=== PATIENT | female | born 1960 | race Caucasian/White ===

== ENCOUNTER 2019-05-11 06:02 | Outpatient (RCR) | payer MEDICAID, SELFPAY | END 2019-05-26 00:01 | LOC: ONCMED 06:02 | PROVIDERS: Family Provider Family Medicine; Visit Provider Internal Medicine Hematology & Oncology | DX: Z51.12 Encounter for antineoplastic immunotherapy (principal); C34.11 Malignant neoplasm of upper lobe, right bronchus or lung; C79.31 Secondary malignant neoplasm of brain; C77.1 Secondary and unspecified malignant neoplasm of intrathoracic lymph nodes; R55 Syncope and collapse; R44.3 Hallucinations, unspecified; J44.9 Chronic obstructive pulmonary disease, unspecified; F17.200 Nicotine dependence, unspecified, uncomplicated; Z79.899 Other long term (current) drug therapy; Z95.828 Presence of other vascular implants and grafts ==

== ENCOUNTER 2019-06-24 05:44 | Outpatient (RCR) | payer MEDICAID, SELFPAY ==
[2019-06-03 08:25] LABS: Basophils % 0.2 %; Hematocrit 33.1 % (37.0-47.0); Hemoglobin 10.7 g/dL (11.5-15.3); Lymphocytes # 1.3 10^3/uL (0.8-4.8); Lymphocytes % 24.8 %; Mean Corpuscular HGB Conc 32.3 g/dL (30.0-36.0); Mean Corpuscular Hemoglobin 28.6 pg (28.0-34.0); Mean Corpuscular Volume 88.5 fL (81-99); Mean Platelet Volume 8.5 fL (7.4-10.4); Monocytes # 0.8 10^3/uL (0.2-0.9); Monocytes % 14.8 %; Neutrophils # 3.1 10^3/uL (1.8-7.7); Neutrophils % 59.4 %; Nucleated Red Blood Cells % 0 %; Platelet Count 254 10^3/cmm (130-400); Red Blood Count 3.74 10^6/uL (4.1-5.3); Red Cell Distribution Width 21.2 % (12.1-15.1); White Blood Count 5.2 10^3/uL (4.0-10.0)
[2019-06-03 08:46] LABS: Alanine Aminotransferase 46 U/L (0-33); Albumin Level 4.2 g/dL (3.5-5.2); Alkaline Phosphatase 106 IU/L (35-105); Aspartate Amino Transferase 35 U/L (0-32); Blood Urea Nitrogen 3 mg/dL (6-20); Calcium 10.1 mg/Dl (8.6-10.0); Carbon Dioxide 23 mmol/L (22-29); Chloride 103 mmol/L (98-107); Globulin 2.6 g/dL (1.3-4.6); Glomerular Filtration Rate 102.7 mL/min (90-130); Glucose 137 mg/dL (74-109); Sodium 139 mmol/L (136-145); Total Bilirubin 0.3 mg/dL (0.15-1.2); Total Protein 6.8 g/dL (6.6-8.7)
--- NOTE | 2019-06-08 10:49 | ONC FU_ITS ---
[facility] Patient Note Patient: Alma Deleon Unit #: [id number]: [id number] Dictated By: Elly HarrisDate of Visit: Jun 03, 2019 Onc MED Follow-Up/Prog Note Chief Complaint: Metastatic adenocarcinoma of the lung History of Present Illness: Mrs. Deleon is a 58-year-old female with history of progressive cough. She underwent evaluation on July 07, [address] scan of chest. It reported bilateral upper lobe masses: the mass on right side was 5.9 x 4.1 x 4.9 cm and on the left side was 4.6 x 2.8 x 2.8 cm. On 11/14/2018 patient underwent EBUS , which showed there was 90% narrowing of right upper lobe bronchus due to extensive compression, and right-sided mediastinal and hilar lymph node were enlarged and endobronchial right upper lobe and lymph node biopsies were obtained final pathology report came back poorly differentiated adenocarcinoma consistent with lung primary from right upper lobe endobronchial biopsy. And both lymph node biopsies were negative. Molecular profiling which include EGFR, ALK, ROS 1, PDL 1 and BRAF were done and it showed PDL 1 was 95% tumor cells are positive membranous positivity and rest of molecular profiling was unremarkable. Staging workup including CT PET scan and MRI brain was obtained. The CT PET scan on 12/04/2018 showed hypermetabolic centrally necrotic mass within the right upper lobe abutting adjacent pleura, major fissure, and mediastinum with tumor extension into the right superior hilum, with SUV of 13. Additional centrally necrotic hypermetabolic mass in the left upper lobe with a SUV of 20.9, abutting the adjacent pleura and left major fissure and AP window lymph nodes consistent with elfego metastatic disease. No hypermetabolic metastasis in neck abdomen or pelvis. MRI brain showed 5 mm lesions in the left temporal lobe, and left parietal lobe with mild adjacent edema. Mrs Deleon underwent CyberKnife on 01/02/2019. She was offered palliative chemotherapy plus immunotherapy. She declined and she was also referred to radiation oncology for her right-sided chest pain radiating to her neck and patient declined. With tumor being PDL 1 positive, role of immunotherapy with Keytruda was discussed and patient was willing to consider but then decided to come to [facility] for further management. Ms Deleon still smokes about pack a day and has history of smoking for 30-40 years, denies alcohol use. She is still smoking about pack a day AGAINST MEDICAL ADVICE. Ms Deleon started her first cycle of chemotherapy with carboplatin/Alimta/Keytruda on March 09, 2019. She is tolerated it well. Her second cycle was given on March 30, 2019. She states since then she is feeling so much better her breathing is so much better. She states it is amazing how much better she is breathing and how much better she feels overall. Ms. Deleon is here today for follow-up. She was scheduled to see Dr. Soares but unfortunately he was out sick today. Therefore, I spoke with her regarding her PET CT from 05/16/2019. Per the report from 05/16/2019 there was no comparison image available for comparison. We will call [facility] radiology and request over read as she did have a PET CT in November 2018. This PET CT was NOT performed at [facility]. We will obtain the disc and have it sent to them for an over read for comparison. However in the interim just comparison of report indicates that the right upper lobe mass now measuring 5.8 x 3.3 cm with a peripheral uptake of SUV 4.6 was reported as 5.4 x 7.5 x 7 cm with an SUV of 30.6 on the November 2018 study. A left upper lobe mass measuring 5.2 x 6.4 cm on the current study with an SUV of 7.6 was compared to the November study at which time it measured 5.9 x 6.6 x 5 point centimeters with an SUV of 20.9. There is a solid right middle lobe nodule measuring 1.8 x 2.5 cm with SUV of 5.4 and small scattered mediastinal nodes demonstrating minimal FDG uptake although this may be reactive, although micrometastatic disease cannot be excluded. I discussed these findings with Mrs. Deleon and informed her that these are just report comparisons. We will request [facility] to re-read her 05/16/2019 study for comparison with the PET/CT from November 2018. However in the interim the SUV activity has greatly improved and there has been reported decrease in size of the tumors. She has completed 4 cycles of carboplatin Alimta and Keytruda. She states she is in the understanding that she would only complete 4 cycles of the actual chemotherapy and transition to just the immunotherapy. We discussed that I felt there has been improvement in the activity reported on the PET CT from April 2019. We will have Dr. Soares review her report and hopefully by then the comparison will be available. She is aware that he may elect to resume her actual chemotherapy along with the Keytruda but for today we will treat her only with the Keytruda. She states she continues to do well. Her breathing is doing great . She has no new concerns. Mrs. Deleon reports that she continues to have persistent hoarseness. She states her throat really does not hurt but her voice comes and goes. She states most the time it is very limited. She denies any pain per se with the hoarseness. She states it is just aggravating. She reports that the hoarseness has been there since before her initial chemotherapy but has not gotten any better. There are no abnormal findings in the throat/neck area on her recent PET CT from 05/16/2019. She states she would like to know why she is having hoarseness that this is a side effect of the chemotherapy if there is some other issue. She is agreeable to seeing Dr. Gamez in ENT. She states she is eating good. Energy is good. She denies any diarrhea or constipation. She has had no signs of any pneumonitis or colonitis. She denies any nausea or vomiting. She has had no further episodes of the near syncope/hallucinations reported at last visit. Her ECOG is 0. Past Medical History: Ms. Deleon's medical history is unremarkable. Past Surgical History: Ms. Deleon's surgical history is unremarkable. Allergies: Penicillin Medications: Albuterol Sulfate HFA Aerosol, solution Inhalation PRN Dexamethasone (4 mg) Tablet Oral b.i.d. diphenhydrAMINE HCl 1 - 2 Capsule (of 25 mg) Oral daily Folic Acid 1 (1 mg) Tablet Oral daily HYDROcodone-Acetaminophen 1 Tablet (of 5-325 mg) Oral four times a day Spiriva HandiHaler 1 (18 mcg) Capsule Inhalation daily Family History: pt was raised in the foster care. Social History: Ms. Deleon is and she is a disabled. She is a daily smoker who has smoked 0.5 packs/day for 40 years. She has no history of drinking. Review Of Symptoms: Constitutional Denies fevers, chills, night sweats, excessive fatigue or weight loss. Allergic/Immunologic No reactions. Eyes Denies significant visual changes. No diplopia. No amaurosis. ENMT Denies changes in hearing, mouth sores, difficulty or changes in swallowing ability. She is still having hoarseness-see above. Hematologic/Lymphatic Denies easy bruising or bleeding. The patient denies any tender or palpable lymph nodes. Respiratory Dramatically improved dyspnea on exertion. Denies chest pain, cough or hemoptysis. Denies orthopnea. Cardiovascular Denies anginal chest pain, palpitations or orthopnea. Gastrointestinal Denies nausea, vomiting, diarrhea, GI bleeding, or constipation. Denies change in bowel habits and/or stool color, no heartburn or early satiety. Genitourinary (F) No hematuria, hesitancy, incontinence, vaginal bleeding, discharge or other problems with urination. Musculoskeletal Denies joint pain, swelling or redness. No decreased range of motion. Integumentary Denies chronic rashes, inflammation, ulcerations or skin changes. Neurologic Denies blurred vision, and no areas of focal weakness or numbness. Normal gait. No sensory problems. Psychiatric Denies insomnia, depression, fran or mood swings. Vital Signs: Performed on Jun 03, 2019 09:30 Height - 63.00 in Temperature - 98.7 F Pulse - 78 /min Respiration - 18 /min BP - 127/87 mm(hg) O2 Sat - 99 % Pain - 0 Fatigue - 0,0 - Fully active, able to carry on all predisease activities without restrictions. (ECOG) Physical Examination: Constitutional Alert, oriented, no acute distress. Skin pink, warm and dry. Head Normocephalic; atraumatic. Eyes Conjunctivae and sclerae are clear and without icterus. Pupils are reactive and equal. Neck Supple without masses or thyromegaly. No jugular venous distension. Hematologic/Lymphatic No petechiae or purpura. No tender or palpable lymph nodes in the cervical or supraclavicular areas. Slight bilateral mandibular area adenopathy. Respiratory Lungs are clear to auscultation. Cardiovascular Regular rate and rhythm of heart without murmurs,clicks, gallops or rubs. Back/Spine Non-tender to palpation. Extremities No visible deformities, no cyanosis, clubbing or edema. Musculoskeletal No tenderness or swelling, normal range of motion without obvious weakness. Integumentary No rashes or lesions. Neurologic No sensory or motor deficits, normal cerebellar function, normal gait. Psychiatric Alert and oriented times three. Coherent speech. Verbalizes understanding of our discussions today. Laboratory:Test performed on Jun 03, 2019 08:52 Glucose 137 mg/dL BUN 3 mg/dL Creatinine 0.6 mg/dL Cr Clearance (Est) 90.31 mL/min Sodium 139 mmol/L Potassium 4 mmol/L Chloride 103 mmol/L CO2 103 mmol/L Calcium 10.1 mg/dL Protein, Total 5.8 g/dL Albumin 4.2 g/dL Globulin 2.6 g/dL Bilirubin, Total 0.3 mg/dL Alkaline Phosphatase 106 IU/L AST (SGOT) 35 IU/L ALT (SGPT) 46 IU/L Test performed on Jun 03, 2019 08:38 WBC 5.2 10^9/L RBC 3.74 10^12/L HGB 10.7 g/dL HCT 33.1 % MCV 88.5 fl MCH 26.6 pg MCHC 32.2 g/dL RDW 21.2 % Platelet Count 254 10^9/L MPV 8.5 fL Neutrophils (Gran) 3.1 10^9/L Lymphocytes 1.3 10^9/L Monocytes 0.8 10^9/L Eosinophils 0 10^9/L Basophils 0 10^9/L Manual Lymphocytes 24.8 % Manual Monocytes 14.8 % Manual Eosinophils 0 % Manual Basophils 0.2 % Atypical Lymphs 1.3 % Test performed on Apr 20, 2019 09:35 TSH 0.50 uIU/mL Impression: Stage IV, 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 Next Stage IV, M1 a due to separate tumor nodule in the contralateral lobe and brain metastases 5 mm ???[address] PET scan done on 12/04/2018 showed hypermetabolic centrally necrotic mass within the right upper lobe abutting adjacent pleura, major fissure and mediastinum with tumor extension into right superior hilum. Additional centrally necrotic hypermetabolic mass within left upper lobe abutting the adjacent pleura and left major fissure with tumor extension to the left superior hilum. Hypermetabolic right hilar, precarinal, and AP window lymph nodes consistent with a node metastases. No hypermetabolic metastasis within the neck, abdomen or pelvis. MRI scan of the head showed 5 mm ???2 lesion status post CyberKnife on 01/02/2019. Active smoker AGAINST MEDICAL ADVICE; COPD Ms. Deleon began her first cycle of carbo Alimta Keytruda on March 09, 2019. She is tolerated it well thus far. She states that after the second cycle of chemotherapy her breathing is so much better that is amazing . She states that she is now breathing through her nose when she is sleeping and that is something she has not done in years. She states overall she is feeling so much better. I spoke with her regarding her PET CT from 05/16/2019. Per the report from 05/16/2019 there was no comparison image available for comparison. We will call [facility] radiology and request over read as she did have a PET CT in November 2018. This PET CT was NOT performed at [facility]. We will obtain the disc and have it sent to them for an over read for comparison. However in the interim just comparison of report indicates that the right upper lobe mass now measuring 5.8 x 3.3 cm with a peripheral uptake of SUV 4.6 was reported as 5.4 x 7.5 x 7 cm with an SUV of 30.6 on the November 2018 study. A left upper lobe mass measuring 5.2 x 6.4 cm on the current study with an SUV of 7.6 was compared to the November study at which time it measured 5.9 x 6.6 x 5 point centimeters with an SUV of 20.9. There is a solid right middle lobe nodule measuring 1.8 x 2.5 cm with SUV of 5.4 and small scattered mediastinal nodes demonstrating minimal FDG uptake although this may be reactive, although micrometastatic disease cannot be excluded. I discussed these findings with Mrs. Deleon and informed her that these are just report comparisons. We will request [facility] to re-read her 05/16/2019 study for comparison with the PET/CT from November 2018. However in the interim the SUV activity has greatly improved and there has been reported decrease in size of the tumors. She has completed 4 cycles of carboplatin Alimta and Keytruda. She states she is in the understanding that she would only complete 4 cycles of the actual chemotherapy and transition to just the immunotherapy. We discussed that I felt there has been improvement in the activity reported on the PET CT from April 2019. Plan: 1. Proceed with single agent pallitative treatment with pembrolizumab today. 2. Labs from today were reviewed in detail and discussed with Ms. Payne and a copy was given to her. WBC 5.2, hemoglobin 10.7, platelets 254,000 ANC is 3100 random glucose 137 creatinine 0.6 LFTs are normal alk phos is 106. 3. We will plan referral to Dr. Gamez in ENT for evaluation of persistent hoarseness. She reports she has had hoarseness all through treatment and is not getting any better. She states that time she has no voice at all. She states some days are better than others but in general it is not gotten any better and may be somewhat worse. She denies any trouble swallowing. She denies any throat pain per se. She has had no abnormal findings on limited oral exam. She has not had any formal scoping that I am aware of. 4. We will plan to see her back in 3 weeks with CBC, CMP and TSH for immunotherapy monitoring. 5. Ms. Deleon has been instructed to contact us in the interim should questions or problems arise. Signed By: Elly Harris-ROXIE, AOGAVINP Rukhsana Soares MD <<Signature on File>>
[2019-06-24 11:28] LABS: Basophils % 0.1 %; Eosinophils % 0.1 %; Hematocrit 39.8 % (37.0-47.0); Hemoglobin 13.5 g/dL (11.5-15.3); Lymphocytes # 1.2 10^3/uL (0.8-4.8); Lymphocytes % 8.9 %; Mean Corpuscular HGB Conc 33.9 g/dL (30.0-36.0); Mean Corpuscular Hemoglobin 30.3 pg (28.0-34.0); Mean Corpuscular Volume 89.2 fL (81-99); Monocytes # 0.4 10^3/uL (0.2-0.9); Monocytes % 2.9 %; Neutrophils # 12.1 10^3/uL (1.8-7.7); Neutrophils % 87.6 %; Nucleated Red Blood Cells % 0 %; Platelet Count 284 10^3/cmm (130-400); Red Blood Count 4.46 10^6/uL (4.1-5.3); Red Cell Distribution Width 15.5 % (12.1-15.1); White Blood Count 13.8 10^3/uL (4.0-10.0)
[2019-06-24 11:54] LABS: Alanine Aminotransferase 65 U/L (0-33); Alkaline Phosphatase 112 IU/L (35-105); Anion Gap 18.9 (5-19); Aspartate Amino Transferase 37 U/L (0-32); Blood Urea Nitrogen 6 mg/dL (6-20); Calcium 10.3 mg/dL (8.5-10.5); Carbon Dioxide 24 mmol/L (22-29); Chloride 100 mmol/L (98-107); Globulin 3.8 g/dL (1.3-4.6); Glomerular Filtration Rate 85.9 mL/min (90-130); Glucose 160 mg/dL (74-109); Potassium 3.9 mmol/L (3.5-5.1); Sodium 139 mmol/L (136-145); Thyroid Stimulating Hormone 0.18 uIU/mL (0.27-4.20); Total Bilirubin 0.4 mg/dL (0.15-1.2); Total Protein 7.8 g/dL (6.6-8.7)
--- NOTE | 2019-06-24 14:36 | ONC FU_ITS ---
Dr. Soares follow up note Patient: Alma Deleon Unit #: [id number]: 1960 Dicatated By: Rukhsana Soares M.D.Date of Visit:Jun 24, 2019 Onc Med Follow-up/Prog Note History of Present Illness: Mrs. Deleon is a 58-year-old female with history of progressive cough. She underwent evaluation on July 07, [address] scan of chest. It reported bilateral upper lobe masses: the mass on right side was 5.9 x 4.1 x 4.9 cm and on the left side was 4.6 x 2.8 x 2.8 cm. On 11/14/2018 patient underwent EBUS , which showed there was 90% narrowing of right upper lobe bronchus due to extensive compression, and right-sided mediastinal and hilar lymph node were enlarged and endobronchial right upper lobe and lymph node biopsies were obtained final pathology report came back poorly differentiated adenocarcinoma consistent with lung primary from right upper lobe endobronchial biopsy. And both lymph node biopsies were negative. Molecular profiling which include EGFR, ALK, ROS 1, PDL 1 and BRAF were done and it showed PDL 1 was 95% tumor cells are positive membranous positivity and rest of molecular profiling was unremarkable. Staging workup including CT PET scan and MRI brain was obtained. The CT PET scan on 12/04/2018 showed hypermetabolic centrally necrotic mass within the right upper lobe abutting adjacent pleura, major fissure, and mediastinum with tumor extension into the right superior hilum, with SUV of 13. Additional centrally necrotic hypermetabolic mass in the left upper lobe with a SUV of 20.9, abutting the adjacent pleura and left major fissure and AP window lymph nodes consistent with elfego metastatic disease. No hypermetabolic metastasis in neck abdomen or pelvis. MRI brain showed 5 mm lesions in the left temporal lobe, and left parietal lobe with mild adjacent edema. Mrs Deleon underwent CyberKnife on 01/02/2019. She was offered palliative chemotherapy plus immunotherapy. She declined and she was also referred to radiation oncology for her right-sided chest pain radiating to her neck and patient declined. With tumor being PDL 1 positive, role of immunotherapy with Keytruda was discussed and patient was willing to consider but then decided to come to [place] for further management. Ms Deleon still smokes about pack a day and has history of smoking for 30-40 years, denies alcohol use. She is still smoking about pack a day AGAINST MEDICAL ADVICE. Ms Deleon started her first cycle of chemotherapy with carboplatin/Alimta/Keytruda on March 09, 2019. She is tolerated it well. Her second cycle was given on March 30, 2019. She states since then she is feeling so much better her breathing is so much better. She states it is amazing how much better she is breathing and how much better she feels overall. Per the report from 05/16/2019 there was no comparison image available for comparison. We will call [facility] radiology and request over read as she did have a PET CT in November 2018. comparison of report indicates that the right upper lobe mass now measuring 5.8 x 3.3 cm with a peripheral uptake of SUV 4.6 was reported as 5.4 x 7.5 x 7 cm with an SUV of 13 on the November 2018 study. A left upper lobe mass measuring 5.2 x 6.4 cm on the current study with an SUV of 7.6 was compared to the November study at which time it measured 5.9 x 6.6 x 5 point centimeters with an SUV of 20.9. There is a solid right middle lobe nodule measuring 1.8 x 2.5 cm with SUV of 5.4 and small scattered mediastinal nodes demonstrating minimal FDG uptake although this may be reactive, although micrometastatic disease cannot be excluded. her 05/16/2019 study for comparison with the PET/CT from November 2018. However in the interim the SUV activity has greatly improved and there has been reported decrease in size of the tumors. She has completed 4 cycles of carboplatin Alimta and Keytruda. Came for follow-up, denies any specific complaint except off and on hoarseness of voice for which she is supposed to see Dr. Gamez ENT, today at 3:30 PM other than that no fever or chills no nausea or vomiting no hemoptysis hematemesis, no shortness of breath no chest pain, no new bony pains, no headaches blurred vision double vision, no hallucinations. Patient so smoke about pack a day. Tolerating palliative therapy with carboplatin/Alimta/Keytruda well but with expected side effects. Medications: Albuterol Sulfate HFA Aerosol, solution Inhalation PRN, Benzonatate 1 Capsule (of 200 mg) Oral 6x/d, Dexamethasone (4 mg) Tablet Oral b.i.d., Folic Acid 1 (1 mg) Tablet Oral daily, HYDROcodone-Acetaminophen 1 Tablet (of 5-325 mg) Oral four times a day, Spiriva HandiHaler 1 (18 mcg) Capsule Inhalation daily Allergies: Penicillin Review of Systems: Constitutional - Appetite is fair and weight is stable. No fever, chills, hot flashes, or night sweats. Energy level is fair, ENMT - Positive for sinus congestion/drainage. No mouth sores. Positive for sore throat, no difficulty swallowing, Hematologic/Lymphatic - No abnormal bruising or bleeding, Respiratory - Positive for shortness of breath. No cough. No pleuritic pain or hemoptysis, Cardiovascular - No angina pain. No palpitations, Gastrointestinal - No nausea or vomiting. No heartburn or acid reflux. No diarrhea or constipation. No blood in the stool or black stools, Genitourinary (F) - No dysuria or hematuria. No urinary frequency. Positive for urgency, no incontinence, Musculoskeletal - Positive for back pain, Neurologic - No headache or dizziness. Pt reports a recent blackout/memory loss incident. She is unable to recall several hours worth of events, Psychiatric - Positive for depression, anxiety and insomnia. Vital Signs: Performed on Jun 24, 2019 13:02 Height - 63.00 in Weight - 136.0 lbs (HIGH) BSA - 1.64 sq.m BMI - 24.09 Temperature - 97.9 F (LOW) Pulse - 92 /min Respiration - 20 /min BP - 143/78 mm(hg) (HIGH) O2 Sat - 99 % Pain - 0 Performance Status: 1 - No physically strenuous activity, but ambulatory and able to carry out light or sedentary work (e.g. office work, light house work). (ECOG) Physical Examination: ENMT - No oral exudates, ulcers, masses, thrush or mucositis. Oropharynx clear. Tongue normal, Respiratory - Lungs are clear to auscultation without rhonchi or wheezing, Cardiovascular - Regular rate and rhythm of heart, Abdomen - Non-tender, non-distended, Good bowel sounds. No guarding or rebound tenderness. No pulsatile masses, Extremities - no edema. Lab/Imaging: Test performed on Jun 03, 2019 08:52 Glucose 137 mg/dL BUN 3 mg/dL Creatinine 0.6 mg/dL Cr Clearance (Est) 90.31 mL/min Sodium 139 mmol/L Potassium 4 mmol/L Chloride 103 mmol/L CO2 103 mmol/L Calcium 10.1 mg/dL Protein, Total 5.8 g/dL Albumin 4.2 g/dL Globulin 2.6 g/dL Bilirubin, Total 0.3 mg/dL Alkaline Phosphatase 106 IU/L AST (SGOT) 35 IU/L ALT (SGPT) 46 IU/L Test performed on Jun 03, 2019 08:38 WBC 5.2 10^9/L RBC 3.74 10^12/L HGB 10.7 g/dL HCT 33.1 % MCV 88.5 fl MCH 26.6 pg MCHC 32.2 g/dL RDW 21.2 % Platelet Count 254 10^9/L MPV 8.5 fL Neutrophils (Gran) 3.1 10^9/L Lymphocytes 1.3 10^9/L Monocytes 0.8 10^9/L Eosinophils 0 10^9/L Basophils 0 10^9/L Manual Lymphocytes 24.8 % Manual Monocytes 14.8 % Manual Eosinophils 0 % Manual Basophils 0.2 % Atypical Lymphs 1.3 % Test performed on Jun 03, 2019 08:15 Neutrophil % 0.0 % Test performed on May 11, 2019 10:38 Anion Gap 17.0 eGFR 126.7 mL/min Lymphocyte % 16.5 % Monocyte % 8.5 % Eosinophil % 0.1 % Basophils % 0.3 % Test performed on Apr 20, 2019 09:35 TSH 0.50 uIU/mL Impression: Stage IV, 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 Next Stage IV, M1 a due to separate tumor nodule in the contralateral lobe and brain metastases 5 mm ???[address] PET scan done on 12/04/2018 showed hypermetabolic centrally necrotic mass within the right upper lobe abutting adjacent pleura, major fissure and mediastinum with tumor extension into right superior hilum. Additional centrally necrotic hypermetabolic mass within left upper lobe abutting the adjacent pleura and left major fissure with tumor extension to the left superior hilum. Hypermetabolic right hilar, precarinal, and AP window lymph nodes consistent with a node metastases. No hypermetabolic metastasis within the neck, abdomen or pelvis. MRI scan of the head showed 5 mm ???2 lesion status post CyberKnife on 01/02/2019. Active smoker AGAINST MEDICAL ADVICE; COPD Ms. Deleon began her first cycle of carbo Alimta Keytruda on March 09, 2019. She is tolerated it well thus far. She states that after the second cycle of chemotherapy her breathing is so much better that is amazing . She states that she is now breathing through her nose when she is sleeping and that is something she has not done in years. She states overall she is feeling so much better. regarding her PET CT from 05/16/2019. she did have a PET CT in November 2018. This PET CT was NOT performed at [facility] in the interim just comparison of report indicates that the right upper lobe mass now measuring 5.8 x 3.3 cm with a peripheral uptake of SUV 4.6 was reported as 5.4 x 7.5 x 7 cm with an SUV of 13 on the November 2018 study. A left upper lobe mass measuring 5.2 x 6.4 cm on the current study with an SUV of 7.6 was compared to the November study at which time it measured 5.9 x 6.6 x 5 point centimeters with an SUV of 20.9. There is a solid right middle lobe nodule measuring 1.8 x 2.5 cm with SUV of 5.4 and small scattered mediastinal nodes demonstrating minimal FDG uptake although this may be reactive, although micrometastatic disease cannot be excluded. Plan: Discussed with patient regarding her labs white blood count 13.8 hemoglobin 13.6 hematocrit 39.8 platelets 264,000 CMP within normal limit except ALT 66 AST 37 and TSH 0.18 Clinically, patient is doing well, tolerating palliative therapy with carboplatin/Alimta/Keytruda well and her follow-up CT PET scan showed good response to the treatment and discussed with patient regarding further treatment plans earlier plan was to give him 4 cycles of chemotherapy along with immunotherapy but her follow-up PET scan shows good response no evidence of distance metastases in that case we will consider continue with same regimen e.g. carboplatin/Alimta/Keytruda for 3 more cycles and followed by CT PET scan and if it shows further improvement and then plan accordingly on the other hand if it shows persistent disease or stable disease then will consider switching her to maintenance therapy with Keytruda alone. Patient expressed full understanding and she will return to clinic in 1 week to proceed with next cycle of chemotherapy e.g. carboplatin/Alimta/Keytruda. Patient will see Dr. Gamez, ENT today for evaluation for off and on hoarseness of voice. We will also consider refer her to pulmonology for evaluation. Patient was advised to quit smoking and was offered any assistance she may need. Signed By: Rukhsana Soares M.D. <<Signature on File>>
== END 2019-06-26 23:59 | disposition home or self-care (01) ==
LOC: ONCMED 05:44
PROVIDERS: Family Provider Family Medicine; PCP Family Medicine; Visit Provider Internal Medicine Hematology & Oncology
DX: Z51.12 Encounter for antineoplastic immunotherapy (principal); C34.11 Malignant neoplasm of upper lobe, right bronchus or lung; C77.1 Secondary and unspecified malignant neoplasm of intrathoracic lymph nodes; C79.31 Secondary malignant neoplasm of brain; F17.210 Nicotine dependence, cigarettes, uncomplicated; J44.9 Chronic obstructive pulmonary disease, unspecified; R49.0 Dysphonia; Z79.891 Long term (current) use of opiate analgesic; Z79.52 Long term (current) use of systemic steroids; Z79.51 Long term (current) use of inhaled steroids; Z92.3 Personal history of irradiation; J38.3 Other diseases of vocal cords; J34.2 Deviated nasal septum
CPT/HCPCS: 31575; 36591; 80053; 84443; 85025; 90471; 90686; 96413; 99214; A4222; J7050; J9045; J9271

== ENCOUNTER 2019-07-22 05:39 | Outpatient (RCR) | payer MEDICAID, SELFPAY ==
[2019-07-01 08:43] LABS: Basophils % 0.1 %; Eosinophils % 0.1 %; Hematocrit 40.6 % (37.0-47.0); Hemoglobin 13.6 g/dL (11.5-15.3); Lymphocytes # 1.6 10^3/uL (0.8-4.8); Lymphocytes % 11.5 %; Mean Corpuscular HGB Conc 33.5 g/dL (30.0-36.0); Mean Corpuscular Hemoglobin 30.1 pg (28.0-34.0); Mean Corpuscular Volume 89.8 fL (81-99); Monocytes # 0.8 10^3/uL (0.2-0.9); Monocytes % 5.5 %; Neutrophils # 11.6 10^3/uL (1.8-7.7); Neutrophils % 82.1 %; Nucleated Red Blood Cells % 0 %; Platelet Count 260 10^3/cmm (130-400); Red Blood Count 4.52 10^6/uL (4.1-5.3); White Blood Count 14.1 10^3/uL (4.0-10.0)
[2019-07-01 09:01] LABS: Alanine Aminotransferase 39 U/L (0-33); Albumin Level 4.4 g/dL (3.5-5.2); Alkaline Phosphatase 110 IU/L (35-105); Anion Gap 15.3 (5-19); Aspartate Amino Transferase 28 U/L (0-32); Blood Urea Nitrogen 12 mg/dL (6-20); Carbon Dioxide 23 mmol/L (22-29); Chloride 103 mmol/L (98-107); Glomerular Filtration Rate 85.9 mL/min (90-130); Glucose 123 mg/dL (65-115); Potassium 4.3 mmol/L (3.5-5.1); Sodium 137 mmol/L (136-145); Total Bilirubin 0.4 mg/dL (0.15-1.2); Total Protein 7.4 g/dL (6.6-8.7)
[2019-07-01] MEDS: sodium chloride 0.9% 250 ML 999 ML IV (11:05)
[2019-07-01] MEDS: LORazepam 2 mg/mL INJ 1 mL 0.5 MG IV (11:06)
[2019-07-01] MEDS: cyanocobalamin 1,000 mcg/mL SDV 1000 MCG SUBCUT (14:30)
[2019-07-22 09:42] LABS: Basophils % 0.2 %; Eosinophils % 0.2 %; Hematocrit 39.2 % (37.0-47.0); Hemoglobin 13.5 g/dL (11.5-15.3); Lymphocytes # 1.1 10^3/uL (0.8-4.8); Mean Corpuscular HGB Conc 34.4 g/dL (30.0-36.0); Mean Corpuscular Hemoglobin 30.6 pg (28.0-34.0); Mean Corpuscular Volume 88.9 fL (81-99); Mean Platelet Volume 9.2 fL (7.4-10.4); Monocytes # 0.4 10^3/uL (0.2-0.9); Monocytes % 6.3 %; Neutrophils % 76.7 %; Nucleated Red Blood Cells % 0 %; Platelet Count 216 10^3/cmm (130-400); Red Blood Count 4.41 10^6/uL (4.1-5.3); Red Cell Distribution Width 13.2 % (12.1-15.1); White Blood Count 6.6 10^3/uL (4.0-10.0)
[2019-07-22 10:08] LABS: Alanine Aminotransferase 32 U/L (0-33); Albumin Level 4.2 g/dL (3.5-5.2); Alkaline Phosphatase 111 IU/L (35-105); Aspartate Amino Transferase 24 U/L (0-32); Blood Urea Nitrogen 5 mg/dL (6-20); Calcium 10.2 mg/dL (8.5-10.5); Carbon Dioxide 24 mmol/L (22-29); Chloride 102 mmol/L (98-107); Globulin 3.4 g/dL (1.3-4.6); Glomerular Filtration Rate 102.7 mL/min (90-130); Glucose 124 mg/dL (65-115); Sodium 139 mmol/L (136-145); Total Bilirubin 0.4 mg/dL (0.15-1.2); Total Protein 7.6 g/dL (6.6-8.7)
--- NOTE | 2019-07-22 13:19 | ONC FU_ITS ---
Dr. Soares follow up note Patient: Alma Deleon Unit #: [id number]: 1960 Dicatated By: Rukhsana Soares M.D.Date of Visit:Jul 22, 2019 Onc Med Follow-up/Prog Note History of Present Illness: Mrs. Deleon is a 58-year-old female with history of progressive cough. She underwent evaluation on July 07, [address] scan of chest. It reported bilateral upper lobe masses: the mass on right side was 5.9 x 4.1 x 4.9 cm and on the left side was 4.6 x 2.8 x 2.8 cm. On 11/14/2018 patient underwent EBUS , which showed there was 90% narrowing of right upper lobe bronchus due to extensive compression, and right-sided mediastinal and hilar lymph node were enlarged and endobronchial right upper lobe and lymph node biopsies were obtained final pathology report came back poorly differentiated adenocarcinoma consistent with lung primary from right upper lobe endobronchial biopsy. And both lymph node biopsies were negative. Molecular profiling which include EGFR, ALK, ROS 1, PDL 1 and BRAF were done and it showed PDL 1 was 95% tumor cells are positive membranous positivity and rest of molecular profiling was unremarkable. Staging workup including CT PET scan and MRI brain was obtained. The CT PET scan on 12/04/2018 showed hypermetabolic centrally necrotic mass within the right upper lobe abutting adjacent pleura, major fissure, and mediastinum with tumor extension into the right superior hilum, with SUV of 13. Additional centrally necrotic hypermetabolic mass in the left upper lobe with a SUV of 20.9, abutting the adjacent pleura and left major fissure and AP window lymph nodes consistent with elfego metastatic disease. No hypermetabolic metastasis in neck abdomen or pelvis. MRI brain showed 5 mm lesions in the left temporal lobe, and left parietal lobe with mild adjacent edema. Mrs Deleon underwent CyberKnife on 01/02/2019. She was offered palliative chemotherapy plus immunotherapy. She declined and she was also referred to radiation oncology for her right-sided chest pain radiating to her neck and patient declined. With tumor being PDL 1 positive, role of immunotherapy with Keytruda was discussed and patient was willing to consider but then decided to come to [place] for further management. Ms Deleon still smokes about pack a day and has history of smoking for 30-40 years, denies alcohol use. She is still smoking about pack a day AGAINST MEDICAL ADVICE. Ms Deleon started her first cycle of chemotherapy with carboplatin/Alimta/Keytruda on March 09, 2019. She is tolerated it well. Her second cycle was given on March 30, 2019. She states since then she is feeling so much better her breathing is so much better. She states it is amazing how much better she is breathing and how much better she feels overall. Per the report from 05/16/2019 there was no comparison image available for comparison. We will call [facility] radiology and request over read as she did have a PET CT in November 2018. comparison of report indicates that the right upper lobe mass now measuring 5.8 x 3.3 cm with a peripheral uptake of SUV 4.6 was reported as 5.4 x 7.5 x 7 cm with an SUV of 13 on the November 2018 study. A left upper lobe mass measuring 5.2 x 6.4 cm on the current study with an SUV of 7.6 was compared to the November study at which time it measured 5.9 x 6.6 x 5 point centimeters with an SUV of 20.9. There is a solid right middle lobe nodule measuring 1.8 x 2.5 cm with SUV of 5.4 and small scattered mediastinal nodes demonstrating minimal FDG uptake although this may be reactive, although micrometastatic disease cannot be excluded. Dr Soares recently reviewed her 05/16/2019 PET/CT study for comparison with the PET/CT from November 2018. In the interim between studies, the SUV activity has greatly improved and there has been reported decrease in size of the tumors. She had completed 4 cycles of carboplatin Alimta and Keytruda. She received Keytruda only on 06/03/2019 as she stated she was only supposed to have four cycles of chemotherapy and then pursue maintenance with immunotherapy. Dr Soares was out of the office, so we elected just to do single agent Keytruda that day. had discussed continuing chemotherapy for 3 more cycles then repeat imaging. She has reluctantly agreed to try chemotherapy again. She states she understands why she needs it but is not looking forward to feeling washed out again. She has had consultation with Dr Gamez in ENT. She states he told her she has some scaring/calcifications/nodules on her voicebox. She states he has informed her that he can nip them right out of there . She states that he told her this is a simple procedure but the recovery she will have to be very adamant on following strict instructions. She states she feels that she can do this in put up with what ever she needs to get rid of the hoarseness so she quit sounding like a man . Came for follow-up, denies any specific complaints except persistent hoarseness of voice and went to see Dr. Gamez for follow-up and now surgical intervention is under consideration and patient is waiting for the schedule. Other than that no fever or chills no nausea or vomiting but generalized weakness and fatigue. Patient said last time she got dose of Ativan as premedication, it did relax her but she continued to feel drowsy for couple of days after the treatment. And now doesn't want take Ativan as premedication during chemotherapy. And also requesting to postpone chemotherapy for 1 week as she thinks she may have mild flu . Medications: Benzonatate 1 Capsule (of 200 mg) Oral 6x/d, Dexamethasone (4 mg) Tablet Oral b.i.d., Dexamethasone (4 mg) Tablet Oral Take as Directed, Folic Acid 1 (1 mg) Tablet Oral daily, HYDROcodone-Acetaminophen 1 Tablet (of 5-325 mg) Oral four times a day, Spiriva HandiHaler 1 (18 mcg) Capsule Inhalation daily, Tiotropium [place] Monohydrate 1 Puff(s) (of 2.5 mcg/act) Aerosol, solution Inhalation q 24 hours Allergies: Penicillin Review of Systems: Constitutional - Appetite is fair and weight is stable. No fever, chills, hot flashes, or night sweats. Energy level is fair, ENMT - Positive for sinus congestion/drainage. No mouth sores. Positive for sore throat, no difficulty swallowing, Hematologic/Lymphatic - No abnormal bruising or bleeding, Respiratory - Positive for shortness of breath. Positive for cough. No pleuritic pain or hemoptysis, Cardiovascular - No angina pain. No palpitations, Gastrointestinal - No nausea or vomiting. No heartburn or acid reflux. No diarrhea or constipation. No blood in the stool or black stools, Genitourinary (F) - No dysuria or hematuria. No urinary frequency. Positive for urgency, no incontinence, Musculoskeletal - Positive for back pain, Neurologic - No headache or dizziness, Psychiatric - Positive for depression, anxiety and insomnia. Vital Signs: Performed on Jul 22, 2019 10:29 Height - 63.00 in Weight - 138.0 lbs (LOW) BSA - 1.65 sq.m BMI - 24.45 Temperature - 98.4 F Pulse - 92 /min Respiration - 18 /min BP - 137/88 mm(hg) O2 Sat - 99 % Pain - 0 Performance Status: 0 - Fully active, able to carry on all predisease activities without restrictions. (ECOG) Physical Examination: ENMT - No oral exudates, ulcers, masses, thrush or mucositis. Oropharynx clear. Tongue normal, Respiratory - Lungs are clear to auscultation without rhonchi or wheezing, Cardiovascular - Regular rate and rhythm of heart, Abdomen - Non-tender, non-distended, Good bowel sounds. No guarding or rebound tenderness. No pulsatile masses, Extremities - no edema. Lab/Imaging: Test performed on Jul 22, 2019 10:13 Creatinine 0.6 mg/dL Cr Clearance (Est) 102.17 mL/min Test performed on Jul 01, 2019 08:30 Sodium 137 mmol/L Potassium 4.3 mmol/L Chloride 103 mmol/L CO2 23 mmol/L Anion Gap 15.3 BUN 12 mg/dL eGFR 85.9 mL/min Glucose 123 mg/dL Calcium 10.0 mg/dL Protein, Total 7.4 g/dL Albumin 4.4 g/dL Globulin 3.0 g/dL Bilirubin, Total 0.4 mg/dL ALT (SGPT) 39 U/L AST (SGOT) 28 U/L Alkaline Phosphatase 110 IU/L WBC 14.1 10 3/uL RBC 4.52 10 6/uL HGB 13.6 g/dL HCT 40.6 % MCV 89.8 fL MCH 30.1 pg MCHC 33.5 g/dL RDW 14.0 % Platelet Count 260 10 3/cmm MPV 9.0 fL Neutrophils 11.6 10 3/uL Lymphocytes 1.6 10 3/uL Monocytes 0.8 10 3/uL Eosinophils 0.0 10 3/uL Basophils 0.0 10 3/uL Neutrophil % 82.1 % Lymphocyte % 11.5 % Monocyte % 5.5 % Eosinophil % 0.1 % Basophils % 0.1 % Test performed on Jun 24, 2019 11:15 TSH 0.18 uIU/mL Test performed on Jun 03, 2019 08:38 Manual Lymphocytes 24.8 % Manual Monocytes 14.8 % Manual Eosinophils 0 % Manual Basophils 0.2 % Atypical Lymphs 1.3 % Impression: Stage IV, 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 Next Stage IV, M1 a due to separate tumor nodule in the contralateral lobe and brain metastases 5 mm ???[address] PET scan done on 12/04/2018 showed hypermetabolic centrally necrotic mass within the right upper lobe abutting adjacent pleura, major fissure and mediastinum with tumor extension into right superior hilum. Additional centrally necrotic hypermetabolic mass within left upper lobe abutting the adjacent pleura and left major fissure with tumor extension to the left superior hilum. Hypermetabolic right hilar, precarinal, and AP window lymph nodes consistent with a node metastases. No hypermetabolic metastasis within the neck, abdomen or pelvis. MRI scan of the head showed 5 mm ???2 lesion status post CyberKnife on 01/02/2019. Active smoker AGAINST MEDICAL ADVICE; COPD Ms. Deleon began her first cycle of carbo Alimta Keytruda on March 09, 2019. She is tolerated it well thus far. She states that after the second cycle of chemotherapy her breathing is so much better that is amazing . She states that she is now breathing through her nose when she is sleeping and that is something she has not done in years. She states overall she is feeling so much better. regarding her PET CT from 05/16/2019. she did have a PET CT in November 2018. This PET CT was NOT performed at [facility] in the interim just comparison of report indicates that the right upper lobe mass now measuring 5.8 x 3.3 cm with a peripheral uptake of SUV 4.6 was reported as 5.4 x 7.5 x 7 cm with an SUV of 13 on the November 2018 study. A left upper lobe mass measuring 5.2 x 6.4 cm on the current study with an SUV of 7.6 was compared to the November study at which time it measured 5.9 x 6.6 x 5 point centimeters with an SUV of 20.9. There is a solid right middle lobe nodule measuring 1.8 x 2.5 cm with SUV of 5.4 and small scattered mediastinal nodes demonstrating minimal FDG uptake although this may be reactive, although micrometastatic disease cannot be excluded. She has tolerated palliative therapy with carboplatin/Alimta/Keytruda well. Her follow-up CT PET scan from 04/2019 showed good response to the treatment. discussed with Ms Deleon further treatment plans. The plan earlier plan was to give her 4 cycles of chemotherapy along with immunotherapy and restage her. Her follow-up PET scan in April 2019 shows good response- no evidence of distance metastases, but not resolution of disease. In that case, She was encouraged to continue with same regimen e.g. carboplatin/Alimta/Keytruda for 3 more cycles and restage with CT PET scan. If it shows further improvement and her performance status is till good, she may need to continue full treatment; if on the other hand it shows stable disease then will consider switching her to maintenance therapy with Keytruda alone. Ms Deleon resumes Carboplatin/Alimta/Keytruda today. Plan: . Discussed with patient regarding her labs white blood count 6.6 and globin 13.5 crit 39.2 platelets 216,000 CMP within normal limits, TSH 0.2 compared to 0.18 on 06/24/2019. Clinically, patient is doing well, tolerating systemic chemotherapy with carboplatin/Alimta/Keytruda well but with expected side effects. Patient was due for treatment today but because of feeling weak and tired and thinks she mayhave mild flu,so wants to postpone chemotherapy for 1 week next Patient return to clinic in 1 week and if she is feeling better we'll consider next cycle of chemotherapy and will check her thyroid function test to rule out hyperthyroidism Signed By: Rukhsana Soares M.D. <<Signature on File>>
== END 2019-07-25 23:59 | disposition home or self-care (01) ==
LOC: ONCMED 05:39
PROVIDERS: Nurse Practitioner; Absent Provider Internal Medicine Hematology & Oncology; Family Provider Family Medicine; PCP Family Medicine; Visit Provider Internal Medicine Hematology & Oncology
DX: Z51.12 Encounter for antineoplastic immunotherapy (principal); Z51.11 Encounter for antineoplastic chemotherapy; C34.11 Malignant neoplasm of upper lobe, right bronchus or lung; C79.31 Secondary malignant neoplasm of brain; C77.1 Secondary and unspecified malignant neoplasm of intrathoracic lymph nodes; C78.02 Secondary malignant neoplasm of left lung; F17.210 Nicotine dependence, cigarettes, uncomplicated; J44.9 Chronic obstructive pulmonary disease, unspecified; Z79.51 Long term (current) use of inhaled steroids; Z79.899 Other long term (current) drug therapy; Z79.891 Long term (current) use of opiate analgesic; Z98.890 Other specified postprocedural states
CPT/HCPCS: 36591; 80053; 84443; 85025; 96367; 96372; 96375; 96413; 96417; 99214; J1100; J1200; J1453; J2060; J2405; J3420; J3490; J7050; J9045; J9271; J9305

== ENCOUNTER → 2019-08-04 13:57 | Outpatient (BNVA) | payer MEDICAID, SELFPAY | PROVIDERS: Family Provider Family Medicine; PCP Family Medicine; Visit Provider Otolaryngology | DX: R49.0 Dysphonia (principal); J38.3 Other diseases of vocal cords; J34.2 Deviated nasal septum; F17.210 Nicotine dependence, cigarettes, uncomplicated | CPT/HCPCS: 31575; 99214 ==

== ENCOUNTER 2019-08-12 14:00 | Outpatient (RCR) | payer MEDICAID, SELFPAY ==
[2019-07-29 08:50] LABS: Basophils % 0.2 %; Eosinophils % 0.2 %; Hematocrit 40.3 % (37.0-47.0); Hemoglobin 13.6 g/dL (11.5-15.3); Lymphocytes # 1.9 10^3/uL (0.8-4.8); Lymphocytes % 13.7 %; Mean Corpuscular HGB Conc 33.7 g/dL (30.0-36.0); Mean Corpuscular Hemoglobin 30.6 pg (28.0-34.0); Mean Corpuscular Volume 90.6 fL (81-99); Mean Platelet Volume 8.7 fL (7.4-10.4); Monocytes # 0.6 10^3/uL (0.2-0.9); Monocytes % 4.3 %; Neutrophils % 80.6 %; Nucleated Red Blood Cells % 0 %; Platelet Count 176 10^3/cmm (130-400); Red Blood Count 4.45 10^6/uL (4.1-5.3); Red Cell Distribution Width 12.9 % (12.1-15.1); White Blood Count 13.7 10^3/uL (4.0-10.0)
[2019-07-29 09:20] LABS: Alanine Aminotransferase 25 U/L (0-33); Albumin Level 4.1 g/dL (3.5-5.2); Alkaline Phosphatase 114 IU/L (35-105); Anion Gap 15.3 (5-19); Aspartate Amino Transferase 23 U/L (0-32); Blood Urea Nitrogen 7 mg/dL (6-20); Carbon Dioxide 25 mmol/L (22-29); Chloride 100 mmol/L (98-107); Free T4 Free Thyroxine 1.41 ng/dL (0.82-1.77); Globulin 2.8 g/dL (1.3-4.6); Glomerular Filtration Rate 85.9 mL/min (90-130); Glucose 158 mg/dL (65-115); Potassium 4.3 mmol/L (3.5-5.1); Sodium 136 mmol/L (136-145); Thyroid Stimulating Hormone 0.23 uIU/mL (0.27-4.20); Total Bilirubin 0.2 mg/dL (0.15-1.2); Total Protein 6.9 g/dL (6.6-8.7)
[2019-07-29 18:11] LABS: Free T4 Free Thyroxine 1.44 ng/dL (0.82-1.77); T3 Free 2.9 PG/ML (2.0-4.4)
--- NOTE | 2019-08-02 21:46 | ONC FU_ITS ---
[facility] Patient Note Patient: Alma Deleon Unit #: [id number]: 1960 Dictated By: Elly HarrisDate of Visit: Jul 29, 2019 Onc MED Follow-Up/Prog Note Chief Complaint: Metastatic adenocarcinoma of the lung History of Present Illness: Mrs. Deleon is a 58-year-old female with history of progressive cough. She underwent evaluation on July 07, [address] scan of chest. It reported bilateral upper lobe masses: the mass on right side was 5.9 x 4.1 x 4.9 cm and on the left side was 4.6 x 2.8 x 2.8 cm. On 11/14/2018 patient underwent EBUS , which showed there was 90% narrowing of right upper lobe bronchus due to extensive compression, and right-sided mediastinal and hilar lymph node were enlarged and endobronchial right upper lobe and lymph node biopsies were obtained final pathology report came back poorly differentiated adenocarcinoma consistent with lung primary from right upper lobe endobronchial biopsy. And both lymph node biopsies were negative. Molecular profiling which include EGFR, ALK, ROS 1, PDL 1 and BRAF were done and it showed PDL 1 was 95% tumor cells are positive membranous positivity and rest of molecular profiling was unremarkable. Staging workup including CT PET scan and MRI brain was obtained. The CT PET scan on 12/04/2018 showed hypermetabolic centrally necrotic mass within the right upper lobe abutting adjacent pleura, major fissure, and mediastinum with tumor extension into the right superior hilum, with SUV of 13. Additional centrally necrotic hypermetabolic mass in the left upper lobe with a SUV of 20.9, abutting the adjacent pleura and left major fissure and AP window lymph nodes consistent with elfego metastatic disease. No hypermetabolic metastasis in neck abdomen or pelvis. MRI brain showed 5 mm lesions in the left temporal lobe, and left parietal lobe with mild adjacent edema. Mrs Deleon underwent CyberKnife on 01/02/2019. She was offered palliative chemotherapy plus immunotherapy. She declined and she was also referred to radiation oncology for her right-sided chest pain radiating to her neck and patient declined. With tumor being PDL 1 positive, role of immunotherapy with Keytruda was discussed and patient was willing to consider but then decided to come to [place] for further management. Ms Deleon still smokes about pack a day and has history of smoking for 30-40 years, denies alcohol use. She is still smoking about pack a day AGAINST MEDICAL ADVICE. Ms Deleon started her first cycle of chemotherapy with carboplatin/Alimta/Keytruda on March 09, 2019. She is tolerated it well. Her second cycle was given on March 30, 2019. She states since then she is feeling so much better her breathing is so much better. She states it is amazing how much better she is breathing and how much better she feels overall. Per the report from 05/16/2019 there was no comparison image available for comparison. We will call [facility] radiology and request over read as she did have a PET CT in November 2018. comparison of report indicates that the right upper lobe mass now measuring 5.8 x 3.3 cm with a peripheral uptake of SUV 4.6 was reported as 5.4 x 7.5 x 7 cm with an SUV of 13 on the November 2018 study. A left upper lobe mass measuring 5.2 x 6.4 cm on the current study with an SUV of 7.6 was compared to the November study at which time it measured 5.9 x 6.6 x 5 point centimeters with an SUV of 20.9. There is a solid right middle lobe nodule measuring 1.8 x 2.5 cm with SUV of 5.4 and small scattered mediastinal nodes demonstrating minimal FDG uptake although this may be reactive, although micrometastatic disease cannot be excluded. Dr Soares recently reviewed her 05/16/2019 PET/CT study for comparison with the PET/CT from November 2018. In the interim between studies, the SUV activity has greatly improved and there has been reported decrease in size of the tumors. She had completed 4 cycles of carboplatin Alimta and Keytruda. She received Keytruda only on 06/03/2019 as she stated she was only supposed to have four cycles of chemotherapy and then pursue maintenance with immunotherapy. Dr Soares was out of the office, so we elected just to do single agent Keytruda that day. had discussed continuing chemotherapy for 3 more cycles then repeat imaging. She has reluctantly agreed to try chemotherapy again. She states she understands why she needs it but is not looking forward to feeling washed out again. She has had consultation with Dr Gamez in ENT. She states he told her she has some scaring/calcifications/nodules on her voicebox. She states he has informed her that he can nip them right out of there . She states that he told her this is a simple procedure but the recovery she will have to be very adamant on following strict instructions. She states she feels that she can do this in put up with what ever she needs to get rid of the hoarseness so she quit sounding like a man . Ms. Deleon is here today for follow-up. Her treatment was held the week of July 22, 2019 as she thought she might have mild flu symptoms . Dr. Soares wanted her to take a week off to allow for recovery. She is here today for reevaluation. She states her fever has subsided but she is still feeling really draggy. She states that she just cannot get up and go like she normally does. She states she is eating some better. She has no new pain but is having muscle spasms in her neck. She states she has tried Flexeril in the past and that is worked well for her. She is waiting to hear from Dr. Gamez's office in regards to her surgery that he is planning on performing. She states that should be within the next 2 weeks. She denies any new concerns other than she does not feeling like she has gained any strength at this time. She had no diarrhea or vomiting. She states her appetite is good. She is concerned that she is gaining weight. She states her normal weight is between 98 and 105 pounds. She is very concerned today as her weight is documented at 140. She does have a thyroid panel which is pending at the time of visit. She denies any neuropathy. Her ECOG is 2 today. Past Medical History: Ms. Deleon's medical history is unremarkable. Past Surgical History: Ms. Deleon's surgical history is unremarkable. Allergies: Penicillin Medications: Benzonatate 1 Capsule (of 200 mg) Oral 6x/d PRN Centrum Silver Adult 50+ 1 Tablet Oral daily Dexamethasone (4 mg) Tablet Oral Take as Directed diphenhydrAMINE HCl 1 - 2 Capsule (of 25 mg) Oral b.i.d. Folic Acid 1 (1 mg) Tablet Oral daily HYDROcodone-Acetaminophen 1 Tablet (of 5-325 mg) Oral four times a day Tiotropium [place] Monohydrate 1 Puff(s) (of 2.5 mcg/act) Aerosol, solution Inhalation q 24 hours Family History: pt was raised in the foster care. Social History: Ms. Deleon is and she is a disabled. She is a daily smoker who has smoked 0.5 packs/day for 40 years. She has no history of drinking. Review Of Symptoms: Constitutional Denies fevers, chills, night sweats, excessive fatigue or weight loss. Allergic/Immunologic No reactions. Eyes Denies significant visual changes. No diplopia. No amaurosis. ENMT Denies changes in hearing, mouth sores, difficulty or changes in swallowing ability. She is still having hoarseness-see above. Hematologic/Lymphatic Denies easy bruising or bleeding. The patient denies any tender or palpable lymph nodes. Respiratory Dramatically improved dyspnea on exertion. Denies chest pain, cough or hemoptysis. Denies orthopnea. Cardiovascular Denies anginal chest pain, palpitations or orthopnea. Gastrointestinal Denies nausea, vomiting, diarrhea, GI bleeding, or constipation. Denies change in bowel habits and/or stool color, no heartburn or early satiety. Genitourinary (F) No hematuria, hesitancy, incontinence, vaginal bleeding, discharge or other problems with urination. Musculoskeletal Denies joint pain, swelling or redness. No decreased range of motion. Integumentary Denies chronic rashes, inflammation, ulcerations or skin changes. Neurologic Denies blurred vision, and no areas of focal weakness or numbness. Normal gait. No sensory problems. Psychiatric Denies insomnia, depression, fran or mood swings. Vital Signs: Performed on Jul 29, 2019 10:06 Height - 63.00 in Weight - 140.6 lbs (HIGH) BSA - 1.66 sq.m BMI - 24.91 Temperature - 98.4 F Pulse - 95 /min Respiration - 22 /min BP - 145/81 mm(hg) (HIGH) O2 Sat - 99 % Pain - 2,1 - No physically strenuous activity, but ambulatory and able to carry out light or sedentary work (e.g. office work, light house work). (ECOG) Physical Examination: Constitutional Alert, oriented, no acute distress. Skin pink, warm and dry. Head Normocephalic; atraumatic. Eyes Conjunctivae and sclerae are clear and without icterus. Pupils are reactive and equal. Neck Supple without masses or thyromegaly. No jugular venous distension. Hematologic/Lymphatic No petechiae or purpura. No tender or palpable lymph nodes in the cervical or supraclavicular areas. Slight bilateral mandibular area adenopathy. Respiratory Lungs are clear to auscultation. Cardiovascular Regular rate and rhythm of heart without murmurs,clicks, gallops or rubs. Abdomen Non-tender, non-distended, no masses, ascites. Good bowel sounds noted in all quads. No guarding or rebound tenderness. No pulsatile masses. Back/Spine Non-tender to palpation. Extremities No visible deformities, no cyanosis, clubbing or edema. Musculoskeletal No tenderness or swelling, normal range of motion without obvious weakness. Integumentary No rashes or lesions. Neurologic No sensory or motor deficits, normal cerebellar function, normal gait. Psychiatric Alert and oriented times three. Coherent speech. Verbalizes understanding of our discussions today. Laboratory:Test performed on Jul 29, 2019 08:35 Sodium 136 mmol/L T3, Free 2.9 PG/ML T4, Free 1.44 ng/dL TSH 0.23 uIU/mL Potassium 4.3 mmol/L Chloride 100 mmol/L CO2 25 mmol/L Anion Gap 15.3 BUN 7 mg/dL Creatinine 0.7 mg/dL Cr Clearance (Est) 87.5700 mL/min eGFR 85.9 mL/min Glucose 158 mg/dL Calcium 10.0 mg/dL Protein, Total 6.9 g/dL Albumin 4.1 g/dL Globulin 2.8 g/dL Bilirubin, Total 0.2 mg/dL ALT (SGPT) 25 U/L AST (SGOT) 23 U/L Alkaline Phosphatase 114 IU/L WBC 13.7 10 3/uL RBC 4.45 10 6/uL HGB 13.6 g/dL HCT 40.3 % MCV 90.6 fL MCH 30.6 pg MCHC 33.7 g/dL RDW 12.9 % Platelet Count 176 10 3/cmm MPV 8.7 fL Neutrophils 11.0 10 3/uL Lymphocytes 1.9 10 3/uL Monocytes 0.6 10 3/uL Eosinophils 0.0 10 3/uL Basophils 0.0 10 3/uL Neutrophil % 80.6 % Lymphocyte % 13.7 % Monocyte % 4.3 % Eosinophil % 0.2 % Basophils % 0.2 % Impression: Stage IV, 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 Next Stage IV, M1 a due to separate tumor nodule in the contralateral lobe and brain metastases 5 mm ???[address] PET scan done on 12/04/2018 showed hypermetabolic centrally necrotic mass within the right upper lobe abutting adjacent pleura, major fissure and mediastinum with tumor extension into right superior hilum. Additional centrally necrotic hypermetabolic mass within left upper lobe abutting the adjacent pleura and left major fissure with tumor extension to the left superior hilum. Hypermetabolic right hilar, precarinal, and AP window lymph nodes consistent with a node metastases. No hypermetabolic metastasis within the neck, abdomen or pelvis. MRI scan of the head showed 5 mm ???2 lesion status post CyberKnife on 01/02/2019. Active smoker AGAINST MEDICAL ADVICE; COPD Ms. Deleon began her first cycle of carbo Alimta Keytruda on March 09, 2019. She is tolerated it well thus far. She states that after the second cycle of chemotherapy her breathing is so much better that is amazing . She states that she is now breathing through her nose when she is sleeping and that is something she has not done in years. She states overall she is feeling so much better. regarding her PET CT from 05/16/2019. she did have a PET CT in November 2018. This PET CT was NOT performed at [facility] in the interim just comparison of report indicates that the right upper lobe mass now measuring 5.8 x 3.3 cm with a peripheral uptake of SUV 4.6 was reported as 5.4 x 7.5 x 7 cm with an SUV of 13 on the November 2018 study. A left upper lobe mass measuring 5.2 x 6.4 cm on the current study with an SUV of 7.6 was compared to the November study at which time it measured 5.9 x 6.6 x 5 point centimeters with an SUV of 20.9. There is a solid right middle lobe nodule measuring 1.8 x 2.5 cm with SUV of 5.4 and small scattered mediastinal nodes demonstrating minimal FDG uptake although this may be reactive, although micrometastatic disease cannot be excluded. Per Dr Soares's notes, Ms Deleon is doing well. She has tolerated palliative therapy with carboplatin/Alimta/Keytruda well. Her follow-up CT PET scan from 04/2019 showed good response to the treatment. Dr Soares discussed with Ms Deleon further treatment plans. The plan earlier plan was to give her 4 cycles of chemotherapy along with immunotherapy and restage her. Her follow-up PET scan in April 2019 shows good response- no evidence of distance metastases, but not resolution of disease. In that case, She was encouraged to continue with same regimen e.g. carboplatin/Alimta/Keytruda for 3 more cycles and restage with CT PET scan. If it shows further improvement and her performance status is till good, she may need to continue full treatment; if on the other hand it shows stable disease then will consider switching her to maintenance therapy with Keytruda alone. Ms Deleon is due to resume Carboplatin/Alimta/Keytruda today. She was held last week due to performance status decline. Plan: 1. Hold planned treatment this week-until she can have surgical procedure with Dr Gamez. She has declined performance status and her cough is better than last week but her fatigue/performance status is still marginal. 2. She is having muscle spasms in her neck. will try Flexeril 5-10 mg TID prn. 3. Thyroid panel pending @ time of visit. She is concerned as she is gaining weight. She states her normal weight is 98-105 pounds. 4. We will plan for followup after her procedure with Dr Gamez-should be within the next 2 weeks per Ms Deleon. 5. Ms Deleon was instructed to call us in the interim if questions or problems arise. Signed By: Elly Harris-ROXIE, AOCNP Rukhsana Soares MD <<Signature on File>>
--- NOTE | 2019-08-12 14:18 | PFTS_ITS ---
Date of Study:08/12/2019 Date of Dictation: MECHANICS: Forced vital capacity (FVC) is normal. Forced expiratory volume in one second (FEV1) is reduced. FEV1/FVC is reduced. FLOW VOLUME LOOP: Reduced flow at all lung volumes with significant scooping. LUNG VOLUMES: Total lung capacity (TLC) is increased. Residual volume (RV) is increased. DIFFUSING CAPACITY FOR CARBON MONOXIDE: Moderately reduced. INTERPRETATION: The pulmonary function tests are consistent with moderate obstructive ventilatory limitation. There is no significant postbronchodilator response. Lung volumes are consistent with hyperinflation and air trapping. Gas transfer is moderately decreased. MTDD
== END 2019-08-25 23:59 | disposition home or self-care (01) ==
LOC: RT 14:00
PROVIDERS: Absent Provider Internal Medicine Hematology & Oncology; Family Provider Family Medicine; PCP Family Medicine; Visit Provider Nurse Practitioner
DX: J44.9 Chronic obstructive pulmonary disease, unspecified (principal); F17.210 Nicotine dependence, cigarettes, uncomplicated
CPT/HCPCS: 36415; 36591; 80053; 84439; 84443; 84481; 85025; 94060; 94726; 94729; 99214; J7611

== ENCOUNTER 2019-09-10 08:48 | Outpatient (CLI) | payer MEDICAID, SELFPAY ==
[2019-09-10 09:13] LABS: Basophils # 0.1 10^3/uL (0.0-0.1); Basophils % 0.8 %; Eosinophils # 0.4 10^3/uL (0.0-0.8); Lymphocytes # 2.5 10^3/uL (0.8-4.8); Lymphocytes % 28.1 %; Mean Corpuscular HGB Conc 34.1 g/dL (30.0-36.0); Mean Corpuscular Hemoglobin 31.3 pg (28.0-34.0); Mean Corpuscular Volume 91.7 fL (81-99); Mean Platelet Volume 8.8 fL (7.4-10.4); Monocytes # 0.9 10^3/uL (0.2-0.9); Monocytes % 9.7 %; Neutrophils # 5.1 10^3/uL (1.8-7.7); Neutrophils % 57.2 %; Nucleated Red Blood Cells % 0 %; Platelet Count 193 10^3/cmm (130-400); Red Blood Count 4.47 10^6/uL (4.1-5.3); Red Cell Distribution Width 12.8 % (12.1-15.1); White Blood Count 8.9 10^3/uL (4.0-10.0)
[2019-09-10 09:29] LABS: Alanine Aminotransferase 76 U/L (0-33); Albumin Level 4.2 g/dL (3.5-5.2); Alkaline Phosphatase 110 IU/L (35-105); Aspartate Amino Transferase 59 U/L (0-32); Blood Urea Nitrogen 8 mg/dL (6-20); Calcium 9.9 mg/dL (8.5-10.5); Carbon Dioxide 26 mmol/L (22-29); Chloride 103 mmol/L (98-107); Globulin 2.8 g/dL (1.3-4.6); Glomerular Filtration Rate 85.9 mL/min (90-130); Glucose 141 mg/dL (65-115); Osmolality Calculated 290 mOsm/kg (285-295); Sodium 141 mmol/L (136-145); Total Bilirubin 0.4 mg/dL (0.15-1.2)
[2019-09-10] MEDS: sodium chloride 0.9% 100 ML 75 ML (11:25)
--- NOTE | 2019-09-10 12:27 | ONC FU_ITS ---
Dr. Soares follow up note Patient: Alma Deleon Unit #: [id number]: [id number] Dicatated By: Rukhsana Soares M.D.Date of Visit:Sep 10, 2019 Onc Med Follow-up/Prog Note History of Present Illness: Mrs. Deleon is a 58-year-old female with history of progressive cough. She underwent evaluation on July 07, [address] scan of chest. It reported bilateral upper lobe masses: the mass on right side was 5.9 x 4.1 x 4.9 cm and on the left side was 4.6 x 2.8 x 2.8 cm. On 11/14/2018 patient underwent EBUS , which showed there was 90% narrowing of right upper lobe bronchus due to extensive compression, and right-sided mediastinal and hilar lymph node were enlarged and endobronchial right upper lobe and lymph node biopsies were obtained final pathology report came back poorly differentiated adenocarcinoma consistent with lung primary from right upper lobe endobronchial biopsy. And both lymph node biopsies were negative. Molecular profiling which include EGFR, ALK, ROS 1, PDL 1 and BRAF were done and it showed PDL 1 was 95% tumor cells are positive membranous positivity and rest of molecular profiling was unremarkable. Staging workup including CT PET scan and MRI brain was obtained. The CT PET scan on 12/04/2018 showed hypermetabolic centrally necrotic mass within the right upper lobe abutting adjacent pleura, major fissure, and mediastinum with tumor extension into the right superior hilum, with SUV of 13. Additional centrally necrotic hypermetabolic mass in the left upper lobe with a SUV of 20.9, abutting the adjacent pleura and left major fissure and AP window lymph nodes consistent with elfego metastatic disease. No hypermetabolic metastasis in neck abdomen or pelvis. MRI brain showed 5 mm lesions in the left temporal lobe, and left parietal lobe with mild adjacent edema. Mrs Deleon underwent CyberKnife on 01/02/2019. She was offered palliative chemotherapy plus immunotherapy. She declined and she was also referred to radiation oncology for her right-sided chest pain radiating to her neck and patient declined. With tumor being PDL 1 positive, role of immunotherapy with Keytruda was discussed and patient was willing to consider but then decided to come to [place] for further management. Ms Deleon still smokes about pack a day and has history of smoking for 30-40 years, denies alcohol use. She is still smoking about pack a day AGAINST MEDICAL ADVICE. Ms Deleon started her first cycle of chemotherapy with carboplatin/Alimta/Keytruda on March 09, 2019. She is tolerated it well. Her second cycle was given on March 30, 2019. She states since then she is feeling so much better her breathing is so much better. She states it is amazing how much better she is breathing and how much better she feels overall. Per the report from 05/16/2019 there was no comparison image available for comparison. We will call [facility] radiology and request over read as she did have a PET CT in November 2018. comparison of report indicates that the right upper lobe mass now measuring 5.8 x 3.3 cm with a peripheral uptake of SUV 4.6 was reported as 5.4 x 7.5 x 7 cm with an SUV of 13 on the November 2018 study. A left upper lobe mass measuring 5.2 x 6.4 cm on the current study with an SUV of 7.6 was compared to the November study at which time it measured 5.9 x 6.6 x 5 point centimeters with an SUV of 20.9. There is a solid right middle lobe nodule measuring 1.8 x 2.5 cm with SUV of 5.4 and small scattered mediastinal nodes demonstrating minimal FDG uptake although this may be reactive, although micrometastatic disease cannot be excluded. reviewed her 05/16/2019 PET/CT study for comparison with the PET/CT from November 2018. In the interim between studies, the SUV activity has greatly improved and there has been reported decrease in size of the tumors. She had completed 4 cycles of carboplatin Alimta and Keytruda. She received Keytruda only on 06/03/2019 as she stated she was only supposed to have four cycles of chemotherapy and then pursue maintenance with immunotherapy. based on good response seen on f/u PET scan it was suggested to continue chemotherapy for 3 more cycles then repeat imaging. She has reluctantly agreed to try chemotherapy again. She states she understands why she needs it but is not looking forward to feeling washed out again. She has had consultation with Dr Gamez in ENT. She states he told her she has some scaring/calcifications/nodules on her voicebox. She states he has informed her that he can nip them right out of there . She states that he told her this is a simple procedure but the recovery she will have to be very adamant on following strict instructions. She states she feels that she can do this in put up with what ever she needs to get rid of the hoarseness so she quit sounding like a man . Her treatment was held the week of July 22, 2019 as she thought she might have mild flu symptoms . was given week off to allow for recovery. She is waiting to hear from Dr. Gamez's office in regards to her surgery that he is planning on performing. but Dr. Gamez quit his practice in [place] She is concerned that she is gaining weight. . She does have a thyroid panel done on 07/29/2019 showed T3 free was 2.9, normal being 2-4.4, T4 free 1.44 normal being 0.82 to 1.77. And TSH 0.23 Came for follow-up, denies any specific complaints except persistent hoarseness of voice, she was waiting for Dr. Gamez's call for the surgery but she heard, that Dr. Gamez has left [place]. Now requesting referred to Dr. Thacker , ENT for evaluation for hoarseness. The last time she received chemotherapy was on 07/01/2019, patient has been postponing her treatment due to hoarseness and its management. Denies any fever chills denies any nausea vomiting diarrhea diarrhea constipation denies any hemoptysis or hematemesis denies any dysphagia. Medications: Benzonatate 1 Capsule (of 200 mg) Oral 6x/d PRN, Centrum Silver Adult 50+ 1 Tablet Oral daily, Combivent Respimat Aerosol, solution Inhalation, Folic Acid 1 (1 mg) Tablet Oral daily, HYDROcodone-Acetaminophen 1 Tablet (of 5-325 mg) Oral four times a day, Tiotropium [place] Monohydrate 1 Puff(s) (of 2.5 mcg/act) Aerosol, solution Inhalation q 24 hours Allergies: Penicillin Review of Systems: Constitutional - Appetite is fair and weight is stable. No fever, chills, hot flashes, or night sweats. Energy level is fair, ENMT - Positive for sinus congestion/drainage. No mouth sores. Positive for sore throat, no difficulty swallowing, Hematologic/Lymphatic - No abnormal bruising or bleeding, Respiratory - Positive for shortness of breath. Positive for cough. No pleuritic pain or hemoptysis, Cardiovascular - No angina pain. No palpitations, Gastrointestinal - No nausea or vomiting. No heartburn or acid reflux. No diarrhea or constipation. No blood in the stool or black stools, Genitourinary (F) - No dysuria or hematuria. No urinary frequency. Positive for urgency, no incontinence, Musculoskeletal - Positive for back pain, Neurologic - No headache or dizziness, Psychiatric - Positive for depression, anxiety and insomnia. Vital Signs: Performed on Sep 10, 2019 10:01 Height - 63.00 in Weight - 146.8 lbs (HIGH) BSA - 1.70 sq.m BMI - 26.00 Temperature - 97.1 F (LOW) Pulse - 94 /min Respiration - 18 /min BP - 123/81 mm(hg) O2 Sat - 97 % Pain - 0 Performance Status: 1 - No physically strenuous activity, but ambulatory and able to carry out light or sedentary work (e.g. office work, light house work). (ECOG) Physical Examination: ENMT - no mouth sores, Respiratory - Lungs are clear, Cardiovascular - Regular rate and rhythm, Abdomen - nontender,, Extremities - no edema. Lab/Imaging: Test performed on Sep 10, 2019 10:42 Creatinine 0.9 mg/dL Cr Clearance (Est) 68.11 mL/min Test performed on Jul 29, 2019 08:35 Sodium 136 mmol/L T3, Free 2.9 PG/ML T4, Free 1.44 ng/dL TSH 0.23 uIU/mL Potassium 4.3 mmol/L Chloride 100 mmol/L CO2 25 mmol/L Anion Gap 15.3 BUN 7 mg/dL eGFR 85.9 mL/min Glucose 158 mg/dL Calcium 10.0 mg/dL Protein, Total 6.9 g/dL Albumin 4.1 g/dL Globulin 2.8 g/dL Bilirubin, Total 0.2 mg/dL ALT (SGPT) 25 U/L AST (SGOT) 23 U/L Alkaline Phosphatase 114 IU/L WBC 13.7 10 3/uL RBC 4.45 10 6/uL HGB 13.6 g/dL HCT 40.3 % MCV 90.6 fL MCH 30.6 pg MCHC 33.7 g/dL RDW 12.9 % Platelet Count 176 10 3/cmm MPV 8.7 fL Neutrophils 11.0 10 3/uL Lymphocytes 1.9 10 3/uL Monocytes 0.6 10 3/uL Eosinophils 0.0 10 3/uL Basophils 0.0 10 3/uL Neutrophil % 80.6 % Lymphocyte % 13.7 % Monocyte % 4.3 % Eosinophil % 0.2 % Basophils % 0.2 % Test performed on Jun 03, 2019 08:38 Manual Lymphocytes 24.8 % Manual Monocytes 14.8 % Manual Eosinophils 0 % Manual Basophils 0.2 % Atypical Lymphs 1.3 % Impression: Stage IV, 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 Next Stage IV, M1 a due to separate tumor nodule in the contralateral lobe and brain metastases 5 mm ???[address] PET scan done on 12/04/2018 showed hypermetabolic centrally necrotic mass within the right upper lobe abutting adjacent pleura, major fissure and mediastinum with tumor extension into right superior hilum. Additional centrally necrotic hypermetabolic mass within left upper lobe abutting the adjacent pleura and left major fissure with tumor extension to the left superior hilum. Hypermetabolic right hilar, precarinal, and AP window lymph nodes consistent with a node metastases. No hypermetabolic metastasis within the neck, abdomen or pelvis. MRI scan of the head showed 5 mm ???2 lesion status post CyberKnife on 01/02/2019. Active smoker AGAINST MEDICAL ADVICE; COPD Ms. Deleon began her first cycle of carbo Alimta Keytruda on March 09, 2019. She is tolerated it well thus far. She states that after the second cycle of chemotherapy her breathing is so much better that is amazing . She states that she is now breathing through her nose when she is sleeping and that is something she has not done in years. She states overall she is feeling so much better. regarding her PET CT from 05/16/2019. she did have a PET CT in November 2018. This PET CT was NOT performed at [facility] in the interim just comparison of report indicates that the right upper lobe mass now measuring 5.8 x 3.3 cm with a peripheral uptake of SUV 4.6 was reported as 5.4 x 7.5 x 7 cm with an SUV of 13 on the November 2018 study. A left upper lobe mass measuring 5.2 x 6.4 cm on the current study with an SUV of 7.6 was compared to the November study at which time it measured 5.9 x 6.6 x 5 point centimeters with an SUV of 20.9. There is a solid right middle lobe nodule measuring 1.8 x 2.5 cm with SUV of 5.4 and small scattered mediastinal nodes demonstrating minimal FDG uptake although this may be reactive, although micrometastatic disease cannot be excluded. tolerated palliative therapy with carboplatin/Alimta/Keytruda well. Her follow-up CT PET scan from 04/2019 showed good response to the treatment. discussed with Ms Deleon further treatment plans. The plan earlier plan was to give her 4 cycles of chemotherapy along with immunotherapy and restage her. Her follow-up PET scan in April 2019 shows good response- no evidence of distance metastases, but not resolution of disease. In that case, She was encouraged to continue with same regimen e.g. carboplatin/Alimta/Keytruda for 3 more cycles and restage with CT PET scan. If it shows further improvement and her performance status is till good, she may need to continue full treatment; if on the other hand it shows stable disease then will consider switching her to maintenance therapy with Keytruda alone. Ms Deleon is due to resume Carboplatin/Alimta/Keytruda on 07/01/2019 and after that she has been postponing her chemotherapy as she was undergoing evaluation for hoarseness of voice. , as per ENT it was due to some nodules/calcifications of vocal cord. Plan: Discussed with patient regarding her labs white blood count 8.9 hemoglobin 14 crit 41 platelets 193,000 CMP within normal limit except ALT 76 AST 59 compared to 25/ on 07/29/2019 Clinically, patient is doing well with no signs symptom suggestive of disease progression but her last chemotherapy was done on 07/01/2019 and since then treatment is on hold as patient was undergoing evaluation for hoarseness of voice and Dr. Gamez, ENT physician was supposed to perform some procedure on her vocal cords for calcification/nodules but somehow, as per patient Dr. Gamez has quit his practice and left. Discussed with patient and at this point we'll consider repeating CT PET scan and compare with previous one if there is a no disease progression or further improvement then will continue with maintenance immunotherapy with Keytruda alone on the other hand if PET scan shows disease progression then will consider restarting her on carboplatin/Alimta/Keytruda. In the meantime we will proceed with Keytruda alone today and then she will return to clinic in 3 weeks with CBC CMP and CT PET scan. In the meantime we will refer her to Dr. Thacker , ENT physician for evaluation of hoarseness of voice. patient still smoking, she was advised to quit smoking and was also offered any assistance she may need Signed By: Rukhsana Soares M.D. <<Signature on File>>
== END 2019-09-10 08:49 | disposition home or self-care (01) ==
LOC: ONCMED 08:48
PROVIDERS: Family Provider Family Medicine; PCP Family Medicine; Visit Provider Internal Medicine Hematology & Oncology
DX: C34.11 Malignant neoplasm of upper lobe, right bronchus or lung (principal); C79.31 Secondary malignant neoplasm of brain; C78.02 Secondary malignant neoplasm of left lung; F17.210 Nicotine dependence, cigarettes, uncomplicated; Z92.21 Personal history of antineoplastic chemotherapy
CPT/HCPCS: 80053; 85025; 96413; 99214; J7050; J9271

== ENCOUNTER 2019-09-29 08:00 | Outpatient (CLI) | payer MEDICAID, SELFPAY ==
[2019-09-29 08:25] LABS: Basophils # 0.1 10^3/uL (0.0-0.1); Basophils % 0.8 %; Eosinophils # 0.3 10^3/uL (0.0-0.8); Hematocrit 43.1 % (37.0-47.0); Hemoglobin 14.4 g/dL (11.5-15.3); Lymphocytes % 20.4 %; Mean Corpuscular HGB Conc 33.4 g/dL (30.0-36.0); Mean Corpuscular Hemoglobin 29.9 pg (28.0-34.0); Mean Corpuscular Volume 89.4 fL (81-99); Mean Platelet Volume 8.9 fL (7.4-10.4); Monocytes # 0.5 10^3/uL (0.2-0.9); Monocytes % 4.6 %; Neutrophils # 6.9 10^3/uL (1.8-7.7); Neutrophils % 70.8 %; Nucleated Red Blood Cells % 0 %; Platelet Count 209 10^3/cmm (130-400); Red Blood Count 4.82 10^6/uL (4.1-5.3); Red Cell Distribution Width 12.2 % (12.1-15.1); White Blood Count 9.8 10^3/uL (4.0-10.0)
[2019-09-29 08:54] LABS: Alanine Aminotransferase 62 U/L (0-33); Albumin Level 4.1 g/dL (3.5-5.2); Alkaline Phosphatase 106 IU/L (35-105); Anion Gap 14.9 (5-19); Aspartate Amino Transferase 49 U/L (0-32); Blood Urea Nitrogen 6 mg/dL (6-20); Calcium 9.1 mg/dL (8.5-10.5); Carbon Dioxide 28 mmol/L (22-29); Chloride 103 mmol/L (98-107); Glomerular Filtration Rate 73.7 mL/min (90-130); Glucose 132 mg/dL (65-115); Osmolality Calculated 292 mOsm/kg (285-295); Potassium 3.9 mmol/L (3.5-5.1); Sodium 142 mmol/L (136-145); Thyroid Stimulating Hormone 1.03 uIU/mL (0.27-4.20); Total Bilirubin 0.3 mg/dL (0.15-1.2); Total Protein 7.1 g/dL (6.6-8.7)
--- NOTE | 2019-09-29 10:48 | ONC FU_ITS ---
Dr. Soares follow up note Patient: Alma Deleon Unit #: [id number]: 1960 Dicatated By: Rukhsana Soares M.D.Date of Visit:September 29, 2019 Onc Med Follow-up/Prog Note History of Present Illness: Mrs. Deleon is a 58-year-old female with history of progressive cough. She underwent evaluation on July 07, [address] scan of chest. It reported bilateral upper lobe masses: the mass on right side was 5.9 x 4.1 x 4.9 cm and on the left side was 4.6 x 2.8 x 2.8 cm. On 11/14/2018 patient underwent EBUS , which showed there was 90% narrowing of right upper lobe bronchus due to extensive compression, and right-sided mediastinal and hilar lymph node were enlarged and endobronchial right upper lobe and lymph node biopsies were obtained final pathology report came back poorly differentiated adenocarcinoma consistent with lung primary from right upper lobe endobronchial biopsy. And both lymph node biopsies were negative. Molecular profiling which include EGFR, ALK, ROS 1, PDL 1 and BRAF were done and it showed PDL 1 was 95% tumor cells are positive membranous positivity and rest of molecular profiling was unremarkable. Staging workup including CT PET scan and MRI brain was obtained. The CT PET scan on 12/04/2018 showed hypermetabolic centrally necrotic mass within the right upper lobe abutting adjacent pleura, major fissure, and mediastinum with tumor extension into the right superior hilum, with SUV of 13. Additional centrally necrotic hypermetabolic mass in the left upper lobe with a SUV of 20.9, abutting the adjacent pleura and left major fissure and AP window lymph nodes consistent with elfego metastatic disease. No hypermetabolic metastasis in neck abdomen or pelvis. MRI brain showed 5 mm lesions in the left temporal lobe, and left parietal lobe with mild adjacent edema. Mrs Deleon underwent CyberKnife on 01/02/2019. She was offered palliative chemotherapy plus immunotherapy. She declined and she was also referred to radiation oncology for her right-sided chest pain radiating to her neck and patient declined. With tumor being PDL 1 positive, role of immunotherapy with Keytruda was discussed and patient was willing to consider but then decided to come to [place] for further management. Ms Deleon still smokes about pack a day and has history of smoking for 30-40 years, denies alcohol use. She is still smoking about pack a day AGAINST MEDICAL ADVICE. Ms Deleon started her first cycle of chemotherapy with carboplatin/Alimta/Keytruda on March 09, 2019. She is tolerated it well. Her second cycle was given on March 30, 2019. She states since then she is feeling so much better her breathing is so much better. She states it is amazing how much better she is breathing and how much better she feels overall. Per the report from 05/16/2019 there was no comparison image available for comparison. We will call [facility] radiology and request over read as she did have a PET CT in November 2018. comparison of report indicates that the right upper lobe mass now measuring 5.8 x 3.3 cm with a peripheral uptake of SUV 4.6 was reported as 5.4 x 7.5 x 7 cm with an SUV of 13 on the November 2018 study. A left upper lobe mass measuring 5.2 x 6.4 cm on the current study with an SUV of 7.6 was compared to the November study at which time it measured 5.9 x 6.6 x 5 point centimeters with an SUV of 20.9. There is a solid right middle lobe nodule measuring 1.8 x 2.5 cm with SUV of 5.4 and small scattered mediastinal nodes demonstrating minimal FDG uptake although this may be reactive, although micrometastatic disease cannot be excluded. reviewed her 05/16/2019 PET/CT study for comparison with the PET/CT from November 2018. In the interim between studies, the SUV activity has greatly improved and there has been reported decrease in size of the tumors. She had completed 4 cycles of carboplatin Alimta and Keytruda. She received Keytruda only on 06/03/2019 as she stated she was only supposed to have four cycles of chemotherapy and then pursue maintenance with immunotherapy. based on good response seen on f/u PET scan it was suggested to continue chemotherapy for 3 more cycles then repeat imaging. She has reluctantly agreed to try chemotherapy again. She states she understands why she needs it but is not looking forward to feeling washed out again. She has had consultation with Dr Gamez in ENT. She states he told her she has some scaring/calcifications/nodules on her voicebox. She states he has informed her that he can nip them right out of there . She states that he told her this is a simple procedure but the recovery she will have to be very adamant on following strict instructions. She states she feels that she can do this in put up with what ever she needs to get rid of the hoarseness so she quit sounding like a man . Her treatment was held the week of July 22, 2019 as she thought she might have mild flu symptoms . was given week off to allow for recovery. She is waiting to hear from Dr. Gamez's office in regards to her surgery that he is planning on performing. but Dr. Gamez quit his practice in [place] She is concerned that she is gaining weight. . She does have a thyroid panel done on 07/29/2019 showed T3 free was 2.9, normal being 2-4.4, T4 free 1.44 normal being 0.82 to 1.77. And TSH 0.23 Came for follow-up, denies any specific complaints except persistent hoarseness of voice, she was waiting for Dr. Gamez's call for the surgery but she heard, that Dr. Gamez has left [place]. Now requesting referrel to Dr. Thacker , ENT for evaluation for hoarseness. The last time she received chemotherapy was on 07/01/2019, patient has been postponing her treatment due to hoarseness and its management.finally she was seen by Dr. Thacker on 09/22/2019 and he recommended direct/micro-direct that endoscopy with biopsy under anesthesia. Patient was scheduled for the procedure but she canceled it as she was not feeling well and now waiting for reschedule appointment. And she is scheduled for follow-up CT PET scan on coming Saturday Came for follow-up, denies any specific complaints, no fever or chills, no nausea or vomiting, no diarrhea constipation but still has persistent hoarseness of voice, ENT workup is in progress. She is tolerating maintenance therapy with Keytruda well otherwise Medications: Benzonatate 1 Capsule (of 200 mg) Oral 6x/d PRN, Centrum Silver Adult 50+ 1 Tablet Oral daily, Combivent Respimat Aerosol, solution Inhalation, Folic Acid 1 (1 mg) Tablet Oral daily, HYDROcodone-Acetaminophen 1 Tablet (of 5-325 mg) Oral four times a day, Tiotropium [place] Monohydrate 1 Puff(s) (of 2.5 mcg/act) Aerosol, solution Inhalation q 24 hours Allergies: Penicillin Review of Systems: Review of Systems is not available for this patient. Vital Signs: Vitals are not available for this patient. Performance Status: 0 - Fully active, able to carry on all predisease activities without restrictions. (ECOG) Physical Examination: ENMT - no mouth sores, or thrush, Respiratory - Lungs are clear, Cardiovascular - Regular rate and rhythm of heart, Abdomen - soft, bowel sounds present, Extremities - no visible edema. Lab/Imaging: Test performed on Sep 10, 2019 10:42 Creatinine 0.9 mg/dL Cr Clearance (Est) 68.11 mL/min Test performed on Sep 10, 2019 09:00 Sodium 141 mmol/L Potassium 4.0 mmol/L Chloride 103 mmol/L CO2 26 mmol/L Anion Gap 16.0 BUN 8 mg/dL eGFR 85.9 mL/min Glucose 141 mg/dL Calcium 9.9 mg/dL Protein, Total 7.0 g/dL Albumin 4.2 g/dL Globulin 2.8 g/dL Bilirubin, Total 0.4 mg/dL ALT (SGPT) 76 U/L AST (SGOT) 59 U/L Alkaline Phosphatase 110 IU/L WBC 8.9 10 3/uL RBC 4.47 10 6/uL HGB 14.0 g/dL HCT 41.0 % MCV 91.7 fL MCH 31.3 pg MCHC 34.1 g/dL RDW 12.8 % Platelet Count 193 10 3/cmm MPV 8.8 fL Neutrophils 5.1 10 3/uL Lymphocytes 2.5 10 3/uL Monocytes 0.9 10 3/uL Eosinophils 0.4 10 3/uL Basophils 0.1 10 3/uL Neutrophil % 57.2 % Lymphocyte % 28.1 % Monocyte % 9.7 % Eosinophil % 4.0 % Basophils % 0.8 % Test performed on Jul 29, 2019 08:35 T3, Free 2.9 PG/ML T4, Free 1.44 ng/dL TSH 0.23 uIU/mL Test performed on Jun 03, 2019 08:38 Manual Lymphocytes 24.8 % Manual Monocytes 14.8 % Manual Eosinophils 0 % Manual Basophils 0.2 % Atypical Lymphs 1.3 % Impression: Stage IV, 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 Next Stage IV, M1 a due to separate tumor nodule in the contralateral lobe and brain metastases 5 mm ???[address] PET scan done on 12/04/2018 showed hypermetabolic centrally necrotic mass within the right upper lobe abutting adjacent pleura, major fissure and mediastinum with tumor extension into right superior hilum. Additional centrally necrotic hypermetabolic mass within left upper lobe abutting the adjacent pleura and left major fissure with tumor extension to the left superior hilum. Hypermetabolic right hilar, precarinal, and AP window lymph nodes consistent with a node metastases. No hypermetabolic metastasis within the neck, abdomen or pelvis. MRI scan of the head showed 5 mm ???2 lesion status post CyberKnife on 01/02/2019. Active smoker AGAINST MEDICAL ADVICE; COPD Ms. Deleon began her first cycle of carbo Alimta Keytruda on March 09, 2019. She is tolerated it well thus far. She states that after the second cycle of chemotherapy her breathing is so much better that is amazing . She states that she is now breathing through her nose when she is sleeping and that is something she has not done in years. She states overall she is feeling so much better. regarding her PET CT from 05/16/2019. she did have a PET CT in November 2018. This PET CT was NOT performed at [facility] in the interim just comparison of report indicates that the right upper lobe mass now measuring 5.8 x 3.3 cm with a peripheral uptake of SUV 4.6 was reported as 5.4 x 7.5 x 7 cm with an SUV of 13 on the November 2018 study. A left upper lobe mass measuring 5.2 x 6.4 cm on the current study with an SUV of 7.6 was compared to the November study at which time it measured 5.9 x 6.6 x 5 point centimeters with an SUV of 20.9. There is a solid right middle lobe nodule measuring 1.8 x 2.5 cm with SUV of 5.4 and small scattered mediastinal nodes demonstrating minimal FDG uptake although this may be reactive, although micrometastatic disease cannot be excluded. tolerated palliative therapy with carboplatin/Alimta/Keytruda well. Her follow-up CT PET scan from 04/2019 showed good response to the treatment. discussed with Ms Deleon further treatment plans. The plan earlier plan was to give her 4 cycles of chemotherapy along with immunotherapy and restage her. Her follow-up PET scan in April 2019 shows good response- no evidence of distance metastases, but not resolution of disease. In that case, She was encouraged to continue with same regimen e.g. carboplatin/Alimta/Keytruda for 3 more cycles and restage with CT PET scan. If it shows further improvement and her performance status is till good, she may need to continue full treatment; if on the other hand it shows stable disease then will consider switching her to maintenance therapy with Keytruda alone. Ms Deleon is due to resume Carboplatin/Alimta/Keytruda on 07/01/2019 and after that she has been postponing her chemotherapy as she was undergoing evaluation for hoarseness of voice. , as per ENT it was due to some nodules/calcifications of vocal cord. Plan: Discussed with patient regarding her labs white blood count 9.8 hemoglobin 14.4 crit 43.1 platelets 209,000 Clinically, patient is doing well, tolerating maintenance therapy with Keytruda alone well. We'll proceed with next dose today and patient is scheduled for follow-up CT PET scan on coming Saturday, we will review and if it shows no sign of disease or stable disease, then will continue with maintenance therapy with Keytruda. On the other hand if it shows disease progression then will discuss about treatment options. Patient was advised to follow with ENT regarding management of hoarseness. Return to clinic in 3 weeks with CBC CMP, and we may discuss her CT PET scan finding on telemedicine once reports available for review. Signed By: Barjinder Soares, M.D. <<Signature on File>>
== END 2019-09-29 08:01 | disposition home or self-care (01) ==
LOC: ONCMED 08:00
PROVIDERS: Family Provider Family Medicine; PCP Family Medicine; Visit Provider Internal Medicine Hematology & Oncology
DX: Z51.12 Encounter for antineoplastic immunotherapy (principal); C34.11 Malignant neoplasm of upper lobe, right bronchus or lung; C79.31 Secondary malignant neoplasm of brain; C77.8 Secondary and unspecified malignant neoplasm of lymph nodes of multiple regions; C78.02 Secondary malignant neoplasm of left lung; F17.200 Nicotine dependence, unspecified, uncomplicated; J44.9 Chronic obstructive pulmonary disease, unspecified; Z92.21 Personal history of antineoplastic chemotherapy; Z79.899 Other long term (current) drug therapy
CPT/HCPCS: 80053; 84443; 85025; 96413; 99214; J7050; J9271

== ENCOUNTER 2019-10-06 10:02 | Day surgery (SDC) | payer MEDICAID, SELFPAY ==
[2019-10-06] VITALS (7 sets, daily range): BP systolic 110–153; BP diastolic 78–98; PULSE 82–99; RESP 16–24; TEMP 36.6–36.8; O2SAT 95–98
[2019-10-06] MEDS: sodium chloride 0.9% 1,000 ML 30 ML IV (11:04)
--- NOTE | 2019-10-06 11:11 | ANES.PREANE2 ---
Pre-Anesthetic Assessment Pre-Anesthetic Assessment: Height/Weight: Height 1.6 m Weight 66.224 kg Temp Pulse Resp BP Pulse Ox 98.3 F 82 18 133/87 96 10/06/19 10:47 10/06/19 10:47 10/06/19 10:47 10/06/19 10:47 10/06/19 10:47 Proposed Procedure: Operation Date: 10/06/19 11:30 Proposed Procedures p Direct Laryngoscopy with biopsy(Not Applicable) - Rony Thakcer MD Last intake: Intake Last Liquid Date 10/05/19 Last Solid Date 10/05/19 Social: Social History: Tobacco and No alcohol Exam: Pre-Anes Outpt Exam: alert, oriented x 3, clear to auscultation bilaterally and regular rate & rhythm Airway: Submandibular: WNL Cervical ROM: WNL MP: 2 Dentition: False (upper and lower) History/ROS: No significant history except as noted Pulmonary: Pulmonary: COPD, BLOUNT and SOB CV/HEM: CV/HEM: None reported : : None reported Hepatic: Hepatic: None reported GI: GI: GERD (occ) Metabolic: Metabolic: None reported Musc/skel: Musc/skel: OA/DJD Neuropsych: Neuropsych: None reported Anesthetic Plan: ASA status: 3 Anesthesia: Anesthesia Evaluation and General Risk of > 500 ml blood loss (7ml/kg in children): No Meds/Allergies Current Medications: Current Medications Generic Name Dose Route Start Last Admin Trade Name Freq PRN Reason Stop Dose Admin Sodium Chloride 1,000 mls @ 30 ml s/hr 10/06/19 08:45 10/06/19 11:04 Sodium Chloride 0.9% IV 10/07/19 08:44 30 mls/hr .Q24H ASTER Administration PFSH Anesthesia PFSH: Medical History Bilateral lung cancer Chronic bronchitis with COPD (chronic obstructive pulmonary disease) Deviated septum Lesion of vocal fold Port-A-Cath in place Surgical History History of bronchoscopy Family History Other Cancer Social History Smoking and tobacco status: current every day smoker cigarettes Packs smoked per day: 0.5 Years cigarettes smoked: 40 Alcohol intake: never Lives independently: Yes Household members: friend(s) Housing: House Current occupational status: disabled History of recent travel: No Current gender identity: Female Data Anesthesia Cardiac Studies: No Data to Display
--- NOTE | 2019-10-06 11:48 | W.PM.OPSUD ---
Surgery/Procedure H&P Update DATE OF PROCEDURE: October 06, 2019 DATE H&P PERFORMED: 09/14/19 H&P UPDATE INFORMATION: I have reviewed H&P completed within last 30 days, I have examined patient prior to procedure, No changes to prior documentation and H&P to be scanned into chart PREOP DIAGNOSIS: Hoarseness, Bilateral true vocal cord Leukoplakia PLANNED PROCEDURE: Operation Date: 10/06/19 11:30 Proposed Procedures p Direct Laryngoscopy with biopsy(Not Applicable) - oRny Thacker MD
[2019-10-06] MEDS: EPINEPHrine 1 mg/mL INJ 3 MG XX (12:34)
[2019-10-06] MEDS: fluorescein 1 mg Strip XX (12:35)
--- NOTE | 2019-10-06 12:51 | P.OP_ITS ---
Operative Report Date of procedure: October 06, 2019 Pre-op Diagnosis: Hoarseness, Bilateral true vocal cord Leukoplakia Post-op diagnosis: same Post-op Findings: Right true vocal cord leukoplic lesion Left anterior false vocal cord lesion Procedure Done: Microdirect laryngoscopy with biopsy of right true vocal and left false vocal cord lesions Implants: None Pathology: Right true vocal cord lesion Left anterior true vocal cord lesion Surgeon: Rony Thacker Nuclear Auxiliary Operator: Freya Bajwa Anesthesia: General Estimated blood loss (mL): 2 IV fluids (mL): 300 Complications: None Findings: Right true vocal cord leukoplakic lesion Left anterior false vocal cord lesion Condition: stable Disposition: PACU Brief History: 58 yo wf with a h/o new onset hoarseness with true vocal cord lesions noted no flexible endoscopic exam. The patient desires surgical therapy. Procedure: The patient was identified in the preoperative holding area and was t aken to the operating room where she was placed on the operating table in the supine position. Anesthesia was obtained with general endotracheal anesthesia. The table was then turned 90 degrees to the patient's left and she was prepped and draped in usual sterile fashion. A moist 4 x 8 was placed in the patient's maxillary gingiva and the surgical laryngoscope was advanced on the right oral cavity gutter under direct vision until the larynx came into view. A systematic inspection was carried out of the patient's larynx with the findings noted above. The patient was placed on suspension and the 0 degree Goodwin yair surgical telescope with the attached video camera system was used to inspect the larynx and we video documented the lesions noted above. Biopsies were taken of the right true vocal cord and left false vocal cord lesions. Hemostasis was achieved with direct application of 05/999 epinephrine on neuro pledgets. Once hemostasis had been achieved, the patient was taken off suspension and the surgical laryngoscope was removed. A bimanual exam was performed which was normal. The procedure was then terminated and control of the patient was returned to anesthesia where she underwent an uneventful reversal of anesthesia and extubation and was taken to the recovery room in stable condition. There were no operative or anesthetic complications
== END 2019-10-06 14:15 | disposition home or self-care (01) ==
PROVIDERS: PCP Family Medicine; Visit Provider Specialist
PROC: 0CJS8ZZ Inspection of Larynx, Via Natural or Artificial Opening Endoscopic (ICD-10-PCS; CPT 31535; principal; 2019-10-06 11:30)
DX: R49.0 Dysphonia (principal); J38.3 Other diseases of vocal cords; J44.9 Chronic obstructive pulmonary disease, unspecified; K21.9 Gastro-esophageal reflux disease without esophagitis; M19.90 Unspecified osteoarthritis, unspecified site
CPT/HCPCS: 31535; 12345; 88305; J0171; J0330; J1100; J1642; J2405; J2704; J3490; J7030

== ENCOUNTER 2019-10-13 08:28 | Outpatient (CLI) | payer MEDICAID, SELFPAY ==
--- NOTE | 2019-10-13 17:48 | ONC FU_ITS ---
Dr. Soares follow up note Patient: Alma Deleon Unit #: [id number]: 1960 Dicatated By: Rukhsana Soares M.D.Date of Visit:October 13, 2019 Onc Med Follow-up/Prog Note History of Present Illness: Mrs. Deleon is a 58-year-old female with history of progressive cough. She underwent evaluation on July 07, [address] scan of chest. It reported bilateral upper lobe masses: the mass on right side was 5.9 x 4.1 x 4.9 cm and on the left side was 4.6 x 2.8 x 2.8 cm. On 11/14/2018 patient underwent EBUS , which showed there was 90% narrowing of right upper lobe bronchus due to extensive compression, and right-sided mediastinal and hilar lymph node were enlarged and endobronchial right upper lobe and lymph node biopsies were obtained final pathology report came back poorly differentiated adenocarcinoma consistent with lung primary from right upper lobe endobronchial biopsy. And both lymph node biopsies were negative. Molecular profiling which include EGFR, ALK, ROS 1, PDL 1 and BRAF were done and it showed PDL 1 was 95% tumor cells are positive membranous positivity and rest of molecular profiling was unremarkable. Staging workup including CT PET scan and MRI brain was obtained. The CT PET scan on 12/04/2018 showed hypermetabolic centrally necrotic mass within the right upper lobe abutting adjacent pleura, major fissure, and mediastinum with tumor extension into the right superior hilum, with SUV of 13. Additional centrally necrotic hypermetabolic mass in the left upper lobe with a SUV of 20.9, abutting the adjacent pleura and left major fissure and AP window lymph nodes consistent with elfego metastatic disease. No hypermetabolic metastasis in neck abdomen or pelvis. MRI brain showed 5 mm lesions in the left temporal lobe, and left parietal lobe with mild adjacent edema. Mrs Deleon underwent CyberKnife on 01/02/2019. She was offered palliative chemotherapy plus immunotherapy. She declined and she was also referred to radiation oncology for her right-sided chest pain radiating to her neck and patient declined. With tumor being PDL 1 positive, role of immunotherapy with Keytruda was discussed and patient was willing to consider but then decided to come to [place] for further management. Ms Deleon still smokes about pack a day and has history of smoking for 30-40 years, denies alcohol use. She is still smoking about pack a day AGAINST MEDICAL ADVICE. Ms Deleon started her first cycle of chemotherapy with carboplatin/Alimta/Keytruda on March 09, 2019. She is tolerated it well. Her second cycle was given on March 30, 2019. She states since then she is feeling so much better her breathing is so much better. She states it is amazing how much better she is breathing and how much better she feels overall. Per the report from 05/16/2019 there was no comparison image available for comparison. We will call [facility] radiology and request over read as she did have a PET CT in November 2018. comparison of report indicates that the right upper lobe mass now measuring 5.8 x 3.3 cm with a peripheral uptake of SUV 4.6 was reported as 5.4 x 7.5 x 7 cm with an SUV of 13 on the November 2018 study. A left upper lobe mass measuring 5.2 x 6.4 cm on the current study with an SUV of 7.6 was compared to the November study at which time it measured 5.9 x 6.6 x 5 point centimeters with an SUV of 20.9. There is a solid right middle lobe nodule measuring 1.8 x 2.5 cm with SUV of 5.4 and small scattered mediastinal nodes demonstrating minimal FDG uptake although this may be reactive, although micrometastatic disease cannot be excluded. reviewed her 05/16/2019 PET/CT study for comparison with the PET/CT from November 2018. In the interim between studies, the SUV activity has greatly improved and there has been reported decrease in size of the tumors. She had completed 4 cycles of carboplatin Alimta and Keytruda. She received Keytruda only on 06/03/2019 as she stated she was only supposed to have four cycles of chemotherapy and then pursue maintenance with immunotherapy. based on good response seen on f/u PET scan it was suggested to continue chemotherapy for 3 more cycles then repeat imaging. She has reluctantly agreed to try chemotherapy again. She states she understands why she needs it but is not looking forward to feeling washed out again. She has had consultation with Dr Gamez in ENT. She states he told her she has some scaring/calcifications/nodules on her voicebox. She states he has informed her that he can nip them right out of there . She states that he told her this is a simple procedure but the recovery she will have to be very adamant on following strict instructions. She states she feels that she can do this in put up with what ever she needs to get rid of the hoarseness so she quit sounding like a man . Her treatment was held the week of July 22, 2019 as she thought she might have mild flu symptoms . was given week off to allow for recovery. She is waiting to hear from Dr. Gamez's office in regards to her surgery that he is planning on performing. but Dr. Gamez quit his practice in [place] She is concerned that she is gaining weight. . She does have a thyroid panel done on 07/29/2019 showed T3 free was 2.9, normal being 2-4.4, T4 free 1.44 normal being 0.82 to 1.77. And TSH 0.23 persistent hoarseness of voice, she was waiting for Dr. Gamez's call for the surgery but she heard, that Dr. Gamez has left [place]. Now requesting referrel to Dr. Thacker , ENT for evaluation for hoarseness. The last time she received chemotherapy was on 07/01/2019, patient has been postponing her treatment due to hoarseness and its management.finally she was seen by Dr. Thacker on 09/22/2019 and On 10/06/2019 she underwent vocal cord biopsy, results are pending Follow-up CT PET scan done on 10/03/2019 showed malignant lung masses are now more consolidated in size on the current study, but maintain active FDG uptake, when compared with one done on 05/16/2019. The right upper lobe mass cavitation is essentially resolved, but maintain extensive central necrosis. Now measures 4.8 x 2.8 cm with SUV of 5.0 not a significant increase. The left upper lobe lesion measured 3 x 4.3 cm down from 5.2 x 6.4 cm previously but now demonstrates SUV of 14.2, up from 7.6 previously. A new solid lesion has developed in the right upper lobe, measuring 2.4 x 1.7 cm with SUV of 20.7. The right middle lobe nodule is progressed, now measuring 2.2 x 2.6 cm with SUV of 7.3 up from 1.8 x 2.5 cm with SUV of 5.4 previously. Scattered mediastinal lymph nodes are unchanged from prior study. Came for follow-up, denies any specific complaints, no fever or chills, no nausea or vomiting, no diarrhea constipation, hoarseness of voice has improved since she had vocal cord biopsy done on 10/06/2019. She has follow-up appointment with Dr. Thacker on 10/16/2019. Medications: Benzonatate 1 Capsule (of 200 mg) Oral 6x/d PRN, Centrum Silver Adult 50+ 1 Tablet Oral daily, Combivent Respimat Aerosol, solution Inhalation, Folic Acid 1 (1 mg) Tablet Oral daily, HYDROcodone-Acetaminophen 1 Tablet (of 5-325 mg) Oral four times a day, Tiotropium [place] Monohydrate 1 Puff(s) (of 2.5 mcg/act) Aerosol, solution Inhalation q 24 hours Allergies: Penicillin Review of Systems: Constitutional - Appetite is fair and weight is stable. No fever, chills, hot flashes, or night sweats. Energy level is fair, ENMT - Positive for sinus congestion/drainage. No mouth sores. Positive for sore throat, no difficulty swallowing, Hematologic/Lymphatic - No abnormal bruising or bleeding, Respiratory - Positive for shortness of breath. Positive for cough. No pleuritic pain or hemoptysis, Cardiovascular - No angina pain. No palpitations, Gastrointestinal - No nausea or vomiting. No heartburn or acid reflux. No diarrhea or constipation. No blood in the stool or black stools, Genitourinary (F) - No dysuria or hematuria. No urinary frequency. Positive for urgency, no incontinence, Musculoskeletal - Positive for back pain, Neurologic - No headache or dizziness, Psychiatric - Positive for depression, anxiety and insomnia. Vital Signs: Performed on October 13, 2019 08:44 Height - 63.00 in Weight - 147.8 lbs (HIGH) BSA - 1.70 sq.m BMI - 26.18 Temperature - 97.0 F (LOW) Pulse - 78 /min Respiration - 19 /min BP - 132/75 mm(hg) O2 Sat - 96 % Pain - 0 Performance Status: 0 - Fully active, able to carry on all predisease activities without restrictions. (ECOG) Physical Examination: ENMT - no mouth sores, or thrush, or jaundice, Respiratory - Lungs are clear, Cardiovascular - Regular rate and rhythm of heart, Abdomen - soft, bowel sounds present, Extremities - , no edema or rash. Lab/Imaging: Test performed on September 29, 2019 08:10 Sodium 142 mmol/L TSH 1.03 uIU/mL Potassium 3.9 mmol/L Chloride 103 mmol/L CO2 28 mmol/L Anion Gap 14.9 BUN 6 mg/dL Creatinine 0.8 mg/dL Cr Clearance (Est) 80.5800 mL/min eGFR 73.7 mL/min Glucose 132 mg/dL Calcium 9.1 mg/dL Protein, Total 7.1 g/dL Albumin 4.1 g/dL Globulin 3.0 g/dL Bilirubin, Total 0.3 mg/dL ALT (SGPT) 62 U/L AST (SGOT) 49 U/L Alkaline Phosphatase 106 IU/L WBC 9.8 10 3/uL RBC 4.82 10 6/uL HGB 14.4 g/dL HCT 43.1 % MCV 89.4 fL MCH 29.9 pg MCHC 33.4 g/dL RDW 12.2 % Platelet Count 209 10 3/cmm MPV 8.9 fL Neutrophils 6.9 10 3/uL Lymphocytes 2.0 10 3/uL Monocytes 0.5 10 3/uL Eosinophils 0.3 10 3/uL Basophils 0.1 10 3/uL Neutrophil % 70.8 % Lymphocyte % 20.4 % Monocyte % 4.6 % Eosinophil % 3.0 % Basophils % 0.8 % Test performed on Jul 29, 2019 08:35 T3, Free 2.9 PG/ML T4, Free 1.44 ng/dL Test performed on Jun 03, 2019 08:38 Manual Lymphocytes 24.8 % Manual Monocytes 14.8 % Manual Eosinophils 0 % Manual Basophils 0.2 % Atypical Lymphs 1.3 % Impression: Stage IV, 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 Next Stage IV, M1 a due to separate tumor nodule in the contralateral lobe and brain metastases 5 mm ???[address] PET scan done on 12/04/2018 showed hypermetabolic centrally necrotic mass within the right upper lobe abutting adjacent pleura, major fissure and mediastinum with tumor extension into right superior hilum. Additional centrally necrotic hypermetabolic mass within left upper lobe abutting the adjacent pleura and left major fissure with tumor extension to the left superior hilum. Hypermetabolic right hilar, precarinal, and AP window lymph nodes consistent with a node metastases. No hypermetabolic metastasis within the neck, abdomen or pelvis. MRI scan of the head showed 5 mm ???2 lesion status post CyberKnife on 01/02/2019. Active smoker AGAINST MEDICAL ADVICE; COPD Ms. Deleon began her first cycle of carbo Alimta Keytruda on March 09, 2019. She is tolerated it well thus far. She states that after the second cycle of chemotherapy her breathing is so much better that is amazing . She states that she is now breathing through her nose when she is sleeping and that is something she has not done in years. She states overall she is feeling so much better. regarding her PET CT from 05/16/2019. she did have a PET CT in November 2018. This PET CT was NOT performed at [facility] in the interim just comparison of report indicates that the right upper lobe mass now measuring 5.8 x 3.3 cm with a peripheral uptake of SUV 4.6 was reported as 5.4 x 7.5 x 7 cm with an SUV of 13 on the November 2018 study. A left upper lobe mass measuring 5.2 x 6.4 cm on the current study with an SUV of 7.6 was compared to the November study at which time it measured 5.9 x 6.6 x 5 point centimeters with an SUV of 20.9. There is a solid right middle lobe nodule measuring 1.8 x 2.5 cm with SUV of 5.4 and small scattered mediastinal nodes demonstrating minimal FDG uptake although this may be reactive, although micrometastatic disease cannot be excluded. tolerated palliative therapy with carboplatin/Alimta/Keytruda well. Her follow-up CT PET scan from 04/2019 showed good response to the treatment. discussed with Ms Deleon further treatment plans. The plan earlier plan was to give her 4 cycles of chemotherapy along with immunotherapy and restage her. Her follow-up PET scan in April 2019 shows good response- no evidence of distance metastases, but not resolution of disease. In that case, She was encouraged to continue with same regimen e.g. carboplatin/Alimta/Keytruda for 3 more cycles and restage with CT PET scan. If it shows further improvement and her performance status is till good, she may need to continue full treatment; if on the other hand it shows stable disease then will consider switching her to maintenance therapy with Keytruda alone. Ms Deleon is due to resume Carboplatin/Alimta/Keytruda on 07/01/2019 and after that she has been postponing her chemotherapy as she was undergoing evaluation for hoarseness of voice. , as per ENT it was due to some nodules/calcifications of vocal cord. Plan: Discussed with patient regarding her CT PET scan which was done on 10/03/2019 which showed mixed response e.g. her left upper lobe lesion by 3.0 x 4.3 cm down from 5.2 x 6.4 cm previously but SUV has increased to 14.2 from 7.6 previously. And there is a new solid lesion has developed in the right upper lobe measuring 2.4 x 1.7 cm with SUV of 20.7, right upper lobe mass cavitation is essentially resolved, but maintain extensive central necrosis now 4.8 x 2.8 cm with SUV of 5. And right middle lobe nodule is progressed, now measuring 2.2 x 2.6 cm with SUV of 7.3, up from 1.8 x 2.5 cm with SUV of 5.4 previously. And scattered mediastinal lymph nodes are unchanged from prior study. Clinically, patient is doing well, tolerating maintenance therapy with Keytruda well but with expected side effects. Her follow-up CT PET scan shows disease still localized in the thorax, no distant metastases was seen. Her case was discussed with radiation oncology Dr. Lawson, who will see her and discuss about role of SB RT. Patient is a candidate for SB RT then we will hold her immunotherapy otherwise we'll consider adding chemotherapy to the immunotherapy as her follow-up CT PET scan shows mixed response but still disease contained in the chest. And other option will be continue with maintenance therapy with Keytruda and repeat scan in 3-4 months and if there is a further disease progression then consider chemotherapy.Patient return to clinic as scheduled on 10/20/2019 Signed By: Rukhsana Soares M.D. <<Signature on File>>
== END 2019-10-13 08:29 | disposition home or self-care (01) ==
LOC: ONCMED 08:29
PROVIDERS: PCP Family Medicine; Visit Provider Internal Medicine Hematology & Oncology
DX: C34.11 Malignant neoplasm of upper lobe, right bronchus or lung (principal); C77.1 Secondary and unspecified malignant neoplasm of intrathoracic lymph nodes; C79.31 Secondary malignant neoplasm of brain; C78.02 Secondary malignant neoplasm of left lung; J38.2 Nodules of vocal cords; F17.210 Nicotine dependence, cigarettes, uncomplicated; Z92.21 Personal history of antineoplastic chemotherapy; Z79.899 Other long term (current) drug therapy
CPT/HCPCS: 99214

== ENCOUNTER 2019-10-20 06:45 | Outpatient (RCR) | payer MEDICAID, SELFPAY ==
--- NOTE | 2019-10-15 11:32 | N.ONRAD NP_ITS ---
Radiation Oncology New Patient Visit Patient: Alma Deleon MR#: [id number] : 1960> Age: 58> Sex: Female> Dictated by: Dr. 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 Stage IV (T2-T3 N2M1) adenocarcinoma involving both lungs with hilar and mediastinal adenopathy at diagnosis and asymptomatic brain metastases. Diagnosis was made in October 2018 at bronchoscopy. Radiotherapy to date: Summary CyberKnife radiosurgery to left temporal lobe and left parietal lobe brain metastases performed in [facility] January 02, 2019 Chief Complaint / History of Present Illness: Ms. Deleon is a 58-year-old woman who had recurrent pneumonia in June 2018. CT scan of the chest revealed bilateral lung masses. She was told she had lung cancer and had a limited time to live and ultimately chose no further evaluation or treatment. In October 2018 she underwent E bus which revealed narrowing of the right upper lobe bronchus due to extensive compression with right-sided mediastinal and hilar lymph node enlargement endobronchial right upper lobe and lymph node biopsies were obtained and revealed adenocarcinoma consistent with lung primary lymph node biopsies were negative. Molecular profiling was positive only for PD-L1 which was 95% positive. PET CT scan in November 2018 confirmed hypermetabolic masses within the right upper lobe right hilar and mediastinal lymph node involvement large centrally necrotic hypermetabolic left upper lobe mass MRI revealed 5 mm lesions in the left temporal and right parietal lobes she underwent CyberKnife for these in December 2018 in [facility]. She declined treatment when seen in [place] beyond CyberKnife for her brain metastases. She then was seen here by Dr. Soares. He treated her with carboplatinum Alimta and Keytruda for 4 cycles. During this time she felt better with improved breathing and no recurrent pneumonia following 4 cycles of chemo therapy immunotherapy she then has been on Keytruda only beginning in May 2019. Recently she was seen by Dr. Rony Brady for follow-up of hoarseness previously evaluated here. On October 06, 2019 performed Micro Direct laryngoscopy and biopsy of right true vocal cord and left false cord lesions pathology thus far has revealed ulceration and acute and chronic inflammation with no malignancy or dysplasia identified. Currently she is stable overall with improved breathing. She does have significant cough and shortness of breath in the morning which clears over 1 to 1-1/2-hour... Her breathing during the day is stable her appetite is good and she is gained weight since beginning chemotherapy. She has a low stable energy level and is fatigued after activity despite this she is active in managing her activities of daily living. She is smoked from age 11 to age 58 up to a pack a day and now smokes less than 1/2 pack/day. She denies alcohol intake She has no pain anywhere and has no headache nausea or vomiting. PET CT scan from April 2019 to October 03, 2019 revealed reduction in size in the lung masses cavitation in the right upper lobe has resolved. left upper lobe lesion had decreased in size from 5.2 x 6.4 to 3.0 x 4.3 cm, a new solid lesion develop in the right upper lobe inferiorly measuring 2.4 x 1.7 cm, In the right middle lobe a nodule had progressed now measuring 2.3 x 2.6 cm from 1.8 x 2.5 cm. There was mediastinal adenopathy noted unchanged no evidence for distant metastatic disease. Current Medications: Amoxicillin-Pot Clavulanate, aprepitant, benzonatate, benzonatate, centrum Silver Adult 50+, combivent Respimat, cyclobenzaprine HCl, dexamethasone, folic Acid, folic Acid, hYDROcodone-Acetaminophen, hYDROcodone-Acetaminophen, keytruda, lidocaine HCl, nystatin, ondansetron HCl, proAir HFA, prochlorperazine Maleate, tiotropium [place] Monohydrate. Allergies: Penicillin. Medical History: No history of collagen vascular disease. Surgical History: No significant surgeries. Family History: Pt was raised in the foster care. Family history unknown. Social History: Last screened on 10/13/2019 - Current every day smoker 0.5 packs/day for 40 years Previously smoked up to a pack a day. Last screened on 10/13/2019 - Never drank. Social history for 23 years has 4 children living in 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 Continues to smoke as noted above. Enjoys taking walks and crocheting. Lives with a roommate Juli Herring. Current Complaints / Review of Systems: Constitutional - Complains of mild fatigue. Complains of change in weight in which her weight is up about 16 lbs. since 04/2019. Denies lack of appetite, fever and night sweats. Eyes - Complains of blurred vision occasionally. Denies double vision. ENMT - Complains of dysphagia which is related to recent biopsy, mouth dryness and tinnitus which she had some last night for the 1st time and none since then. Denies ear pain, stomatitis and altered taste. Neck - Complains of neck pain occasionally. Integumentary - Denies rash. Breasts - Denies pain. Cardiovascular - Denies arrhythmias and chest pain. Respiratory - Complains of cough and is worse in the morning, dyspnea which happens in the mornings with coughing and wheezing. Denies hemoptysis. Gastrointestinal - Complains of intermittent diarrhea. Complains of heartburn / dyspepsia. Denies abdominal pain, constipation, melena / GI bleeding, nausea and vomiting. Genitourinary (F) - Complains of nocturia gets up about 1 to 2 times per night. Denies dysuria, frequency, urgency, vaginal discharge / bleeding and vaginal spotting. Musculoskeletal - Denies bone pain and joint pain. Neurologic - Complains of headaches in which she stated it's related to sinus. Denies dizziness and abnormal gait. Endocrine - Denies diabetes and thyroid disease. Hematologic/Lymphatic - Denies tender or enlarged lymph nodes.. Vital Signs: Performed on 10/14/2019 2:30 PM BMI - 26.146 kg/m2 (high), Height - 63.00 in, Weight - 147.6 lbs, Temperature - 99.1 f, Pulse - 76, Respiration - 20, O2 Sat - 97 %, Pain - 4 and BP - 111/ 78 mm(hg). Physical Exam: Physical examination revealed a pleasant articulate woman in no acute distress. HEENT she had dentures in. She had no scleral icterus. Lymph nodes she had no palpable cervical or supraclavicular adenopathy. Lungs decreased breath sounds no wheezes or rhonchi. Heart regular without murmur gallop. Abdominal examination revealed no hepatomegaly masses or tenderness. Extremities did reveal clubbing of fingers with no edema. 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 Lab: Test performed on 06/03/2019 8:38 AM Manual Monocytes - 14.8 % (high), Test performed on 09/29/2019 8:10 AM eGFR - 73.7 ml/min (low), Glucose - 132 mg/dl (high), ALT (SGPT) - 62 u/l (high), AST (SGOT) - 49 u/l (high) and Alkaline Phosphatase - 106 iu/l (high). Imaging: See HPI Impression: In summary my impression is bilateral stage IV (T2-T3 N2M1) adenocarcinoma both lungs. She has had a pleasing symptomatic improvement with chemotherapy and immunotherapy. Objectively she has had a mixed response to treatment with evidence of both response and progression on her last PET/CT imaging. She is essentially asymptomatic of her persistent disease at this time. She is not interested in pursuing any treatment which would compromise her quality of life. At this time in light of her absence of symptoms I did not recommend pursuing consolidative radiation to both lung mass regions and her mediastinum. I feel the volume of lung within the treatment peraza will be excessive and potentially diminish her functional status. In the event she has disease progression causing symptoms such as airway compromise, shortness of breath, hemoptysis or chest pain I would readdress palliative radiation therapy at that time. At this time I recommend that she return to Dr. Soares for ongoing observation versus ongoing maintenance immunotherapy. I also discussed general palliative care themes with her. I recommend that she have a DNR status which she is in agreement with. I recommend that her children or roommate take on the responsibility of being a DPOA. I discussed my recommendations with Dr. Soares as well. Plan: Signed by: 10/15/2019 11:30:38 AM <<Signature on File>> Time spent with patient: CPT Code: CPT Code:
[2019-10-20 12:38] LABS: Basophils # 0.1 10^3/uL (0.0-0.1); Basophils % 0.8 %; Eosinophils # 0.5 10^3/uL (0.0-0.8); Eosinophils % 4.8 %; Hematocrit 41.6 % (37.0-47.0); Hemoglobin 14.2 g/dL (11.5-15.3); Lymphocytes # 2.7 10^3/uL (0.8-4.8); Mean Corpuscular HGB Conc 34.1 g/dL (30.0-36.0); Mean Corpuscular Hemoglobin 30.4 pg (28.0-34.0); Mean Corpuscular Volume 89.1 fL (81-99); Mean Platelet Volume 9.5 fL (7.4-10.4); Monocytes # 0.8 10^3/uL (0.2-0.9); Monocytes % 8.1 %; Neutrophils # 5.4 10^3/uL (1.8-7.7); Neutrophils % 57.1 %; Nucleated Red Blood Cells % 0 %; Platelet Count 202 10^3/cmm (130-400); Red Blood Count 4.67 10^6/uL (4.1-5.3); White Blood Count 9.4 10^3/uL (4.0-10.0)
[2019-10-20 13:00] LABS: Alanine Aminotransferase 40 U/L (0-33); Albumin Level 4.1 g/dL (3.5-5.2); Alkaline Phosphatase 109 IU/L (35-105); Anion Gap 15.1 (5-19); Blood Urea Nitrogen 6 mg/dL (6-20); Calcium 9.9 mg/dL (8.5-10.5); Carbon Dioxide 26 mmol/L (22-29); Chloride 103 mmol/L (98-107); Globulin 2.7 g/dL (1.3-4.6); Glomerular Filtration Rate 85.9 mL/min (90-130); Glucose 94 mg/dL (65-115); Osmolality Calculated 286 mOsm/kg (285-295); Potassium 4.1 mmol/L (3.5-5.1); Sodium 140 mmol/L (136-145); Thyroid Stimulating Hormone 0.89 uIU/mL (0.27-4.20); Total Bilirubin 0.5 mg/dL (0.15-1.2); Total Protein 6.8 g/dL (6.6-8.7)
[2019-10-20 13:31] LABS: Aspartate Amino Transferase 38 U/L (0-32)
--- NOTE | 2019-10-25 23:35 | ONC FU_ITS ---
[facility] Patient Note Patient: Alma Deleon Unit #: [id number]: 1960 Dictated By: Elly HarrisDate of Visit: October 20, 2019 Onc MED Follow-Up/Prog Note Chief Complaint: Metastatic adenocarcinoma of the lung History of Present Illness: Mrs. Deleon is a 58-year-old female with history of progressive cough. She underwent evaluation on July 07, [address] scan of chest. It reported bilateral upper lobe masses: the mass on right side was 5.9 x 4.1 x 4.9 cm and on the left side was 4.6 x 2.8 x 2.8 cm. On 11/14/2018 patient underwent EBUS , which showed there was 90% narrowing of right upper lobe bronchus due to extensive compression, and right-sided mediastinal and hilar lymph node were enlarged and endobronchial right upper lobe and lymph node biopsies were obtained final pathology report came back poorly differentiated adenocarcinoma consistent with lung primary from right upper lobe endobronchial biopsy. And both lymph node biopsies were negative. Molecular profiling which include EGFR, ALK, ROS 1, PDL 1 and BRAF were done and it showed PDL 1 was 95% tumor cells are positive membranous positivity and rest of molecular profiling was unremarkable. Staging workup including CT PET scan and MRI brain was obtained. The CT PET scan on 12/04/2018 showed hypermetabolic centrally necrotic mass within the right upper lobe abutting adjacent pleura, major fissure, and mediastinum with tumor extension into the right superior hilum, with SUV of 13. Additional centrally necrotic hypermetabolic mass in the left upper lobe with a SUV of 20.9, abutting the adjacent pleura and left major fissure and AP window lymph nodes consistent with elfego metastatic disease. No hypermetabolic metastasis in neck abdomen or pelvis. MRI brain showed 5 mm lesions in the left temporal lobe, and left parietal lobe with mild adjacent edema. Mrs Deleon underwent CyberKnife on 01/02/2019. She was offered palliative chemotherapy plus immunotherapy. She declined and she was also referred to radiation oncology for her right-sided chest pain radiating to her neck and patient declined. With tumor being PDL 1 positive, role of immunotherapy with Keytruda was discussed and patient was willing to consider but then decided to come to [place] for further management. Ms Deleon still smokes about pack a day and has history of smoking for 30-40 years, denies alcohol use. She is still smoking about pack a day AGAINST MEDICAL ADVICE. Ms Deleon started her first cycle of chemotherapy with carboplatin/Alimta/Keytruda on March 09, 2019. She is tolerated it well. Her second cycle was given on March 30, 2019. She states since then she is feeling so much better her breathing is so much better. She states it is amazing how much better she is breathing and how much better she feels overall. Per the report from 05/16/2019 there was no comparison image available for comparison. We will call [facility] radiology and request over read as she did have a PET CT in November 2018. comparison of report indicates that the right upper lobe mass now measuring 5.8 x 3.3 cm with a peripheral uptake of SUV 4.6 was reported as 5.4 x 7.5 x 7 cm with an SUV of 13 on the November 2018 study. A left upper lobe mass measuring 5.2 x 6.4 cm on the current study with an SUV of 7.6 was compared to the November study at which time it measured 5.9 x 6.6 x 5 point centimeters with an SUV of 20.9. There is a solid right middle lobe nodule measuring 1.8 x 2.5 cm with SUV of 5.4 and small scattered mediastinal nodes demonstrating minimal FDG uptake although this may be reactive, although micrometastatic disease cannot be excluded. On review of her 05/16/2019 PET/CT study for comparison with the PET/CT from November 2018. In the interim between studies, the SUV activity has greatly improved and there has been reported decrease in size of the tumors. She had completed 4 cycles of carboplatin Alimta and Keytruda. She received Keytruda only on 06/03/2019 as she stated she was only supposed to have four cycles of chemotherapy and then pursue maintenance with immunotherapy. based on good response seen on f/u PET scan it was suggested to continue chemotherapy for 3 more cycles then repeat imaging. She has reluctantly agreed to try chemotherapy again. She states she understands why she needs it but is not looking forward to feeling washed out again. She has had consultation with Dr Gamez in ENT. She states he told her she has some scaring/calcifications/nodules on her voicebox. She states he has informed her that he can nip them right out of there . She states that he told her this is a simple procedure but the recovery she will have to be very adamant on following strict instructions. She states she feels that she can do this in put up with what ever she needs to get rid of the hoarseness so she quit sounding like a man . Her treatment was held the week of July 22, 2019 as she thought she might have mild flu symptoms . She was given a week off to allow for recovery. She was waiting to hear from Dr. Gamez's office in regards to her surgery that he was planning but apparently Dr. Gamez quit his practice in [place]. She was concerned that she was gaining weight. . She did have a thyroid panel done on 07/29/2019 showed T3 free was 2.9, normal being 2-4.4, T4 free 1.44 normal being 0.82 to 1.77. And TSH 0.23 She has persistent hoarseness of voice, she was waiting for Dr. Gamez's call for the surgery but she heard that Dr. aGmez has left [place]. She then requested a referrel to Dr. Thacker , ENT for evaluation for hoarseness. The last time she received chemotherapy was on 07/01/2019, patient has been postponing her treatment due to hoarseness and its management.finally she was seen by Dr. Thacker on 09/22/2019 and On 10/06/2019 she underwent vocal cord biopsy, results are pending. Follow-up CT PET scan done on 10/03/2019 showed malignant lung masses are now more consolidated in size on the current study, but maintain active FDG uptake, when compared with one done on 05/16/2019. The right upper lobe mass cavitation is essentially resolved, but maintain extensive central necrosis. Now measures 4.8 x 2.8 cm with SUV of 5.0 not a significant increase. The left upper lobe lesion measured 3 x 4.3 cm down from 5.2 x 6.4 cm previously but now demonstrates SUV of 14.2, up from 7.6 previouslyA new solid lesion has developed in the right upper lobe, measuring 2.4 x 1.7 cm with SUV of 20.7. The right middle lobe nodule is progressed, now measuring 2.2 x 2.6 cm with SUV of 7.3 up from 1.8 x 2.5 cm with SUV of 5.4 previously. Scattered mediastinal lymph nodes are unchanged from prior study. Ms Deleon is here today for follow-up. She denies any specific complaints. She has had no fever or chills, no nausea or vomiting, no diarrhea constipation. She states the hoarseness of voice has improved since she had vocal cord biopsy done on 10/06/2019. She had follow-up appointment with Dr. Thacker on 10/16/2019. She still does not have pathology report as it is stil pending. Her last dose of carbo Alimta was on July 01, 2019. She is continued with single agent Keytruda starting on September 09. She is due for next cycle today. This will be her ninth cycle of Keytruda. She states overall she is doing well. She is wanting to review the PET CT which was reviewed previous with Dr. Soares as it was obtained on 10/03/2019. Again we discussed that showed mixed response but the left upper lobe lesion by 3.0 x 4.3 cm down from 5.2 x 6.1 cm. The SUV had been 7.6 previously and was 14.2 on the September scan. There was also a new solid lesion developed in the right upper lobe measuring 2.4 x 1.7 cm with an SUV of 20.7, right upper lobe mass cavitation is essentially resolved but maintain access tensive central necrosis now 4.8 x 2 point centimeters with an SUV of 5. The right middle lobe is progressed measuring 2.2 x 2.6 with an SUV of 7.3 which is up slightly from 1.8 x 2.5 with SUV of 5.4. There are scattered mediastinal lymph nodes which are unchanged in the prior study. Ms. Deleon was referred to radiation oncology for second opinion she did see Dr. Lawson in radiation oncology on 10/14/2019. She has had a mixed response to treatment with evidence of both response and progression on the last PET/CT. She is essentially asymptomatic of her persistent disease and is not interested in pursuing any treatment which would compromise her quality of life at this time. Therefore she is elected not to pursue any radiation therapy currently. Dr. Lawson did state that he would not recommend pursuing consolidative and light of her absence of he states he felt the volume of the line within the treatment field to be excessive in terms of diminished her functional status if she has disease progression, symptoms such as airway compromise, shortness of breath or chest pain one could readdress palliative radiation at that time. She continues with immunotherapy. Past Medical History: Ms. Deleon's medical history is unremarkable. Past Surgical History: Ms. Deleon's surgical history is unremarkable. Allergies: Penicillin Medications: Benzonatate 1 Capsule (of 200 mg) Oral 6x/d PRN Centrum Silver Adult 50+ 1 Tablet Oral daily Combivent Respimat Aerosol, solution Inhalation Folic Acid 1 (1 mg) Tablet Oral daily HYDROcodone-Acetaminophen 1 Tablet (of 5-325 mg) Oral four times a day Tiotropium Ripton Monohydrate 1 Puff(s) (of 2.5 mcg/act) Aerosol, solution Inhalation q 24 hours Family History: pt was raised in the foster care. Social History: Ms. Deleon is and she is a disabled. She is a daily smoker who has smoked 0.5 packs/day for 40 years. She has no history of drinking. Review Of Symptoms: Constitutional Denies fevers, chills, night sweats, excessive fatigue or weight loss. Allergic/Immunologic No reactions. Eyes Denies significant visual changes. No diplopia. No amaurosis. ENMT Denies changes in hearing, mouth sores, difficulty or changes in swallowing ability. She is still having hoarseness. above. Hematologic/Lymphatic Denies easy bruising or bleeding. The patient denies any tender or palpable lymph nodes. Respiratory Dramatically improved dyspnea on exertion. Denies chest pain, cough or hemoptysis. Denies orthopnea. Cardiovascular Denies anginal chest pain, palpitations or orthopnea. Gastrointestinal Denies nausea, vomiting, diarrhea, GI bleeding, or constipation. Denies change in bowel habits and/or stool color, no heartburn or early satiety. Genitourinary (F) No hematuria, hesitancy, incontinence, vaginal bleeding, discharge or other problems with urination. Musculoskeletal Denies joint pain, swelling or redness. No decreased range of motion. Integumentary Denies chronic rashes, inflammation, ulcerations or skin changes. Neurologic Denies blurred vision, and no areas of focal weakness or numbness. Normal gait. No sensory problems. Psychiatric Denies insomnia, depression, fran or mood swings. Vital Signs: ,1 - No physically strenuous activity, but ambulatory and able to carry out light or sedentary work (e.g. office work, light house work). (ECOG) Physical Examination: Constitutional Alert, oriented, no acute distress. Skin pink, warm and dry. Head Normocephalic; atraumatic. Eyes Conjunctivae and sclerae are clear and without icterus. Pupils are reactive and equal. Neck Supple without masses or thyromegaly. No jugular venous distension. Respiratory Lungs are clear to auscultation. Cardiovascular Regular rate and rhythm of heart without murmurs,clicks, gallops or rubs. Abdomen Non-tender, non-distended, no masses, ascites. No guarding or rebound tenderness. No pulsatile masses. Back/Spine Non-tender to palpation. Extremities No visible deformities, no cyanosis, clubbing or edema. Musculoskeletal No tenderness or swelling, normal range of motion without obvious weakness. Integumentary No rashes or lesions. Neurologic No sensory or motor deficits, normal cerebellar function, normal gait. Psychiatric Alert and oriented times three. Coherent speech. Verbalizes understanding of our discussions today. Laboratory:Test performed on October 20, 2019 13:54 Sodium 140 mmol/L TSH 0.89 uIU/mL Potassium 4.1 mmol/L Chloride 103 mmol/L CO2 26 mmol/L Anion Gap 15.1 BUN 6 mg/dL Creatinine 0.7 mg/dL Cr Clearance (Est) 92.59 mL/min eGFR 85.9 mL/min Glucose 94 mg/dL Calcium 9.9 mg/dL Protein, Total 6.8 g/dL Albumin 4.1 g/dL Globulin 2.7 g/dL Bilirubin, Total 0.5 mg/dL ALT (SGPT) 40 Units/L AST (SGOT) 38 Units/L Alkaline Phosphatase 109 IU/L WBC 9.4 10^3/uL RBC 4.67 10^6/uL HGB 14.2 g/dL HCT 41.6 % MCV 89.1 fl MCH 30.4 pg MCHC 34.1 g/dL RDW 12.0 % Platelet Count 202 10^3/uL MPV 9.5 fl Neutrophils 5.4 10^3/uL Lymphocytes 2.7 10^3/uL Monocytes 0.8 10^3/uL Eosinophils 0.5 10^3/uL Basophils 0.1 10^3/uL Neutrophil % 57.1 % Lymphocyte % 29.0 % Monocyte % 8.1 % Eosinophil % 4.8 % Basophils % 0.8 % Impression: Stage IV, 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 Next Stage IV, M1 a due to separate tumor nodule in the contralateral lobe and brain metastases 5 mm ???[address] PET scan done on 12/04/2018 showed hypermetabolic centrally necrotic mass within the right upper lobe abutting adjacent pleura, major fissure and mediastinum with tumor extension into right superior hilum. Additional centrally necrotic hypermetabolic mass within left upper lobe abutting the adjacent pleura and left major fissure with tumor extension to the left superior hilum. Hypermetabolic right hilar, precarinal, and AP window lymph nodes consistent with a node metastases. No hypermetabolic metastasis within the neck, abdomen or pelvis. MRI scan of the head showed 5 mm ???2 lesion status post CyberKnife on 01/02/2019. Active smoker AGAINST MEDICAL ADVICE; COPD Ms. Deleon began her first cycle of carbo Alimta Keytruda on March 09, 2019. She is tolerated it well thus far. She states that after the second cycle of chemotherapy her breathing is so much better that is amazing . She states that she is now breathing through her nose when she is sleeping and that is something she has not done in years. She states overall she is feeling so much better. regarding her PET CT from 05/16/2019. she did have a PET CT in November 2018. This PET CT was NOT performed at [facility] in the interim just comparison of report indicates that the right upper lobe mass now measuring 5.8 x 3.3 cm with a peripheral uptake of SUV 4.6 was reported as 5.4 x 7.5 x 7 cm with an SUV of 13 on the November 2018 study. A left upper lobe mass measuring 5.2 x 6.4 cm on the current study with an SUV of 7.6 was compared to the November study at which time it measured 5.9 x 6.6 x 5 point centimeters with an SUV of 20.9. There is a solid right middle lobe nodule measuring 1.8 x 2.5 cm with SUV of 5.4 and small scattered mediastinal nodes demonstrating minimal FDG uptake although this may be reactive, although micrometastatic disease cannot be excluded. tolerated palliative therapy with carboplatin/Alimta/Keytruda well. Her follow-up CT PET scan from 04/2019 showed good response to the treatment. discussed with Ms Deleon further treatment plans. The plan earlier plan was to give her 4 cycles of chemotherapy along with immunotherapy and restage her. Her follow-up PET scan in April 2019 shows good response- no evidence of distance metastases, but not resolution of disease. In that case, She was encouraged to continue with same regimen e.g. carboplatin/Alimta/Keytruda for 3 more cycles and restage with CT PET scan. If it shows further improvement and her performance status is till good, she may need to continue full treatment; if on the other hand it shows stable disease then will consider switching her to maintenance therapy with Keytruda alone. Ms Deleon is due to resume Carboplatin/Alimta/Keytruda on 07/01/2019 and after that she has been postponing her chemotherapy as she was undergoing evaluation for hoarseness of voice. , as per ENT it was due to some nodules/calcifications of vocal cord. We once again reviewed the PET/CT imaging and discussed results. She recalls them accurately from talking to people about her thyroid guarding. She is taking care of it well. She states she is tired a lot but denies any bowel or bladder changes. She said no breast tenderness soreness or drainage. She states overall she feels good she just feels that she is working into 3 different directions at this time. I did discuss with Ms. Monster Soares and Dr. Hair's impression that she should continue immunotherapy until significant disease progression at which time we could consider chemotherapy. She states at this point she is really not sure she is ready for chemotherapy to make a decision to the Keytruda. Her ECOG is 1. Plan: 1. Pursue 3-week dose of pembrolizumab ( Keytruda maintenance therapy). 2. Continue current antiemetics. 3. Proceed with current plan of care 4. She was encougared to drink 60 to 70 ounces of water a day split up to the day. 5. Today's labs were reviewed in detail discussed with Mrs. Deleon and a copy was given to her. WBC 4.4, hemoglobin 14.2, platelets 416,000, ANC is 5400 CMP is all within normal limits. TSH is 0.89. She will continue her same medication for now. 6. We will plan to see her back in 3 weeks with CBC, CMP and TSH.. 7. Mrs. Deleon was instructed to contact us in interim should questions or problems arise. Signed By: Elly Harris-, AOCNP Rukhsana Soares MD <<Signature on File>>
== END 2019-10-25 23:59 | disposition home or self-care (01) ==
LOC: ONCMED 06:45
PROVIDERS: Internal Medicine Hematology & Oncology; PCP Family Medicine; Visit Provider Nurse Practitioner
DX: Z51.12 Encounter for antineoplastic immunotherapy (principal); C34.11 Malignant neoplasm of upper lobe, right bronchus or lung; C79.31 Secondary malignant neoplasm of brain; C78.02 Secondary malignant neoplasm of left lung; C77.8 Secondary and unspecified malignant neoplasm of lymph nodes of multiple regions; J38.2 Nodules of vocal cords; J44.9 Chronic obstructive pulmonary disease, unspecified; F17.210 Nicotine dependence, cigarettes, uncomplicated; Z92.21 Personal history of antineoplastic chemotherapy; Z79.899 Other long term (current) drug therapy
CPT/HCPCS: 36415; 80053; 84443; 85025; 96413; 99205; 99214; J7050; J9271

== ENCOUNTER 2019-11-11 07:17 | Outpatient (RCR) | payer MEDICAID, SELFPAY ==
[2019-11-11 08:50] LABS: Basophils # 0.1 10^3/uL (0.0-0.1); Basophils % 0.8 %; Eosinophils # 0.6 10^3/uL (0.0-0.8); Eosinophils % 6.5 %; Hematocrit 42.7 % (37.0-47.0); Hemoglobin 14.6 g/dL (11.5-15.3); Lymphocytes % 30.8 %; Mean Corpuscular HGB Conc 34.2 g/dL (30.0-36.0); Mean Corpuscular Hemoglobin 30.4 pg (28.0-34.0); Mean Corpuscular Volume 88.8 fL (81-99); Mean Platelet Volume 9.1 fL (7.4-10.4); Monocytes % 10.2 %; Neutrophils # 4.9 10^3/uL (1.8-7.7); Neutrophils % 51.4 %; Nucleated Red Blood Cells % 0 %; Platelet Count 200 10^3/cmm (130-400); Red Blood Count 4.81 10^6/uL (4.1-5.3); Red Cell Distribution Width 12.2 % (12.1-15.1); White Blood Count 9.6 10^3/uL (4.0-10.0)
[2019-11-11 09:11] LABS: Alanine Aminotransferase 32 U/L (0-33); Albumin Level 4.1 g/dL (3.5-5.2); Alkaline Phosphatase 105 IU/L (35-105); Anion Gap 14.9 (5-19); Aspartate Amino Transferase 39 U/L (0-32); Blood Urea Nitrogen 8 mg/dL (6-20); Carbon Dioxide 25 mmol/L (22-29); Chloride 103 mmol/L (98-107); Globulin 2.9 g/dL (1.3-4.6); Glomerular Filtration Rate 85.9 mL/min (90-130); Glucose 89 mg/dL (65-115); Osmolality Calculated 283 mOsm/kg (285-295); Potassium 3.9 mmol/L (3.5-5.1); Sodium 139 mmol/L (136-145); Thyroid Stimulating Hormone 0.96 uIU/mL (0.27-4.20); Total Bilirubin 0.4 mg/dL (0.15-1.2)
--- NOTE | 2019-11-11 14:38 | ONC FU_ITS ---
Dr. Soares follow up note Patient: Alma Deleon Unit #: [id number]: 1960 Dicatated By: Rukhsana Soares M.D.Date of Visit:Nov 11, 2019 Onc Med Follow-up/Prog Note History of Present Illness: Mrs. Deleon is a 58-year-old female with history of progressive cough. She underwent evaluation on July 07, [address] scan of chest. It reported bilateral upper lobe masses: the mass on right side was 5.9 x 4.1 x 4.9 cm and on the left side was 4.6 x 2.8 x 2.8 cm. On 11/14/2018 patient underwent EBUS , which showed there was 90% narrowing of right upper lobe bronchus due to extensive compression, and right-sided mediastinal and hilar lymph node were enlarged and endobronchial right upper lobe and lymph node biopsies were obtained final pathology report came back poorly differentiated adenocarcinoma consistent with lung primary from right upper lobe endobronchial biopsy. And both lymph node biopsies were negative. Molecular profiling which include EGFR, ALK, ROS 1, PDL 1 and BRAF were done and it showed PDL 1 was 95% tumor cells are positive membranous positivity and rest of molecular profiling was unremarkable. Staging workup including CT PET scan and MRI brain was obtained. The CT PET scan on 12/04/2018 showed hypermetabolic centrally necrotic mass within the right upper lobe abutting adjacent pleura, major fissure, and mediastinum with tumor extension into the right superior hilum, with SUV of 13. Additional centrally necrotic hypermetabolic mass in the left upper lobe with a SUV of 20.9, abutting the adjacent pleura and left major fissure and AP window lymph nodes consistent with elfego metastatic disease. No hypermetabolic metastasis in neck abdomen or pelvis. MRI brain showed 5 mm lesions in the left temporal lobe, and left parietal lobe with mild adjacent edema. Mrs Deleon underwent CyberKnife on 01/02/2019. She was offered palliative chemotherapy plus immunotherapy. She declined and she was also referred to radiation oncology for her right-sided chest pain radiating to her neck and patient declined. With tumor being PDL 1 positive, role of immunotherapy with Keytruda was discussed and patient was willing to consider but then decided to come to [place] for further management. Ms Deleon still smokes about pack a day and has history of smoking for 30-40 years, denies alcohol use. She is still smoking about pack a day AGAINST MEDICAL ADVICE. Ms Deleon started her first cycle of chemotherapy with carboplatin/Alimta/Keytruda on March 09, 2019. She is tolerated it well. Her second cycle was given on March 30, 2019. She states since then she is feeling so much better her breathing is so much better. She states it is amazing how much better she is breathing and how much better she feels overall. Per the report from 05/16/2019 there was no comparison image available for comparison. We will call [facility] radiology and request over read as she did have a PET CT in November 2018. comparison of report indicates that the right upper lobe mass now measuring 5.8 x 3.3 cm with a peripheral uptake of SUV 4.6 was reported as 5.4 x 7.5 x 7 cm with an SUV of 13 on the November 2018 study. A left upper lobe mass measuring 5.2 x 6.4 cm on the current study with an SUV of 7.6 was compared to the November study at which time it measured 5.9 x 6.6 x 5 point centimeters with an SUV of 20.9. There is a solid right middle lobe nodule measuring 1.8 x 2.5 cm with SUV of 5.4 and small scattered mediastinal nodes demonstrating minimal FDG uptake although this may be reactive, although micrometastatic disease cannot be excluded. On review of her 05/16/2019 PET/CT study for comparison with the PET/CT from November 2018. In the interim between studies, the SUV activity has greatly improved and there has been reported decrease in size of the tumors. She had completed 4 cycles of carboplatin Alimta and Keytruda. She received Keytruda only on 06/03/2019 as she stated she was only supposed to have four cycles of chemotherapy and then pursue maintenance with immunotherapy. based on good response seen on f/u PET scan it was suggested to continue chemotherapy for 3 more cycles then repeat imaging. She has reluctantly agreed to try chemotherapy again. She states she understands why she needs it but is not looking forward to feeling washed out again. She has had consultation with Dr Gamez in ENT. She states he told her she has some scaring/calcifications/nodules on her voicebox. She states he has informed her that he can nip them right out of there . She states that he told her this is a simple procedure but the recovery she will have to be very adamant on following strict instructions. She states she feels that she can do this in put up with what ever she needs to get rid of the hoarseness so she quit sounding like a man . Her treatment was held the week of July 22, 2019 as she thought she might have mild flu symptoms . She was given a week off to allow for recovery. She was waiting to hear from Dr. Gamez's office in regards to her surgery that he was planning but apparently Dr. Gamez quit his practice in [place]. She was concerned that she was gaining weight. . She did have a thyroid panel done on 07/29/2019 showed T3 free was 2.9, normal being 2-4.4, T4 free 1.44 normal being 0.82 to 1.77. And TSH 0.23 She has persistent hoarseness of voice, she was waiting for Dr. Gamez's call for the surgery but she heard that Dr. Gamez has left [place]. She then requested a referrel to Dr. Thacker , ENT for evaluation for hoarseness. The last time she received chemotherapy was on 07/01/2019, patient has been postponing her treatment due to hoarseness and its management.finally she was seen by Dr. Thacker on 09/22/2019 and On 10/06/2019 she underwent vocal cord biopsy, results are pending. Follow-up CT PET scan done on 10/03/2019 showed malignant lung masses are now more consolidated in size on the current study, but maintain active FDG uptake, when compared with one done on 05/16/2019. The right upper lobe mass cavitation is essentially resolved, but maintain extensive central necrosis. Now measures 4.8 x 2.8 cm with SUV of 5.0 not a significant increase. The left upper lobe lesion measured 3 x 4.3 cm down from 5.2 x 6.4 cm previously but now demonstrates SUV of 14.2, up from 7.6 previouslyA new solid lesion has developed in the right upper lobe, measuring 2.4 x 1.7 cm with SUV of 20.7. The right middle lobe nodule is progressed, now measuring 2.2 x 2.6 cm with SUV of 7.3 up from 1.8 x 2.5 cm with SUV of 5.4 previously. Scattered mediastinal lymph nodes are unchanged from prior study. Ms. Deleon was referred to radiation oncology for second opinion she did see Dr. Lawson in radiation oncology on 10/14/2019. She has had a mixed response to treatment with evidence of both response and progression on the last PET/CT. She is essentially asymptomatic of her persistent disease and is not interested in pursuing any treatment which would compromise her quality of life at this time. Therefore she is elected not to pursue any radiation therapy currently. Dr. Lawson did state that he would not recommend pursuing consolidative and light of her absence of he states he felt the volume of the line within the treatment field to be excessive in terms of diminished her functional status if she has disease progression, symptoms such as airway compromise, shortness of breath or chest pain one could readdress palliative radiation at that time. She continues with immunotherapy., As per patient Dr. Brady did vocal cord biopsy and came back with inflammatory changes no malignancy Came for follow-up, denies any specific complaints, no fever chills, no nausea or vomiting, no diarrhea or constipation, no hemoptysis or hematemesis, no blurred vision or double vision, no jaundice, no new bony pains. Hoarseness of voice is improving.She is here to discuss her treatment options Medications: Benzonatate 1 Capsule (of 200 mg) Oral 6x/d PRN, Centrum Silver Adult 50+ 1 Tablet Oral daily, Combivent Respimat Aerosol, solution Inhalation, Folic Acid 1 (1 mg) Tablet Oral daily, HYDROcodone-Acetaminophen 1 Tablet (of 5-325 mg) Oral four times a day, Tiotropium [place] Monohydrate 1 Puff(s) (of 2.5 mcg/act) Aerosol, solution Inhalation q 24 hours Allergies: Penicillin Review of Systems: Constitutional - Appetite is fair and weight is stable. No fever, chills, hot flashes, or night sweats. Energy level is fair, ENMT - Positive for sinus congestion/drainage. No mouth sores. Positive for sore throat, no difficulty swallowing, Hematologic/Lymphatic - No abnormal bruising or bleeding, Respiratory - Positive for shortness of breath. Positive for cough. No pleuritic pain or hemoptysis, Cardiovascular - No angina pain. No palpitations, Gastrointestinal - No nausea or vomiting. No heartburn or acid reflux. No diarrhea or constipation. No blood in the stool or black stools, Genitourinary (F) - No dysuria or hematuria. No urinary frequency. Positive for urgency, no incontinence, Musculoskeletal - Positive for back pain, Neurologic - No headache or dizziness, Psychiatric - Positive for depression, anxiety and insomnia. Vital Signs: Performed on Nov 11, 2019 09:29 Height - 63.00 in Weight - 145.6 lbs (LOW) BSA - 1.69 sq.m BMI - 25.79 Temperature - 98.5 F Pulse - 76 /min Respiration - 18 /min BP - 134/79 mm(hg) O2 Sat - 97 % Pain - 7 Performance Status: 0 - Fully active, able to carry on all predisease activities without restrictions. (ECOG) Physical Examination: ENMT - No mouth sores, no thrush, no jaundice, Respiratory - Lungs are clear, Cardiovascular - Regular rate and rhythm of heart, Abdomen - Soft, bowel sounds present, Extremities - No visible edema or rash. Lab/Imaging: Test performed on October 20, 2019 13:54 Sodium 140 mmol/L TSH 0.89 uIU/mL Potassium 4.1 mmol/L Chloride 103 mmol/L CO2 26 mmol/L Anion Gap 15.1 BUN 6 mg/dL Creatinine 0.7 mg/dL Cr Clearance (Est) 92.59 mL/min eGFR 85.9 mL/min Glucose 94 mg/dL Calcium 9.9 mg/dL Protein, Total 6.8 g/dL Albumin 4.1 g/dL Globulin 2.7 g/dL Bilirubin, Total 0.5 mg/dL ALT (SGPT) 40 Units/L AST (SGOT) 38 Units/L Alkaline Phosphatase 109 IU/L WBC 9.4 10^3/uL RBC 4.67 10^6/uL HGB 14.2 g/dL HCT 41.6 % MCV 89.1 fl MCH 30.4 pg MCHC 34.1 g/dL RDW 12.0 % Platelet Count 202 10^3/uL MPV 9.5 fl Neutrophils 5.4 10^3/uL Lymphocytes 2.7 10^3/uL Monocytes 0.8 10^3/uL Eosinophils 0.5 10^3/uL Basophils 0.1 10^3/uL Neutrophil % 57.1 % Lymphocyte % 29.0 % Monocyte % 8.1 % Eosinophil % 4.8 % Basophils % 0.8 % Test performed on Jul 29, 2019 08:35 T3, Free 2.9 PG/ML T4, Free 1.44 ng/dL Test performed on Jun 03, 2019 08:38 Manual Lymphocytes 24.8 % Manual Monocytes 14.8 % Manual Eosinophils 0 % Manual Basophils 0.2 % Atypical Lymphs 1.3 % Impression: Stage IV, 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 Next Stage IV, M1 a due to separate tumor nodule in the contralateral lobe and brain metastases 5 mm ???[address] PET scan done on 12/04/2018 showed hypermetabolic centrally necrotic mass within the right upper lobe abutting adjacent pleura, major fissure and mediastinum with tumor extension into right superior hilum. Additional centrally necrotic hypermetabolic mass within left upper lobe abutting the adjacent pleura and left major fissure with tumor extension to the left superior hilum. Hypermetabolic right hilar, precarinal, and AP window lymph nodes consistent with a node metastases. No hypermetabolic metastasis within the neck, abdomen or pelvis. MRI scan of the head showed 5 mm ???2 lesion status post CyberKnife on 01/02/2019. Active smoker AGAINST MEDICAL ADVICE; COPD Ms. Deleon began her first cycle of carbo Alimta Keytruda on March 09, 2019. She is tolerated it well thus far. She states that after the second cycle of chemotherapy her breathing is so much better that is amazing . She states that she is now breathing through her nose when she is sleeping and that is something she has not done in years. She states overall she is feeling so much better. regarding her PET CT from 05/16/2019. she did have a PET CT in November 2018. This PET CT was NOT performed at [facility] in the interim just comparison of report indicates that the right upper lobe mass now measuring 5.8 x 3.3 cm with a peripheral uptake of SUV 4.6 was reported as 5.4 x 7.5 x 7 cm with an SUV of 13 on the November 2018 study. A left upper lobe mass measuring 5.2 x 6.4 cm on the current study with an SUV of 7.6 was compared to the November study at which time it measured 5.9 x 6.6 x 5 point centimeters with an SUV of 20.9. There is a solid right middle lobe nodule measuring 1.8 x 2.5 cm with SUV of 5.4 and small scattered mediastinal nodes demonstrating minimal FDG uptake although this may be reactive, although micrometastatic disease cannot be excluded. tolerated palliative therapy with carboplatin/Alimta/Keytruda well. Her follow-up CT PET scan from 04/2019 showed good response to the treatment. discussed with Ms Deleon further treatment plans. The plan earlier plan was to give her 4 cycles of chemotherapy along with immunotherapy and restage her. Her follow-up PET scan in April 2019 shows good response- no evidence of distance metastases, but not resolution of disease. In that case, She was encouraged to continue with same regimen e.g. carboplatin/Alimta/Keytruda for 3 more cycles and restage with CT PET scan. If it shows further improvement and her performance status is till good, she may need to continue full treatment; if on the other hand it shows stable disease then will consider switching her to maintenance therapy with Keytruda alone. Ms Deleon is due to resume Carboplatin/Alimta/Keytruda on 07/01/2019 and after that she has been postponing her chemotherapy as she was undergoing evaluation for hoarseness of voice. , as per ENT it was due to some nodules/calcifications of vocal cord. We once again reviewed the PET/CT imaging and discussed results. She recalls them accurately from talking to people about her thyroid guarding. She is taking care of it well. She states she is tired a lot but denies any bowel or bladder changes. She said no breast tenderness soreness or drainage. She states overall she feels good she just feels that she is working into 3 different directions at this time. discussed with Ms. Hook , about Dr. Lawson's impression that she should continue immunotherapy until significant disease progression at which time we could consider chemotherapy. She states at this point she is really not sure she is ready for chemotherapy to make a decision to the Keytruda. Her ECOG is 1. Plan: Discussed with patient regarding her labs white blood count 9.6 hemoglobin 14.6 crit 42.7 platelets 200,000 CMP within normal limits TSH 0.96 Clinically, patient is doing well with no signs symptom suggestive of disease progression, patient was referred to radiation oncology for evaluation for mixed response seen on CT PET scan especially in the thorax. As per discussion with Dr. Lawson, considering patient's underlying pulmonary status, patient is not a candidate for radiation due to related side effects and toxicity and he would keep radiation in reserve, in case patient need palliative therapy. Other options including continue with immunotherapy with Keytruda as patient is tolerating well and maintaining good quality of life or adding chemotherapy or chemotherapy alone patient is reluctant to consider chemotherapy at this point rather prefer continue with immunotherapy and then repeat CT PET scan after 3 doses and if it shows disease progression then will discuss about palliative chemo therapy. In that case we will proceed with next dose of Keytruda today and then she will return to clinic in 1 month with CBC CMP and for immunotherapy, followed by follow-up CT PET scan to assess the response. Signed By: Rukhsana Soares M.D. <<Signature on File>>
== END 2019-11-24 23:59 | disposition home or self-care (01) ==
LOC: ONCMED 07:17
PROVIDERS: PCP Family Medicine; Visit Provider Internal Medicine Hematology & Oncology
DX: Z51.12 Encounter for antineoplastic immunotherapy (principal); C34.11 Malignant neoplasm of upper lobe, right bronchus or lung; C79.51 Secondary malignant neoplasm of bone; C77.8 Secondary and unspecified malignant neoplasm of lymph nodes of multiple regions; J44.9 Chronic obstructive pulmonary disease, unspecified; K21.9 Gastro-esophageal reflux disease without esophagitis; Z79.899 Other long term (current) drug therapy
CPT/HCPCS: 80053; 84443; 85025; 96413; 99214; J7050; J9271

== ENCOUNTER 2019-12-02 07:16 | Outpatient (RCR) | payer MEDICAID, SELFPAY ==
[2019-12-02 10:09] LABS: Basophils # 0.1 10^3/uL (0.0-0.1); Basophils % 0.8 %; Eosinophils # 0.6 10^3/uL (0.0-0.8); Eosinophils % 6.3 %; Hematocrit 42.6 % (37.0-47.0); Hemoglobin 14.3 g/dL (11.5-15.3); Lymphocytes % 22.8 %; Mean Corpuscular HGB Conc 33.6 g/dL (30.0-36.0); Mean Corpuscular Hemoglobin 29.7 pg (28.0-34.0); Mean Corpuscular Volume 88.4 fL (81-99); Mean Platelet Volume 9.4 fL (7.4-10.4); Monocytes # 0.7 10^3/uL (0.2-0.9); Monocytes % 7.6 %; Neutrophils # 5.5 10^3/uL (1.8-7.7); Nucleated Red Blood Cells % 0 %; Platelet Count 195 10^3/cmm (130-400); Red Blood Count 4.82 10^6/uL (4.1-5.3); Red Cell Distribution Width 12.4 % (12.1-15.1); White Blood Count 8.8 10^3/uL (4.0-10.0)
[2019-12-02 10:37] LABS: Alanine Aminotransferase 22 U/L (0-33); Albumin Level 4.1 g/dL (3.5-5.2); Alkaline Phosphatase 98 IU/L (35-105); Anion Gap 11.7 (5-19); Aspartate Amino Transferase 25 U/L (0-32); Blood Urea Nitrogen 5 mg/dL (6-20); Carbon Dioxide 24 mmol/L (22-29); Chloride 107 mmol/L (98-107); Globulin 2.3 g/dL (1.3-4.6); Glomerular Filtration Rate 102.7 mL/min (90-130); Glucose 135 mg/dL (65-115); Osmolality Calculated 286 mOsm/kg (285-295); Potassium 3.7 mmol/L (3.5-5.1); Sodium 139 mmol/L (136-145); Thyroid Stimulating Hormone 0.53 uIU/mL (0.27-4.20); Total Bilirubin 0.3 mg/dL (0.15-1.2); Total Protein 6.4 g/dL (6.6-8.7)
--- NOTE | 2019-12-08 22:19 | ONC FU_ITS ---
[facility] Patient Note Patient: Alma Deleon Unit #: [id number]: [id number] Dictated By: Elly HarrisDate of Visit: Dec 02, 2019 Onc MED Follow-Up/Prog Note Chief Complaint: Metastatic adenocarcinoma of the lung History of Present Illness: Mrs. Deleon is a 58-year-old female with history of progressive cough. She underwent evaluation on July 07, [address] scan of chest. It reported bilateral upper lobe masses: the mass on right side was 5.9 x 4.1 x 4.9 cm and on the left side was 4.6 x 2.8 x 2.8 cm. On 11/14/2018 patient underwent EBUS , which showed there was 90% narrowing of right upper lobe bronchus due to extensive compression, and right-sided mediastinal and hilar lymph node were enlarged and endobronchial right upper lobe and lymph node biopsies were obtained final pathology report came back poorly differentiated adenocarcinoma consistent with lung primary from right upper lobe endobronchial biopsy. And both lymph node biopsies were negative. Molecular profiling which include EGFR, ALK, ROS 1, PDL 1 and BRAF were done and it showed PDL 1 was 95% tumor cells are positive membranous positivity and rest of molecular profiling was unremarkable. Staging workup including CT PET scan and MRI brain was obtained. The CT PET scan on 12/04/2018 showed hypermetabolic centrally necrotic mass within the right upper lobe abutting adjacent pleura, major fissure, and mediastinum with tumor extension into the right superior hilum, with SUV of 13. Additional centrally necrotic hypermetabolic mass in the left upper lobe with a SUV of 20.9, abutting the adjacent pleura and left major fissure and AP window lymph nodes consistent with elfego metastatic disease. No hypermetabolic metastasis in neck abdomen or pelvis. MRI brain showed 5 mm lesions in the left temporal lobe, and left parietal lobe with mild adjacent edema. Mrs Deleon underwent CyberKnife on 01/02/2019. She was offered palliative chemotherapy plus immunotherapy. She declined and she was also referred to radiation oncology for her right-sided chest pain radiating to her neck and patient declined. With tumor being PDL 1 positive, role of immunotherapy with Keytruda was discussed and patient was willing to consider but then decided to come to [place] [address] for further management. Ms Deleon still smokes about pack a day and has history of smoking for 30-40 years, denies alcohol use. She is still smoking about pack a day AGAINST MEDICAL ADVICE. Ms Deleon started her first cycle of chemotherapy with carboplatin/Alimta/Keytruda on March 09, 2019. She is tolerated it well. Her second cycle was given on March 30, 2019. She states since then she is feeling so much better her breathing is so much better. She states it is amazing how much better she is breathing and how much better she feels overall. Per the report from 05/16/2019 there was no comparison image available for comparison. We will call [facility] radiology and request over read as she did have a PET CT in November 2018. comparison of report indicates that the right upper lobe mass now measuring 5.8 x 3.3 cm with a peripheral uptake of SUV 4.6 was reported as 5.4 x 7.5 x 7 cm with an SUV of 13 on the November 2018 study. A left upper lobe mass measuring 5.2 x 6.4 cm on the current study with an SUV of 7.6 was compared to the November study at which time it measured 5.9 x 6.6 x 5 point centimeters with an SUV of 20.9. There is a solid right middle lobe nodule measuring 1.8 x 2.5 cm with SUV of 5.4 and small scattered mediastinal nodes demonstrating minimal FDG uptake although this may be reactive, although micrometastatic disease cannot be excluded. On review of her 05/16/2019 PET/CT study for comparison with the PET/CT from November 2018. In the interim between studies, the SUV activity has greatly improved and there has been reported decrease in size of the tumors. She had completed 4 cycles of carboplatin Alimta and Keytruda. She received Keytruda only on 06/03/2019 as she stated she was only supposed to have four cycles of chemotherapy and then pursue maintenance with immunotherapy. based on good response seen on f/u PET scan it was suggested to continue chemotherapy for 3 more cycles then repeat imaging. She reluctantly agreed to try chemotherapy again. She stated she understands why she needs it but was not looking forward to feeling washed out again. She has had consultation with Dr Gamez in ENT. She states he told her she has some scaring/calcifications/nodules on her voicebox. She states he has informed her that he can nip them right out of there . She states that he told her this is a simple procedure but the recovery she will have to be very adamant on following strict instructions. She states she feels that she can do this in put up with what ever she needs to get rid of the hoarseness so she quit sounding like a man . Her treatment was held the week of July 22, 2019 as she thought she might have mild flu symptoms . She was given a week off to allow for recovery. She was waiting to hear from Dr. Gamez's office in regards to her surgery that he was planning but apparently Dr. Gamez quit his practice in [place] [address]. She was then referred to Dr Thacker. She was concerned that she was gaining weight. . She did have a thyroid panel done on 07/29/2019 showed T3 free was 2.9, normal being 2-4.4, T4 free 1.44 normal being 0.82 to 1.77. And TSH 0.23 She has persistent hoarseness of voice, she was waiting for Dr. Gamez's call for the surgery but she heard that Dr. Gamez has left [address]. She then requested a referrel to Dr. Thacker , ENT for evaluation for hoarseness. The last time she received chemotherapy was on 07/01/2019, patient has been postponing her treatment due to hoarseness and its management.finally she was seen by Dr. Thacker on 09/22/2019 and On 10/06/2019 she underwent vocal cord biopsy, results are pending. Follow-up CT PET scan done on 10/03/2019 showed malignant lung masses are now more consolidated in size on the current study, but maintain active FDG uptake, when compared with one done on 05/16/2019. The right upper lobe mass cavitation is essentially resolved, but maintain extensive central necrosis. Now measures 4.8 x 2.8 cm with SUV of 5.0 not a significant increase. The left upper lobe lesion measured 3 x 4.3 cm down from 5.2 x 6.4 cm previously but now demonstrates SUV of 14.2, up from 7.6 previouslyA new solid lesion has developed in the right upper lobe, measuring 2.4 x 1.7 cm with SUV of 20.7. The right middle lobe nodule is progressed, now measuring 2.2 x 2.6 cm with SUV of 7.3 up from 1.8 x 2.5 cm with SUV of 5.4 previously. Scattered mediastinal lymph nodes are unchanged from prior study. Ms. Deleon was referred to radiation oncology for second opinion she did see Dr. Lawson in radiation oncology on 10/14/2019. She has had a mixed response to treatment with evidence of both response and progression on the last PET/CT. She was essentially asymptomatic of her persistent disease and was not interested in pursuing any treatment which would compromise her quality of life at this time. Therefore she elected not to pursue any radiation therapy currently. Dr. Lawson did state that he would not recommend pursuing consolidative therapy in light of absence associated side effects. He states he felt the volume of the line within the treatment field to be excessive in terms of diminished functional status. Should she has disease progression, symptoms such as airway compromise, shortness of breath or chest pain, one could readdress palliative radiation at that time. She continues with immunotherapy., As per patient Dr. Thacker did vocal cord biopsy and came back with inflammatory changes no malignancy Ms. Deleon is here today for follow-up. She states overall she continues to do well. She has no new concerns. Her only question today is can she had cataract surgery and should she keep her appointment with Dr. Arango. She states she is not sure why she is here now. She forgot while referred her. I reminded her that we did refer her back in April 2019 for near syncopal episode. We will copy the MRI disc for her although it is available on [employer] She has no new concerns. She states her hoarseness seems to be getting better. Her breathing is about the same???it is currently noticed worse. She denies any fever or chills. She denies mouth sores, sore throat or difficulty swallowing. She is had no painful inspiration or trouble breathing. She denies cough. Her energy is good and her appetite is good. She denies any diarrhea or constipation. Her ECOG is 1. Past Medical History: Chronic obstructive pulmonary disease Gastroesophageal reflux Past Surgical History: Throat biopsy in 2019 Allergies: Penicillin Medications: Benzonatate 1 Capsule (of 200 mg) Oral 6x/d PRN Centrum Silver Adult 50+ 1 Tablet Oral daily Combivent Respimat Aerosol, solution Inhalation Flonase Suspension Nasal Folic Acid 1 (1 mg) Tablet Oral daily HYDROcodone-Acetaminophen 1 Tablet (of 5-325 mg) Oral four times a day Tiotropium [place] Monohydrate 1 Puff(s) (of 2.5 mcg/act) Aerosol, solution Inhalation q 24 hours Family History: pt was raised in the foster care. Social History: Ms. Deleon is and she is a disabled. She is a daily smoker who has smoked 0.5 packs/day for 40 years. She has no history of drinking. Review Of Symptoms: Constitutional Denies fevers, chills, night sweats, excessive fatigue or weight loss. Allergic/Immunologic No reactions. Eyes Denies significant visual changes. No diplopia. No amaurosis. ENMT Denies changes in hearing, mouth sores, difficulty or changes in swallowing ability. She is still having hoarseness, but slowly improving. Hematologic/Lymphatic Denies easy bruising or bleeding. The patient denies any tender or palpable lymph nodes. Respiratory Dramatically improved dyspnea on exertion. Denies chest pain, cough or hemoptysis. Denies orthopnea. Cardiovascular Denies anginal chest pain, palpitations or orthopnea. Gastrointestinal Denies nausea, vomiting, diarrhea, GI bleeding, or constipation. Denies change in bowel habits and/or stool color, no heartburn or early satiety. Genitourinary (F) No hematuria, hesitancy, incontinence, vaginal bleeding, discharge or other problems with urination. Musculoskeletal Denies joint pain, swelling or redness. No decreased range of motion. Integumentary Denies chronic rashes, inflammation, ulcerations or skin changes. Neurologic Denies blurred vision, and no areas of focal weakness or numbness. Normal gait. No sensory problems. Psychiatric Denies insomnia, depression, fran or mood swings. Vital Signs: Performed on Dec 02, 2019 10:51 Height - 63.00 in Weight - 141.6 lbs (LOW) BSA - 1.67 sq.m BMI - 25.08 Temperature - 98.0 F (LOW) Pulse - 81 /min Respiration - 16 /min BP - 142/80 mm(hg) (HIGH) O2 Sat - 99 % Pain - 0,0 - Fully active, able to carry on all predisease activities without restrictions. (ECOG) Physical Examination: Constitutional Alert, oriented, no acute distress. Skin pink, warm and dry. Head Normocephalic; atraumatic. Eyes Conjunctivae and sclerae are clear and without icterus. Pupils are reactive and equal. ENMT Sinuses are mildly tender. No oral exudates, ulcers, masses, thrush or mucositis. Neck Supple without masses or thyromegaly. No jugular venous distension. Hematologic/Lymphatic No petechiae or purpura. No tender or palpable lymph nodes in the cervical or supraclavicular Respiratory Lungs are clear to auscultation. Cardiovascular Regular rate and rhythm of heart without murmurs,clicks, gallops or rubs. Abdomen Non-tender, non-distended, no masses, ascites. No guarding or rebound tenderness. No pulsatile masses. Back/Spine Non-tender to palpation. Extremities No visible deformities, no cyanosis, clubbing or edema. Musculoskeletal No tenderness or swelling, normal range of motion without obvious weakness. Integumentary No rashes or lesions. Neurologic No sensory or motor deficits, normal cerebellar function, normal gait. Psychiatric Alert and oriented times three. Coherent speech. Verbalizes understanding of our discussions today. Laboratory:Test performed on Dec 02, 2019 09:45 Sodium 139 mmol/L TSH 0.53 uIU/mL Potassium 3.7 mmol/L Chloride 107 mmol/L CO2 24 mmol/L Anion Gap 11.7 BUN 5 mg/dL Creatinine 0.6 mg/dL Cr Clearance (Est) 103.63 mL/min eGFR 102.7 mL/min Glucose 135 mg/dL Calcium 9.0 mg/dL Protein, Total 6.4 g/dL Albumin 4.1 g/dL Globulin 2.3 g/dL Bilirubin, Total 0.3 mg/dL ALT (SGPT) 22 U/L AST (SGOT) 25 U/L Alkaline Phosphatase 98 IU/L WBC 8.8 10 3/uL RBC 4.82 10 6/uL HGB 14.3 g/dL HCT 42.6 % MCV 88.4 fL MCH 29.7 pg MCHC 33.6 g/dL RDW 12.4 % Platelet Count 195 10 3/cmm MPV 9.4 fL Neutrophils 5.5 10 3/uL Lymphocytes 2.0 10 3/uL Monocytes 0.7 10 3/uL Eosinophils 0.6 10 3/uL Basophils 0.1 10 3/uL Neutrophil % 62.0 % Lymphocyte % 22.8 % Monocyte % 7.6 % Eosinophil % 6.3 % Basophils % 0.8 % NRBC % 0 % Impression: Stage IV, 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 Stage IV, M1 a due to separate tumor nodule in the contralateral lobe and brain metastases 5 mm ???[address] PET scan done on 12/04/2018 showed hypermetabolic centrally necrotic mass within the right upper lobe abutting adjacent pleura, major fissure and mediastinum with tumor extension into right superior hilum. Additional centrally necrotic hypermetabolic mass within left upper lobe abutting the adjacent pleura and left major fissure with tumor extension to the left superior hilum. Hypermetabolic right hilar, precarinal, and AP window lymph nodes consistent with a node metastases. No hypermetabolic metastasis within the neck, abdomen or pelvis. MRI scan of the head showed 5 mm ???2 lesion status post CyberKnife on 01/02/2019. Active smoker AGAINST MEDICAL ADVICE; COPD Ms. Deleon began her first cycle of carbo Alimta Keytruda on March 09, 2019. She is tolerated it well thus far. She states that after the second cycle of chemotherapy her breathing is so much better that is amazing . She states that she is now breathing through her nose when she is sleeping and that is something she has not done in years. She states overall she is feeling so much better. regarding her PET CT from 05/16/2019. she did have a PET CT in November 2018. This PET CT was NOT performed at [facility] in the interim just comparison of report indicates that the right upper lobe mass now measuring 5.8 x 3.3 cm with a peripheral uptake of SUV 4.6 was reported as 5.4 x 7.5 x 7 cm with an SUV of 13 on the November 2018 study. A left upper lobe mass measuring 5.2 x 6.4 cm on the current study with an SUV of 7.6 was compared to the November study at which time it measured 5.9 x 6.6 x 5 point centimeters with an SUV of 20.9. There is a solid right middle lobe nodule measuring 1.8 x 2.5 cm with SUV of 5.4 and small scattered mediastinal nodes demonstrating minimal FDG uptake although this may be reactive, although micrometastatic disease cannot be excluded. Ms Deleon tolerated palliative therapy with carboplatin/Alimta/Keytruda well. Her follow-up CT PET scan from 04/2019 showed good response to the treatment. discussed with Ms Deleon further treatment plans. The plan earlier plan was to give her 4 cycles of chemotherapy along with immunotherapy and restage her. Her follow-up PET scan in April 2019 shows good response- no evidence of distance metastases, but not resolution of disease. In that case, She was encouraged to continue with same regimen e.g. carboplatin/Alimta/Keytruda for 3 more cycles and restage with CT PET scan. If it shows further improvement and her performance status is till good, she may need to continue full treatment; if on the other hand it shows stable disease then will consider switching her to maintenance therapy with Keytruda alone. Ms Deleon was due to resume Carboplatin/Alimta/Keytruda on 07/01/2019 and after that she has been postponing her chemotherapy as she was undergoing evaluation for hoarseness of voice. , as per ENT it was due to some nodules/calcifications of vocal cord. We once again reviewed the PET/CT imaging and discussed results. Dr Soares discussed with Ms. Deleon Dr. Lawson's (radiation oncology) impression that she should continue immunotherapy until significant disease progression at which time we could consider pallative radiation. PET CT scan from April 2019 to October 03, 2019 revealed reduction in size in the lung masses cavitation in the right upper lobe has resolved. left upper lobe lesion had decreased in size from 5.2 x 6.4 to 3.0 x 4.3 cm, a new solid lesion develop in the right upper lobe inferiorly measuring 2.4 x 1.7 cm, In the right middle lobe a nodule had progressed now measuring 2.3 x 2.6 cm from 1.8 x 2.5 cm. There was mediastinal adenopathy noted unchanged no evidence for distant metastatic disease. She started single agent Keytruda on 09/10/2019 and is currently on every 3 week treatment plan. She began Keytruda in combination with chemotherapy on 03/09/2019. Plan: 1. Proceed with Keytruda as scheduled-no dose changes needed. 2. Today's labs reviewed in detail discussed with Mrs. Deleon and a copy was given to her. WBC 8.8, hemoglobin 14.3 platelets 195,000 ANC is 5500 creatinine 0.6 LFTs are normal TSH is 0.53. Random glucose 135 nonfasting. 3. She inquired about needing to continue her follow-up appointment with Dr. Arango which is likely scheduled for December 20. She was apparently referred in April for a syncopal/near syncopal episode. She was symptomatic at the time of referral but has since then had no further problems. We have encouraged her to proceed had see Dr. Arango she does have a history of brain metastasis and would be good if I did establish care with Dr. Arango in the event that we need further assistance in the future. 4. I have asked for repeat staging PET/CT (compare to 10-03-2019 exam) just prior to her next exam in 3 weeks. If her disease continues to be stable or even improved we may consider switching her Keytruda to the every 6-week dosing. 5. We will plan to see her back in 3 weeks with CBC CMP and TSH. 6. Mrs. Deleon was instructed to contact us in the interim should questions or problems arise. Signed By: Elly Harris-, AOGAVINP Umer Marquez MD <<Signature on File>>
== END 2019-12-25 23:59 | disposition home or self-care (01) ==
LOC: ONCMED 07:16
PROVIDERS: PCP Family Medicine; Visit Provider Nurse Practitioner
DX: Z51.12 Encounter for antineoplastic immunotherapy (principal); C34.11 Malignant neoplasm of upper lobe, right bronchus or lung; C77.8 Secondary and unspecified malignant neoplasm of lymph nodes of multiple regions; C79.31 Secondary malignant neoplasm of brain; C78.02 Secondary malignant neoplasm of left lung; F17.210 Nicotine dependence, cigarettes, uncomplicated; R49.0 Dysphonia; J44.9 Chronic obstructive pulmonary disease, unspecified; K21.9 Gastro-esophageal reflux disease without esophagitis; Z79.891 Long term (current) use of opiate analgesic
CPT/HCPCS: 80053; 84443; 85025; 96413; 99214; J7050; J9271

== ENCOUNTER → 2019-12-16 08:22 | Outpatient (BNVA) | payer MEDICAID, SELFPAY | PROVIDERS: PCP Family Medicine; Referring Provider Internal Medicine Hematology & Oncology; Visit Provider Specialist | DX: R55 Syncope and collapse (principal); R56.9 Unspecified convulsions; C79.31 Secondary malignant neoplasm of brain; R51 Headache | CPT/HCPCS: 99204 ==

== ENCOUNTER 2019-12-28 11:04 | Outpatient (CLI) | payer MEDICAID, SELFPAY ==
--- NOTE | 2019-12-28 11:00 | MR_ITS ---
WS: [id number] MRI BRAIN WITHOUT CONTRAST HISTORY: R55 Syncope and collapse COMPARISON: 12/03/2018 TECHNIQUE: Diffusion imaging, multiplanar T1, T2 and FLAIR imaging obtained. No evidence for acute infarct or hemorrhage. Vogel-white matter differentiation is normal. Numerous T2 and FLAIR signal hyperintensities throughout the subcortical and periventricular white matter. No la rge territory infarct. No significant atrophy. No remote or acute infarcts are volume loss. Ventricles and extra-axial spaces are normal. No inferior displacement of cerebellar tonsils. The sella turcica and pituitary gland are unremarkabl e. Posterior fossa is also unremarkable. Dural venous sinuses and [place] demonstrate no abnormality on this unenhanced studies. Paranasal sinuses: Clear. Mastoid air cells: Normal. Calvarium and scalp: Intact. MR/MR head wo con* [id number] IMPRESSION: 1. No acute infarct or mass effect. Study performed without IV contrast. 2. Mild to moderate chronic microvascular ischemic changes. No large territory infarct.
== END 2019-12-28 11:05 | disposition home or self-care (01) ==
LOC: RADSHAW 11:06
PROVIDERS: PCP Family Medicine; Visit Provider Specialist
DX: R55 Syncope and collapse (principal); I67.82 Cerebral ischemia
CPT/HCPCS: 70551

== ENCOUNTER 2020-01-19 05:35 | Outpatient (RCR) | payer MEDICAID, SELFPAY ==
[2019-12-29 08:25] LABS: Basophils # 0.1 10^3/uL (0.0-0.1); Eosinophils # 0.7 10^3/uL (0.0-0.8); Eosinophils % 7.2 %; Hematocrit 43.9 % (37.0-47.0); Hemoglobin 15.1 g/dL (11.5-15.3); Lymphocytes # 2.9 10^3/uL (0.8-4.8); Mean Corpuscular HGB Conc 34.4 g/dL (30.0-36.0); Mean Corpuscular Hemoglobin 30.3 pg (28.0-34.0); Mean Platelet Volume 9.2 fL (7.4-10.4); Monocytes # 0.9 10^3/uL (0.2-0.9); Monocytes % 9.1 %; Neutrophils # 5.63 10^3/uL (1.8-7.7); Neutrophils % 54.4 %; Nucleated Red Blood Cells % 0 %; Platelet Count 190 10^3/cmm (130-400); Red Blood Count 4.99 10^6/uL (4.1-5.3); Red Cell Distribution Width 12.4 % (12.1-15.1); White Blood Count 10.3 10^3/uL (4.0-10.0)
[2019-12-29 08:52] LABS: Alanine Aminotransferase 24 U/L (0-33); Albumin Level 4.1 g/dL (3.5-5.2); Alkaline Phosphatase 119 IU/L (35-105); Anion Gap 11.9 (5-19); Aspartate Amino Transferase 29 U/L (0-32); Blood Urea Nitrogen 7 mg/dL (6-20); Calcium 8.9 mg/dL (8.5-10.5); Carbon Dioxide 27 mmol/L (22-29); Chloride 102 mmol/L (98-107); Globulin 3.1 g/dL (1.3-4.6); Glomerular Filtration Rate 102.3 mL/min (90-130); Glucose 100 mg/dL (65-115); Osmolality Calculated 280 mOsm/kg (285-295); Potassium 3.9 mmol/L (3.5-5.1); Sodium 137 mmol/L (136-145); Thyroid Stimulating Hormone 1.15 uIU/mL (0.27-4.20); Total Bilirubin 0.5 mg/dL (0.15-1.2); Total Protein 7.2 g/dL (6.6-8.7)
--- NOTE | 2019-12-29 16:52 | ONC FU_ITS ---
Dr. Soares follow up note Patient: Alma Deleon Unit #: [id number]: 1960 Dicatated By: Rukhsana Soares M.D.Date of Visit:Dec 29, 2019 Onc Med Follow-up/Prog Note History of Present Illness: Mrs. Deleon is a 59-year-old female with history of progressive cough. She underwent evaluation on July 07, [address] scan of chest. It reported bilateral upper lobe masses: the mass on right side was 5.9 x 4.1 x 4.9 cm and on the left side was 4.6 x 2.8 x 2.8 cm. On 11/14/2018 patient underwent EBUS , which showed there was 90% narrowing of right upper lobe bronchus due to extensive compression, and right-sided mediastinal and hilar lymph node were enlarged and endobronchial right upper lobe and lymph node biopsies were obtained final pathology report came back poorly differentiated adenocarcinoma consistent with lung primary from right upper lobe endobronchial biopsy. And both lymph node biopsies were negative. Molecular profiling which include EGFR, ALK, ROS 1, PDL 1 and BRAF were done and it showed PDL 1 was 95% tumor cells are positive membranous positivity and rest of molecular profiling was unremarkable. Staging workup including CT PET scan and MRI brain was obtained. The CT PET scan on 12/04/2018 showed hypermetabolic centrally necrotic mass within the right upper lobe abutting adjacent pleura, major fissure, and mediastinum with tumor extension into the right superior hilum, with SUV of 13. Additional centrally necrotic hypermetabolic mass in the left upper lobe with a SUV of 20.9, abutting the adjacent pleura and left major fissure and AP window lymph nodes consistent with elfego metastatic disease. No hypermetabolic metastasis in neck abdomen or pelvis. MRI brain showed 5 mm lesions in the left temporal lobe, and left parietal lobe with mild adjacent edema. Mrs Deleon underwent CyberKnife on 01/02/2019. She was offered palliative chemotherapy plus immunotherapy. She declined and she was also referred to radiation oncology for her right-sided chest pain radiating to her neck and patient declined. With tumor being PDL 1 positive, role of immunotherapy with Keytruda was discussed and patient was willing to consider but then decided to come to [place] for further management. Ms Deleon still smokes about pack a day and has history of smoking for 30-40 years, denies alcohol use. She is still smoking about pack a day AGAINST MEDICAL ADVICE. Ms Deleon started her first cycle of chemotherapy with carboplatin/Alimta/Keytruda on March 09, 2019. She is tolerated it well. Her second cycle was given on March 30, 2019. She states since then she is feeling so much better her breathing is so much better. She states it is amazing how much better she is breathing and how much better she feels overall. Per the report from 05/16/2019 there was no comparison image available for comparison. We will call [facility] radiology and request over read as she did have a PET CT in November 2018. comparison of report indicates that the right upper lobe mass now measuring 5.8 x 3.3 cm with a peripheral uptake of SUV 4.6 was reported as 5.4 x 7.5 x 7 cm with an SUV of 13 on the November 2018 study. A left upper lobe mass measuring 5.2 x 6.4 cm on the current study with an SUV of 7.6 was compared to the November study at which time it measured 5.9 x 6.6 x 5 point centimeters with an SUV of 20.9. There is a solid right middle lobe nodule measuring 1.8 x 2.5 cm with SUV of 5.4 and small scattered mediastinal nodes demonstrating minimal FDG uptake although this may be reactive, although micrometastatic disease cannot be excluded. On review of her 05/16/2019 PET/CT study for comparison with the PET/CT from November 2018. In the interim between studies, the SUV activity has greatly improved and there has been reported decrease in size of the tumors. She had completed 4 cycles of carboplatin Alimta and Keytruda. She received Keytruda only on 06/03/2019 as she stated she was only supposed to have four cycles of chemotherapy and then pursue maintenance with immunotherapy. based on good response seen on f/u PET scan it was suggested to continue chemotherapy for 3 more cycles then repeat imaging. She has reluctantly agreed to try chemotherapy again. She states she understands why she needs it but is not looking forward to feeling washed out again. She has had consultation with Dr Gamez in ENT. She states he told her she has some scaring/calcifications/nodules on her voicebox. She states he has informed her that he can nip them right out of there . She states that he told her this is a simple procedure but the recovery she will have to be very adamant on following strict instructions. She states she feels that she can do this in put up with what ever she needs to get rid of the hoarseness so she quit sounding like a man . Her treatment was held the week of July 22, 2019 as she thought she might have mild flu symptoms . She was given a week off to allow for recovery. She was waiting to hear from Dr. Gamez's office in regards to her surgery that he was planning but apparently Dr. Gamez quit his practice in [place]. She was concerned that she was gaining weight. . She did have a thyroid panel done on 07/29/2019 showed T3 free was 2.9, normal being 2-4.4, T4 free 1.44 normal being 0.82 to 1.77. And TSH 0.23 She has persistent hoarseness of voice, she was waiting for Dr. Gamez's call for the surgery but she heard that Dr. Gamez has left [place]. She then requested a referrel to Dr. Thacker , ENT for evaluation for hoarseness. The last time she received chemotherapy was on 07/01/2019, patient has been postponing her treatment due to hoarseness and its management.finally she was seen by Dr. Thacker on 09/22/2019 and On 10/06/2019 she underwent vocal cord biopsy, results are pending. Follow-up CT PET scan done on 10/03/2019 showed malignant lung masses are now more consolidated in size on the current study, but maintain active FDG uptake, when compared with one done on 05/16/2019. The right upper lobe mass cavitation is essentially resolved, but maintain extensive central necrosis. Now measures 4.8 x 2.8 cm with SUV of 5.0 not a significant increase. The left upper lobe lesion measured 3 x 4.3 cm down from 5.2 x 6.4 cm previously but now demonstrates SUV of 14.2, up from 7.6 previouslyA new solid lesion has developed in the right upper lobe, measuring 2.4 x 1.7 cm with SUV of 20.7. The right middle lobe nodule is progressed, now measuring 2.2 x 2.6 cm with SUV of 7.3 up from 1.8 x 2.5 cm with SUV of 5.4 previously. Scattered mediastinal lymph nodes are unchanged from prior study. Ms. Deleon was referred to radiation oncology for second opinion she did see Dr. Lawson in radiation oncology on 10/14/2019. She has had a mixed response to treatment with evidence of both response and progression on the last PET/CT. She was essentially asymptomatic of her persistent disease and was not interested in pursuing any treatment which would compromise her quality of life at this time. Therefore she elected not to pursue any radiation therapy currently. Dr. Lawson did state that he would not recommend pursuing consolidative therapy in light of her absence. He states he felt the volume of the line within the treatment field to be excessive in terms of diminished functional status. Should she has disease progression, symptoms such as airway compromise, shortness of breath or chest pain, one could readdress palliative radiation at that time. She continues with immunotherapy., As per patient Dr. Thacker did vocal cord biopsy and came back with inflammatory changes no malignancy Follow-up CT PET scan done on December 26, 2019 showed right upper lobe mass continues to demonstrate central necrosis and now measures 4 x 2.6 cm with an SUV of 3.8 indicating a positive response to therapy. The complex left upper lobe lesion has a slightly progressed SUV of 15.7 now measuring 2.6 cm. Overall positive response to therapy. The left upper lobe solid lesion that previously measured 2.4 x 1.7 cm with SUV of 20.7 is now 2 x 1.6 cm with SUV of 18.8, overall positive response. Right middle lobe nodule measured 2.9 x 2.4 cm with SUV of 6.9 is not a significant change from previous study. Multiple subcentimeter subpleural pulmonary nodules are too small to characterize. Came for follow-up, denies any specific complaints today, no fever chills, no nausea or vomiting, no diarrhea constipation, no hemoptysis hematemesis, no new signs symptoms, no headaches or blurred vision or double vision, no skin rash,, no abdominal pain. Tolerating immunotherapy well Medications: Benzonatate 1 Capsule (of 200 mg) Oral 6x/d PRN, Centrum Silver Adult 50+ 1 Tablet Oral daily, Combivent Respimat Aerosol, solution Inhalation, Flonase Suspension Nasal, Folic Acid 1 (1 mg) Tablet Oral daily, HYDROcodone-Acetaminophen 1 Tablet (of 5-325 mg) Oral four times a day, Tiotropium [place] Monohydrate 1 Puff(s) (of 2.5 mcg/act) Aerosol, solution Inhalation q 24 hours Allergies: Penicillin Review of Systems: Constitutional - Appetite is fair and weight is stable. No fever, chills, hot flashes, or night sweats. Energy level is fair, ENMT - Positive for sinus congestion/drainage. No mouth sores. Positive for sore throat, no difficulty swallowing, Hematologic/Lymphatic - No abnormal bruising or bleeding, Respiratory - Positive for shortness of breath. Positive for cough. No pleuritic pain or hemoptysis, Cardiovascular - No angina pain. No palpitations, Gastrointestinal - No nausea or vomiting. No heartburn or acid reflux. No diarrhea or constipation. No blood in the stool or black stools, Genitourinary (F) - No dysuria or hematuria. No urinary frequency. Positive for urgency, no incontinence, Musculoskeletal - Positive for back pain, Neurologic - No headache or dizziness, Psychiatric - Positive for depression, anxiety and insomnia. Vital Signs: Performed on Dec 29, 2019 10:31 Height - 63.00 in Weight - 141.6 lbs BSA - 1.67 sq.m BMI - 25.08 Temperature - 98.6 F Pulse - 76 /min Respiration - 20 /min BP - 125/73 mm(hg) O2 Sat - 98 % Pain - 0 Performance Status: 1 - No physically strenuous activity, but ambulatory and able to carry out light or sedentary work (e.g. office work, light house work). (ECOG) Physical Examination: ENMT - No mouth sores, no thrush, no jaundice, Respiratory - Poor air entry otherwise clear, Cardiovascular - Regular rate and rhythm of heart, Abdomen - Soft, bowel sounds, Extremities - No visible edema. Lab/Imaging: Test performed on Dec 29, 2019 08:10 Sodium 137 mmol/L TSH 1.15 uIU/mL Potassium 3.9 mmol/L Chloride 102 mmol/L CO2 27 mmol/L Anion Gap 11.9 BUN 7 mg/dL Creatinine 0.6 mg/dL Cr Clearance (Est) 102.3700 mL/min eGFR 102.3 mL/min Glucose 100 mg/dL Calcium 8.9 mg/dL Protein, Total 7.2 g/dL Albumin 4.1 g/dL Globulin 3.1 g/dL Bilirubin, Total 0.5 mg/dL ALT (SGPT) 24 U/L AST (SGOT) 29 U/L Alkaline Phosphatase 119 IU/L WBC 10.3 10 3/uL RBC 4.99 10 6/uL HGB 15.1 g/dL HCT 43.9 % MCV 88.0 fL MCH 30.3 pg MCHC 34.4 g/dL RDW 12.4 % Platelet Count 190 10 3/cmm MPV 9.2 fL Neutrophils 5.63 10 3/uL Lymphocytes 2.9 10 3/uL Monocytes 0.9 10 3/uL Eosinophils 0.7 10 3/uL Basophils 0.1 10 3/uL Neutrophil % 54.4 % Lymphocyte % 28.0 % Monocyte % 9.1 % Eosinophil % 7.2 % Basophils % 1.0 % NRBC % 0 % Test performed on Jul 29, 2019 08:35 T3, Free 2.9 PG/ML T4, Free 1.44 ng/dL Impression: Stage IV, 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 Next Stage IV, M1 a due to separate tumor nodule in the contralateral lobe and brain metastases 5 mm ???[address] PET scan done on 12/04/2018 showed hypermetabolic centrally necrotic mass within the right upper lobe abutting adjacent pleura, major fissure and mediastinum with tumor extension into right superior hilum. Additional centrally necrotic hypermetabolic mass within left upper lobe abutting the adjacent pleura and left major fissure with tumor extension to the left superior hilum. Hypermetabolic right hilar, precarinal, and AP window lymph nodes consistent with a node metastases. No hypermetabolic metastasis within the neck, abdomen or pelvis. MRI scan of the head showed 5 mm ???2 lesion status post CyberKnife on 01/02/2019. Active smoker AGAINST MEDICAL ADVICE; COPD Ms. Deleon began her first cycle of carbo Alimta Keytruda on March 09, 2019. She is tolerated it well thus far. She states that after the second cycle of chemotherapy her breathing is so much better that is amazing . She states that she is now breathing through her nose when she is sleeping and that is something she has not done in years. She states overall she is feeling so much better. regarding her PET CT from 05/16/2019. she did have a PET CT in November 2018. This PET CT was NOT performed at [facility] in the interim just comparison of report indicates that the right upper lobe mass now measuring 5.8 x 3.3 cm with a peripheral uptake of SUV 4.6 was reported as 5.4 x 7.5 x 7 cm with an SUV of 13 on the November 2018 study. A left upper lobe mass measuring 5.2 x 6.4 cm on the current study with an SUV of 7.6 was compared to the November study at which time it measured 5.9 x 6.6 x 5 point centimeters with an SUV of 20.9. There is a solid right middle lobe nodule measuring 1.8 x 2.5 cm with SUV of 5.4 and small scattered mediastinal nodes demonstrating minimal FDG uptake although this may be reactive, although micrometastatic disease cannot be excluded. tolerated palliative therapy with carboplatin/Alimta/Keytruda well. Her follow-up CT PET scan from 04/2019 showed good response to the treatment. discussed with Ms Deleon further treatment plans. The plan earlier plan was to give her 4 cycles of chemotherapy along with immunotherapy and restage her. Her follow-up PET scan in April 2019 shows good response- no evidence of distance metastases, but not resolution of disease. In that case, She was encouraged to continue with same regimen e.g. carboplatin/Alimta/Keytruda for 3 more cycles and restage with CT PET scan. If it shows further improvement and her performance status is till good, she may need to continue full treatment; if on the other hand it shows stable disease then will consider switching her to maintenance therapy with Keytruda alone. Ms Deleon was due to resume Carboplatin/Alimta/Keytruda on 07/01/2019 and after that she has been postponing her chemotherapy as she was undergoing evaluation for hoarseness of voice. , as per ENT it was due to some nodules/calcifications of vocal cord. We once again reviewed the PET/CT imaging and discussed results. Dr Soares discussed with Ms. Deleon Dr. Lawson's (radiation oncology) impression that she should continue immunotherapy until significant disease progression at which time we could consider pallative radiation. PET CT scan from April 2019 to October 03, 2019 revealed reduction in size in the lung masses cavitation in the right upper lobe has resolved. left upper lobe lesion had decreased in size from 5.2 x 6.4 to 3.0 x 4.3 cm, a new solid lesion develop in the right upper lobe inferiorly measuring 2.4 x 1.7 cm, In the right middle lobe a nodule had progressed now measuring 2.3 x 2.6 cm from 1.8 x 2.5 cm. There was mediastinal adenopathy noted unchanged no evidence for distant metastatic disease. She started single agent Keytruda on 09/10/2019 and is currently on every 3 week treatment plan. She began Keytruda in combination with chemotherapy on 03/09/2019. Plan: Discussed with patient regarding her labs white blood count 10.3 hemoglobin 15.1 hematocrit 43.9 platelets 190,000 CMP within normal limits TSH 1.15 and follow-up CT PET scan done on December 26, 2019 which shows overall positive response to therapy of bilateral lung lesions, hepatic dome hemangioma. Clinically, patient is doing well with no new signs symptoms suggestive of disease progression, recently done CT PET scan showed overall positive response to therapy., tolerating maintenance immunotherapy with Keytruda well but with expected side effects. We will proceed with the next 3 weekly dose today Return to clinic in 3 weeks with CBC CMP if reasonable, immunotherapy. Signed By: Rukhsana Soares M.D. <<Signature on File>>
[2020-01-19 12:02] LABS: Basophils # 0.1 10^3/uL (0.0-0.1); Basophils % 1.2 %; Eosinophils # 0.7 10^3/uL (0.0-0.8); Eosinophils % 7.3 %; Hematocrit 42.1 % (37.0-47.0); Hemoglobin 14.3 g/dL (11.5-15.3); Lymphocytes % 30.6 %; Mean Corpuscular Hemoglobin 29.6 pg (28.0-34.0); Mean Corpuscular Volume 87.2 fL (81-99); Mean Platelet Volume 9.3 fL (7.4-10.4); Monocytes # 0.8 10^3/uL (0.2-0.9); Monocytes % 8.1 %; Neutrophils # 4.99 10^3/uL (1.8-7.7); Neutrophils % 51.4 %; Nucleated Red Blood Cells % 0 %; Platelet Count 205 10^3/cmm (130-400); Red Blood Count 4.83 10^6/uL (4.1-5.3); Red Cell Distribution Width 12.4 % (12.1-15.1); White Blood Count 9.7 10^3/uL (4.0-10.0)
[2020-01-19 12:31] LABS: Alanine Aminotransferase 20 U/L (0-33); Alkaline Phosphatase 124 IU/L (35-105); Aspartate Amino Transferase 29 U/L (0-32); Blood Urea Nitrogen 5 mg/dL (6-20); Calcium 9.4 mg/dL (8.5-10.5); Carbon Dioxide 27 mmol/L (22-29); Chloride 103 mmol/L (98-107); Globulin 2.7 g/dL (1.3-4.6); Glomerular Filtration Rate 102.3 mL/min (90-130); Glucose 88 mg/dL (65-115); Osmolality Calculated 285 mOsm/kg (285-295); Sodium 140 mmol/L (136-145); Thyroid Stimulating Hormone 0.78 uIU/mL (0.27-4.20); Total Bilirubin 0.4 mg/dL (0.15-1.2); Total Protein 6.7 g/dL (6.6-8.7)
--- NOTE | 2020-01-19 13:37 | ONC FU_ITS ---
Dr. Soares follow up note Patient: Alma Deleon Unit #: [id number]: 1960 Dicatated By: Rukhsana Soares M.D.Date of Visit:Jan 19, 2020 Onc Med Follow-up/Prog Note History of Present Illness: Mrs. Deleon is a 59-year-old female with history of progressive cough. She underwent evaluation on July 07, [address] scan of chest. It reported bilateral upper lobe masses: the mass on right side was 5.9 x 4.1 x 4.9 cm and on the left side was 4.6 x 2.8 x 2.8 cm. On 11/14/2018 patient underwent EBUS , which showed there was 90% narrowing of right upper lobe bronchus due to extensive compression, and right-sided mediastinal and hilar lymph node were enlarged and endobronchial right upper lobe and lymph node biopsies were obtained final pathology report came back poorly differentiated adenocarcinoma consistent with lung primary from right upper lobe endobronchial biopsy. And both lymph node biopsies were negative. Molecular profiling which include EGFR, ALK, ROS 1, PDL 1 and BRAF were done and it showed PDL 1 was 95% tumor cells are positive membranous positivity and rest of molecular profiling was unremarkable. Staging workup including CT PET scan and MRI brain was obtained. The CT PET scan on 12/04/2018 showed hypermetabolic centrally necrotic mass within the right upper lobe abutting adjacent pleura, major fissure, and mediastinum with tumor extension into the right superior hilum, with SUV of 13. Additional centrally necrotic hypermetabolic mass in the left upper lobe with a SUV of 20.9, abutting the adjacent pleura and left major fissure and AP window lymph nodes consistent with elfego metastatic disease. No hypermetabolic metastasis in neck abdomen or pelvis. MRI brain showed 5 mm lesions in the left temporal lobe, and left parietal lobe with mild adjacent edema. Mrs Deleon underwent CyberKnife on 01/02/2019. She was offered palliative chemotherapy plus immunotherapy. She declined and she was also referred to radiation oncology for her right-sided chest pain radiating to her neck and patient declined. With tumor being PDL 1 positive, role of immunotherapy with Keytruda was discussed and patient was willing to consider but then decided to come to [place] for further management. Ms Deleon still smokes about pack a day and has history of smoking for 30-40 years, denies alcohol use. She is still smoking about pack a day AGAINST MEDICAL ADVICE. Ms Deleon started her first cycle of chemotherapy with carboplatin/Alimta/Keytruda on March 09, 2019. She is tolerated it well. Her second cycle was given on March 30, 2019. She states since then she is feeling so much better her breathing is so much better. She states it is amazing how much better she is breathing and how much better she feels overall. Per the report from 05/16/2019 there was no comparison image available for comparison. We will call [facility] radiology and request over read as she did have a PET CT in November 2018. comparison of report indicates that the right upper lobe mass now measuring 5.8 x 3.3 cm with a peripheral uptake of SUV 4.6 was reported as 5.4 x 7.5 x 7 cm with an SUV of 13 on the November 2018 study. A left upper lobe mass measuring 5.2 x 6.4 cm on the current study with an SUV of 7.6 was compared to the November study at which time it measured 5.9 x 6.6 x 5 point centimeters with an SUV of 20.9. There is a solid right middle lobe nodule measuring 1.8 x 2.5 cm with SUV of 5.4 and small scattered mediastinal nodes demonstrating minimal FDG uptake although this may be reactive, although micrometastatic disease cannot be excluded. On review of her 05/16/2019 PET/CT study for comparison with the PET/CT from November 2018. In the interim between studies, the SUV activity has greatly improved and there has been reported decrease in size of the tumors. She had completed 4 cycles of carboplatin Alimta and Keytruda. She received Keytruda only on 06/03/2019 as she stated she was only supposed to have four cycles of chemotherapy and then pursue maintenance with immunotherapy. based on good response seen on f/u PET scan it was suggested to continue chemotherapy for 3 more cycles then repeat imaging. She has reluctantly agreed to try chemotherapy again. She states she understands why she needs it but is not looking forward to feeling washed out again. She has had consultation with Dr Gamez in ENT. She states he told her she has some scaring/calcifications/nodules on her voicebox. She states he has informed her that he can nip them right out of there . She states that he told her this is a simple procedure but the recovery she will have to be very adamant on following strict instructions. She states she feels that she can do this in put up with what ever she needs to get rid of the hoarseness so she quit sounding like a man . Her treatment was held the week of July 22, 2019 as she thought she might have mild flu symptoms . She was given a week off to allow for recovery. She was waiting to hear from Dr. Gamez's office in regards to her surgery that he was planning but apparently Dr. Gamez quit his practice in [place]. She was concerned that she was gaining weight. . She did have a thyroid panel done on 07/29/2019 showed T3 free was 2.9, normal being 2-4.4, T4 free 1.44 normal being 0.82 to 1.77. And TSH 0.23 She has persistent hoarseness of voice, she was waiting for Dr. Gamez's call for the surgery but she heard that Dr. Gamez has left [place]. She then requested a referrel to Dr. Thacker , ENT for evaluation for hoarseness. The last time she received chemotherapy was on 07/01/2019, patient has been postponing her treatment due to hoarseness and its management.finally she was seen by Dr. Thacker on 09/22/2019 and On 10/06/2019 she underwent vocal cord biopsy, results are pending. Follow-up CT PET scan done on 10/03/2019 showed malignant lung masses are now more consolidated in size on the current study, but maintain active FDG uptake, when compared with one done on 05/16/2019. The right upper lobe mass cavitation is essentially resolved, but maintain extensive central necrosis. Now measures 4.8 x 2.8 cm with SUV of 5.0 not a significant increase. The left upper lobe lesion measured 3 x 4.3 cm down from 5.2 x 6.4 cm previously but now demonstrates SUV of 14.2, up from 7.6 previouslyA new solid lesion has developed in the right upper lobe, measuring 2.4 x 1.7 cm with SUV of 20.7. The right middle lobe nodule is progressed, now measuring 2.2 x 2.6 cm with SUV of 7.3 up from 1.8 x 2.5 cm with SUV of 5.4 previously. Scattered mediastinal lymph nodes are unchanged from prior study. Ms. Deleon was referred to radiation oncology for second opinion she did see Dr. Lawson in radiation oncology on 10/14/2019. She has had a mixed response to treatment with evidence of both response and progression on the last PET/CT. She was essentially asymptomatic of her persistent disease and was not interested in pursuing any treatment which would compromise her quality of life at this time. Therefore she elected not to pursue any radiation therapy currently. Dr. Lawson did state that he would not recommend pursuing consolidative therapy in light of her absence. He states he felt the volume of the line within the treatment field to be excessive in terms of diminished functional status. Should she has disease progression, symptoms such as airway compromise, shortness of breath or chest pain, one could readdress palliative radiation at that time. She continues with immunotherapy., As per patient Dr. Thacker did vocal cord biopsy and came back with inflammatory changes no malignancy Follow-up CT PET scan done on December 26, 2019 showed right upper lobe mass continues to demonstrate central necrosis and now measures 4 x 2.6 cm with an SUV of 3.8 indicating a positive response to therapy. The complex left upper lobe lesion has a slightly progressed SUV of 15.7 now measuring 2.6 cm. Overall positive response to therapy. The left upper lobe solid lesion that previously measured 2.4 x 1.7 cm with SUV of 20.7 is now 2 x 1.6 cm with SUV of 18.8, overall positive response. Right middle lobe nodule measured 2.9 x 2.4 cm with SUV of 6.9 is not a significant change from previous study. Multiple subcentimeter subpleural pulmonary nodules are too small to characterize. Came for follow-up, denies any specific complaints except chronic cough but under control, was supposed to see pulmonology today but patient rescheduled it, has seen ENT for chronic cough but evaluation was unremarkable. She was also given muscle relaxant for lower back pain, now feeling much better. No diarrhea or constipation no wheezing, no skin rash. No fever chills no nausea or vomiting or diarrhea or constipation. Tolerating maintenance therapy with Keytruda well Medications: Benzonatate 1 Capsule (of 200 mg) Oral 6x/d PRN, Centrum Silver Adult 50+ 1 Tablet Oral daily, Combivent Respimat Aerosol, solution Inhalation, Flonase Suspension Nasal, Folic Acid 1 (1 mg) Tablet Oral daily, HYDROcodone-Acetaminophen 1 Tablet (of 5-325 mg) Oral four times a day, Tiotropium [place] Monohydrate 1 Puff(s) (of 2.5 mcg/act) Aerosol, solution Inhalation q 24 hours Allergies: Penicillin Review of Systems: Constitutional - Appetite is fair and weight is stable. No fever, chills, hot flashes, or night sweats. Energy level is fair, ENMT - Positive for sinus congestion/drainage. No mouth sores. Positive for sore throat, no difficulty swallowing, Hematologic/Lymphatic - No abnormal bruising or bleeding, Respiratory - Positive for shortness of breath. Positive for cough. No pleuritic pain or hemoptysis, Cardiovascular - No angina pain. No palpitations, Gastrointestinal - No nausea or vomiting. No heartburn or acid reflux. No diarrhea or constipation. No blood in the stool or black stools, Genitourinary (F) - No dysuria or hematuria. No urinary frequency. Positive for urgency, no incontinence, Musculoskeletal - Positive for back pain, Neurologic - No headache or dizziness, Psychiatric - Positive for depression, anxiety and insomnia. Vital Signs: Performed on Jan 19, 2020 13:10 Height - 63.00 in Weight - 142.8 lbs (HIGH) BSA - 1.68 sq.m BMI - 25.30 Temperature - 98.2 F (LOW) Pulse - 76 /min Respiration - 18 /min BP - 131/72 mm(hg) O2 Sat - 99 % Pain - 0 Performance Status: 0 - Fully active, able to carry on all predisease activities without restrictions. (ECOG) Physical Examination: ENMT - No mouth sores, no thrush, no jaundice, Respiratory - Lungs are clear, Cardiovascular - Regular rate and rhythm of heart, Abdomen - Soft, bowel sounds present, Extremities - No visible edema or rash. Lab/Imaging: Test performed on Dec 29, 2019 08:10 Sodium 137 mmol/L TSH 1.15 uIU/mL Potassium 3.9 mmol/L Chloride 102 mmol/L CO2 27 mmol/L Anion Gap 11.9 BUN 7 mg/dL Creatinine 0.6 mg/dL Cr Clearance (Est) 102.3700 mL/min eGFR 102.3 mL/min Glucose 100 mg/dL Calcium 8.9 mg/dL Protein, Total 7.2 g/dL Albumin 4.1 g/dL Globulin 3.1 g/dL Bilirubin, Total 0.5 mg/dL ALT (SGPT) 24 U/L AST (SGOT) 29 U/L Alkaline Phosphatase 119 IU/L WBC 10.3 10 3/uL RBC 4.99 10 6/uL HGB 15.1 g/dL HCT 43.9 % MCV 88.0 fL MCH 30.3 pg MCHC 34.4 g/dL RDW 12.4 % Platelet Count 190 10 3/cmm MPV 9.2 fL Neutrophils 5.63 10 3/uL Lymphocytes 2.9 10 3/uL Monocytes 0.9 10 3/uL Eosinophils 0.7 10 3/uL Basophils 0.1 10 3/uL Neutrophil % 54.4 % Lymphocyte % 28.0 % Monocyte % 9.1 % Eosinophil % 7.2 % Basophils % 1.0 % NRBC % 0 % Test performed on Jul 29, 2019 08:35 T3, Free 2.9 PG/ML T4, Free 1.44 ng/dL Impression: Stage IV, 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 Next Stage IV, M1 a due to separate tumor nodule in the contralateral lobe and brain metastases 5 mm ???[address] PET scan done on 12/04/2018 showed hypermetabolic centrally necrotic mass within the right upper lobe abutting adjacent pleura, major fissure and mediastinum with tumor extension into right superior hilum. Additional centrally necrotic hypermetabolic mass within left upper lobe abutting the adjacent pleura and left major fissure with tumor extension to the left superior hilum. Hypermetabolic right hilar, precarinal, and AP window lymph nodes consistent with a node metastases. No hypermetabolic metastasis within the neck, abdomen or pelvis. MRI scan of the head showed 5 mm ???2 lesion status post CyberKnife on 01/02/2019. Active smoker AGAINST MEDICAL ADVICE; COPD Ms. Deleon began her first cycle of carbo Alimta Keytruda on March 09, 2019. She is tolerated it well thus far. She states that after the second cycle of chemotherapy her breathing is so much better that is amazing . She states that she is now breathing through her nose when she is sleeping and that is something she has not done in years. She states overall she is feeling so much better. regarding her PET CT from 05/16/2019. she did have a PET CT in November 2018. This PET CT was NOT performed at [facility] in the interim just comparison of report indicates that the right upper lobe mass now measuring 5.8 x 3.3 cm with a peripheral uptake of SUV 4.6 was reported as 5.4 x 7.5 x 7 cm with an SUV of 13 on the November 2018 study. A left upper lobe mass measuring 5.2 x 6.4 cm on the current study with an SUV of 7.6 was compared to the November study at which time it measured 5.9 x 6.6 x 5 point centimeters with an SUV of 20.9. There is a solid right middle lobe nodule measuring 1.8 x 2.5 cm with SUV of 5.4 and small scattered mediastinal nodes demonstrating minimal FDG uptake although this may be reactive, although micrometastatic disease cannot be excluded. tolerated palliative therapy with carboplatin/Alimta/Keytruda well. Her follow-up CT PET scan from 04/2019 showed good response to the treatment. discussed with Ms Deleon further treatment plans. The plan earlier plan was to give her 4 cycles of chemotherapy along with immunotherapy and restage her. Her follow-up PET scan in April 2019 shows good response- no evidence of distance metastases, but not resolution of disease. In that case, She was encouraged to continue with same regimen e.g. carboplatin/Alimta/Keytruda for 3 more cycles and restage with CT PET scan. If it shows further improvement and her performance status is till good, she may need to continue full treatment; if on the other hand it shows stable disease then will consider switching her to maintenance therapy with Keytruda alone. Ms Deleon was due to resume Carboplatin/Alimta/Keytruda on 07/01/2019 and after that she has been postponing her chemotherapy as she was undergoing evaluation for hoarseness of voice. , as per ENT it was due to some nodules/calcifications of vocal cord. We once again reviewed the PET/CT imaging and discussed results. Dr Soares discussed with Ms. Deleon Dr. Lawson's (radiation oncology) impression that she should continue immunotherapy until significant disease progression at which time we could consider pallative radiation. PET CT scan from April 2019 to October 03, 2019 revealed reduction in size in the lung masses cavitation in the right upper lobe has resolved. left upper lobe lesion had decreased in size from 5.2 x 6.4 to 3.0 x 4.3 cm, a new solid lesion develop in the right upper lobe inferiorly measuring 2.4 x 1.7 cm, In the right middle lobe a nodule had progressed now measuring 2.3 x 2.6 cm from 1.8 x 2.5 cm. There was mediastinal adenopathy noted unchanged no evidence for distant metastatic disease. She started single agent Keytruda on 09/10/2019 and is currently on every 3 week treatment plan. She began Keytruda in combination with chemotherapy on 03/09/2019. Plan: Discussed with patient regarding her labs white blood count is 9.7, hemoglobin 14.3 hematocrit 42.1 platelets 205,000 CMP within normal limits Clinically, patient is doing well with no signs symptom suggestive of disease progression, tolerating maintenance therapy with Keytruda well. We will proceed with the next 3 weekly dose today and she will return to clinic in 3 weeks with CBC CMP As for his chronic cough is concerned, etiology is unclear, patient has seen ENT recently, as per patient it was unremarkable and now awaiting pulmonology evaluation. Lower back pain, patient said she was hanging wallpaper when it happened, also very active in gardening, but her pain is under control no lower extremity numbness or weakness. Patient was advised, in case she has any worsening of pain or lower extremity numbness she need to call us or go to the emergency room otherwise avoid excessive exertion and continue supportive care. Signed By: Rukhsana Soares M.D. <<Signature on File>>
== END 2020-01-25 23:59 | disposition home or self-care (01) ==
LOC: ONCMED 05:35
PROVIDERS: PCP Family Medicine; Visit Provider Internal Medicine Hematology & Oncology
DX: Z51.12 Encounter for antineoplastic immunotherapy (principal); C34.11 Malignant neoplasm of upper lobe, right bronchus or lung; C79.31 Secondary malignant neoplasm of brain; C77.8 Secondary and unspecified malignant neoplasm of lymph nodes of multiple regions; J44.9 Chronic obstructive pulmonary disease, unspecified; F17.210 Nicotine dependence, cigarettes, uncomplicated; K21.9 Gastro-esophageal reflux disease without esophagitis
CPT/HCPCS: 80053; 84443; 85025; 96413; 99214; J7050; J9271

== ENCOUNTER 2020-02-16 05:32 | Outpatient (RCR) | payer MEDICAID, SELFPAY ==
[2020-02-09 12:31] LABS: Basophils # 0.1 10^3/uL (0.0-0.1); Basophils % 0.6 %; Eosinophils # 0.4 10^3/uL (0.0-0.8); Eosinophils % 2.9 %; Hematocrit 46.7 % (37.0-47.0); Hemoglobin 15.7 g/dL (11.5-15.3); Lymphocytes # 2.8 10^3/uL (0.8-4.8); Lymphocytes % 18.4 %; Mean Corpuscular HGB Conc 33.6 g/dL (30.0-36.0); Mean Corpuscular Hemoglobin 29.6 pg (28.0-34.0); Mean Corpuscular Volume 88.1 fL (81-99); Mean Platelet Volume 8.7 fL (7.4-10.4); Monocytes % 6.8 %; Neutrophils # 10.63 10^3/uL (1.8-7.7); Neutrophils % 70.6 %; Nucleated Red Blood Cells % 0 %; Platelet Count 232 10^3/cmm (130-400); Red Cell Distribution Width 12.7 % (12.1-15.1)
[2020-02-09 13:03] LABS: Alanine Aminotransferase 21 U/L (0-33); Albumin Level 4.2 g/dL (3.5-5.2); Alkaline Phosphatase 140 IU/L (35-105); Anion Gap 15.8 (5-19); Aspartate Amino Transferase 27 U/L (0-32); Blood Urea Nitrogen 8 mg/dL (6-20); Calcium 9.1 mg/dL (8.5-10.5); Carbon Dioxide 25 mmol/L (22-29); Chloride 104 mmol/L (98-107); Globulin 3.1 g/dL (1.3-4.6); Glomerular Filtration Rate 102.3 mL/min (90-130); Glucose 110 mg/dL (65-115); Osmolality Calculated 289 mOsm/kg (285-295); Potassium 3.8 mmol/L (3.5-5.1); Sodium 141 mmol/L (136-145); Total Bilirubin 0.3 mg/dL (0.15-1.2); Total Protein 7.3 g/dL (6.6-8.7)
--- NOTE | 2020-02-15 09:21 | ONC FU_ITS ---
[facility] Patient Note Patient: Alma Deleon Unit #: [id number]: 1960 Dictated By: Elly HarrisDate of Visit: Feb 09, 2020 Onc MED Follow-Up/Prog Note Chief Complaint: Metastatic adenocarcinoma of the lung History of Present Illness: Mrs. Deleon is a 59-year-old female with history of progressive cough. She underwent evaluation on July 07, [address] scan of chest. It reported bilateral upper lobe masses: the mass on right side was 5.9 x 4.1 x 4.9 cm and on the left side was 4.6 x 2.8 x 2.8 cm. On 11/14/2018 patient underwent EBUS , which showed there was 90% narrowing of right upper lobe bronchus due to extensive compression, and right-sided mediastinal and hilar lymph node were enlarged and endobronchial right upper lobe and lymph node biopsies were obtained final pathology report came back poorly differentiated adenocarcinoma consistent with lung primary from right upper lobe endobronchial biopsy. And both lymph node biopsies were negative. Molecular profiling which include EGFR, ALK, ROS 1, PDL 1 and BRAF were done and it showed PDL 1 was 95% tumor cells are positive membranous positivity and rest of molecular profiling was unremarkable. Staging workup including CT PET scan and MRI brain was obtained. The CT PET scan on 12/04/2018 showed hypermetabolic centrally necrotic mass within the right upper lobe abutting adjacent pleura, major fissure, and mediastinum with tumor extension into the right superior hilum, with SUV of 13. Additional centrally necrotic hypermetabolic mass in the left upper lobe with a SUV of 20.9, abutting the adjacent pleura and left major fissure and AP window lymph nodes consistent with elfego metastatic disease. No hypermetabolic metastasis in neck abdomen or pelvis. MRI brain showed 5 mm lesions in the left temporal lobe, and left parietal lobe with mild adjacent edema. Mrs Deleon underwent CyberKnife on 01/02/2019. She was offered palliative chemotherapy plus immunotherapy. She declined and she was also referred to radiation oncology for her right-sided chest pain radiating to her neck and patient declined. With tumor being PDL 1 positive, role of immunotherapy with Keytruda was discussed and patient was willing to consider but then decided to come to [place] for further management. Ms Deleon still smokes about pack a day and has history of smoking for 30-40 years, denies alcohol use. She is still smoking about pack a day AGAINST MEDICAL ADVICE. Ms Deleon started her first cycle of chemotherapy with carboplatin/Alimta/Keytruda on March 09, 2019. She is tolerated it well. Her second cycle was given on March 30, 2019. She states since then she is feeling so much better her breathing is so much better. She states it is amazing how much better she is breathing and how much better she feels overall. Per the report from 05/16/2019 there was no comparison image available for comparison. We will call [facility] radiology and request over read as she did have a PET CT in November 2018. comparison of report indicates that the right upper lobe mass now measuring 5.8 x 3.3 cm with a peripheral uptake of SUV 4.6 was reported as 5.4 x 7.5 x 7 cm with an SUV of 13 on the November 2018 study. A left upper lobe mass measuring 5.2 x 6.4 cm on the current study with an SUV of 7.6 was compared to the November study at which time it measured 5.9 x 6.6 x 5 point centimeters with an SUV of 20.9. There is a solid right middle lobe nodule measuring 1.8 x 2.5 cm with SUV of 5.4 and small scattered mediastinal nodes demonstrating minimal FDG uptake although this may be reactive, although micrometastatic disease cannot be excluded. On review of her 05/16/2019 PET/CT study for comparison with the PET/CT from November 2018. In the interim between studies, the SUV activity has greatly improved and there has been reported decrease in size of the tumors. She had completed 4 cycles of carboplatin Alimta and Keytruda. She received Keytruda only on 06/03/2019 as she stated she was only supposed to have four cycles of chemotherapy and then pursue maintenance with immunotherapy. based on good response seen on f/u PET scan it was suggested to continue chemotherapy for 3 more cycles then repeat imaging. She has reluctantly agreed to try chemotherapy again. She states she understands why she needs it but is not looking forward to feeling washed out again. She has had consultation with Dr Gamez in ENT. She states he told her she has some scaring/calcifications/nodules on her voicebox. She states he has informed her that he can nip them right out of there . She states that he told her this is a simple procedure but the recovery she will have to be very adamant on following strict instructions. She states she feels that she can do this in put up with what ever she needs to get rid of the hoarseness so she quit sounding like a man . Her treatment was held the week of July 22, 2019 as she thought she might have mild flu symptoms . She was given a week off to allow for recovery. She was waiting to hear from Dr. Gamez's office in regards to her surgery that he was planning but apparently Dr. Gamez quit his practice in [place]. She was concerned that she was gaining weight. . She did have a thyroid panel done on 07/29/2019 showed T3 free was 2.9, normal being 2-4.4, T4 free 1.44 normal being 0.82 to 1.77. And TSH 0.23 She has persistent hoarseness of voice, she was waiting for Dr. Gamez's call for the surgery but she heard that Dr. Gamez has left [place]. She then requested a referrel to Dr. Thacker , ENT for evaluation for hoarseness. The last time she received chemotherapy was on 07/01/2019, patient has been postponing her treatment due to hoarseness and its management.finally she was seen by Dr. Thacker on 09/22/2019 and On 10/06/2019 she underwent vocal cord biopsy, results are pending. Follow-up CT PET scan done on 10/03/2019 showed malignant lung masses are now more consolidated in size on the current study, but maintain active FDG uptake, when compared with one done on 05/16/2019. The right upper lobe mass cavitation is essentially resolved, but maintain extensive central necrosis. Now measures 4.8 x 2.8 cm with SUV of 5.0 not a significant increase. The left upper lobe lesion measured 3 x 4.3 cm down from 5.2 x 6.4 cm previously but now demonstrates SUV of 14.2, up from 7.6 previouslyA new solid lesion has developed in the right upper lobe, measuring 2.4 x 1.7 cm with SUV of 20.7. The right middle lobe nodule is progressed, now measuring 2.2 x 2.6 cm with SUV of 7.3 up from 1.8 x 2.5 cm with SUV of 5.4 previously. Scattered mediastinal lymph nodes are unchanged from prior study. Ms. Deleon was referred to radiation oncology for second opinion she did see Dr. Lawson in radiation oncology on 10/14/2019. She has had a mixed response to treatment with evidence of both response and progression on the last PET/CT. She was essentially asymptomatic of her persistent disease and was not interested in pursuing any treatment which would compromise her quality of life at this time. Therefore she elected not to pursue any radiation therapy currently. Dr. Lawson did state that he would not recommend pursuing consolidative therapy in light of her absence. He states he felt the volume of the line within the treatment field to be excessive in terms of diminished functional status. Should she has disease progression, symptoms such as airway compromise, shortness of breath or chest pain, one could readdress palliative radiation at that time. She continues with immunotherapy., As per patient Dr. Thacker did vocal cord biopsy and came back with inflammatory changes no malignancy Follow-up CT PET scan done on December 26, 2019 showed right upper lobe mass continues to demonstrate central necrosis and now measures 4 x 2.6 cm with an SUV of 3.8 indicating a positive response to therapy. The complex left upper lobe lesion has a slightly progressed SUV of 15.7 now measuring 2.6 cm. Overall positive response to therapy. The left upper lobe solid lesion that previously measured 2.4 x 1.7 cm with SUV of 20.7 is now 2 x 1.6 cm with SUV of 18.8, overall positive response. Right middle lobe nodule measured 2.9 x 2.4 cm with SUV of 6.9 is not a significant change from previous study. Multiple subcentimeter subpleural pulmonary nodules are too small to characterize. She continues with Keytruda. Ms. Deleon is here today for follow-up. She is due for maintenance pembrolizumab as well. She states she is more short of breath. She has a productive cough. She denies any fever or chills but states she is just more winded. She has been coughing up some thick slightly discolored sputum. She states is been going on for the last 4 to 5 days. She thinks is mostly sinus related but just does not feel well in general. She has been having some intermittent muscle pain in her back area which is relieved with hydrocodone. She does need a refill today as well. She denies any orthopnea. She denies any chest pain or palpitations. She denies nausea or vomiting. She states she has had some intermittent wheezing but typically clears with a cough. She denies any diarrhea or constipation. She denies any abdominal pain. She has had no episodes of confusion or disorientation that she is aware of. She denies any COVID symptoms or known COVID exposure. She denies any recent COVID testing. She states in general her appetite is good and her energy is fair. Her ECOG is 1. Past Medical History: Chronic obstructive pulmonary disease Gastroesophageal reflux Past Surgical History: Throat biopsy in 2019 Allergies: Penicillin Medications: Benzonatate 1 Capsule (of 200 mg) Oral 6x/d PRN Centrum Silver Adult 50+ 1 Tablet Oral daily Combivent Respimat Aerosol, solution Inhalation Flonase Suspension Nasal Folic Acid 1 (1 mg) Tablet Oral daily HYDROcodone-Acetaminophen 1 Tablet (of 5-325 mg) Oral four times a day methylPREDNISolone 1 Tablet (of 4 mg) Oral Tiotropium [place] Monohydrate 1 Puff(s) (of 2.5 mcg/act) Aerosol, solution Inhalation q 24 hours Family History: pt was raised in the foster care. Social History: Ms. Deleon is and she is a disabled. She is a daily smoker who has smoked 0.5 packs/day for 41 years. She has no history of drinking. Review Of Symptoms: Constitutional Denies fevers, chills, night sweats, excessive fatigue or weight loss. Tired-lower back pain. Allergic/Immunologic No reactions. Eyes Denies significant visual changes. No diplopia. No amaurosis. ENMT Denies changes in hearing, mouth sores, difficulty or changes in swallowing ability. She is still having hoarseness, but slowly improving. Hematologic/Lymphatic Denies easy bruising or bleeding. The patient denies any tender or palpable lymph nodes. Respiratory Dramatically improved dyspnea on exertion. Denies chest pain or hemoptysis. Denies orthopnea. Persistent cough now with mild production of thick darkish colored sputum over the last 4-5 days. Cardiovascular Denies anginal chest pain, palpitations or orthopnea. Gastrointestinal Denies nausea, vomiting, diarrhea, GI bleeding, or constipation. Denies change in bowel habits and/or stool color, no heartburn or early satiety. Genitourinary (F) No hematuria, hesitancy, incontinence, vaginal bleeding, discharge or other problems with urination. Musculoskeletal Denies joint pain, swelling or redness. No decreased range of motion. Integumentary Denies chronic rashes, inflammation, ulcerations or skin changes. Neurologic Denies blurred vision, and no areas of focal weakness or numbness. Normal gait. No sensory problems. Psychiatric Denies insomnia, depression, fran or mood swings. Vital Signs: Performed on Feb 09, 2020 13:36 Height - 63.00 in Weight - 142.2 lbs (LOW) BSA - 1.67 sq.m BMI - 25.19 Temperature - 98.5 F Pulse - 65 /min Respiration - 24 /min BP - 123/65 mm(hg) O2 Sat - 97 % Pain - 5,1 - No physically strenuous activity, but ambulatory and able to carry out light or sedentary work (e.g. office work, light house work). (ECOG) Physical Examination: Constitutional Alert, oriented, no acute distress. Skin pink, warm and dry. Head Normocephalic; atraumatic. Eyes Conjunctivae and sclerae are clear and without icterus. Pupils are reactive and equal. Neck Supple without masses or thyromegaly. No jugular venous distension. Hematologic/Lymphatic No petechiae or purpura. No tender or palpable lymph nodes in the cervical or supraclavicular Respiratory Lungs are diminished bilaterally to auscultation. Faint expiratory wheezes that clear with cough. Cardiovascular Regular rate and rhythm of heart without murmurs,clicks, gallops or rubs. Abdomen Non-tender, non-distended, no masses, ascites. No guarding or rebound tenderness. No pulsatile masses. Back/Spine Non-tender to palpation. Extremities No visible deformities, no cyanosis, clubbing or edema. Musculoskeletal No tenderness or swelling, normal range of motion without obvious weakness. Integumentary No rashes or lesions. Neurologic No sensory or motor deficits, normal cerebellar function, normal gait. Psychiatric Alert and oriented times three. Coherent speech. Verbalizes understanding of our discussions today. Laboratory:Test performed on Feb 09, 2020 12:15 Sodium 141 mmol/L TSH 0.50 uIU/mL Potassium 3.8 mmol/L Chloride 104 mmol/L CO2 25 mmol/L Anion Gap 15.8 BUN 8 mg/dL Creatinine 0.6 mg/dL Cr Clearance (Est) 102.8000 mL/min eGFR 102.3 mL/min Glucose 110 mg/dL Calcium 9.1 mg/dL Osmolality - Calculated 289 mOsm/kg Protein, Total 7.3 g/dL Albumin 4.2 g/dL Globulin 3.1 g/dL Bilirubin, Total 0.3 mg/dL ALT (SGPT) 21 U/L AST (SGOT) 27 U/L Alkaline Phosphatase 140 IU/L WBC 15.0 10 3/uL RBC 5.30 10 6/uL HGB 15.7 g/dL HCT 46.7 % MCV 88.1 fL MCH 29.6 pg MCHC 33.6 g/dL RDW 12.7 % Platelet Count 232 10 3/cmm MPV 8.7 fL Neutrophils 10.63 10 3/uL Lymphocytes 2.8 10 3/uL Monocytes 1.0 10 3/uL Eosinophils 0.4 10 3/uL Basophils 0.1 10 3/uL Neutrophil % 70.6 % Lymphocyte % 18.4 % Monocyte % 6.8 % Eosinophil % 2.9 % Basophils % 0.6 % NRBC % 0 % Impression: Stage IV, 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 Next Stage IV, M1 a due to separate tumor nodule in the contralateral lobe and brain metastases 5 mm ???[address] PET scan done on 12/04/2018 showed hypermetabolic centrally necrotic mass within the right upper lobe abutting adjacent pleura, major fissure and mediastinum with tumor extension into right superior hilum. Additional centrally necrotic hypermetabolic mass within left upper lobe abutting the adjacent pleura and left major fissure with tumor extension to the left superior hilum. Hypermetabolic right hilar, precarinal, and AP window lymph nodes consistent with a node metastases. No hypermetabolic metastasis within the neck, abdomen or pelvis. MRI scan of the head showed 5 mm ???2 lesion status post CyberKnife on 01/02/2019. Active smoker AGAINST MEDICAL ADVICE; COPD Ms. Deleon began her first cycle of carbo Alimta Keytruda on March 09, 2019. She is tolerated it well thus far. She states that after the second cycle of chemotherapy her breathing is so much better that is amazing . She states that she is now breathing through her nose when she is sleeping and that is something she has not done in years. She states overall she is feeling so much better. regarding her PET CT from 05/16/2019. she did have a PET CT in November 2018. This PET CT was NOT performed at [facility] in the interim just comparison of report indicates that the right upper lobe mass now measuring 5.8 x 3.3 cm with a peripheral uptake of SUV 4.6 was reported as 5.4 x 7.5 x 7 cm with an SUV of 13 on the November 2018 study. A left upper lobe mass measuring 5.2 x 6.4 cm on the current study with an SUV of 7.6 was compared to the November study at which time it measured 5.9 x 6.6 x 5 point centimeters with an SUV of 20.9. There is a solid right middle lobe nodule measuring 1.8 x 2.5 cm with SUV of 5.4 and small scattered mediastinal nodes demonstrating minimal FDG uptake although this may be reactive, although micrometastatic disease cannot be excluded. tolerated palliative therapy with carboplatin/Alimta/Keytruda well. Her follow-up CT PET scan from 04/2019 showed good response to the treatment. discussed with Ms Deleon further treatment plans. The plan earlier plan was to give her 4 cycles of chemotherapy along with immunotherapy and restage her. Her follow-up PET scan in April 2019 shows good response- no evidence of distance metastases, but not resolution of disease. In that case, She was encouraged to continue with same regimen e.g. carboplatin/Alimta/Keytruda for 3 more cycles and restage with CT PET scan. If it shows further improvement and her performance status is till good, she may need to continue full treatment; if on the other hand it shows stable disease then will consider switching her to maintenance therapy with Keytruda alone. Ms Deleon was due to resume Carboplatin/Alimta/Keytruda on 07/01/2019 and after that she has been postponing her chemotherapy as she was undergoing evaluation for hoarseness of voice. , as per ENT it was due to some nodules/calcifications of vocal cord. We once again reviewed the PET/CT imaging and discussed results. Dr Soares discussed with Ms. Deleon Dr. Lawson's (radiation oncology) impression that she should continue immunotherapy until significant disease progression at which time we could consider pallative radiation. PET CT scan from April 2019 to October 03, 2019 revealed reduction in size in the lung masses cavitation in the right upper lobe has resolved. left upper lobe lesion had decreased in size from 5.2 x 6.4 to 3.0 x 4.3 cm, a new solid lesion develop in the right upper lobe inferiorly measuring 2.4 x 1.7 cm, In the right middle lobe a nodule had progressed now measuring 2.3 x 2.6 cm from 1.8 x 2.5 cm. There was mediastinal adenopathy noted unchanged no evidence for distant metastatic disease. She started single agent Keytruda on 09/10/2019 and is currently on every 3 week treatment plan. She began Keytruda in combination with chemotherapy on 03/09/2019. Plan: 1. We will hold planned pembrolizumab today. 2. We will start her on prednisone 20 mg for 2 days then 50 mg for 3 days then 10 mg daily. 3. We will also start her on Levaquin 500 mg p.o. daily for upper respiratory infection. 4. We will refill her muscle relaxer (for lower back pain due to hanging wallpaper) to [facility] and written prescription for the hydrocodone 10/[address] Marquez's authorization. 5. Labs from today were reviewed in detail and discussed with Ms. Deleon and a copy was given to her. WBC is 15, hemoglobin 15.7 platelets 232,000 ANC is 10,600. Potassium 3.6 creatinine 0.6 random glucose 110 LFTs are normal alk phos is 140 and TSH is 0.5. 6. We will plan to see Mrs. Deleon back in 1 week to see if she would be ready to pursue the Keytruda at that time. She is been advised to call us if she is not feeling significantly better and will postpone her another week. When she does return for treatment she will need a CBC CMP. Her TSH is stable and she was not treated today. 7. Ms. Deleon was instructed to contact us in the interim should questions or problems arise. Signed By: Elly Harris-, AORoderick Soares MD <<Signature on File>>
[2020-02-16 12:35] LABS: Basophils % 0.3 %; Eosinophils # 0.1 10^3/uL (0.0-0.8); Eosinophils % 0.5 %; Hematocrit 44.4 % (37.0-47.0); Hemoglobin 14.6 g/dL (11.5-15.3); Lymphocytes # 1.5 10^3/uL (0.8-4.8); Lymphocytes % 12.5 %; Mean Corpuscular HGB Conc 32.9 g/dL (30.0-36.0); Mean Corpuscular Hemoglobin 29.6 pg (28.0-34.0); Mean Corpuscular Volume 90.1 fL (81-99); Mean Platelet Volume 8.8 fL (7.4-10.4); Monocytes # 0.4 10^3/uL (0.2-0.9); Monocytes % 3.2 %; Neutrophils # 10.08 10^3/uL (1.8-7.7); Nucleated Red Blood Cells % 0 %; Platelet Count 158 10^3/cmm (130-400); Red Blood Count 4.93 10^6/uL (4.1-5.3); Red Cell Distribution Width 13.1 % (12.1-15.1); White Blood Count 12.2 10^3/uL (4.0-10.0)
[2020-02-16 13:12] LABS: Alanine Aminotransferase 15 U/L (0-33); Albumin Level 3.9 g/dL (3.5-5.2); Alkaline Phosphatase 121 IU/L (35-105); Aspartate Amino Transferase 14 U/L (0-32); Blood Urea Nitrogen 7 mg/dL (6-20); Carbon Dioxide 26 mmol/L (22-29); Chloride 104 mmol/L (98-107); Globulin 2.6 g/dL (1.3-4.6); Glomerular Filtration Rate 85.6 mL/min (90-130); Glucose 140 mg/dL (65-115); Osmolality Calculated 294 mOsm/kg (285-295); Sodium 142 mmol/L (136-145); Thyroid Stimulating Hormone 0.49 uIU/mL (0.27-4.20); Total Bilirubin 0.2 mg/dL (0.15-1.2); Total Protein 6.5 g/dL (6.6-8.7)
--- NOTE | 2020-02-16 17:38 | ONC FU_ITS ---
Dr. Soares follow up note Patient: Alma Deleon Unit #: [id number]: 1960 Dicatated By: Rukhsana Soares M.D.Date of Visit:Feb 16, 2020 Onc Med Follow-up/Prog Note History of Present Illness: Mrs. Deleon is a 59-year-old female with history of progressive cough. She underwent evaluation on July 07, [address] scan of chest. It reported bilateral upper lobe masses: the mass on right side was 5.9 x 4.1 x 4.9 cm and on the left side was 4.6 x 2.8 x 2.8 cm. On 11/14/2018 patient underwent EBUS , which showed there was 90% narrowing of right upper lobe bronchus due to extensive compression, and right-sided mediastinal and hilar lymph node were enlarged and endobronchial right upper lobe and lymph node biopsies were obtained final pathology report came back poorly differentiated adenocarcinoma consistent with lung primary from right upper lobe endobronchial biopsy. And both lymph node biopsies were negative. Molecular profiling which include EGFR, ALK, ROS 1, PDL 1 and BRAF were done and it showed PDL 1 was 95% tumor cells are positive membranous positivity and rest of molecular profiling was unremarkable. Staging workup including CT PET scan and MRI brain was obtained. The CT PET scan on 12/04/2018 showed hypermetabolic centrally necrotic mass within the right upper lobe abutting adjacent pleura, major fissure, and mediastinum with tumor extension into the right superior hilum, with SUV of 13. Additional centrally necrotic hypermetabolic mass in the left upper lobe with a SUV of 20.9, abutting the adjacent pleura and left major fissure and AP window lymph nodes consistent with elfego metastatic disease. No hypermetabolic metastasis in neck abdomen or pelvis. MRI brain showed 5 mm lesions in the left temporal lobe, and left parietal lobe with mild adjacent edema. Mrs Deleon underwent CyberKnife on 01/02/2019. She was offered palliative chemotherapy plus immunotherapy. She declined and she was also referred to radiation oncology for her right-sided chest pain radiating to her neck and patient declined. With tumor being PDL 1 positive, role of immunotherapy with Keytruda was discussed and patient was willing to consider but then decided to come to [place] for further management. Ms Deleon still smokes about pack a day and has history of smoking for 30-40 years, denies alcohol use. She is still smoking about pack a day AGAINST MEDICAL ADVICE. Ms Deleon started her first cycle of chemotherapy with carboplatin/Alimta/Keytruda on March 09, 2019. She is tolerated it well. Her second cycle was given on March 30, 2019. She states since then she is feeling so much better her breathing is so much better. She states it is amazing how much better she is breathing and how much better she feels overall. Per the report from 05/16/2019 there was no comparison image available for comparison. We will call [facility] radiology and request over read as she did have a PET CT in November 2018. comparison of report indicates that the right upper lobe mass now measuring 5.8 x 3.3 cm with a peripheral uptake of SUV 4.6 was reported as 5.4 x 7.5 x 7 cm with an SUV of 13 on the November 2018 study. A left upper lobe mass measuring 5.2 x 6.4 cm on the current study with an SUV of 7.6 was compared to the November study at which time it measured 5.9 x 6.6 x 5 point centimeters with an SUV of 20.9. There is a solid right middle lobe nodule measuring 1.8 x 2.5 cm with SUV of 5.4 and small scattered mediastinal nodes demonstrating minimal FDG uptake although this may be reactive, although micrometastatic disease cannot be excluded. On review of her 05/16/2019 PET/CT study for comparison with the PET/CT from November 2018. In the interim between studies, the SUV activity has greatly improved and there has been reported decrease in size of the tumors. She had completed 4 cycles of carboplatin Alimta and Keytruda. She received Keytruda only on 06/03/2019 as she stated she was only supposed to have four cycles of chemotherapy and then pursue maintenance with immunotherapy. based on good response seen on f/u PET scan it was suggested to continue chemotherapy for 3 more cycles then repeat imaging. She has reluctantly agreed to try chemotherapy again. She states she understands why she needs it but is not looking forward to feeling washed out again. She has had consultation with Dr Gamez in ENT. She states he told her she has some scaring/calcifications/nodules on her voicebox. She states he has informed her that he can nip them right out of there . She states that he told her this is a simple procedure but the recovery she will have to be very adamant on following strict instructions. She states she feels that she can do this in put up with what ever she needs to get rid of the hoarseness so she quit sounding like a man . Her treatment was held the week of July 22, 2019 as she thought she might have mild flu symptoms . She was given a week off to allow for recovery. She was waiting to hear from Dr. Gamez's office in regards to her surgery that he was planning but apparently Dr. Gamez quit his practice in [place]. She was concerned that she was gaining weight. . She did have a thyroid panel done on 07/29/2019 showed T3 free was 2.9, normal being 2-4.4, T4 free 1.44 normal being 0.82 to 1.77. And TSH 0.23 She has persistent hoarseness of voice, she was waiting for Dr. Gamez's call for the surgery but she heard that Dr. Gamez has left [place]. She then requested a referrel to Dr. Thacker , ENT for evaluation for hoarseness. The last time she received chemotherapy was on 07/01/2019, patient has been postponing her treatment due to hoarseness and its management.finally she was seen by Dr. Thacker on 09/22/2019 and On 10/06/2019 she underwent vocal cord biopsy, results are pending. Follow-up CT PET scan done on 10/03/2019 showed malignant lung masses are now more consolidated in size on the current study, but maintain active FDG uptake, when compared with one done on 05/16/2019. The right upper lobe mass cavitation is essentially resolved, but maintain extensive central necrosis. Now measures 4.8 x 2.8 cm with SUV of 5.0 not a significant increase. The left upper lobe lesion measured 3 x 4.3 cm down from 5.2 x 6.4 cm previously but now demonstrates SUV of 14.2, up from 7.6 previouslyA new solid lesion has developed in the right upper lobe, measuring 2.4 x 1.7 cm with SUV of 20.7. The right middle lobe nodule is progressed, now measuring 2.2 x 2.6 cm with SUV of 7.3 up from 1.8 x 2.5 cm with SUV of 5.4 previously. Scattered mediastinal lymph nodes are unchanged from prior study. Ms. Deleon was referred to radiation oncology for second opinion she did see Dr. Lawson in radiation oncology on 10/14/2019. She has had a mixed response to treatment with evidence of both response and progression on the last PET/CT. She was essentially asymptomatic of her persistent disease and was not interested in pursuing any treatment which would compromise her quality of life at this time. Therefore she elected not to pursue any radiation therapy currently. Dr. Lawson did state that he would not recommend pursuing consolidative therapy in light of her absence. He states he felt the volume of the line within the treatment field to be excessive in terms of diminished functional status. Should she has disease progression, symptoms such as airway compromise, shortness of breath or chest pain, one could readdress palliative radiation at that time. She continues with immunotherapy., As per patient Dr. Thacker did vocal cord biopsy and came back with inflammatory changes no malignancy Follow-up CT PET scan done on December 26, 2019 showed right upper lobe mass continues to demonstrate central necrosis and now measures 4 x 2.6 cm with an SUV of 3.8 indicating a positive response to therapy. The complex left upper lobe lesion has a slightly progressed SUV of 15.7 now measuring 2.6 cm. Overall positive response to therapy. The left upper lobe solid lesion that previously measured 2.4 x 1.7 cm with SUV of 20.7 is now 2 x 1.6 cm with SUV of 18.8, overall positive response. Right middle lobe nodule measured 2.9 x 2.4 cm with SUV of 6.9 is not a significant change from previous study. Multiple subcentimeter subpleural pulmonary nodules are too small to characterize. She continues with Keytruda. Came for follow-up, denies any specific complaint except dryness of mouth, she is on tapering dose of steroids for COPD exacerbation. No mouth sores, no hemoptysis or hematemesis, still smoking about pack a day. No fever chills, no nausea or vomiting, no diarrhea constipation. Medications: Benzonatate 1 Capsule (of 200 mg) Oral 6x/d PRN, Centrum Silver Adult 50+ 1 Tablet Oral daily, Combivent Respimat Aerosol, solution Inhalation, Flonase Suspension Nasal, Folic Acid 1 (1 mg) Tablet Oral daily, HYDROcodone-Acetaminophen 1 Tablet (of 5-325 mg) Oral four times a day, methylPREDNISolone 1 Tablet (of 4 mg) Oral, Tiotropium [place] Monohydrate 1 Puff(s) (of 2.5 mcg/act) Aerosol, solution Inhalation q 24 hours Allergies: Penicillin Review of Systems: Constitutional - Appetite is fair and weight is stable. No fever, chills, hot flashes, or night sweats. Energy level is fair, ENMT - Positive for sinus congestion/drainage. No mouth sores. Positive for sore throat, no difficulty swallowing, Hematologic/Lymphatic - No abnormal bruising or bleeding, Respiratory - Positive for shortness of breath. Positive for cough. No pleuritic pain or hemoptysis, Cardiovascular - No angina pain. No palpitations, Gastrointestinal - No nausea or vomiting. No heartburn or acid reflux. No diarrhea or constipation. No blood in the stool or black stools, Genitourinary (F) - No dysuria or hematuria. No urinary frequency. Positive for urgency, no incontinence, Musculoskeletal - Positive for back pain, Neurologic - No headache or dizziness, Psychiatric - Positive for depression, anxiety and insomnia. Vital Signs: Performed on Feb 16, 2020 14:14 Height - 63.00 in Weight - 146.4 lbs (HIGH) BSA - 1.69 sq.m BMI - 25.93 Temperature - 98.8 F Pulse - 87 /min Respiration - 20 /min BP - 133/68 mm(hg) O2 Sat - 97 % Pain - 0 Performance Status: 0 - Fully active, able to carry on all predisease activities without restrictions. (ECOG) Physical Examination: ENMT - Mild thrush in her mouth, no sores, no jaundice, Respiratory - Bilateral mild wheezing otherwise clear, Cardiovascular - Regular rate and rhythm of heart, Abdomen - Soft, bowel sounds present, Extremities - No visible edema. Lab/Imaging: Test performed on Feb 09, 2020 12:15 Sodium 141 mmol/L TSH 0.50 uIU/mL Potassium 3.8 mmol/L Chloride 104 mmol/L CO2 25 mmol/L Anion Gap 15.8 BUN 8 mg/dL Creatinine 0.6 mg/dL Cr Clearance (Est) 102.8000 mL/min eGFR 102.3 mL/min Glucose 110 mg/dL Calcium 9.1 mg/dL Osmolality - Calculated 289 mOsm/kg Protein, Total 7.3 g/dL Albumin 4.2 g/dL Globulin 3.1 g/dL Bilirubin, Total 0.3 mg/dL ALT (SGPT) 21 U/L AST (SGOT) 27 U/L Alkaline Phosphatase 140 IU/L WBC 15.0 10 3/uL RBC 5.30 10 6/uL HGB 15.7 g/dL HCT 46.7 % MCV 88.1 fL MCH 29.6 pg MCHC 33.6 g/dL RDW 12.7 % Platelet Count 232 10 3/cmm MPV 8.7 fL Neutrophils 10.63 10 3/uL Lymphocytes 2.8 10 3/uL Monocytes 1.0 10 3/uL Eosinophils 0.4 10 3/uL Basophils 0.1 10 3/uL Neutrophil % 70.6 % Lymphocyte % 18.4 % Monocyte % 6.8 % Eosinophil % 2.9 % Basophils % 0.6 % NRBC % 0 % Impression: Stage IV, 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 Next Stage IV, M1 a due to separate tumor nodule in the contralateral lobe and brain metastases 5 mm ???[address] PET scan done on 12/04/2018 showed hypermetabolic centrally necrotic mass within the right upper lobe abutting adjacent pleura, major fissure and mediastinum with tumor extension into right superior hilum. Additional centrally necrotic hypermetabolic mass within left upper lobe abutting the adjacent pleura and left major fissure with tumor extension to the left superior hilum. Hypermetabolic right hilar, precarinal, and AP window lymph nodes consistent with a node metastases. No hypermetabolic metastasis within the neck, abdomen or pelvis. MRI scan of the head showed 5 mm ???2 lesion status post CyberKnife on 01/02/2019. Active smoker AGAINST MEDICAL ADVICE; COPD Ms. Deleon began her first cycle of carbo Alimta Keytruda on March 09, 2019. She is tolerated it well thus far. She states that after the second cycle of chemotherapy her breathing is so much better that is amazing . She states that she is now breathing through her nose when she is sleeping and that is something she has not done in years. She states overall she is feeling so much better. regarding her PET CT from 05/16/2019. she did have a PET CT in November 2018. This PET CT was NOT performed at [facility] in the interim just comparison of report indicates that the right upper lobe mass now measuring 5.8 x 3.3 cm with a peripheral uptake of SUV 4.6 was reported as 5.4 x 7.5 x 7 cm with an SUV of 13 on the November 2018 study. A left upper lobe mass measuring 5.2 x 6.4 cm on the current study with an SUV of 7.6 was compared to the November study at which time it measured 5.9 x 6.6 x 5 point centimeters with an SUV of 20.9. There is a solid right middle lobe nodule measuring 1.8 x 2.5 cm with SUV of 5.4 and small scattered mediastinal nodes demonstrating minimal FDG uptake although this may be reactive, although micrometastatic disease cannot be excluded. tolerated palliative therapy with carboplatin/Alimta/Keytruda well. Her follow-up CT PET scan from 04/2019 showed good response to the treatment. discussed with Ms Deleon further treatment plans. The plan earlier plan was to give her 4 cycles of chemotherapy along with immunotherapy and restage her. Her follow-up PET scan in April 2019 shows good response- no evidence of distance metastases, but not resolution of disease. In that case, She was encouraged to continue with same regimen e.g. carboplatin/Alimta/Keytruda for 3 more cycles and restage with CT PET scan. If it shows further improvement and her performance status is till good, she may need to continue full treatment; if on the other hand it shows stable disease then will consider switching her to maintenance therapy with Keytruda alone. Ms Deleon was due to resume Carboplatin/Alimta/Keytruda on 07/01/2019 and after that she has been postponing her chemotherapy as she was undergoing evaluation for hoarseness of voice. , as per ENT it was due to some nodules/calcifications of vocal cord. We once again reviewed the PET/CT imaging and discussed results. Dr Soares discussed with Ms. Pancho Lawson's (radiation oncology) impression that she should continue immunotherapy until significant disease progression at which time we could consider pallative radiation. PET CT scan from April 2019 to October 03, 2019 revealed reduction in size in the lung masses cavitation in the right upper lobe has resolved. left upper lobe lesion had decreased in size from 5.2 x 6.4 to 3.0 x 4.3 cm, a new solid lesion develop in the right upper lobe inferiorly measuring 2.4 x 1.7 cm, In the right middle lobe a nodule had progressed now measuring 2.3 x 2.6 cm from 1.8 x 2.5 cm. There was mediastinal adenopathy noted unchanged no evidence for distant metastatic disease. She started single agent Keytruda on 09/10/2019 and is currently on every 3 week treatment plan. She began Keytruda in combination with chemotherapy on 03/09/2019. Plan: Discussed with patient regarding her labs white blood count 12.2 hemoglobin 14.6 crit 44.4 platelets 158,000 CMP within normal limits Clinically, patient doing reasonably well with no signs symptom suggestive of disease progression, tolerating maintenance therapy with Keytruda well. We will proceed with next dose of Keytruda today and then she will return to clinic in 3 weeks. As far as dryness of mouth is concerned probably due to mild thrush due to steroids, will give her prescription for nystatin she will take it as directed.Patient was advised to quit smoking and was offered any assistance she may need she was also advised to follow her grader meat regarding COPD management Signed By: Rukhsana Soares M.D. <<Signature on File>>
== END 2020-02-24 23:59 | disposition home or self-care (01) ==
LOC: ONCMED 05:32
PROVIDERS: Nurse Practitioner; PCP Family Medicine; Visit Provider Internal Medicine Hematology & Oncology
DX: Z51.12 Encounter for antineoplastic immunotherapy (principal); C34.11 Malignant neoplasm of upper lobe, right bronchus or lung; C79.31 Secondary malignant neoplasm of brain; C77.8 Secondary and unspecified malignant neoplasm of lymph nodes of multiple regions; J44.9 Chronic obstructive pulmonary disease, unspecified; K21.9 Gastro-esophageal reflux disease without esophagitis; F17.210 Nicotine dependence, cigarettes, uncomplicated
CPT/HCPCS: 36591; 80053; 84443; 85025; 96413; 99214; J7050; J9271

== ENCOUNTER 2020-03-08 05:51 | Outpatient (RCR) | payer MEDICAID, SELFPAY ==
[2020-03-08 13:23] LABS: Basophils # 0.1 10^3/uL (0.0-0.1); Basophils % 1.1 %; Eosinophils # 1.1 10^3/uL (0.0-0.8); Eosinophils % 9.9 %; Hematocrit 41.8 % (37.0-47.0); Lymphocytes # 2.7 10^3/uL (0.8-4.8); Lymphocytes % 24.5 %; Mean Corpuscular HGB Conc 33.5 g/dL (30.0-36.0); Mean Corpuscular Hemoglobin 29.7 pg (28.0-34.0); Mean Corpuscular Volume 88.6 fL (81-99); Mean Platelet Volume 8.9 fL (7.4-10.4); Monocytes % 8.7 %; Neutrophils # 6.05 10^3/uL (1.8-7.7); Neutrophils % 55.3 %; Nucleated Red Blood Cells % 0 %; Platelet Count 215 10^3/cmm (130-400); Red Blood Count 4.72 10^6/uL (4.1-5.3); Red Cell Distribution Width 12.7 % (12.1-15.1)
[2020-03-08 13:51] LABS: Alanine Aminotransferase 22 U/L (0-33); Albumin Level 3.9 g/dL (3.5-5.2); Alkaline Phosphatase 119 IU/L (35-105); Anion Gap 11.9 (5-19); Aspartate Amino Transferase 24 U/L (0-32); Blood Urea Nitrogen 4 mg/dL (6-20); Calcium 8.9 mg/dL (8.5-10.5); Carbon Dioxide 25 mmol/L (22-29); Chloride 103 mmol/L (98-107); Globulin 2.5 g/dL (1.3-4.6); Glomerular Filtration Rate 102.3 mL/min (90-130); Glucose 93 mg/dL (65-115); Osmolality Calculated 279 mOsm/kg (285-295); Potassium 3.9 mmol/L (3.5-5.1); Sodium 136 mmol/L (136-145); Thyroid Stimulating Hormone 0.89 uIU/mL (0.27-4.20); Total Bilirubin 0.3 mg/dL (0.15-1.2); Total Protein 6.4 g/dL (6.6-8.7)
--- NOTE | 2020-03-08 17:25 | ONC FU_ITS ---
Dr. Soares follow up note Patient: Alma Deleon Unit #: [id number]: 1960 Dicatated By: Rukhsana Soares M.D.Date of Visit:Mar 08, 2020 Onc Med Follow-up/Prog Note History of Present Illness: Mrs. Deleon is a 59-year-old female with history of progressive cough. She underwent evaluation on July 07, [address] scan of chest. It reported bilateral upper lobe masses: the mass on right side was 5.9 x 4.1 x 4.9 cm and on the left side was 4.6 x 2.8 x 2.8 cm. On 11/14/2018 patient underwent EBUS , which showed there was 90% narrowing of right upper lobe bronchus due to extensive compression, and right-sided mediastinal and hilar lymph node were enlarged and endobronchial right upper lobe and lymph node biopsies were obtained final pathology report came back poorly differentiated adenocarcinoma consistent with lung primary from right upper lobe endobronchial biopsy. And both lymph node biopsies were negative. Molecular profiling which include EGFR, ALK, ROS 1, PDL 1 and BRAF were done and it showed PDL 1 was 95% tumor cells are positive membranous positivity and rest of molecular profiling was unremarkable. Staging workup including CT PET scan and MRI brain was obtained. The CT PET scan on 12/04/2018 showed hypermetabolic centrally necrotic mass within the right upper lobe abutting adjacent pleura, major fissure, and mediastinum with tumor extension into the right superior hilum, with SUV of 13. Additional centrally necrotic hypermetabolic mass in the left upper lobe with a SUV of 20.9, abutting the adjacent pleura and left major fissure and AP window lymph nodes consistent with elfego metastatic disease. No hypermetabolic metastasis in neck abdomen or pelvis. MRI brain showed 5 mm lesions in the left temporal lobe, and left parietal lobe with mild adjacent edema. Mrs Deleon underwent CyberKnife on 01/02/2019. She was offered palliative chemotherapy plus immunotherapy. She declined and she was also referred to radiation oncology for her right-sided chest pain radiating to her neck and patient declined. With tumor being PDL 1 positive, role of immunotherapy with Keytruda was discussed and patient was willing to consider but then decided to come to [place] for further management. Ms Deleon still smokes about pack a day and has history of smoking for 30-40 years, denies alcohol use. She is still smoking about pack a day AGAINST MEDICAL ADVICE. Ms Deleon started her first cycle of chemotherapy with carboplatin/Alimta/Keytruda on March 09, 2019. She is tolerated it well. Her second cycle was given on March 30, 2019. She states since then she is feeling so much better her breathing is so much better. She states it is amazing how much better she is breathing and how much better she feels overall. Per the report from 05/16/2019 there was no comparison image available for comparison. We will call [facility] radiology and request over read as she did have a PET CT in November 2018. comparison of report indicates that the right upper lobe mass now measuring 5.8 x 3.3 cm with a peripheral uptake of SUV 4.6 was reported as 5.4 x 7.5 x 7 cm with an SUV of 13 on the November 2018 study. A left upper lobe mass measuring 5.2 x 6.4 cm on the current study with an SUV of 7.6 was compared to the November study at which time it measured 5.9 x 6.6 x 5 point centimeters with an SUV of 20.9. There is a solid right middle lobe nodule measuring 1.8 x 2.5 cm with SUV of 5.4 and small scattered mediastinal nodes demonstrating minimal FDG uptake although this may be reactive, although micrometastatic disease cannot be excluded. On review of her 05/16/2019 PET/CT study for comparison with the PET/CT from November 2018. In the interim between studies, the SUV activity has greatly improved and there has been reported decrease in size of the tumors. She had completed 4 cycles of carboplatin Alimta and Keytruda. She received Keytruda only on 06/03/2019 as she stated she was only supposed to have four cycles of chemotherapy and then pursue maintenance with immunotherapy. based on good response seen on f/u PET scan it was suggested to continue chemotherapy for 3 more cycles then repeat imaging. She has reluctantly agreed to try chemotherapy again. She states she understands why she needs it but is not looking forward to feeling washed out again. She has had consultation with Dr Gamez in ENT. She states he told her she has some scaring/calcifications/nodules on her voicebox. She states he has informed her that he can nip them right out of there . She states that he told her this is a simple procedure but the recovery she will have to be very adamant on following strict instructions. She states she feels that she can do this in put up with what ever she needs to get rid of the hoarseness so she quit sounding like a man . Her treatment was held the week of July 22, 2019 as she thought she might have mild flu symptoms . She was given a week off to allow for recovery. She was waiting to hear from Dr. Gamez's office in regards to her surgery that he was planning but apparently Dr. Gamez quit his practice in [place]. She was concerned that she was gaining weight. . She did have a thyroid panel done on 07/29/2019 showed T3 free was 2.9, normal being 2-4.4, T4 free 1.44 normal being 0.82 to 1.77. And TSH 0.23 She has persistent hoarseness of voice, she was waiting for Dr. Gamez's call for the surgery but she heard that Dr. Gamez has left [place]. She then requested a referrel to Dr. Thacker , ENT for evaluation for hoarseness. The last time she received chemotherapy was on 07/01/2019, patient has been postponing her treatment due to hoarseness and its management.finally she was seen by Dr. Thacker on 09/22/2019 and On 10/06/2019 she underwent vocal cord biopsy, results are pending. Follow-up CT PET scan done on 10/03/2019 showed malignant lung masses are now more consolidated in size on the current study, but maintain active FDG uptake, when compared with one done on 05/16/2019. The right upper lobe mass cavitation is essentially resolved, but maintain extensive central necrosis. Now measures 4.8 x 2.8 cm with SUV of 5.0 not a significant increase. The left upper lobe lesion measured 3 x 4.3 cm down from 5.2 x 6.4 cm previously but now demonstrates SUV of 14.2, up from 7.6 previouslyA new solid lesion has developed in the right upper lobe, measuring 2.4 x 1.7 cm with SUV of 20.7. The right middle lobe nodule is progressed, now measuring 2.2 x 2.6 cm with SUV of 7.3 up from 1.8 x 2.5 cm with SUV of 5.4 previously. Scattered mediastinal lymph nodes are unchanged from prior study. Ms. Deleon was referred to radiation oncology for second opinion she did see Dr. Lawson in radiation oncology on 10/14/2019. She has had a mixed response to treatment with evidence of both response and progression on the last PET/CT. She was essentially asymptomatic of her persistent disease and was not interested in pursuing any treatment which would compromise her quality of life at this time. Therefore she elected not to pursue any radiation therapy currently. Dr. Lawson did state that he would not recommend pursuing consolidative therapy in light of her absence. He states he felt the volume of the line within the treatment field to be excessive in terms of diminished functional status. Should she has disease progression, symptoms such as airway compromise, shortness of breath or chest pain, one could readdress palliative radiation at that time. She continues with immunotherapy., As per patient Dr. Thacker did vocal cord biopsy and came back with inflammatory changes no malignancy Follow-up CT PET scan done on December 26, 2019 showed right upper lobe mass continues to demonstrate central necrosis and now measures 4 x 2.6 cm with an SUV of 3.8 indicating a positive response to therapy. The complex left upper lobe lesion has a slightly progressed SUV of 15.7 now measuring 2.6 cm. Overall positive response to therapy. The left upper lobe solid lesion that previously measured 2.4 x 1.7 cm with SUV of 20.7 is now 2 x 1.6 cm with SUV of 18.8, overall positive response. Right middle lobe nodule measured 2.9 x 2.4 cm with SUV of 6.9 is not a significant change from previous study. Multiple subcentimeter subpleural pulmonary nodules are too small to characterize. She continues with Keytruda. Came for follow-up, denies any specific complaint except bilateral shoulder pain and left upper arm pain since last week as per patient she was working in her yard, after that it did happen but denies any trauma to her shoulders or arm denies any swelling or tenderness in the shoulder. No fever chills, no nausea or vomiting, no numbness in the hands. No wheezing or shortness of breath, no skin rash, no diarrhea or constipation, tolerating immunotherapy with Keytruda well Medications: Benzonatate 1 Capsule (of 200 mg) Oral 6x/d PRN, Centrum Silver Adult 50+ 1 Tablet Oral daily, Combivent Respimat Aerosol, solution Inhalation, Flonase Suspension Nasal, Folic Acid 1 (1 mg) Tablet Oral daily, HYDROcodone-Acetaminophen 1 Tablet (of 5-325 mg) Oral four times a day, methylPREDNISolone 1 Tablet (of 4 mg) Oral, Tiotropium [place] Monohydrate 1 Puff(s) (of 2.5 mcg/act) Aerosol, solution Inhalation q 24 hours Allergies: Penicillin Review of Systems: Review of Systems is not available for this patient. Vital Signs: Performed on Mar 08, 2020 13:48 Height - 63.00 in Weight - 148.6 lbs (HIGH) BSA - 1.70 sq.m BMI - 26.32 Temperature - 98.4 F Pulse - 103 /min (HIGH) Respiration - 24 /min BP - 131/78 mm(hg) O2 Sat - 98 % Pain - 6 Performance Status: 0 - Fully active, able to carry on all predisease activities without restrictions. (ECOG) Physical Examination: ENMT - No mouth sores, no thrush, no jaundice, Respiratory - Lungs are clear to auscultation, Cardiovascular - Regular rate and rhythm of heart, Abdomen - Soft, bowel sounds present, Extremities - No visible edema, no focal tenderness or swelling in bilateral shoulder. Lab/Imaging: Test performed on Feb 09, 2020 12:15 Sodium 141 mmol/L TSH 0.50 uIU/mL Potassium 3.8 mmol/L Chloride 104 mmol/L CO2 25 mmol/L Anion Gap 15.8 BUN 8 mg/dL Creatinine 0.6 mg/dL Cr Clearance (Est) 102.8000 mL/min eGFR 102.3 mL/min Glucose 110 mg/dL Calcium 9.1 mg/dL Osmolality - Calculated 289 mOsm/kg Protein, Total 7.3 g/dL Albumin 4.2 g/dL Globulin 3.1 g/dL Bilirubin, Total 0.3 mg/dL ALT (SGPT) 21 U/L AST (SGOT) 27 U/L Alkaline Phosphatase 140 IU/L WBC 15.0 10 3/uL RBC 5.30 10 6/uL HGB 15.7 g/dL HCT 46.7 % MCV 88.1 fL MCH 29.6 pg MCHC 33.6 g/dL RDW 12.7 % Platelet Count 232 10 3/cmm MPV 8.7 fL Neutrophils 10.63 10 3/uL Lymphocytes 2.8 10 3/uL Monocytes 1.0 10 3/uL Eosinophils 0.4 10 3/uL Basophils 0.1 10 3/uL Neutrophil % 70.6 % Lymphocyte % 18.4 % Monocyte % 6.8 % Eosinophil % 2.9 % Basophils % 0.6 % NRBC % 0 % Impression: Stage IV, 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 Next Stage IV, M1 a due to separate tumor nodule in the contralateral lobe and brain metastases 5 mm ???[address] PET scan done on 12/04/2018 showed hypermetabolic centrally necrotic mass within the right upper lobe abutting adjacent pleura, major fissure and mediastinum with tumor extension into right superior hilum. Additional centrally necrotic hypermetabolic mass within left upper lobe abutting the adjacent pleura and left major fissure with tumor extension to the left superior hilum. Hypermetabolic right hilar, precarinal, and AP window lymph nodes consistent with a node metastases. No hypermetabolic metastasis within the neck, abdomen or pelvis. MRI scan of the head showed 5 mm ???2 lesion status post CyberKnife on 01/02/2019. Active smoker AGAINST MEDICAL ADVICE; COPD Ms. Deleon began her first cycle of carbo Alimta Keytruda on March 09, 2019. She is tolerated it well thus far. She states that after the second cycle of chemotherapy her breathing is so much better that is amazing . She states that she is now breathing through her nose when she is sleeping and that is something she has not done in years. She states overall she is feeling so much better. regarding her PET CT from 05/16/2019. she did have a PET CT in November 2018. This PET CT was NOT performed at [facility] in the interim just comparison of report indicates that the right upper lobe mass now measuring 5.8 x 3.3 cm with a peripheral uptake of SUV 4.6 was reported as 5.4 x 7.5 x 7 cm with an SUV of 13 on the November 2018 study. A left upper lobe mass measuring 5.2 x 6.4 cm on the current study with an SUV of 7.6 was compared to the November study at which time it measured 5.9 x 6.6 x 5 point centimeters with an SUV of 20.9. There is a solid right middle lobe nodule measuring 1.8 x 2.5 cm with SUV of 5.4 and small scattered mediastinal nodes demonstrating minimal FDG uptake although this may be reactive, although micrometastatic disease cannot be excluded. tolerated palliative therapy with carboplatin/Alimta/Keytruda well. Her follow-up CT PET scan from 04/2019 showed good response to the treatment. discussed with Ms Deleon further treatment plans. The plan earlier plan was to give her 4 cycles of chemotherapy along with immunotherapy and restage her. Her follow-up PET scan in April 2019 shows good response- no evidence of distance metastases, but not resolution of disease. In that case, She was encouraged to continue with same regimen e.g. carboplatin/Alimta/Keytruda for 3 more cycles and restage with CT PET scan. If it shows further improvement and her performance status is till good, she may need to continue full treatment; if on the other hand it shows stable disease then will consider switching her to maintenance therapy with Keytruda alone. Ms Deleon was due to resume Carboplatin/Alimta/Keytruda on 07/01/2019 and after that she has been postponing her chemotherapy as she was undergoing evaluation for hoarseness of voice. , as per ENT it was due to some nodules/calcifications of vocal cord. We once again reviewed the PET/CT imaging and discussed results. Dr Soares discussed with Ms. Deleon Dr. Lawson's (radiation oncology) impression that she should continue immunotherapy until significant disease progression at which time we could consider pallative radiation. PET CT scan from April 2019 to October 03, 2019 revealed reduction in size in the lung masses cavitation in the right upper lobe has resolved. left upper lobe lesion had decreased in size from 5.2 x 6.4 to 3.0 x 4.3 cm, a new solid lesion develop in the right upper lobe inferiorly measuring 2.4 x 1.7 cm, In the right middle lobe a nodule had progressed now measuring 2.3 x 2.6 cm from 1.8 x 2.5 cm. There was mediastinal adenopathy noted unchanged no evidence for distant metastatic disease. She started single agent Keytruda on 09/10/2019 and is currently on every 3 week treatment plan. She began Keytruda in combination with chemotherapy on 03/09/2019. Plan: Discussed with patient regarding her labs white blood count 11 hemoglobin 14 hematocrit 41.8 platelets 215,000 CMP within normal limits TSH 0.89 Clinically, patient is doing well, tolerating maintenance therapy with immunotherapy well. We will proceed with next dose of Keytruda today and then return to clinic in 3 weeks with CBC CMP As well as bilateral shoulder pain is concerned could be due to excessive use during recent yardwork, patient was advised to use heating pad and Motrin 3 times a day for 2 days then as needed if there is no improvement in her shoulder pain then will consider plain x-ray of bilateral shoulder and upper extremities to rule out any bone pathology. Signed By: Rukhsana Soares M.D. <<Signature on File>>
== END 2020-03-26 23:59 | disposition home or self-care (01) ==
LOC: ONCMED 05:51
PROVIDERS: PCP Family Medicine; Visit Provider Internal Medicine Hematology & Oncology
DX: Z51.12 Encounter for antineoplastic immunotherapy (principal); C34.11 Malignant neoplasm of upper lobe, right bronchus or lung; C79.51 Secondary malignant neoplasm of bone; C77.8 Secondary and unspecified malignant neoplasm of lymph nodes of multiple regions; J44.9 Chronic obstructive pulmonary disease, unspecified; F17.210 Nicotine dependence, cigarettes, uncomplicated; Z79.899 Other long term (current) drug therapy
CPT/HCPCS: 80053; 84443; 85025; 96413; 99214; J7050; J9271

== ENCOUNTER 2020-04-19 05:30 | Outpatient (RCR) | payer MEDICAID, SELFPAY ==
[2020-03-29 08:50] LABS: Basophils # 0.1 10^3/uL (0.0-0.1); Basophils % 0.9 %; Eosinophils # 2.4 10^3/uL (0.0-0.8); Eosinophils % 17.3 %; Hematocrit 43.4 % (37.0-47.0); Hemoglobin 14.8 g/dL (11.5-15.3); Lymphocytes # 3.5 10^3/uL (0.8-4.8); Mean Corpuscular HGB Conc 34.1 g/dL (30.0-36.0); Mean Corpuscular Hemoglobin 29.5 pg (28.0-34.0); Mean Corpuscular Volume 86.6 fL (81-99); Mean Platelet Volume 9.1 fL (7.4-10.4); Monocytes # 1.1 10^3/uL (0.2-0.9); Monocytes % 7.8 %; Neutrophils # 6.83 10^3/uL (1.8-7.7); Neutrophils % 48.6 %; Nucleated Red Blood Cells % 0 %; Platelet Count 244 10^3/cmm (130-400); Red Blood Count 5.01 10^6/uL (4.1-5.3); Red Cell Distribution Width 12.8 % (12.1-15.1)
[2020-03-29 09:10] LABS: Alanine Aminotransferase 40 U/L (0-33); Alkaline Phosphatase 128 IU/L (35-105); Anion Gap 12.3 (5-19); Aspartate Amino Transferase 41 U/L (0-32); Blood Urea Nitrogen 9 mg/dL (6-20); Calcium 9.5 mg/dL (8.5-10.5); Carbon Dioxide 27 mmol/L (22-29); Chloride 104 mmol/L (98-107); Globulin 3.2 g/dL (1.3-4.6); Glomerular Filtration Rate 102.3 mL/min (90-130); Glucose 96 mg/dL (65-115); Osmolality Calculated 287 mOsm/kg (285-295); Potassium 4.3 mmol/L (3.5-5.1); Sodium 139 mmol/L (136-145); Total Bilirubin 0.3 mg/dL (0.15-1.2); Total Protein 7.2 g/dL (6.6-8.7)
--- NOTE | 2020-03-29 11:50 | XR_ITS ---
WS: [id number] Left shoulder, 2 views, 03/29/2020 Clinical Data: BONE PAIN Comparison: None. Findings: No fractures or dislocations are seen. The AC joint is normal. The adjacent left clavicle, left scapu la and ribs are normal. The soft tissues are unremarkable. There is a small spur of the lesser tuberosity. There is an infusion catheter entering the left subcl nataliia vein. There is a complex mass in the left upper lobe consistent with the patient's history of l shannon cancer. XR/XR shoulder LT min 2V* [id number] Impression: 1. Small lesser tuberosity osteoarthritic spur. 2. Complex left upper lobe mass consistent with history of lung cancer.
--- NOTE | 2020-03-29 11:50 | XR_ITS ---
WS: [id number] Left arm and humerus, 2 views, 03/29/2020 Clinical Data: BONE PAIN Comparison: None. Findings: No fractures or dislocations are seen. The shaft of the humerus is intact. There is a small spur of the lesser tuberosity. No metastatic lesions are seen. The elbow is unremarkable. The soft tissues ar e normal. XR/[place] [id number] Impression: Small spur of the lesser tuberosity of the left humeral head, otherwise negativ e study.
--- NOTE | 2020-03-29 11:50 | XR_ITS ---
WS: [id number] Cervical spine, 3 views, 03/29/2020 Clinical Data: BONE PAIN Comparison: None. Findings: No compression fractures are seen. Degenerative disc narrowing is present at C3-C4, C5-C6 a nd C6-C7. Anterior and posterior small osteophytes are seen at C5-C6 and C6-C7. There is no preverteb ral soft tissue swelling. The odontoid is unremarkable. The soft tissues of the neck and the lung api ashleigh are normal. There is an infusion catheter in the left subclavian vein. XR/XR cervical spine 3V* [id number] Impression: 1. Degenerative disc disease at multiple levels. 2. Degenerative arthritic spurring at C5-C6 and C6-C7.
--- NOTE | 2020-03-29 16:54 | ONC FU_ITS ---
Dr. Soares follow up note Patient: Alma Deleon Unit #: [id number]: 1960 Dicatated By: Rukhsana Soares M.D.Date of Visit:Mar 29, 2020 Onc Med Follow-up/Prog Note History of Present Illness: Mrs. Deleon is a 59-year-old female with history of progressive cough. She underwent evaluation on July 07, [address] scan of chest. It reported bilateral upper lobe masses: the mass on right side was 5.9 x 4.1 x 4.9 cm and on the left side was 4.6 x 2.8 x 2.8 cm. On 11/14/2018 patient underwent EBUS , which showed there was 90% narrowing of right upper lobe bronchus due to extensive compression, and right-sided mediastinal and hilar lymph node were enlarged and endobronchial right upper lobe and lymph node biopsies were obtained final pathology report came back poorly differentiated adenocarcinoma consistent with lung primary from right upper lobe endobronchial biopsy. And both lymph node biopsies were negative. Molecular profiling which include EGFR, ALK, ROS 1, PDL 1 and BRAF were done and it showed PDL 1 was 95% tumor cells are positive membranous positivity and rest of molecular profiling was unremarkable. Staging workup including CT PET scan and MRI brain was obtained. The CT PET scan on 12/04/2018 showed hypermetabolic centrally necrotic mass within the right upper lobe abutting adjacent pleura, major fissure, and mediastinum with tumor extension into the right superior hilum, with SUV of 13. Additional centrally necrotic hypermetabolic mass in the left upper lobe with a SUV of 20.9, abutting the adjacent pleura and left major fissure and AP window lymph nodes consistent with elfego metastatic disease. No hypermetabolic metastasis in neck abdomen or pelvis. MRI brain showed 5 mm lesions in the left temporal lobe, and left parietal lobe with mild adjacent edema. Mrs Deleon underwent CyberKnife on 01/02/2019. She was offered palliative chemotherapy plus immunotherapy. She declined and she was also referred to radiation oncology for her right-sided chest pain radiating to her neck and patient declined. With tumor being PDL 1 positive, role of immunotherapy with Keytruda was discussed and patient was willing to consider but then decided to come to [place] for further management. Ms Deleon still smokes about pack a day and has history of smoking for 30-40 years, denies alcohol use. She is still smoking about pack a day AGAINST MEDICAL ADVICE. Ms Deleon started her first cycle of chemotherapy with carboplatin/Alimta/Keytruda on March 09, 2019. She is tolerated it well. Her second cycle was given on March 30, 2019. She states since then she is feeling so much better her breathing is so much better. She states it is amazing how much better she is breathing and how much better she feels overall. Per the report from 05/16/2019 there was no comparison image available for comparison. We will call [facility] radiology and request over read as she did have a PET CT in November 2018. comparison of report indicates that the right upper lobe mass now measuring 5.8 x 3.3 cm with a peripheral uptake of SUV 4.6 was reported as 5.4 x 7.5 x 7 cm with an SUV of 13 on the November 2018 study. A left upper lobe mass measuring 5.2 x 6.4 cm on the current study with an SUV of 7.6 was compared to the November study at which time it measured 5.9 x 6.6 x 5 point centimeters with an SUV of 20.9. There is a solid right middle lobe nodule measuring 1.8 x 2.5 cm with SUV of 5.4 and small scattered mediastinal nodes demonstrating minimal FDG uptake although this may be reactive, although micrometastatic disease cannot be excluded. On review of her 05/16/2019 PET/CT study for comparison with the PET/CT from November 2018. In the interim between studies, the SUV activity has greatly improved and there has been reported decrease in size of the tumors. She had completed 4 cycles of carboplatin Alimta and Keytruda. She received Keytruda only on 06/03/2019 as she stated she was only supposed to have four cycles of chemotherapy and then pursue maintenance with immunotherapy. based on good response seen on f/u PET scan it was suggested to continue chemotherapy for 3 more cycles then repeat imaging. She has reluctantly agreed to try chemotherapy again. She states she understands why she needs it but is not looking forward to feeling washed out again. She has had consultation with Dr Gamez in ENT. She states he told her she has some scaring/calcifications/nodules on her voicebox. She states he has informed her that he can nip them right out of there . She states that he told her this is a simple procedure but the recovery she will have to be very adamant on following strict instructions. She states she feels that she can do this in put up with what ever she needs to get rid of the hoarseness so she quit sounding like a man . Her treatment was held the week of July 22, 2019 as she thought she might have mild flu symptoms . She was given a week off to allow for recovery. She was waiting to hear from Dr. Gamez's office in regards to her surgery that he was planning but apparently Dr. Gamez quit his practice in [place]. She was concerned that she was gaining weight. . She did have a thyroid panel done on 07/29/2019 showed T3 free was 2.9, normal being 2-4.4, T4 free 1.44 normal being 0.82 to 1.77. And TSH 0.23 She has persistent hoarseness of voice, she was waiting for Dr. Gamez's call for the surgery but she heard that Dr. Gamez has left [place]. She then requested a referrel to Dr. Thacker , ENT for evaluation for hoarseness. The last time she received chemotherapy was on 07/01/2019, patient has been postponing her treatment due to hoarseness and its management.finally she was seen by Dr. Thacker on 09/22/2019 and On 10/06/2019 she underwent vocal cord biopsy, results are pending. Follow-up CT PET scan done on 10/03/2019 showed malignant lung masses are now more consolidated in size on the current study, but maintain active FDG uptake, when compared with one done on 05/16/2019. The right upper lobe mass cavitation is essentially resolved, but maintain extensive central necrosis. Now measures 4.8 x 2.8 cm with SUV of 5.0 not a significant increase. The left upper lobe lesion measured 3 x 4.3 cm down from 5.2 x 6.4 cm previously but now demonstrates SUV of 14.2, up from 7.6 previouslyA new solid lesion has developed in the right upper lobe, measuring 2.4 x 1.7 cm with SUV of 20.7. The right middle lobe nodule is progressed, now measuring 2.2 x 2.6 cm with SUV of 7.3 up from 1.8 x 2.5 cm with SUV of 5.4 previously. Scattered mediastinal lymph nodes are unchanged from prior study. Ms. Deleon was referred to radiation oncology for second opinion she did see Dr. Lawson in radiation oncology on 10/14/2019. She has had a mixed response to treatment with evidence of both response and progression on the last PET/CT. She was essentially asymptomatic of her persistent disease and was not interested in pursuing any treatment which would compromise her quality of life at this time. Therefore she elected not to pursue any radiation therapy currently. Dr. Lawson did state that he would not recommend pursuing consolidative therapy in light of her absence. He states he felt the volume of the line within the treatment field to be excessive in terms of diminished functional status. Should she has disease progression, symptoms such as airway compromise, shortness of breath or chest pain, one could readdress palliative radiation at that time. She continues with immunotherapy., As per patient Dr. Thacker did vocal cord biopsy and came back with inflammatory changes no malignancy Follow-up CT PET scan done on December 26, 2019 showed right upper lobe mass continues to demonstrate central necrosis and now measures 4 x 2.6 cm with an SUV of 3.8 indicating a positive response to therapy. The complex left upper lobe lesion has a slightly progressed SUV of 15.7 now measuring 2.6 cm. Overall positive response to therapy. The left upper lobe solid lesion that previously measured 2.4 x 1.7 cm with SUV of 20.7 is now 2 x 1.6 cm with SUV of 18.8, overall positive response. Right middle lobe nodule measured 2.9 x 2.4 cm with SUV of 6.9 is not a significant change from previous study. Multiple subcentimeter subpleural pulmonary nodules are too small to characterize. She continues with Keytruda. Came for follow-up, denies any specific complaint except some discomfort and her left upper anterior arm, especially with movement, as per patient she was given muscle relaxant with that pain is somewhat better. And also complaining of some muscle stiffness in the left neck but denies any trauma to her neck or left shoulder or arm. Denies any swelling or skin changes. Denies any fever chills denies any nausea or vomiting denies any hemoptysis or hematemesis denies any skin rash, denies any jaundice denies any wheezing or diarrhea or constipation, tolerating immunotherapy well otherwise Medications: Benzonatate 1 Capsule (of 200 mg) Oral 6x/d PRN, Centrum Silver Adult 50+ 1 Tablet Oral daily, Combivent Respimat Aerosol, solution Inhalation, Cyclobenzaprine HCl 1 - 2 Tablet (of 5 mg) Oral t.i.d. PRN, Flonase Suspension Nasal, Folic Acid 1 (1 mg) Tablet Oral daily, HYDROcodone-Acetaminophen 1 Tablet (of 5-325 mg) Oral four times a day, methylPREDNISolone 1 Tablet (of 4 mg) Oral, Tiotropium [place] Monohydrate 1 Puff(s) (of 2.5 mcg/act) Aerosol, solution Inhalation q 24 hours Allergies: Penicillin Review of Systems: Review of Systems is not available for this patient. Vital Signs: Performed on Mar 29, 2020 09:25 Height - 63.00 in Weight - 146.6 lbs (LOW) BSA - 1.69 sq.m BMI - 25.97 Temperature - 98.5 F Pulse - 91 /min Respiration - 18 /min BP - 140/75 mm(hg) O2 Sat - 99 % Pain - 5 Performance Status: 0 - Fully active, able to carry on all predisease activities without restrictions. (ECOG) Physical Examination: ENMT - No mouth sores, no thrush, no jaundice, Respiratory - Lungs are clear to auscultation, Cardiovascular - Regular rate and rhythm of heart, Abdomen - Soft, bowel sounds present, Extremities - No visible edema, focal discomfort/pain in the left anterior shoulder and left upper arm no overlying skin changes or swelling noticed. Lab/Imaging: Test performed on Mar 08, 2020 12:40 Sodium 136 mmol/L TSH 0.89 uIU/mL Potassium 3.9 mmol/L Chloride 103 mmol/L CO2 25 mmol/L Anion Gap 11.9 BUN 4 mg/dL Creatinine 0.6 mg/dL Cr Clearance (Est) 107.43 mL/min eGFR 102.3 mL/min Glucose 93 mg/dL Osmolality - Calculated 279 mOsm/kg Calcium 8.9 mg/dL Protein, Total 6.4 g/dL Albumin 3.9 g/dL Globulin 2.5 g/dL Bilirubin, Total 0.3 mg/dL ALT (SGPT) 22 U/L AST (SGOT) 24 U/L Alkaline Phosphatase 119 IU/L WBC 11.0 10 3/uL RBC 4.72 10 6/uL HGB 14.0 g/dL HCT 41.8 % MCV 88.6 fL MCH 29.7 pg MCHC 33.5 g/dL RDW 12.7 % Platelet Count 215 10 3/cmm MPV 8.9 fL Neutrophils 6.05 10 3/uL Lymphocytes 2.7 10 3/uL Monocytes 1.0 10 3/uL Eosinophils 1.1 10 3/uL Basophils 0.1 10 3/uL Neutrophil % 55.3 % Lymphocyte % 24.5 % Monocyte % 8.7 % Eosinophil % 9.9 % Basophils % 1.1 % NRBC % 0 % Impression: Stage IV, 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 Next Stage IV, M1 a due to separate tumor nodule in the contralateral lobe and brain metastases 5 mm ???[address] PET scan done on 12/04/2018 showed hypermetabolic centrally necrotic mass within the right upper lobe abutting adjacent pleura, major fissure and mediastinum with tumor extension into right superior hilum. Additional centrally necrotic hypermetabolic mass within left upper lobe abutting the adjacent pleura and left major fissure with tumor extension to the left superior hilum. Hypermetabolic right hilar, precarinal, and AP window lymph nodes consistent with a node metastases. No hypermetabolic metastasis within the neck, abdomen or pelvis. MRI scan of the head showed 5 mm ???2 lesion status post CyberKnife on 01/02/2019. Active smoker AGAINST MEDICAL ADVICE; COPD Ms. Deleon began her first cycle of carbo Alimta Keytruda on March 09, 2019. She is tolerated it well thus far. She states that after the second cycle of chemotherapy her breathing is so much better that is amazing . She states that she is now breathing through her nose when she is sleeping and that is something she has not done in years. She states overall she is feeling so much better. regarding her PET CT from 05/16/2019. she did have a PET CT in November 2018. This PET CT was NOT performed at [facility] in the interim just comparison of report indicates that the right upper lobe mass now measuring 5.8 x 3.3 cm with a peripheral uptake of SUV 4.6 was reported as 5.4 x 7.5 x 7 cm with an SUV of 13 on the November 2018 study. A left upper lobe mass measuring 5.2 x 6.4 cm on the current study with an SUV of 7.6 was compared to the November study at which time it measured 5.9 x 6.6 x 5 point centimeters with an SUV of 20.9. There is a solid right middle lobe nodule measuring 1.8 x 2.5 cm with SUV of 5.4 and small scattered mediastinal nodes demonstrating minimal FDG uptake although this may be reactive, although micrometastatic disease cannot be excluded. tolerated palliative therapy with carboplatin/Alimta/Keytruda well. Her follow-up CT PET scan from 04/2019 showed good response to the treatment. discussed with Ms Deleon further treatment plans. The plan earlier plan was to give her 4 cycles of chemotherapy along with immunotherapy and restage her. Her follow-up PET scan in April 2019 shows good response- no evidence of distance metastases, but not resolution of disease. In that case, She was encouraged to continue with same regimen e.g. carboplatin/Alimta/Keytruda for 3 more cycles and restage with CT PET scan. If it shows further improvement and her performance status is till good, she may need to continue full treatment; if on the other hand it shows stable disease then will consider switching her to maintenance therapy with Keytruda alone. Ms Deleon was due to resume Carboplatin/Alimta/Keytruda on 07/01/2019 and after that she has been postponing her chemotherapy as she was undergoing evaluation for hoarseness of voice. , as per ENT it was due to some nodules/calcifications of vocal cord. We once again reviewed the PET/CT imaging and discussed results. Dr Soares discussed with Ms. Pancho Lawson's (radiation oncology) impression that she should continue immunotherapy until significant disease progression at which time we could consider pallative radiation. PET CT scan from April 2019 to October 03, 2019 revealed reduction in size in the lung masses cavitation in the right upper lobe has resolved. left upper lobe lesion had decreased in size from 5.2 x 6.4 to 3.0 x 4.3 cm, a new solid lesion develop in the right upper lobe inferiorly measuring 2.4 x 1.7 cm, In the right middle lobe a nodule had progressed now measuring 2.3 x 2.6 cm from 1.8 x 2.5 cm. There was mediastinal adenopathy noted unchanged no evidence for distant metastatic disease. She started single agent Keytruda on 09/10/2019 and is currently on every 3 week treatment plan. She began Keytruda in combination with chemotherapy on 03/09/2019. Plan: Discussed with patient regarding her labs white blood count 14 hemoglobin 14.8 hematocrit 43.4 platelets 244,000 CMP within normal limits and x-ray C-spine and left shoulder upper arm done today on March 29, 2020 showed degenerative disc disease at multiple level in C-spine degenerative arthritic spurring at C5-C6, and C6 - C7 and left shoulder shows small lesser tuberosity osteoarthritic spur and complex left upper lobe lung mass consistent with a history of lung cancer. Clinically, patient is doing reasonably well, tolerating immunotherapy with Keytruda well, will proceed with next 3 weekly dose today and then return to clinic in 3 weeks with CBC CMP As far as left arm pain/left neck stiffness is concerned probably due to degenerative disc disease and C-spine as well as left shoulder arthritis or tendinitis, patient was advised to try Motrin 1 to 2 tablets 4 to 6-hour for 2 days and also use heating pad if no improvement may consider referral to orthopedic for evaluation. - Signed By: Rukhsana Soares M.D. <<Signature on File>>
[2020-04-19 10:25] LABS: Basophils # 0.1 10^3/uL (0.0-0.1); Basophils % 0.9 %; Eosinophils # 2.3 10^3/uL (0.0-0.8); Eosinophils % 18.2 %; Hemoglobin 14.5 g/dL (11.5-15.3); Lymphocytes # 3.1 10^3/uL (0.8-4.8); Lymphocytes % 24.4 %; Mean Corpuscular Hemoglobin 29.1 pg (28.0-34.0); Mean Corpuscular Volume 88.2 fL (81-99); Mean Platelet Volume 10.1 fL (7.4-10.4); Monocytes # 0.9 10^3/uL (0.2-0.9); Monocytes % 7.3 %; Neutrophils # 6.12 10^3/uL (1.8-7.7); Neutrophils % 48.9 %; Nucleated Red Blood Cells % 0 %; Platelet Count 196 10^3/cmm (130-400); Red Blood Count 4.99 10^6/uL (4.1-5.3); Red Cell Distribution Width 13.1 % (12.1-15.1); White Blood Count 12.5 10^3/uL (4.0-10.0)
[2020-04-19 10:46] LABS: Alanine Aminotransferase 35 U/L (0-33); Albumin Level 4.1 g/dL (3.5-5.2); Alkaline Phosphatase 133 IU/L (35-105); Anion Gap 13.4 (5-19); Aspartate Amino Transferase 31 U/L (0-32); Blood Urea Nitrogen 6 mg/dL (6-20); Calcium 9.3 mg/dL (8.5-10.5); Carbon Dioxide 28 mmol/L (22-29); Chloride 104 mmol/L (98-107); Globulin 2.8 g/dL (1.3-4.6); Glomerular Filtration Rate 102.3 mL/min (90-130); Glucose 91 mg/dL (65-115); Osmolality Calculated 289 mOsm/kg (285-295); Potassium 4.4 mmol/L (3.5-5.1); Sodium 141 mmol/L (136-145); Thyroid Stimulating Hormone 0.66 uIU/mL (0.27-4.20); Total Bilirubin 0.3 mg/dL (0.15-1.2); Total Protein 6.9 g/dL (6.6-8.7)
--- NOTE | 2020-04-23 20:41 | ONC FU_ITS ---
[facility] Patient Note Patient: Alma Deleon Unit #: [id number]: 1960 Dictated By: Elly HarrisDate of Visit: Apr 19, 2020 Onc MED Follow-Up/Prog Note Chief Complaint: Metastatic adenocarcinoma of the lung History of Present Illness: Mrs. Deleon is a 59-year-old female with history of progressive cough. She underwent evaluation on July 07, [address] scan of chest. It reported bilateral upper lobe masses: the mass on right side was 5.9 x 4.1 x 4.9 cm and on the left side was 4.6 x 2.8 x 2.8 cm. On 11/14/2018 patient underwent EBUS , which showed there was 90% narrowing of right upper lobe bronchus due to extensive compression, and right-sided mediastinal and hilar lymph node were enlarged and endobronchial right upper lobe and lymph node biopsies were obtained final pathology report came back poorly differentiated adenocarcinoma consistent with lung primary from right upper lobe endobronchial biopsy. And both lymph node biopsies were negative. Molecular profiling which include EGFR, ALK, ROS 1, PDL 1 and BRAF were done and it showed PDL 1 was 95% tumor cells are positive membranous positivity and rest of molecular profiling was unremarkable. Staging workup including CT PET scan and MRI brain was obtained. The CT PET scan on 12/04/2018 showed hypermetabolic centrally necrotic mass within the right upper lobe abutting adjacent pleura, major fissure, and mediastinum with tumor extension into the right superior hilum, with SUV of 13. Additional centrally necrotic hypermetabolic mass in the left upper lobe with a SUV of 20.9, abutting the adjacent pleura and left major fissure and AP window lymph nodes consistent with elfego metastatic disease. No hypermetabolic metastasis in neck abdomen or pelvis. MRI brain showed 5 mm lesions in the left temporal lobe, and left parietal lobe with mild adjacent edema. Mrs Deleon underwent CyberKnife on 01/02/2019. She was offered palliative chemotherapy plus immunotherapy. She declined and she was also referred to radiation oncology for her right-sided chest pain radiating to her neck and patient declined. With tumor being PDL 1 positive, role of immunotherapy with Keytruda was discussed and patient was willing to consider but then decided to come to [place] for further management. Ms Deleon still smokes about pack a day and has history of smoking for 30-40 years, denies alcohol use. She is still smoking about pack a day AGAINST MEDICAL ADVICE. Ms Deleon started her first cycle of chemotherapy with carboplatin/Alimta/Keytruda on March 09, 2019. She is tolerated it well. Her second cycle was given on March 30, 2019. She states since then she is feeling so much better her breathing is so much better. She states it is amazing how much better she is breathing and how much better she feels overall. Per the report from 05/16/2019 there was no comparison image available for comparison. We will call [facility] radiology and request over read as she did have a PET CT in November 2018. comparison of report indicates that the right upper lobe mass now measuring 5.8 x 3.3 cm with a peripheral uptake of SUV 4.6 was reported as 5.4 x 7.5 x 7 cm with an SUV of 13 on the November 2018 study. A left upper lobe mass measuring 5.2 x 6.4 cm on the current study with an SUV of 7.6 was compared to the November study at which time it measured 5.9 x 6.6 x 5 point centimeters with an SUV of 20.9. There is a solid right middle lobe nodule measuring 1.8 x 2.5 cm with SUV of 5.4 and small scattered mediastinal nodes demonstrating minimal FDG uptake although this may be reactive, although micrometastatic disease cannot be excluded. On review of her 05/16/2019 PET/CT study for comparison with the PET/CT from November 2018. In the interim between studies, the SUV activity has greatly improved and there has been reported decrease in size of the tumors. She had completed 4 cycles of carboplatin Alimta and Keytruda. She received Keytruda only on 06/03/2019 as she stated she was only supposed to have four cycles of chemotherapy and then pursue maintenance with immunotherapy. based on good response seen on f/u PET scan it was suggested to continue chemotherapy for 3 more cycles then repeat imaging. She has reluctantly agreed to try chemotherapy again. She states she understands why she needs it but is not looking forward to feeling washed out again. She has had consultation with Dr Gamez in ENT. She states he told her she has some scaring/calcifications/nodules on her voicebox. She states he has informed her that he can nip them right out of there . She states that he told her this is a simple procedure but the recovery she will have to be very adamant on following strict instructions. She states she feels that she can do this in put up with what ever she needs to get rid of the hoarseness so she quit sounding like a man . Her treatment was held the week of July 22, 2019 as she thought she might have mild flu symptoms . She was given a week off to allow for recovery. She was waiting to hear from Dr. Gamez's office in regards to her surgery that he was planning but apparently Dr. Gamez quit his practice in [place]. She was concerned that she was gaining weight. . She did have a thyroid panel done on 07/29/2019 showed T3 free was 2.9, normal being 2-4.4, T4 free 1.44 normal being 0.82 to 1.77. And TSH 0.23 She has persistent hoarseness of voice, she was waiting for Dr. Gamez's call for the surgery but she heard that Dr. Gamez has left [place]. She then requested a referrel to Dr. Thacker , ENT for evaluation for hoarseness. The last time she received chemotherapy was on 07/01/2019, patient has been postponing her treatment due to hoarseness and its management.finally she was seen by Dr. Thacker on 09/22/2019 and On 10/06/2019 she underwent vocal cord biopsy, results are pending. Follow-up CT PET scan done on 10/03/2019 showed malignant lung masses are now more consolidated in size on the current study, but maintain active FDG uptake, when compared with one done on 05/16/2019. The right upper lobe mass cavitation is essentially resolved, but maintain extensive central necrosis. Now measures 4.8 x 2.8 cm with SUV of 5.0 not a significant increase. The left upper lobe lesion measured 3 x 4.3 cm down from 5.2 x 6.4 cm previously but now demonstrates SUV of 14.2, up from 7.6 previouslyA new solid lesion has developed in the right upper lobe, measuring 2.4 x 1.7 cm with SUV of 20.7. The right middle lobe nodule is progressed, now measuring 2.2 x 2.6 cm with SUV of 7.3 up from 1.8 x 2.5 cm with SUV of 5.4 previously. Scattered mediastinal lymph nodes are unchanged from prior study. Ms. Deleon was referred to radiation oncology for second opinion she did see Dr. Lawson in radiation oncology on 10/14/2019. She has had a mixed response to treatment with evidence of both response and progression on the last PET/CT. She was essentially asymptomatic of her persistent disease and was not interested in pursuing any treatment which would compromise her quality of life at this time. Therefore she elected not to pursue any radiation therapy currently. Dr. aLwson did state that he would not recommend pursuing consolidative therapy in light of her absence. He states he felt the volume of the line within the treatment field to be excessive in terms of diminished functional status. Should she has disease progression, symptoms such as airway compromise, shortness of breath or chest pain, one could readdress palliative radiation at that time. She continues with immunotherapy., As per patient Dr. Thacker did vocal cord biopsy and came back with inflammatory changes no malignancy Follow-up CT PET scan done on December 26, 2019 showed right upper lobe mass continues to demonstrate central necrosis and now measures 4 x 2.6 cm with an SUV of 3.8 indicating a positive response to therapy. The complex left upper lobe lesion has a slightly progressed SUV of 15.7 now measuring 2.6 cm. Overall positive response to therapy. The left upper lobe solid lesion that previously measured 2.4 x 1.7 cm with SUV of 20.7 is now 2 x 1.6 cm with SUV of 18.8, overall positive response. Right middle lobe nodule measured 2.9 x 2.4 cm with SUV of 6.9 is not a significant change from previous study. Multiple subcentimeter subpleural pulmonary nodules are too small to characterize. She continues with Keytruda. Mrs. Deleon is here today for follow-up. She is due for cycle 19 pembrolizumab. Her last treatment was on March 29, 2020. She states overall she is more worn out. She states her shoulder pain is worse. She also reports that she had a cataract removed and a lens replaced since her last visit here she will go back into the eye doctor on April 28 or . She also is having more trouble sleeping and her current sleep regimen is not working at all for her. She has tried lorazepam in the past and states it did not help either. She continues to have left shoulder pain which she states seems to be worse than her last visit. She did have x-rays indicating that she had significant arthritis. She has not yet seen orthopedics. She also reports that since her last visit she had a mole removed from her back per Dr. Juarez her PCP. She denies any new shortness of breath but states her breathing is about the same as always. She has had some wheezing intermittently but continues to smoke. She denies any fever or chills. She said no nausea or vomiting. She denies any diarrhea or constipation. Her ECOG is 2. Past Medical History: Chronic obstructive pulmonary disease Gastroesophageal reflux Past Surgical History: Throat biopsy in 2019 Allergies: Penicillin Medications: Benzonatate 1 Capsule (of 200 mg) Oral 6x/d PRN Centrum Silver Adult 50+ 1 Tablet Oral daily Combivent Respimat Aerosol, solution Inhalation Cyclobenzaprine HCl 1 - 2 Tablet (of 5 mg) Oral t.i.d. PRN Flonase Suspension Nasal Folic Acid 1 (1 mg) Tablet Oral daily HYDROcodone-Acetaminophen 1 Tablet (of 5-325 mg) Oral four times a day methylPREDNISolone 1 Tablet (of 4 mg) Oral Tiotropium Norphlet Monohydrate 1 Puff(s) (of 2.5 mcg/act) Aerosol, solution Inhalation q 24 hours Family History: pt was raised in the foster care. Social History: Ms. Deleon is and she is a disabled. She is a daily smoker who has smoked 0.5 packs/day for 41 years. She has no history of drinking. Review Of Symptoms: Constitutional Denies fevers, chills, night sweats, excessive fatigue or weight loss. Tired-lower back pain. Left shoulder pain Allergic/Immunologic No reactions. Eyes Denies significant visual changes. No diplopia. No amaurosis. ENMT Denies changes in hearing, mouth sores, difficulty or changes in swallowing ability. She is still having hoarseness, but slowly improving. Hematologic/Lymphatic Denies easy bruising or bleeding. The patient denies any tender or palpable lymph nodes. Respiratory Dramatically improved dyspnea on exertion. Denies chest pain or hemoptysis. Denies orthopnea. Occasional productive cough but unchanged overall. Cardiovascular Denies anginal chest pain, palpitations or orthopnea. Gastrointestinal Denies nausea, vomiting, diarrhea, GI bleeding, or constipation. Denies change in bowel habits and/or stool color, no heartburn or early satiety. Genitourinary (F) No hematuria, hesitancy, incontinence, vaginal bleeding, discharge or other problems with urination. Musculoskeletal Denies joint pain, swelling or redness. No decreased range of motion. Shoulder pain as above. Integumentary Denies chronic rashes, inflammation, ulcerations or skin changes. Neurologic Denies blurred vision, and no areas of focal weakness or numbness. Normal gait. No sensory problems. Psychiatric Denies insomnia, depression, fran or mood swings. Vital Signs: Performed on Apr 19, 2020 11:48 Height - 63.00 in Weight - 146.2 lbs (LOW) BSA - 1.69 sq.m BMI - 25.90 Temperature - 98.7 F Pulse - 77 /min Respiration - 18 /min BP - 122/79 mm(hg) O2 Sat - 96 % Pain - 0,2 - Ambulatory/capable of all self-care, unable to perform any work activities. Up and about more than 50% of waking hours. (ECOG) Physical Examination: Constitutional Alert, oriented, no acute distress. Skin pink, warm and dry. Head Normocephalic; atraumatic. Eyes Conjunctivae and sclerae are clear and without icterus. Pupils are reactive and equal. Neck Supple without masses or thyromegaly. No jugular venous distension. Hematologic/Lymphatic No petechiae or purpura. No tender or palpable lymph nodes in the cervical or supraclavicular Respiratory Lungs are diminished bilaterally to auscultation. Faint expiratory wheezes that clear with cough. Cardiovascular Regular rate and rhythm of heart without murmurs,clicks, gallops or rubs. Abdomen Non-tender, non-distended, no masses, ascites. No guarding or rebound tenderness. No pulsatile masses. Back/Spine Non-tender to palpation. Extremities No visible deformities, no cyanosis, clubbing or edema. Musculoskeletal No tenderness or swelling, normal range of motion without obvious weakness with right arm, limited ROM with left arm/shoulder with weakness noted. Integumentary No rashes or lesions. Neurologic No sensory or motor deficits, normal cerebellar function, normal gait. Psychiatric Alert and oriented times three. Coherent speech. Verbalizes understanding of our discussions today. Laboratory:Test performed on Apr 19, 2020 10:00 Sodium 141 mmol/L TSH 0.66 uIU/mL Potassium 4.4 mmol/L Chloride 104 mmol/L CO2 28 mmol/L Anion Gap 13.4 BUN 6 mg/dL Creatinine 0.6 mg/dL Cr Clearance (Est) 105.69 mL/min eGFR 102.3 mL/min Glucose 91 mg/dL Osmolality - Calculated 289 mOsm/kg Calcium 9.3 mg/dL Protein, Total 6.9 g/dL Albumin 4.1 g/dL Globulin 2.8 g/dL Bilirubin, Total 0.3 mg/dL ALT (SGPT) 35 U/L AST (SGOT) 31 U/L Alkaline Phosphatase 133 IU/L WBC 12.5 10 3/uL RBC 4.99 10 6/uL HGB 14.5 g/dL HCT 44.0 % MCV 88.2 fL MCH 29.1 pg MCHC 33.0 g/dL RDW 13.1 % Platelet Count 196 10 3/cmm MPV 10.1 fL Neutrophils 6.12 10 3/uL Lymphocytes 3.1 10 3/uL Monocytes 0.9 10 3/uL Eosinophils 2.3 10 3/uL Basophils 0.1 10 3/uL Neutrophil % 48.9 % Lymphocyte % 24.4 % Monocyte % 7.3 % Eosinophil % 18.2 % Basophils % 0.9 % NRBC % 0 % Impression: Stage IV, 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 N Stage IV, M1 a due to separate tumor nodule in the contralateral lobe and brain metastases 5 mm ???[address] PET scan done on 12/04/2018 showed hypermetabolic centrally necrotic mass within the right upper lobe abutting adjacent pleura, major fissure and mediastinum with tumor extension into right superior hilum. Additional centrally necrotic hypermetabolic mass within left upper lobe abutting the adjacent pleura and left major fissure with tumor extension to the left superior hilum. Hypermetabolic right hilar, precarinal, and AP window lymph nodes consistent with a node metastases. No hypermetabolic metastasis within the neck, abdomen or pelvis. MRI scan of the head showed 5 mm ???2 lesion status post CyberKnife on 01/02/2019. Active smoker AGAINST MEDICAL ADVICE; COPD Ms. Deleon began her first cycle of carbo Alimta Keytruda on March 09, 2019. She is tolerated it well thus far. She states that after the second cycle of chemotherapy her breathing is so much better that is amazing . She states that she is able to breathe through her nose when she is sleeping and that is something she has not done in years. She states overall she is feeling so much better. regarding her PET CT from 05/16/2019. she did have a PET CT in November 2018. This PET CT was NOT performed at [facility] in the interim just comparison of report indicates that the right upper lobe mass now measuring 5.8 x 3.3 cm with a peripheral uptake of SUV 4.6 was reported as 5.4 x 7.5 x 7 cm with an SUV of 13 on the November 2018 study. A left upper lobe mass measuring 5.2 x 6.4 cm on the current study with an SUV of 7.6 was compared to the November study at which time it measured 5.9 x 6.6 x 5 point centimeters with an SUV of 20.9. There is a solid right middle lobe nodule measuring 1.8 x 2.5 cm with SUV of 5.4 and small scattered mediastinal nodes demonstrating minimal FDG uptake although this may be reactive, although micrometastatic disease cannot be excluded. tolerated palliative therapy with carboplatin/Alimta/Keytruda well. Her follow-up CT PET scan from 04/2019 showed good response to the treatment. discussed with Ms Deleon further treatment plans. The plan earlier plan was to give her 4 cycles of chemotherapy along with immunotherapy and restage her. Her follow-up PET scan in April 2019 shows good response- no evidence of distance metastases, but not resolution of disease. In that case, She was encouraged to continue with same regimen e.g. carboplatin/Alimta/Keytruda for 3 more cycles and restage with CT PET scan. If it shows further improvement and her performance status is till good, she may need to continue full treatment; if on the other hand it shows stable disease then will consider switching her to maintenance therapy with Keytruda alone. Ms Deleon was due to resume Carboplatin/Alimta/Keytruda on 07/01/2019 and after that she has been postponing her chemotherapy as she was undergoing evaluation for hoarseness of voice. , as per ENT it was due to some nodules/calcifications of vocal cord. We once again reviewed the PET/CT imaging and discussed results. Dr Soares discussed with Ms. Deleon Dr. Lawson's (radiation oncology) impression that she should continue immunotherapy until significant disease progression at which time we could consider pallative radiation. PET CT scan from April 2019 to October 03, 2019 revealed reduction in size in the lung masses cavitation in the right upper lobe has resolved. left upper lobe lesion had decreased in size from 5.2 x 6.4 to 3.0 x 4.3 cm, a new solid lesion develop in the right upper lobe inferiorly measuring 2.4 x 1.7 cm, In the right middle lobe a nodule had progressed now measuring 2.3 x 2.6 cm from 1.8 x 2.5 cm. There was mediastinal adenopathy noted unchanged no evidence for distant metastatic disease. She started single agent Keytruda on 09/10/2019 and is currently on every 3 week treatment plan. She began Keytruda in combination with chemotherapy on 03/09/2019. She was having worsening shoulder pain and an x-ray C-spine and left shoulder upper arm done on March 29, 2020 showed degenerative disc disease at multiple level in C-spine, degenerative arthritic spurring at C5-C6, and C6 - C7 and left shoulder shows small lesser tuberosity osteoarthritic spur and complex left upper lobe lung mass consistent with a history of lung cancer. Per Dr Soares's office note on 03/29/2020: As far as left arm pain/left neck stiffness is concerned probably due to degenerative disc disease and C-spine as well as left shoulder arthritis or tendinitis, patient was advised to try Motrin 1 to 2 tablets 4 to 6-hour for 2 days and also use heating pad if no improvement may consider referral to orthopedic for evaluation. Plan: 1. Hold planned immunotherapy today due to performance status and worsening shoulder pain after treatment on 03/29/2020. 2. Today's labs reviewed in detail and discussed with Mrs. Deleon and a copy was given to her. WBC 12.5 hemoglobin 14.5, platelets are 96,000 ANC is 6120. Potassium 4.4 creatinine 0.6 random glucose 91 LFTs are normal and TSH is normal 0.66. 3. She states she is still having quite a bit of insomnia and would like to try something different. Therefore we will have her try Lunesta 1 mg to start and she may titrate up to the max dose is 3 mg at at bedtime. I have asked her to take at least 1 to 2 weeks to titrate up if needed. 4. For her persistent left shoulder pain which seems to be worse than her last visit per her report, I have requested the review referral to orthopedics for evaluation of her shoulder pain based on her abnormal x-rays. 5. She is inquiring about her follow-up PET scan. She states she understood to be doing a PET scan again at 3 months and her last one was in December. We will try to set this up as she is due for restaging and she now has new left shoulder pain. 6. We will plan to see her back in 3 weeks as scheduled with CBC CMP and hopefully she will have the PET obtained at that time so we can review that with her as well. 7. Ms. Deleon was encouraged to contact us in the interim should questions or problems arise. 8. Her hydrocodone/APAP was refilled per Dr. Marquez's written prescription. Signed By: Elly Harris-, AOP Rukhsana Soares MD <<Signature on File>>
== END 2020-04-25 23:59 | disposition home or self-care (01) ==
LOC: ONCMED 05:30
PROVIDERS: Internal Medicine Hematology & Oncology; PCP Family Medicine; Visit Provider Nurse Practitioner
DX: Z51.12 Encounter for antineoplastic immunotherapy (principal); C34.11 Malignant neoplasm of upper lobe, right bronchus or lung; C79.31 Secondary malignant neoplasm of brain; C77.8 Secondary and unspecified malignant neoplasm of lymph nodes of multiple regions; M50.30 Other cervical disc degeneration, unspecified cervical region; M46.02 Spinal enthesopathy, cervical region; M77.8 Other enthesopathies, not elsewhere classified; M25.512 Pain in left shoulder; M25.522 Pain in left elbow; J44.9 Chronic obstructive pulmonary disease, unspecified; F17.210 Nicotine dependence, cigarettes, uncomplicated; Z79.899 Other long term (current) drug therapy
CPT/HCPCS: 36591; 72040; 73030; 73060; 80053; 84443; 85025; 96413; 99214; J7050; J9271

== ENCOUNTER 2020-05-10 05:33 | Outpatient (RCR) | payer MEDICAID, SELFPAY ==
[2020-05-10 08:42] LABS: Basophils # 0.1 10^3/uL (0.0-0.1); Basophils % 0.8 %; Eosinophils % 16.3 %; Hematocrit 41.3 % (37.0-47.0); Hemoglobin 13.9 g/dL (11.5-15.3); Lymphocytes # 2.5 10^3/uL (0.8-4.8); Mean Corpuscular HGB Conc 33.7 g/dL (30.0-36.0); Mean Corpuscular Hemoglobin 29.5 pg (28.0-34.0); Mean Corpuscular Volume 87.7 fL (81-99); Mean Platelet Volume 8.9 fL (7.4-10.4); Monocytes # 0.9 10^3/uL (0.2-0.9); Monocytes % 7.3 %; Neutrophils # 6.48 10^3/uL (1.8-7.7); Neutrophils % 54.3 %; Nucleated Red Blood Cells % 0 %; Platelet Count 222 10^3/cmm (130-400); Red Blood Count 4.71 10^6/uL (4.1-5.3); Red Cell Distribution Width 12.6 % (12.1-15.1); White Blood Count 11.9 10^3/uL (4.0-10.0)
[2020-05-10 09:10] LABS: Alanine Aminotransferase 21 U/L (0-33); Albumin Level 3.9 g/dL (3.5-5.2); Alkaline Phosphatase 116 IU/L (35-105); Anion Gap 13.8 (5-19); Aspartate Amino Transferase 24 U/L (0-32); Blood Urea Nitrogen 5 mg/dL (6-20); Calcium 9.2 mg/dL (8.5-10.5); Carbon Dioxide 26 mmol/L (22-29); Chloride 102 mmol/L (98-107); Globulin 2.6 g/dL (1.3-4.6); Glomerular Filtration Rate 126.3 mL/min (90-130); Glucose 90 mg/dL (65-115); Osmolality Calculated 283 mOsm/kg (285-295); Potassium 3.8 mmol/L (3.5-5.1); Sodium 138 mmol/L (136-145); Total Bilirubin 0.3 mg/dL (0.15-1.2); Total Protein 6.5 g/dL (6.6-8.7)
--- NOTE | 2020-05-10 17:15 | ONC FU_ITS ---
Dr. Soares follow up note Patient: Alma Deleon Unit #: [id number]: [id number] Dicatated By: Rukhsana Soares M.D.Date of Visit:May 10, 2020 Onc Med Follow-up/Prog Note History of Present Illness: Mrs. Deleon is a 59-year-old female with history of progressive cough. She underwent evaluation on July 07, [address] scan of chest. It reported bilateral upper lobe masses: the mass on right side was 5.9 x 4.1 x 4.9 cm and on the left side was 4.6 x 2.8 x 2.8 cm. On 11/14/2018 patient underwent EBUS , which showed there was 90% narrowing of right upper lobe bronchus due to extensive compression, and right-sided mediastinal and hilar lymph node were enlarged and endobronchial right upper lobe and lymph node biopsies were obtained final pathology report came back poorly differentiated adenocarcinoma consistent with lung primary from right upper lobe endobronchial biopsy. And both lymph node biopsies were negative. Molecular profiling which include EGFR, ALK, ROS 1, PDL 1 and BRAF were done and it showed PDL 1 was 95% tumor cells are positive membranous positivity and rest of molecular profiling was unremarkable. Staging workup including CT PET scan and MRI brain was obtained. The CT PET scan on 12/04/2018 showed hypermetabolic centrally necrotic mass within the right upper lobe abutting adjacent pleura, major fissure, and mediastinum with tumor extension into the right superior hilum, with SUV of 13. Additional centrally necrotic hypermetabolic mass in the left upper lobe with a SUV of 20.9, abutting the adjacent pleura and left major fissure and AP window lymph nodes consistent with elfego metastatic disease. No hypermetabolic metastasis in neck abdomen or pelvis. MRI brain showed 5 mm lesions in the left temporal lobe, and left parietal lobe with mild adjacent edema. Mrs Deleon underwent CyberKnife on 01/02/2019. She was offered palliative chemotherapy plus immunotherapy. She declined and she was also referred to radiation oncology for her right-sided chest pain radiating to her neck and patient declined. With tumor being PDL 1 positive, role of immunotherapy with Keytruda was discussed and patient was willing to consider but then decided to come to [place] for further management. Ms Deleon still smokes about pack a day and has history of smoking for 30-40 years, denies alcohol use. She is still smoking about pack a day AGAINST MEDICAL ADVICE. Ms Deleon started her first cycle of chemotherapy with carboplatin/Alimta/Keytruda on March 09, 2019. She is tolerated it well. Her second cycle was given on March 30, 2019. She states since then she is feeling so much better her breathing is so much better. She states it is amazing how much better she is breathing and how much better she feels overall. Per the report from 05/16/2019 there was no comparison image available for comparison. We will call [facility] radiology and request over read as she did have a PET CT in November 2018. comparison of report indicates that the right upper lobe mass now measuring 5.8 x 3.3 cm with a peripheral uptake of SUV 4.6 was reported as 5.4 x 7.5 x 7 cm with an SUV of 13 on the November 2018 study. A left upper lobe mass measuring 5.2 x 6.4 cm on the current study with an SUV of 7.6 was compared to the November study at which time it measured 5.9 x 6.6 x 5 point centimeters with an SUV of 20.9. There is a solid right middle lobe nodule measuring 1.8 x 2.5 cm with SUV of 5.4 and small scattered mediastinal nodes demonstrating minimal FDG uptake although this may be reactive, although micrometastatic disease cannot be excluded. On review of her 05/16/2019 PET/CT study for comparison with the PET/CT from November 2018. In the interim between studies, the SUV activity has greatly improved and there has been reported decrease in size of the tumors. She had completed 4 cycles of carboplatin Alimta and Keytruda. She received Keytruda only on 06/03/2019 as she stated she was only supposed to have four cycles of chemotherapy and then pursue maintenance with immunotherapy. based on good response seen on f/u PET scan it was suggested to continue chemotherapy for 3 more cycles then repeat imaging. She has reluctantly agreed to try chemotherapy again. She states she understands why she needs it but is not looking forward to feeling washed out again. She has had consultation with Dr Gamez in ENT. She states he told her she has some scaring/calcifications/nodules on her voicebox. She states he has informed her that he can nip them right out of there . She states that he told her this is a simple procedure but the recovery she will have to be very adamant on following strict instructions. She states she feels that she can do this in put up with what ever she needs to get rid of the hoarseness so she quit sounding like a man . Her treatment was held the week of July 22, 2019 as she thought she might have mild flu symptoms . She was given a week off to allow for recovery. She was waiting to hear from Dr. Gamez's office in regards to her surgery that he was planning but apparently Dr. Gamez quit his practice in [place]. She was concerned that she was gaining weight. . She did have a thyroid panel done on 07/29/2019 showed T3 free was 2.9, normal being 2-4.4, T4 free 1.44 normal being 0.82 to 1.77. And TSH 0.23 She has persistent hoarseness of voice, she was waiting for Dr. Gamez's call for the surgery but she heard that Dr. Gamez has left [place]. She then requested a referrel to Dr. Thacker , ENT for evaluation for hoarseness. The last time she received chemotherapy was on 07/01/2019, patient has been postponing her treatment due to hoarseness and its management.finally she was seen by Dr. Thacker on 09/22/2019 and On 10/06/2019 she underwent vocal cord biopsy, results are pending. Follow-up CT PET scan done on 10/03/2019 showed malignant lung masses are now more consolidated in size on the current study, but maintain active FDG uptake, when compared with one done on 05/16/2019. The right upper lobe mass cavitation is essentially resolved, but maintain extensive central necrosis. Now measures 4.8 x 2.8 cm with SUV of 5.0 not a significant increase. The left upper lobe lesion measured 3 x 4.3 cm down from 5.2 x 6.4 cm previously but now demonstrates SUV of 14.2, up from 7.6 previouslyA new solid lesion has developed in the right upper lobe, measuring 2.4 x 1.7 cm with SUV of 20.7. The right middle lobe nodule is progressed, now measuring 2.2 x 2.6 cm with SUV of 7.3 up from 1.8 x 2.5 cm with SUV of 5.4 previously. Scattered mediastinal lymph nodes are unchanged from prior study. Ms. Deleon was referred to radiation oncology for second opinion she did see Dr. Lawson in radiation oncology on 10/14/2019. She has had a mixed response to treatment with evidence of both response and progression on the last PET/CT. She was essentially asymptomatic of her persistent disease and was not interested in pursuing any treatment which would compromise her quality of life at this time. Therefore she elected not to pursue any radiation therapy currently. Dr. Lawson did state that he would not recommend pursuing consolidative therapy in light of her absence. He states he felt the volume of the line within the treatment field to be excessive in terms of diminished functional status. Should she has disease progression, symptoms such as airway compromise, shortness of breath or chest pain, one could readdress palliative radiation at that time. She continues with immunotherapy., As per patient Dr. Thacker did vocal cord biopsy and came back with inflammatory changes no malignancy Follow-up CT PET scan done on December 26, 2019 showed right upper lobe mass continues to demonstrate central necrosis and now measures 4 x 2.6 cm with an SUV of 3.8 indicating a positive response to therapy. The complex left upper lobe lesion has a slightly progressed SUV of 15.7 now measuring 2.6 cm. Overall positive response to therapy. The left upper lobe solid lesion that previously measured 2.4 x 1.7 cm with SUV of 20.7 is now 2 x 1.6 cm with SUV of 18.8, overall positive response. Right middle lobe nodule measured 2.9 x 2.4 cm with SUV of 6.9 is not a significant change from previous study. Multiple subcentimeter subpleural pulmonary nodules are too small to characterize. She continues with Keytruda.Last dose was given on January 28, 2020 and next dose was held because of pain in her left shoulder after Keytruda infusion, which resolved Follow-up CT PET scan done on April 30, 2020 showed the left upper lobe lesion that previously measured 2.6 cm with SUV of 15.7 now measuring 4.4 x 4.6 cm with SUV of 36.1 the secondary left upper lobe lesion now consolidated with this mass. The right upper lobe lesion that previously measured 4.0 x 2.6 cm with SUV of 3.8 now measures 2.7 x 2.4 cm with SUV of 4.9. Right middle lobe mass is similarly progressed with SUV of 10.5 and measured 3.6 x 2.9 cm compared to 2.9 x 2.4 cm with SUV of 6.9 previously. There is a new FDG activity in the right paratracheal bilateral hilar and subcarinal nodes. Came for follow-up, denies any specific complaints except generalized weakness and fatigue and chronic musculoskeletal pain but under control. Still smoking about pack a day now trying to quit using Chantix. She has been tolerating her immunotherapy with Keytruda well until recently when she developed left shoulder discomfort/pain after last dose of Keytruda which was given on March 29, 2020 but no associated chest pain no palpitation no shortness of breath and pain resolved with pain medication. And she is here to discuss about her follow-up CT PET scan findings . Medications: Benzonatate 1 Capsule (of 200 mg) Oral 6x/d PRN, Centrum Silver Adult 50+ 1 Tablet Oral daily, Combivent Respimat Aerosol, solution Inhalation, Cyclobenzaprine HCl 1 - 2 Tablet (of 5 mg) Oral t.i.d. PRN, Flonase Suspension Nasal, Folic Acid 1 (1 mg) Tablet Oral daily, HYDROcodone-Acetaminophen 1 Tablet (of 5-325 mg) Oral four times a day, methylPREDNISolone 1 Tablet (of 4 mg) Oral, Tiotropium [place] Monohydrate 1 Puff(s) (of 2.5 mcg/act) Aerosol, solution Inhalation q 24 hours Allergies: Penicillin Review of Systems: Constitutional - Appetite is fair and weight is stable. No fever, chills, hot flashes, or night sweats. Energy level is fair, ENMT - Positive for sinus congestion/drainage. No mouth sores. Positive for sore throat, no difficulty swallowing, Hematologic/Lymphatic - Positive for abnormal bruising, no bleeding, Respiratory - Positive for shortness of breath. Positive for cough. No pleuritic pain, positive for hemoptysis, Cardiovascular - No angina pain. No palpitations, Gastrointestinal - No nausea or vomiting. No heartburn or acid reflux. No diarrhea or constipation. No blood in the stool or black stools, Genitourinary (F) - No dysuria or hematuria. Positive for urinary frequency. Positive for urgency, no incontinence, Musculoskeletal - Positive for back pain, Neurologic - No headache or dizziness, Psychiatric - Positive for depression, anxiety and insomnia. Vital Signs: Performed on May 10, 2020 09:24 Height - 63.00 in Weight - 148.2 lbs (HIGH) BSA - 1.70 sq.m BMI - 26.25 Temperature - 98.6 F Pulse - 83 /min Respiration - 18 /min BP - 113/67 mm(hg) O2 Sat - 98 % Pain - 0 Performance Status: 1 - No physically strenuous activity, but ambulatory and able to carry out light or sedentary work (e.g. office work, light house work). (ECOG) Physical Examination: ENMT - No mouth sores no thrush, no jaundice, Respiratory - Poor air entry mild wheezing, Cardiovascular - Regular rate and rhythm of heart, Abdomen - Soft, bowel sounds present, Extremities - No visible edema or rash. Lab/Imaging: Test performed on Apr 19, 2020 10:00 Sodium 141 mmol/L TSH 0.66 uIU/mL Potassium 4.4 mmol/L Chloride 104 mmol/L CO2 28 mmol/L Anion Gap 13.4 BUN 6 mg/dL Creatinine 0.6 mg/dL Cr Clearance (Est) 105.69 mL/min eGFR 102.3 mL/min Glucose 91 mg/dL Osmolality - Calculated 289 mOsm/kg Calcium 9.3 mg/dL Protein, Total 6.9 g/dL Albumin 4.1 g/dL Globulin 2.8 g/dL Bilirubin, Total 0.3 mg/dL ALT (SGPT) 35 U/L AST (SGOT) 31 U/L Alkaline Phosphatase 133 IU/L WBC 12.5 10 3/uL RBC 4.99 10 6/uL HGB 14.5 g/dL HCT 44.0 % MCV 88.2 fL MCH 29.1 pg MCHC 33.0 g/dL RDW 13.1 % Platelet Count 196 10 3/cmm MPV 10.1 fL Neutrophils 6.12 10 3/uL Lymphocytes 3.1 10 3/uL Monocytes 0.9 10 3/uL Eosinophils 2.3 10 3/uL Basophils 0.1 10 3/uL Neutrophil % 48.9 % Lymphocyte % 24.4 % Monocyte % 7.3 % Eosinophil % 18.2 % Basophils % 0.9 % NRBC % 0 % Impression: Stage IV, 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 N Stage IV, M1 a due to separate tumor nodule in the contralateral lobe and brain metastases 5 mm ???[address] PET scan done on 12/04/2018 showed hypermetabolic centrally necrotic mass within the right upper lobe abutting adjacent pleura, major fissure and mediastinum with tumor extension into right superior hilum. Additional centrally necrotic hypermetabolic mass within left upper lobe abutting the adjacent pleura and left major fissure with tumor extension to the left superior hilum. Hypermetabolic right hilar, precarinal, and AP window lymph nodes consistent with a node metastases. No hypermetabolic metastasis within the neck, abdomen or pelvis. MRI scan of the head showed 5 mm ???2 lesion status post CyberKnife on 01/02/2019. Active smoker AGAINST MEDICAL ADVICE; COPD Ms. Deleon began her first cycle of carbo Alimta Keytruda on March 09, 2019. She is tolerated it well thus far. She states that after the second cycle of chemotherapy her breathing is so much better that is amazing . She states that she is able to breathe through her nose when she is sleeping and that is something she has not done in years. She states overall she is feeling so much better. regarding her PET CT from 05/16/2019. she did have a PET CT in November 2018. This PET CT was NOT performed at [facility] in the interim just comparison of report indicates that the right upper lobe mass now measuring 5.8 x 3.3 cm with a peripheral uptake of SUV 4.6 was reported as 5.4 x 7.5 x 7 cm with an SUV of 13 on the November 2018 study. A left upper lobe mass measuring 5.2 x 6.4 cm on the current study with an SUV of 7.6 was compared to the November study at which time it measured 5.9 x 6.6 x 5 point centimeters with an SUV of 20.9. There is a solid right middle lobe nodule measuring 1.8 x 2.5 cm with SUV of 5.4 and small scattered mediastinal nodes demonstrating minimal FDG uptake although this may be reactive, although micrometastatic disease cannot be excluded. tolerated palliative therapy with carboplatin/Alimta/Keytruda well. Her follow-up CT PET scan from 04/2019 showed good response to the treatment. discussed with Ms Deleon further treatment plans. The plan earlier plan was to give her 4 cycles of chemotherapy along with immunotherapy and restage her. Her follow-up PET scan in April 2019 shows good response- no evidence of distance metastases, but not resolution of disease. In that case, She was encouraged to continue with same regimen e.g. carboplatin/Alimta/Keytruda for 3 more cycles and restage with CT PET scan. If it shows further improvement and her performance status is till good, she may need to continue full treatment; if on the other hand it shows stable disease then will consider switching her to maintenance therapy with Keytruda alone. Ms Deleon was due to resume Carboplatin/Alimta/Keytruda on 07/01/2019 and after that she has been postponing her chemotherapy as she was undergoing evaluation for hoarseness of voice. , as per ENT it was due to some nodules/calcifications of vocal cord. We once again reviewed the PET/CT imaging and discussed results. Dr Soares discussed with Ms. Deleon Dr. Lawson's (radiation oncology) impression that she should continue immunotherapy until significant disease progression at which time we could consider pallative radiation. PET CT scan from April 2019 to October 03, 2019 revealed reduction in size in the lung masses cavitation in the right upper lobe has resolved. left upper lobe lesion had decreased in size from 5.2 x 6.4 to 3.0 x 4.3 cm, a new solid lesion develop in the right upper lobe inferiorly measuring 2.4 x 1.7 cm, In the right middle lobe a nodule had progressed now measuring 2.3 x 2.6 cm from 1.8 x 2.5 cm. There was mediastinal adenopathy noted unchanged no evidence for distant metastatic disease. She started single agent Keytruda on 09/10/2019 and is currently on every 3 week treatment plan. She began Keytruda in combination with chemotherapy on 03/09/2019. She was having worsening shoulder pain and an x-ray C-spine and left shoulder upper arm done on March 29, 2020 showed degenerative disc disease at multiple level in C-spine, degenerative arthritic spurring at C5-C6, and C6 - C7 and left shoulder shows small lesser tuberosity osteoarthritic spur and complex left upper lobe lung mass consistent with a history of lung cancer. Per Dr Soares's office note on 03/29/2020: As far as left arm pain/left neck stiffness is concerned probably due to degenerative disc disease and C-spine as well as left shoulder arthritis or tendinitis, patient was advised to try Motrin 1 to 2 tablets 4 to 6-hour for 2 days and also use heating pad if no improvement may consider referral to orthopedic for evaluation. Plan: Discussed with patient regarding her labs white blood count 11.9 hemoglobin 13.9 hematocrit 41.3 platelets 222,000 CMP within normal limits and follow-up CT PET scan which showed mixed response improvement in the right upper lobe lesion whereas progression in the left upper lobe lesion and now with mediastinal lymphadenopathy but patient has signs symptom suggestive of upper respiratory infection and questions whether mediastinal lymph nodes are reactive versus malignant more over left upper lobe lesion management include satellite lesion in the left upper lobe which was measured separately on previous scans., Dr. Menendez was called in but he is out till Saturday, May 13, 2020, will discuss her PET scan findings with him and if disease progression is confirmed then we will consider adding chemotherapy with weekly carboplatin/Taxol to her immunotherapy and scan her after 3 cycles if it shows excellent response e.g. resolution of mediastinal lymphadenopathy and then we may discussed with radiation oncology for role of stereotactic radiotherapy. Discussed with patient regarding role of chemotherapy with carboplatin/Taxol and related side effects but patient wants to think about this as her daughter is getting on Day so patient return to clinic after for further discussion and planning which include observation versus chemotherapy with carboplatin/Taxol versus chemoimmunotherapy. Patient was advised to quit smoking and was offered any assistance she may need - Signed By: Rukhsana Soares M.D. <<Signature on File>>
== END 2020-05-26 23:59 | disposition home or self-care (01) ==
LOC: ONCMED 05:33
PROVIDERS: PCP Family Medicine; Visit Provider Internal Medicine Hematology & Oncology
DX: C34.11 Malignant neoplasm of upper lobe, right bronchus or lung (principal); C79.31 Secondary malignant neoplasm of brain; C77.8 Secondary and unspecified malignant neoplasm of lymph nodes of multiple regions; F17.210 Nicotine dependence, cigarettes, uncomplicated; J44.9 Chronic obstructive pulmonary disease, unspecified; Z79.899 Other long term (current) drug therapy
CPT/HCPCS: 36591; 80053; 84443; 85025; 99215

== ENCOUNTER → 2020-05-18 11:02 | Outpatient (BNVA) | payer MEDICAID, SELFPAY | PROVIDERS: PCP Family Medicine; Visit Provider Specialist | DX: M79.602 Pain in left arm (principal); M75.82 Other shoulder lesions, left shoulder; R05 Cough; R55 Syncope and collapse; F32.9 Major depressive disorder, single episode, unspecified; F17.210 Nicotine dependence, cigarettes, uncomplicated | CPT/HCPCS: 20550; 99214; J1030; J3490 ==

== ENCOUNTER → 2020-05-30 16:08 | Outpatient (BNVA) | payer MEDICAID, SELFPAY | PROVIDERS: PCP Family Medicine; Visit Provider Specialist | DX: M75.80 Other shoulder lesions, unspecified shoulder (principal); M19.012 Primary osteoarthritis, left shoulder | CPT/HCPCS: 73030 ==

== ENCOUNTER 2020-06-07 05:29 | Outpatient (RCR) | payer MEDICAID, SELFPAY ==
--- NOTE | 2020-06-03 13:06 | ONC FU_ITS ---
Dr. Soares follow up note Patient: Alma Deleon Unit #: [id number]: 1960 Dicatated By: Rukhsana Soares M.D.Date of Visit:Jun 01, 2020 Onc Med Follow-up/Prog Note History of Present Illness: Mrs. Deleon is a 59-year-old female with history of progressive cough. She underwent evaluation on July 07, [address] scan of chest. It reported bilateral upper lobe masses: the mass on right side was 5.9 x 4.1 x 4.9 cm and on the left side was 4.6 x 2.8 x 2.8 cm. On 11/14/2018 patient underwent EBUS , which showed there was 90% narrowing of right upper lobe bronchus due to extensive compression, and right-sided mediastinal and hilar lymph node were enlarged and endobronchial right upper lobe and lymph node biopsies were obtained final pathology report came back poorly differentiated adenocarcinoma consistent with lung primary from right upper lobe endobronchial biopsy. And both lymph node biopsies were negative. Molecular profiling which include EGFR, ALK, ROS 1, PDL 1 and BRAF were done and it showed PDL 1 was 95% tumor cells are positive membranous positivity and rest of molecular profiling was unremarkable. Staging workup including CT PET scan and MRI brain was obtained. The CT PET scan on 12/04/2018 showed hypermetabolic centrally necrotic mass within the right upper lobe abutting adjacent pleura, major fissure, and mediastinum with tumor extension into the right superior hilum, with SUV of 13. Additional centrally necrotic hypermetabolic mass in the left upper lobe with a SUV of 20.9, abutting the adjacent pleura and left major fissure and AP window lymph nodes consistent with elfego metastatic disease. No hypermetabolic metastasis in neck abdomen or pelvis. MRI brain showed 5 mm lesions in the left temporal lobe, and left parietal lobe with mild adjacent edema. Mrs Deleon underwent CyberKnife on 01/02/2019. She was offered palliative chemotherapy plus immunotherapy. She declined and she was also referred to radiation oncology for her right-sided chest pain radiating to her neck and patient declined. With tumor being PDL 1 positive, role of immunotherapy with Keytruda was discussed and patient was willing to consider but then decided to come to [place] for further management. Ms Deleon still smokes about pack a day and has history of smoking for 30-40 years, denies alcohol use. She is still smoking about pack a day AGAINST MEDICAL ADVICE. Ms Deleon started her first cycle of chemotherapy with carboplatin/Alimta/Keytruda on March 09, 2019. She is tolerated it well. Her second cycle was given on March 30, 2019. She states since then she is feeling so much better her breathing is so much better. She states it is amazing how much better she is breathing and how much better she feels overall. Per the report from 05/16/2019 there was no comparison image available for comparison. We will call [facility] radiology and request over read as she did have a PET CT in November 2018. comparison of report indicates that the right upper lobe mass now measuring 5.8 x 3.3 cm with a peripheral uptake of SUV 4.6 was reported as 5.4 x 7.5 x 7 cm with an SUV of 13 on the November 2018 study. A left upper lobe mass measuring 5.2 x 6.4 cm on the current study with an SUV of 7.6 was compared to the November study at which time it measured 5.9 x 6.6 x 5 point centimeters with an SUV of 20.9. There is a solid right middle lobe nodule measuring 1.8 x 2.5 cm with SUV of 5.4 and small scattered mediastinal nodes demonstrating minimal FDG uptake although this may be reactive, although micrometastatic disease cannot be excluded. On review of her 05/16/2019 PET/CT study for comparison with the PET/CT from November 2018. In the interim between studies, the SUV activity has greatly improved and there has been reported decrease in size of the tumors. She had completed 4 cycles of carboplatin Alimta and Keytruda. She received Keytruda only on 06/03/2019 as she stated she was only supposed to have four cycles of chemotherapy and then pursue maintenance with immunotherapy. based on good response seen on f/u PET scan it was suggested to continue chemotherapy for 3 more cycles then repeat imaging. She has reluctantly agreed to try chemotherapy again. She states she understands why she needs it but is not looking forward to feeling washed out again. She has had consultation with Dr Gamez in ENT. She states he told her she has some scaring/calcifications/nodules on her voicebox. She states he has informed her that he can nip them right out of there . She states that he told her this is a simple procedure but the recovery she will have to be very adamant on following strict instructions. She states she feels that she can do this in put up with what ever she needs to get rid of the hoarseness so she quit sounding like a man . Her treatment was held the week of July 22, 2019 as she thought she might have mild flu symptoms . She was given a week off to allow for recovery. She was waiting to hear from Dr. Gamez's office in regards to her surgery that he was planning but apparently Dr. Gamez quit his practice in [place]. She was concerned that she was gaining weight. . She did have a thyroid panel done on 07/29/2019 showed T3 free was 2.9, normal being 2-4.4, T4 free 1.44 normal being 0.82 to 1.77. And TSH 0.23 She has persistent hoarseness of voice, she was waiting for Dr. Gamez's call for the surgery but she heard that Dr. Gamez has left [place]. She then requested a referrel to Dr. Thacker , ENT for evaluation for hoarseness. The last time she received chemotherapy was on 07/01/2019, patient has been postponing her treatment due to hoarseness and its management.finally she was seen by Dr. Thacker on 09/22/2019 and On 10/06/2019 she underwent vocal cord biopsy, results are pending. Follow-up CT PET scan done on 10/03/2019 showed malignant lung masses are now more consolidated in size on the current study, but maintain active FDG uptake, when compared with one done on 05/16/2019. The right upper lobe mass cavitation is essentially resolved, but maintain extensive central necrosis. Now measures 4.8 x 2.8 cm with SUV of 5.0 not a significant increase. The left upper lobe lesion measured 3 x 4.3 cm down from 5.2 x 6.4 cm previously but now demonstrates SUV of 14.2, up from 7.6 previouslyA new solid lesion has developed in the right upper lobe, measuring 2.4 x 1.7 cm with SUV of 20.7. The right middle lobe nodule is progressed, now measuring 2.2 x 2.6 cm with SUV of 7.3 up from 1.8 x 2.5 cm with SUV of 5.4 previously. Scattered mediastinal lymph nodes are unchanged from prior study. Ms. Deleon was referred to radiation oncology for second opinion she did see Dr. Lawson in radiation oncology on 10/14/2019. She has had a mixed response to treatment with evidence of both response and progression on the last PET/CT. She was essentially asymptomatic of her persistent disease and was not interested in pursuing any treatment which would compromise her quality of life at this time. Therefore she elected not to pursue any radiation therapy currently. Dr. Lawson did state that he would not recommend pursuing consolidative therapy in light of her absence. He states he felt the volume of the line within the treatment field to be excessive in terms of diminished functional status. Should she has disease progression, symptoms such as airway compromise, shortness of breath or chest pain, one could readdress palliative radiation at that time. She continues with immunotherapy., As per patient Dr. Thacker did vocal cord biopsy and came back with inflammatory changes no malignancy Follow-up CT PET scan done on December 26, 2019 showed right upper lobe mass continues to demonstrate central necrosis and now measures 4 x 2.6 cm with an SUV of 3.8 indicating a positive response to therapy. The complex left upper lobe lesion has a slightly progressed SUV of 15.7 now measuring 2.6 cm. Overall positive response to therapy. The left upper lobe solid lesion that previously measured 2.4 x 1.7 cm with SUV of 20.7 is now 2 x 1.6 cm with SUV of 18.8, overall positive response. Right middle lobe nodule measured 2.9 x 2.4 cm with SUV of 6.9 is not a significant change from previous study. Multiple subcentimeter subpleural pulmonary nodules are too small to characterize. She continues with Keytruda.Last dose was given on January 28, 2020 and next dose was held because of pain in her left shoulder after Keytruda infusion, which resolved Follow-up CT PET scan done on April 30, 2020 showed the left upper lobe lesion that previously measured 2.6 cm with SUV of 15.7 now measuring 4.4 x 4.6 cm with SUV of 36.1 the secondary left upper lobe lesion now consolidated with this mass. The right upper lobe lesion that previously measured 4.0 x 2.6 cm with SUV of 3.8 now measures 2.7 x 2.4 cm with SUV of 4.9. Right middle lobe mass is similarly progressed with SUV of 10.5 and measured 3.6 x 2.9 cm compared to 2.9 x 2.4 cm with SUV of 6.9 previously. There is a new FDG activity in the right paratracheal bilateral hilar and subcarinal nodes. Came for follow-up, denies any specific complaint except start using home oxygen otherwise no fever chills, no nausea or vomiting, no diarrhea or constipation, no hemoptysis or hematemesis, no melena or hematochezia, no headaches or blurred vision double vision, no dysphagia, no skin rash, no jaundice, tolerating immunotherapy with Keytruda well . Medications: Afrin 12 Hour 2 [place](s) (of 0.05 %) Solution Nasal b.i.d. PRN, Albuterol Sulfate 2 Puff(s) (of 108 (90 base) mcg/act) Aerosol Powder, Breath Activated Inhalation q 6 hours, Azelastine & Fluticasone 2 Puff(s) (of 137 & 50 mcg/act) Therapy Pack Nasal, Benzonatate 1 Capsule (of 200 mg) Oral 6x/d PRN, CeleXA 1 Tablet (of 20 mg) Oral daily, Centrum Silver Adult 50+ 1 Tablet Oral daily, Combivent Respimat Aerosol, solution Inhalation, Cyclobenzaprine HCl 1 - 2 Tablet (of 5 mg) Oral t.i.d. PRN, Flonase Suspension Nasal, Folic Acid 1 (1 mg) Tablet Oral daily, HYDROcodone-Acetaminophen 1 Tablet (of 5-325 mg) Oral four times a day, methylPREDNISolone 1 Tablet (of 4 mg) Oral, Tiotropium [place] Monohydrate 1 Puff(s) (of 2.5 mcg/act) Aerosol, solution Inhalation q 24 hours Allergies: Penicillin Review of Systems: Review of Systems is not available for this patient. Vital Signs: Performed on Jun 01, 2020 11:26 Height - 63.00 in Weight - 149.8 lbs (HIGH) BSA - 1.71 sq.m BMI - 26.54 Temperature - 98.1 F (LOW) Pulse - 83 /min BP - 128/81 mm(hg) O2 Sat - 97 % Pain - 0 Performance Status: 1 - No physically strenuous activity, but ambulatory and able to carry out light or sedentary work (e.g. office work, light house work). (ECOG) Physical Examination: ENMT - No mouth sores, no thrush, no jaundice, Respiratory - Poor air entry otherwise clear, Cardiovascular - Regular rate and rhythm of heart, Abdomen - Soft, bowel sounds present, Extremities - No visible edema. Lab/Imaging: Test performed on May 10, 2020 08:20 Sodium 138 mmol/L TSH 1.00 uIU/mL Potassium 3.8 mmol/L Chloride 102 mmol/L CO2 26 mmol/L Anion Gap 13.8 BUN 5 mg/dL Creatinine 0.5 mg/dL Cr Clearance (Est) 128.56 mL/min eGFR 126.3 mL/min Glucose 90 mg/dL Osmolality - Calculated 283 mOsm/kg Calcium 9.2 mg/dL Protein, Total 6.5 g/dL Albumin 3.9 g/dL Globulin 2.6 g/dL Bilirubin, Total 0.3 mg/dL ALT (SGPT) 21 U/L AST (SGOT) 24 U/L Alkaline Phosphatase 116 IU/L WBC 11.9 10 3/uL RBC 4.71 10 6/uL HGB 13.9 g/dL HCT 41.3 % MCV 87.7 fL MCH 29.5 pg MCHC 33.7 g/dL RDW 12.6 % Platelet Count 222 10 3/cmm MPV 8.9 fL Neutrophils 6.48 10 3/uL Lymphocytes 2.5 10 3/uL Monocytes 0.9 10 3/uL Eosinophils 2.0 10 3/uL Basophils 0.1 10 3/uL Neutrophil % 54.3 % Lymphocyte % 21.0 % Monocyte % 7.3 % Eosinophil % 16.3 % Basophils % 0.8 % NRBC % 0 % Impression: Stage IV, 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 N Stage IV, M1 a due to separate tumor nodule in the contralateral lobe and brain metastases 5 mm ???[address] PET scan done on 12/04/2018 showed hypermetabolic centrally necrotic mass within the right upper lobe abutting adjacent pleura, major fissure and mediastinum with tumor extension into right superior hilum. Additional centrally necrotic hypermetabolic mass within left upper lobe abutting the adjacent pleura and left major fissure with tumor extension to the left superior hilum. Hypermetabolic right hilar, precarinal, and AP window lymph nodes consistent with a node metastases. No hypermetabolic metastasis within the neck, abdomen or pelvis. MRI scan of the head showed 5 mm ???2 lesion status post CyberKnife on 01/02/2019. Active smoker AGAINST MEDICAL ADVICE; COPD Ms. Deleon began her first cycle of carbo Alimta Keytruda on March 09, 2019. She is tolerated it well thus far. She states that after the second cycle of chemotherapy her breathing is so much better that is amazing . She states that she is able to breathe through her nose when she is sleeping and that is something she has not done in years. She states overall she is feeling so much better. regarding her PET CT from 05/16/2019. she did have a PET CT in November 2018. This PET CT was NOT performed at [facility] in the interim just comparison of report indicates that the right upper lobe mass now measuring 5.8 x 3.3 cm with a peripheral uptake of SUV 4.6 was reported as 5.4 x 7.5 x 7 cm with an SUV of 13 on the November 2018 study. A left upper lobe mass measuring 5.2 x 6.4 cm on the current study with an SUV of 7.6 was compared to the November study at which time it measured 5.9 x 6.6 x 5 point centimeters with an SUV of 20.9. There is a solid right middle lobe nodule measuring 1.8 x 2.5 cm with SUV of 5.4 and small scattered mediastinal nodes demonstrating minimal FDG uptake although this may be reactive, although micrometastatic disease cannot be excluded. tolerated palliative therapy with carboplatin/Alimta/Keytruda well. Her follow-up CT PET scan from 04/2019 showed good response to the treatment. discussed with Ms Deleon further treatment plans. The plan earlier plan was to give her 4 cycles of chemotherapy along with immunotherapy and restage her. Her follow-up PET scan in April 2019 shows good response- no evidence of distance metastases, but not resolution of disease. In that case, She was encouraged to continue with same regimen e.g. carboplatin/Alimta/Keytruda for 3 more cycles and restage with CT PET scan. If it shows further improvement and her performance status is till good, she may need to continue full treatment; if on the other hand it shows stable disease then will consider switching her to maintenance therapy with Keytruda alone. Ms Deleon was due to resume Carboplatin/Alimta/Keytruda on 07/01/2019 and after that she has been postponing her chemotherapy as she was undergoing evaluation for hoarseness of voice. , as per ENT it was due to some nodules/calcifications of vocal cord. We once again reviewed the PET/CT imaging and discussed results. Dr Soares discussed with Ms. Deleon Dr. Lawson's (radiation oncology) impression that she should continue immunotherapy until significant disease progression at which time we could consider pallative radiation. PET CT scan from April 2019 to October 03, 2019 revealed reduction in size in the lung masses cavitation in the right upper lobe has resolved. left upper lobe lesion had decreased in size from 5.2 x 6.4 to 3.0 x 4.3 cm, a new solid lesion develop in the right upper lobe inferiorly measuring 2.4 x 1.7 cm, In the right middle lobe a nodule had progressed now measuring 2.3 x 2.6 cm from 1.8 x 2.5 cm. There was mediastinal adenopathy noted unchanged no evidence for distant metastatic disease. She started single agent Keytruda on 09/10/2019 and is currently on every 3 week treatment plan. She began Keytruda in combination with chemotherapy on 03/09/2019. She was having worsening shoulder pain and an x-ray C-spine and left shoulder upper arm done on March 29, 2020 showed degenerative disc disease at multiple level in C-spine, degenerative arthritic spurring at C5-C6, and C6 - C7 and left shoulder shows small lesser tuberosity osteoarthritic spur and complex left upper lobe lung mass consistent with a history of lung cancer. Per Dr Soares's office note on 03/29/2020: As far as left arm pain/left neck stiffness is concerned probably due to degenerative disc disease and C-spine as well as left shoulder arthritis or tendinitis, patient was advised to try Motrin 1 to 2 tablets 4 to 6-hour for 2 days and also use heating pad if no improvement may consider referral to orthopedic for evaluation. Plan: Discussed with patient regarding her disease status and CT PET scan finding which was discussed with Dr. Menendez, radiologist today, who concluded that there is evidence of disease progression and without confirmation, will consider adding systemic chemotherapy to Keytruda, will consider weekly carboplatin AUC 2/Taxol 50 mg/m??? on day 1 and 8 and repeat every 21 days along with 3 weekly Keytruda and plan to give her 3 cycles of chemo immunotherapy followed by CT PET scan to assess response. All the side effects possible benefits associated with chemoimmunotherapy with Keytruda/carboplatin/Taxol including but not limited to bone marrow suppression, life-threatening infection, allergic reaction especially with the Taxol, peripheral neuropathy, hypothyroidism, colitis, pneumonitis with immunotherapy were mentioned patient expressed full understanding. We will obtain approval from her insurance prior to the treatment Patient was advised to quit smoking and was offered any assistance she may need. Patient return to clinic in 1 week to initiate her chemoimmunotherapy with Keytruda/carboplatin/Taxol - Signed By: Rukhsana Soares M.D. <<Signature on File>>
[2020-06-07 14:34] LABS: Basophils # 0.1 10^3/uL (0.0-0.1); Basophils % 0.7 %; Eosinophils % 17.7 %; Hematocrit 41.8 % (37.0-47.0); Hemoglobin 13.9 g/dL (11.5-15.3); Lymphocytes # 2.5 10^3/uL (0.8-4.8); Lymphocytes % 21.5 %; Mean Corpuscular HGB Conc 33.3 g/dL (30.0-36.0); Mean Corpuscular Hemoglobin 29.1 pg (28.0-34.0); Mean Corpuscular Volume 87.6 fL (81-99); Mean Platelet Volume 8.7 fL (7.4-10.4); Monocytes % 8.9 %; Neutrophils # 5.85 10^3/uL (1.8-7.7); Neutrophils % 50.9 %; Nucleated Red Blood Cells % 0 %; Platelet Count 236 10^3/cmm (130-400); Red Blood Count 4.77 10^6/uL (4.1-5.3); Red Cell Distribution Width 12.4 % (12.1-15.1); White Blood Count 11.5 10^3/uL (4.0-10.0)
[2020-06-07 15:27] LABS: Alanine Aminotransferase 19 U/L (0-33); Albumin Level 3.9 g/dL (3.5-5.2); Alkaline Phosphatase 125 IU/L (35-105); Aspartate Amino Transferase 22 U/L (0-32); Blood Urea Nitrogen 8 mg/dL (6-20); Calcium 9.1 mg/dL (8.5-10.5); Carbon Dioxide 29 mmol/L (22-29); Chloride 101 mmol/L (98-107); Glomerular Filtration Rate 102.3 mL/min (90-130); Glucose 72 mg/dL (65-115); Osmolality Calculated 285 mOsm/kg (285-295); Sodium 139 mmol/L (136-145); Total Bilirubin 0.3 mg/dL (0.15-1.2); Total Protein 6.9 g/dL (6.6-8.7)
--- NOTE | 2020-06-07 16:54 | ONC FU_ITS ---
Dr. Soares follow up note Patient: Alma Deleon Unit #: [id number]: [id number] Dicatated By: Rukhsana Soares M.D.Date of Visit:Jun 07, 2020 Onc Med Follow-up/Prog Note History of Present Illness: Mrs. Deleon is a 59-year-old female with history of progressive cough. She underwent evaluation on July 07, [address] scan of chest. It reported bilateral upper lobe masses: the mass on right side was 5.9 x 4.1 x 4.9 cm and on the left side was 4.6 x 2.8 x 2.8 cm. On 11/14/2018 patient underwent EBUS , which showed there was 90% narrowing of right upper lobe bronchus due to extensive compression, and right-sided mediastinal and hilar lymph node were enlarged and endobronchial right upper lobe and lymph node biopsies were obtained final pathology report came back poorly differentiated adenocarcinoma consistent with lung primary from right upper lobe endobronchial biopsy. And both lymph node biopsies were negative. Molecular profiling which include EGFR, ALK, ROS 1, PDL 1 and BRAF were done and it showed PDL 1 was 95% tumor cells are positive membranous positivity and rest of molecular profiling was unremarkable. Staging workup including CT PET scan and MRI brain was obtained. The CT PET scan on 12/04/2018 showed hypermetabolic centrally necrotic mass within the right upper lobe abutting adjacent pleura, major fissure, and mediastinum with tumor extension into the right superior hilum, with SUV of 13. Additional centrally necrotic hypermetabolic mass in the left upper lobe with a SUV of 20.9, abutting the adjacent pleura and left major fissure and AP window lymph nodes consistent with elfego metastatic disease. No hypermetabolic metastasis in neck abdomen or pelvis. MRI brain showed 5 mm lesions in the left temporal lobe, and left parietal lobe with mild adjacent edema. Mrs Deleon underwent CyberKnife on 01/02/2019. She was offered palliative chemotherapy plus immunotherapy. She declined and she was also referred to radiation oncology for her right-sided chest pain radiating to her neck and patient declined. With tumor being PDL 1 positive, role of immunotherapy with Keytruda was discussed and patient was willing to consider but then decided to come to [place] for further management. Ms Deleon still smokes about pack a day and has history of smoking for 30-40 years, denies alcohol use. She is still smoking about pack a day AGAINST MEDICAL ADVICE. Ms Deleon started her first cycle of chemotherapy with carboplatin/Alimta/Keytruda on March 09, 2019. She is tolerated it well. Her second cycle was given on March 30, 2019. She states since then she is feeling so much better her breathing is so much better. She states it is amazing how much better she is breathing and how much better she feels overall. Per the report from 05/16/2019 there was no comparison image available for comparison. We will call [facility] radiology and request over read as she did have a PET CT in November 2018. comparison of report indicates that the right upper lobe mass now measuring 5.8 x 3.3 cm with a peripheral uptake of SUV 4.6 was reported as 5.4 x 7.5 x 7 cm with an SUV of 13 on the November 2018 study. A left upper lobe mass measuring 5.2 x 6.4 cm on the current study with an SUV of 7.6 was compared to the November study at which time it measured 5.9 x 6.6 x 5 point centimeters with an SUV of 20.9. There is a solid right middle lobe nodule measuring 1.8 x 2.5 cm with SUV of 5.4 and small scattered mediastinal nodes demonstrating minimal FDG uptake although this may be reactive, although micrometastatic disease cannot be excluded. On review of her 05/16/2019 PET/CT study for comparison with the PET/CT from November 2018. In the interim between studies, the SUV activity has greatly improved and there has been reported decrease in size of the tumors. She had completed 4 cycles of carboplatin Alimta and Keytruda. She received Keytruda only on 06/03/2019 as she stated she was only supposed to have four cycles of chemotherapy and then pursue maintenance with immunotherapy. based on good response seen on f/u PET scan it was suggested to continue chemotherapy for 3 more cycles then repeat imaging. She has reluctantly agreed to try chemotherapy again. She states she understands why she needs it but is not looking forward to feeling washed out again. She has had consultation with Dr Gamez in ENT. She states he told her she has some scaring/calcifications/nodules on her voicebox. She states he has informed her that he can nip them right out of there . She states that he told her this is a simple procedure but the recovery she will have to be very adamant on following strict instructions. She states she feels that she can do this in put up with what ever she needs to get rid of the hoarseness so she quit sounding like a man . Her treatment was held the week of July 22, 2019 as she thought she might have mild flu symptoms . She was given a week off to allow for recovery. She was waiting to hear from Dr. Gamez's office in regards to her surgery that he was planning but apparently Dr. Gamez quit his practice in [place]. She was concerned that she was gaining weight. . She did have a thyroid panel done on 07/29/2019 showed T3 free was 2.9, normal being 2-4.4, T4 free 1.44 normal being 0.82 to 1.77. And TSH 0.23 She has persistent hoarseness of voice, she was waiting for Dr. Gamez's call for the surgery but she heard that Dr. Gamez has left [place]. She then requested a referrel to Dr. Thacker , ENT for evaluation for hoarseness. The last time she received chemotherapy was on 07/01/2019, patient has been postponing her treatment due to hoarseness and its management.finally she was seen by Dr. Thacker on 09/22/2019 and On 10/06/2019 she underwent vocal cord biopsy, results are pending. Follow-up CT PET scan done on 10/03/2019 showed malignant lung masses are now more consolidated in size on the current study, but maintain active FDG uptake, when compared with one done on 05/16/2019. The right upper lobe mass cavitation is essentially resolved, but maintain extensive central necrosis. Now measures 4.8 x 2.8 cm with SUV of 5.0 not a significant increase. The left upper lobe lesion measured 3 x 4.3 cm down from 5.2 x 6.4 cm previously but now demonstrates SUV of 14.2, up from 7.6 previouslyA new solid lesion has developed in the right upper lobe, measuring 2.4 x 1.7 cm with SUV of 20.7. The right middle lobe nodule is progressed, now measuring 2.2 x 2.6 cm with SUV of 7.3 up from 1.8 x 2.5 cm with SUV of 5.4 previously. Scattered mediastinal lymph nodes are unchanged from prior study. Ms. Deleon was referred to radiation oncology for second opinion she did see Dr. Lawson in radiation oncology on 10/14/2019. She has had a mixed response to treatment with evidence of both response and progression on the last PET/CT. She was essentially asymptomatic of her persistent disease and was not interested in pursuing any treatment which would compromise her quality of life at this time. Therefore she elected not to pursue any radiation therapy currently. Dr. Lawson did state that he would not recommend pursuing consolidative therapy in light of her absence. He states he felt the volume of the line within the treatment field to be excessive in terms of diminished functional status. Should she has disease progression, symptoms such as airway compromise, shortness of breath or chest pain, one could readdress palliative radiation at that time. She continues with immunotherapy., As per patient Dr. Thacker did vocal cord biopsy and came back with inflammatory changes no malignancy Follow-up CT PET scan done on December 26, 2019 showed right upper lobe mass continues to demonstrate central necrosis and now measures 4 x 2.6 cm with an SUV of 3.8 indicating a positive response to therapy. The complex left upper lobe lesion has a slightly progressed SUV of 15.7 now measuring 2.6 cm. Overall positive response to therapy. The left upper lobe solid lesion that previously measured 2.4 x 1.7 cm with SUV of 20.7 is now 2 x 1.6 cm with SUV of 18.8, overall positive response. Right middle lobe nodule measured 2.9 x 2.4 cm with SUV of 6.9 is not a significant change from previous study. Multiple subcentimeter subpleural pulmonary nodules are too small to characterize. She continues with Keytruda.Last dose was given on January 28, 2020 and next dose was held because of pain in her left shoulder after Keytruda infusion, which resolved Follow-up CT PET scan done on April 30, 2020 showed the left upper lobe lesion that previously measured 2.6 cm with SUV of 15.7 now measuring 4.4 x 4.6 cm with SUV of 36.1 the secondary left upper lobe lesion now consolidated with this mass. The right upper lobe lesion that previously measured 4.0 x 2.6 cm with SUV of 3.8 now measures 2.7 x 2.4 cm with SUV of 4.9. Right middle lobe mass is similarly progressed with SUV of 10.5 and measured 3.6 x 2.9 cm compared to 2.9 x 2.4 cm with SUV of 6.9 previously. There is a new FDG activity in the right paratracheal bilateral hilar and subcarinal nodes.Came for follow-up, denies any specific complaints, no fever chills, no nausea or vomiting, no diarrhea constipation, she was prescribed home oxygen, as per patient she is not using any more oxygen as she was not tolerating it well. But no hemoptysis or hematemesis, no headaches blurred vision double vision, . Medications: Afrin 12 Hour 2 [place](s) (of 0.05 %) Solution Nasal b.i.d. PRN, Albuterol Sulfate 2 Puff(s) (of 108 (90 base) mcg/act) Aerosol Powder, Breath Activated Inhalation q 6 hours, Azelastine & Fluticasone 2 Puff(s) (of 137 & 50 mcg/act) Therapy Pack Nasal, Benzonatate 1 Capsule (of 200 mg) Oral 6x/d PRN, CeleXA 1 Tablet (of 20 mg) Oral daily, Centrum Silver Adult 50+ 1 Tablet Oral daily, Combivent Respimat Aerosol, solution Inhalation, Cyclobenzaprine HCl 1 - 2 Tablet (of 5 mg) Oral t.i.d. PRN, Flonase Suspension Nasal, Folic Acid 1 (1 mg) Tablet Oral daily, HYDROcodone-Acetaminophen 1 Tablet (of 5-325 mg) Oral four times a day, methylPREDNISolone 1 Tablet (of 4 mg) Oral, Tiotropium [place] Monohydrate 1 Puff(s) (of 2.5 mcg/act) Aerosol, solution Inhalation q 24 hours Allergies: Penicillin Review of Systems: Review of Systems is not available for this patient. Vital Signs: Performed on Jun 07, 2020 15:37 Height - 63.00 in Weight - 148.2 lbs (LOW) BSA - 1.70 sq.m BMI - 26.25 Temperature - 97.8 F (LOW) Pulse - 89 /min Respiration - 14 /min BP - 137/71 mm(hg) O2 Sat - 98 % Pain - 0 Performance Status: 1 - No physically strenuous activity, but ambulatory and able to carry out light or sedentary work (e.g. office work, light house work). (ECOG) Physical Examination: ENMT - No mouth sores, no thrush, noJaundice, Respiratory - Poor air entry otherwise clear, Cardiovascular - Regular rate and rhythm of heart, Abdomen - Soft, bowel sounds present, Extremities - No visible edema. Lab/Imaging: Test performed on May 10, 2020 08:20 Sodium 138 mmol/L TSH 1.00 uIU/mL Potassium 3.8 mmol/L Chloride 102 mmol/L CO2 26 mmol/L Anion Gap 13.8 BUN 5 mg/dL Creatinine 0.5 mg/dL Cr Clearance (Est) 128.56 mL/min eGFR 126.3 mL/min Glucose 90 mg/dL Osmolality - Calculated 283 mOsm/kg Calcium 9.2 mg/dL Protein, Total 6.5 g/dL Albumin 3.9 g/dL Globulin 2.6 g/dL Bilirubin, Total 0.3 mg/dL ALT (SGPT) 21 U/L AST (SGOT) 24 U/L Alkaline Phosphatase 116 IU/L WBC 11.9 10 3/uL RBC 4.71 10 6/uL HGB 13.9 g/dL HCT 41.3 % MCV 87.7 fL MCH 29.5 pg MCHC 33.7 g/dL RDW 12.6 % Platelet Count 222 10 3/cmm MPV 8.9 fL Neutrophils 6.48 10 3/uL Lymphocytes 2.5 10 3/uL Monocytes 0.9 10 3/uL Eosinophils 2.0 10 3/uL Basophils 0.1 10 3/uL Neutrophil % 54.3 % Lymphocyte % 21.0 % Monocyte % 7.3 % Eosinophil % 16.3 % Basophils % 0.8 % NRBC % 0 % Impression: Stage IV, 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 N Stage IV, M1 a due to separate tumor nodule in the contralateral lobe and brain metastases 5 mm ???[address] PET scan done on 12/04/2018 showed hypermetabolic centrally necrotic mass within the right upper lobe abutting adjacent pleura, major fissure and mediastinum with tumor extension into right superior hilum. Additional centrally necrotic hypermetabolic mass within left upper lobe abutting the adjacent pleura and left major fissure with tumor extension to the left superior hilum. Hypermetabolic right hilar, precarinal, and AP window lymph nodes consistent with a node metastases. No hypermetabolic metastasis within the neck, abdomen or pelvis. MRI scan of the head showed 5 mm ???2 lesion status post CyberKnife on 01/02/2019. Active smoker AGAINST MEDICAL ADVICE; COPD Ms. Deleon began her first cycle of carbo Alimta Keytruda on March 09, 2019. She is tolerated it well thus far. She states that after the second cycle of chemotherapy her breathing is so much better that is amazing . She states that she is able to breathe through her nose when she is sleeping and that is something she has not done in years. She states overall she is feeling so much better. regarding her PET CT from 05/16/2019. she did have a PET CT in November 2018. This PET CT was NOT performed at [facility] in the interim just comparison of report indicates that the right upper lobe mass now measuring 5.8 x 3.3 cm with a peripheral uptake of SUV 4.6 was reported as 5.4 x 7.5 x 7 cm with an SUV of 13 on the November 2018 study. A left upper lobe mass measuring 5.2 x 6.4 cm on the current study with an SUV of 7.6 was compared to the November study at which time it measured 5.9 x 6.6 x 5 point centimeters with an SUV of 20.9. There is a solid right middle lobe nodule measuring 1.8 x 2.5 cm with SUV of 5.4 and small scattered mediastinal nodes demonstrating minimal FDG uptake although this may be reactive, although micrometastatic disease cannot be excluded. tolerated palliative therapy with carboplatin/Alimta/Keytruda well. Her follow-up CT PET scan from 04/2019 showed good response to the treatment. discussed with Ms Deleon further treatment plans. The plan earlier plan was to give her 4 cycles of chemotherapy along with immunotherapy and restage her. Her follow-up PET scan in April 2019 shows good response- no evidence of distance metastases, but not resolution of disease. In that case, She was encouraged to continue with same regimen e.g. carboplatin/Alimta/Keytruda for 3 more cycles and restage with CT PET scan. If it shows further improvement and her performance status is till good, she may need to continue full treatment; if on the other hand it shows stable disease then will consider switching her to maintenance therapy with Keytruda alone. Ms Deleon was due to resume Carboplatin/Alimta/Keytruda on 07/01/2019 and after that she has been postponing her chemotherapy as she was undergoing evaluation for hoarseness of voice. , as per ENT it was due to some nodules/calcifications of vocal cord. We once again reviewed the PET/CT imaging and discussed results. Dr Soares discussed with Ms. Deleon Dr. Lawson's (radiation oncology) impression that she should continue immunotherapy until significant disease progression at which time we could consider pallative radiation. PET CT scan from April 2019 to October 03, 2019 revealed reduction in size in the lung masses cavitation in the right upper lobe has resolved. left upper lobe lesion had decreased in size from 5.2 x 6.4 to 3.0 x 4.3 cm, a new solid lesion develop in the right upper lobe inferiorly measuring 2.4 x 1.7 cm, In the right middle lobe a nodule had progressed now measuring 2.3 x 2.6 cm from 1.8 x 2.5 cm. There was mediastinal adenopathy noted unchanged no evidence for distant metastatic disease. She started single agent Keytruda on 09/10/2019 and is currently on every 3 week treatment plan. She began Keytruda in combination with chemotherapy on 03/09/2019. She was having worsening shoulder pain and an x-ray C-spine and left shoulder upper arm done on March 29, 2020 showed degenerative disc disease at multiple level in C-spine, degenerative arthritic spurring at C5-C6, and C6 - C7 and left shoulder shows small lesser tuberosity osteoarthritic spur and complex left upper lobe lung mass consistent with a history of lung cancer. Per Dr Soares's office note on 03/29/2020: As far as left arm pain/left neck stiffness is concerned probably due to degenerative disc disease and C-spine as well as left shoulder arthritis or tendinitis, patient was advised to try Motrin 1 to 2 tablets 4 to 6-hour for 2 days and also use heating pad if no improvement may consider referral to orthopedic for evaluation. Plan: Discussed with patient regarding her labs white blood count 11.5 hemoglobin 13.9 hematocrit 41.8 platelets 236,000 CMP within normal limits Clinically, patient is doing well with no new signs symptom suggestive of disease progression, patient was supposed to start chemo immunotherapy with weekly carboplatin/Taxol/Keytruda but patient is reluctant and rather prefer observation with a follow-up CT scan of chest and if it shows disease progression then she might consider otherwise she prefer quality of life over quantity of life,, in that case we will hold her chemoimmunotherapy and consider repeating CT scan of chest and abdomen in a month and then compared with CT PET scan done in first week of April 2020 and if it shows disease progression then patient might consider palliative therapy otherwise will observe. Discussed with patient all the pros and cons of delaying treatment in progressive disease, patient expressed full understanding, still prefer observation unless follow-up CT scan shows any evidence of progression. Patient return to clinic in [address] scan of chest abdomen and CBC CMP. - Signed By: Rukhsana Soares M.D. <<Signature on File>>
== END 2020-06-26 23:59 | disposition home or self-care (01) ==
LOC: ONCMED 05:29
PROVIDERS: PCP Family Medicine; Visit Provider Internal Medicine Hematology & Oncology
DX: C34.11 Malignant neoplasm of upper lobe, right bronchus or lung (principal); C79.31 Secondary malignant neoplasm of brain; C77.8 Secondary and unspecified malignant neoplasm of lymph nodes of multiple regions; F17.210 Nicotine dependence, cigarettes, uncomplicated; J44.9 Chronic obstructive pulmonary disease, unspecified; Z79.899 Other long term (current) drug therapy
CPT/HCPCS: 36591; 80053; 85025; 99215; G0463

== ENCOUNTER 2020-06-14 09:20 | Outpatient (CLI) | payer MEDICAID, SELFPAY ==
--- NOTE | 2020-06-14 09:28 | CT_ITS ---
WS: [id number] CT CHEST, ABDOMEN AND PELVIS WITH CONTRAST HISTORY: LUNG CANCER TECHNIQUE: Contiguous 5 mm axial imaging performed through the chest, abdomen and pelvis with IV cont rast, oral contrast has been provided. Coronal and sagittal reformats chest. Coronal and sagittal ref ormats through the abdomen and pelvis. All CT scans at [facility] use at least one of the se dose optimization techniques: automated exposure control; mA and/or kV adjustment per patient size (includes targeted exams where dose is matched to clinical indication); or iterative reconstruction. CONTRAST: Visipaque 320; 95 mL IV. DLP: 1052.62 mGy.cm COMPARISON: PET CT 04/30/[address]: Solid spiculated masses in the upper lungs bilaterally have slightly increased in size sinc e 04/30/2020. The RIGHT middle lobe mass measures 3.5 x 3.6 cm and extends to the hilum with partial e ncasement of the RIGHT main pulmonary artery. There are additional spiculations and satellite lesions and partial narrowing of the RIGHT bronchus intermedius. Additional soft tissue mass extends along t he superior major fissure towards the RIGHT upper lobe measuring 2.0 x 2.7 cm. The LEFT upper lobe sp iculated solid mass with cavitary components extends over a length of 6.2 cm x 3.6 x 4.8 cm with mild increase in size. Interstitial thickening extending from the mass is probably lymphangitic spread of tumor. There is tethering and tagging extending towards the lateral pleura. Additional small periphe ral nodules in the RIGHT middle lobe and RIGHT upper lobe are probably metastatic lesions. Chronic em physema. No effusion. There are numerous but small RIGHT paratracheal and hilar lymph nodes. Some of these lymph nodes were positive on the recent PET/CT. The largest lymph node at the RIGHT hilum measures 11 mm. Some of the se lymph nodes are contiguous with the lung masses. As compared to the prior PET/CT no progression is obvious. Mild atherosclerosis of aorta. Small hiatal hernia. Abdomen CT: Patient has a known hemangioma in the posterior RIGHT lobe of the liver which is again id entified. There is an additional low-attenuation nodule best seen on image 15 of series 3 which may b e a small cyst. Early metastatic site is not excluded. Splenic granulomata. Mild atrophy of the pancr eas. Negative gallbladder. No adrenal mass. Kidneys are enhancing normally. There is a cyst in the LE FT kidney measuring 2.2 cm. No ascites or adenopathy. Moderate diffuse fecal retention. No obstructive pattern. Pelvic CT: No free fluid in the pelvis. No pelvic adenopathy. Uterus and ovaries are negative as seen by CT. Increase in thoracic kyphosis. No evidence for metastatic disease to the bones. CT/CT chest abd pel w con* IMPRESSION: 1. Mild increase in size of the bilateral upper lobe pulmonary masses and the RIGHT middle lobe mass consistent with progression of malignancy. There are add itional satellite nodules and changes suspicious for lymphangitic spread of nathaly or especially within the LEFT upper lobe. 2. RIGHT paratracheal and bilateral hilar lymph nodes. The largest lymph node at the RIGHT hilum measures 11 mm. No increase in size or number. These lymph n odes were noted to be PET/CT positive recently. 3. Chronic emphysema. 4. Stable hemangioma RIGHT lobe of the liver. 5. Additional low-attenuation nodule measuring 5 mm in the liver could be a ve ry early metastatic site but really is too small to characterize. 6. Extensive atherosclerosis abdominal aorta. 7. No ascites or adenopathy in the abdomen or pelvis.
[2020-06-14] MEDS: barium sulfate 450 mL Oral Susp PO (09:42)
[2020-06-14] MEDS: iodixanol 320 mg/mL 100mL Btl IV (11:06)
== END 2020-06-14 09:21 | disposition home or self-care (01) ==
LOC: RAD 09:24
PROVIDERS: PCP Family Medicine; Visit Provider Internal Medicine Hematology & Oncology
DX: C34.11 Malignant neoplasm of upper lobe, right bronchus or lung (principal); I70.0 Atherosclerosis of aorta; D18.09 Hemangioma of other sites; J43.9 Emphysema, unspecified; R59.0 Localized enlarged lymph nodes
CPT/HCPCS: 71260; 74177

== ENCOUNTER 2020-07-19 05:42 | Outpatient (RCR) | payer MEDICAID, SELFPAY ==
[2020-07-19 11:33] LABS: Basophils # 0.1 10^3/uL (0.0-0.1); Basophils % 0.9 %; Eosinophils # 2.4 10^3/uL (0.0-0.8); Eosinophils % 16.8 %; Lymphocytes # 3.4 10^3/uL (0.8-4.8); Lymphocytes % 24.3 %; Mean Corpuscular HGB Conc 33.3 g/dL (30.0-36.0); Mean Corpuscular Hemoglobin 28.9 pg (28.0-34.0); Mean Corpuscular Volume 86.8 fL (81-99); Mean Platelet Volume 8.9 fL (7.4-10.4); Monocytes # 1.1 10^3/uL (0.2-0.9); Monocytes % 7.5 %; Neutrophils # 7.08 10^3/uL (1.8-7.7); Nucleated Red Blood Cells % 0 %; Platelet Count 286 10^3/cmm (130-400); Red Blood Count 4.84 10^6/uL (4.1-5.3); White Blood Count 14.2 10^3/uL (4.0-10.0)
[2020-07-19 11:57] LABS: Alanine Aminotransferase 15 U/L (0-33); Albumin Level 3.8 g/dL (3.5-5.2); Alkaline Phosphatase 122 IU/L (35-105); Anion Gap 12.1 (5-19); Aspartate Amino Transferase 20 U/L (0-32); Blood Urea Nitrogen 6 mg/dL (6-20); Calcium 9.2 mg/dL (8.5-10.5); Carbon Dioxide 26 mmol/L (22-29); Chloride 106 mmol/L (98-107); Globulin 3.2 g/dL (1.3-4.6); Glomerular Filtration Rate 102.3 mL/min (90-130); Glucose 91 mg/dL (65-115); Osmolality Calculated 287 mOsm/kg (285-295); Potassium 4.1 mmol/L (3.5-5.1); Sodium 140 mmol/L (136-145); Total Bilirubin 0.4 mg/dL (0.15-1.2)
--- NOTE | 2020-07-19 14:39 | ONC FU_ITS ---
Dr. Soares follow up note Patient: Alma Deleon Unit #: [id number]: 1960 Dicatated By: Rukhsana Soares M.D.Date of Visit:Jul 19, 2020 Onc Med Follow-up/Prog Note History of Present Illness: Mrs. Deleon is a 59-year-old female with history of progressive cough. She underwent evaluation on July 07, [address] scan of chest. It reported bilateral upper lobe masses: the mass on right side was 5.9 x 4.1 x 4.9 cm and on the left side was 4.6 x 2.8 x 2.8 cm. On 11/14/2018 patient underwent EBUS , which showed there was 90% narrowing of right upper lobe bronchus due to extensive compression, and right-sided mediastinal and hilar lymph node were enlarged and endobronchial right upper lobe and lymph node biopsies were obtained final pathology report came back poorly differentiated adenocarcinoma consistent with lung primary from right upper lobe endobronchial biopsy. And both lymph node biopsies were negative. Molecular profiling which include EGFR, ALK, ROS 1, PDL 1 and BRAF were done and it showed PDL 1 was 95% tumor cells are positive membranous positivity and rest of molecular profiling was unremarkable. Staging workup including CT PET scan and MRI brain was obtained. The CT PET scan on 12/04/2018 showed hypermetabolic centrally necrotic mass within the right upper lobe abutting adjacent pleura, major fissure, and mediastinum with tumor extension into the right superior hilum, with SUV of 13. Additional centrally necrotic hypermetabolic mass in the left upper lobe with a SUV of 20.9, abutting the adjacent pleura and left major fissure and AP window lymph nodes consistent with elfego metastatic disease. No hypermetabolic metastasis in neck abdomen or pelvis. MRI brain showed 5 mm lesions in the left temporal lobe, and left parietal lobe with mild adjacent edema. Mrs Deleon underwent CyberKnife on 01/02/2019. She was offered palliative chemotherapy plus immunotherapy. She declined and she was also referred to radiation oncology for her right-sided chest pain radiating to her neck and patient declined. With tumor being PDL 1 positive, role of immunotherapy with Keytruda was discussed and patient was willing to consider but then decided to come to [place] for further management. Ms Deleon still smokes about pack a day and has history of smoking for 30-40 years, denies alcohol use. She is still smoking about pack a day AGAINST MEDICAL ADVICE. Ms Deleon started her first cycle of chemotherapy with carboplatin/Alimta/Keytruda on March 09, 2019. She is tolerated it well. Her second cycle was given on March 30, 2019. She states since then she is feeling so much better her breathing is so much better. She states it is amazing how much better she is breathing and how much better she feels overall. Per the report from 05/16/2019 there was no comparison image available for comparison. We will call [facility] radiology and request over read as she did have a PET CT in November 2018. comparison of report indicates that the right upper lobe mass now measuring 5.8 x 3.3 cm with a peripheral uptake of SUV 4.6 was reported as 5.4 x 7.5 x 7 cm with an SUV of 13 on the November 2018 study. A left upper lobe mass measuring 5.2 x 6.4 cm on the current study with an SUV of 7.6 was compared to the November study at which time it measured 5.9 x 6.6 x 5 point centimeters with an SUV of 20.9. There is a solid right middle lobe nodule measuring 1.8 x 2.5 cm with SUV of 5.4 and small scattered mediastinal nodes demonstrating minimal FDG uptake although this may be reactive, although micrometastatic disease cannot be excluded. On review of her 05/16/2019 PET/CT study for comparison with the PET/CT from November 2018. In the interim between studies, the SUV activity has greatly improved and there has been reported decrease in size of the tumors. She had completed 4 cycles of carboplatin Alimta and Keytruda. She received Keytruda only on 06/03/2019 as she stated she was only supposed to have four cycles of chemotherapy and then pursue maintenance with immunotherapy. based on good response seen on f/u PET scan it was suggested to continue chemotherapy for 3 more cycles then repeat imaging. She has reluctantly agreed to try chemotherapy again. She states she understands why she needs it but is not looking forward to feeling washed out again. She has had consultation with Dr Gamez in ENT. She states he told her she has some scaring/calcifications/nodules on her voicebox. She states he has informed her that he can nip them right out of there . She states that he told her this is a simple procedure but the recovery she will have to be very adamant on following strict instructions. She states she feels that she can do this in put up with what ever she needs to get rid of the hoarseness so she quit sounding like a man . Her treatment was held the week of July 22, 2019 as she thought she might have mild flu symptoms . She was given a week off to allow for recovery. She was waiting to hear from Dr. Gamez's office in regards to her surgery that he was planning but apparently Dr. Gamez quit his practice in [place]. She was concerned that she was gaining weight. . She did have a thyroid panel done on 07/29/2019 showed T3 free was 2.9, normal being 2-4.4, T4 free 1.44 normal being 0.82 to 1.77. And TSH 0.23 She has persistent hoarseness of voice, she was waiting for Dr. Gamez's call for the surgery but she heard that Dr. Gamez has left [place]. She then requested a referrel to Dr. Thacker , ENT for evaluation for hoarseness. The last time she received chemotherapy was on 07/01/2019, patient has been postponing her treatment due to hoarseness and its management.finally she was seen by Dr. Thacker on 09/22/2019 and On 10/06/2019 she underwent vocal cord biopsy, results are pending. Follow-up CT PET scan done on 10/03/2019 showed malignant lung masses are now more consolidated in size on the current study, but maintain active FDG uptake, when compared with one done on 05/16/2019. The right upper lobe mass cavitation is essentially resolved, but maintain extensive central necrosis. Now measures 4.8 x 2.8 cm with SUV of 5.0 not a significant increase. The left upper lobe lesion measured 3 x 4.3 cm down from 5.2 x 6.4 cm previously but now demonstrates SUV of 14.2, up from 7.6 previouslyA new solid lesion has developed in the right upper lobe, measuring 2.4 x 1.7 cm with SUV of 20.7. The right middle lobe nodule is progressed, now measuring 2.2 x 2.6 cm with SUV of 7.3 up from 1.8 x 2.5 cm with SUV of 5.4 previously. Scattered mediastinal lymph nodes are unchanged from prior study. Ms. Deleon was referred to radiation oncology for second opinion she did see Dr. Lawson in radiation oncology on 10/14/2019. She has had a mixed response to treatment with evidence of both response and progression on the last PET/CT. She was essentially asymptomatic of her persistent disease and was not interested in pursuing any treatment which would compromise her quality of life at this time. Therefore she elected not to pursue any radiation therapy currently. Dr. Lawson did state that he would not recommend pursuing consolidative therapy in light of her absence. He states he felt the volume of the line within the treatment field to be excessive in terms of diminished functional status. Should she has disease progression, symptoms such as airway compromise, shortness of breath or chest pain, one could readdress palliative radiation at that time. She continues with immunotherapy., As per patient Dr. Thacker did vocal cord biopsy and came back with inflammatory changes no malignancy Follow-up CT PET scan done on December 26, 2019 showed right upper lobe mass continues to demonstrate central necrosis and now measures 4 x 2.6 cm with an SUV of 3.8 indicating a positive response to therapy. The complex left upper lobe lesion has a slightly progressed SUV of 15.7 now measuring 2.6 cm. Overall positive response to therapy. The left upper lobe solid lesion that previously measured 2.4 x 1.7 cm with SUV of 20.7 is now 2 x 1.6 cm with SUV of 18.8, overall positive response. Right middle lobe nodule measured 2.9 x 2.4 cm with SUV of 6.9 is not a significant change from previous study. Multiple subcentimeter subpleural pulmonary nodules are too small to characterize. She continues with Keytruda.Last dose was given on January 28, 2020 and next dose was held because of pain in her left shoulder after Keytruda infusion, which resolved Follow-up CT PET scan done on April 30, 2020 showed the left upper lobe lesion that previously measured 2.6 cm with SUV of 15.7 now measuring 4.4 x 4.6 cm with SUV of 36.1 the secondary left upper lobe lesion now consolidated with this mass. The right upper lobe lesion that previously measured 4.0 x 2.6 cm with SUV of 3.8 now measures 2.7 x 2.4 cm with SUV of 4.9. Right middle lobe mass is similarly progressed with SUV of 10.5 and measured 3.6 x 2.9 cm compared to 2.9 x 2.4 cm with SUV of 6.9 previously. There is a new FDG activity in the right paratracheal bilateral hilar and subcarinal nodes.Came for follow-up, denies any specific complaints, no fever chills, no nausea or vomiting, no diarrhea constipation, she was prescribed home oxygen, as per patient she is not using any more oxygen as she was not tolerating it well. But no hemoptysis or hematemesis, no headaches blurred vision double vision, Follow-up CT scan of chest done on June 14, 2020 showed mild increase in size of bilateral upper lobe pulmonary masses and the right middle lobe mass consistent with progression of malignancy left upper lobe mass now measures 6.2 x 3.6 x 4.8 cm compared to 4.4 x 4.6 and right middle lobe mass measures 3.5 x 3.6 cm compared to 3.8 x 2.9 cm on April 30, 2020. There are additional satellite nodules and changes suspicious for lymphangitic spread of the tumor especially in the left upper lobe., Chronic emphysema, stable hemangioma right lobe of the liver, additional low-attenuation nodule measuring 5 mm in the liver could be very early metastatic disease. Came for follow-up, complaining of generalized body aches, as per patient she received second dose of Covid vaccine today and she was told about possible flulike symptoms. Also complaining of cough with whitish phlegm, she was slightly feverish this morning. But no nausea or vomiting no diarrhea or constipation, no headaches blurred vision double vision, still smoke about a pack a day. No new bony pains, appetite is good, overall feeling reasonably well since of Keytruda since March 2020 . Medications: Afrin 12 Hour 2 Alanson(s) (of 0.05 %) Solution Nasal b.i.d. PRN, Albuterol Sulfate 2 Puff(s) (of 108 (90 base) mcg/act) Aerosol Powder, Breath Activated Inhalation q 6 hours, Azelastine & Fluticasone 2 Puff(s) (of 137 & 50 mcg/act) Therapy Pack Nasal, Benzonatate 1 Capsule (of 200 mg) Oral 6x/d PRN, CeleXA 1 Tablet (of 20 mg) Oral daily, Centrum Silver Adult 50+ 1 Tablet Oral daily, Combivent Respimat Aerosol, solution Inhalation, Cyclobenzaprine HCl 1 - 2 Tablet (of 5 mg) Oral t.i.d. PRN, Flonase Suspension Nasal, Folic Acid 1 (1 mg) Tablet Oral daily, HYDROcodone-Acetaminophen 1 Tablet (of 5-325 mg) Oral four times a day, methylPREDNISolone 1 Tablet (of 4 mg) Oral, Tiotropium [place] Monohydrate 1 Puff(s) (of 2.5 mcg/act) Aerosol, solution Inhalation q 24 hours Allergies: iv contrast and Penicillin. Review of Systems: Review of Systems is not available for this patient. Vital Signs: Performed on Jul 19, 2020 13:07 Height - 63.00 in Weight - 151.0 lbs (HIGH) BSA - 1.72 sq.m BMI - 26.75 Temperature - 97.8 F (LOW) Pulse - 94 /min Respiration - 17 /min BP - 118/70 mm(hg) O2 Sat - 98 % Pain - 0 Performance Status: 1 - No physically strenuous activity, but ambulatory and able to carry out light or sedentary work (e.g. office work, light house work). (ECOG) Physical Examination: ENMT - No mouth sores, no thrush, Respiratory - Poor air entry otherwise clear, Cardiovascular - Regular rate and rhythm of heart, Abdomen - Soft, bowel sounds present, Extremities - No visible edema. Lab/Imaging: Test performed on Jun 07, 2020 14:10 Sodium 139 mmol/L Potassium 4.0 mmol/L Chloride 101 mmol/L CO2 29 mmol/L Anion Gap 13.0 BUN 8 mg/dL Creatinine 0.6 mg/dL Cr Clearance (Est) 107.14 mL/min eGFR 102.3 mL/min Glucose 72 mg/dL Osmolality - Calculated 285 mOsm/kg Calcium 9.1 mg/dL Protein, Total 6.9 g/dL Albumin 3.9 g/dL Globulin 3.0 g/dL Bilirubin, Total 0.3 mg/dL ALT (SGPT) 19 U/L AST (SGOT) 22 U/L Alkaline Phosphatase 125 IU/L WBC 11.5 10 3/uL RBC 4.77 10 6/uL HGB 13.9 g/dL HCT 41.8 % MCV 87.6 fL MCH 29.1 pg MCHC 33.3 g/dL RDW 12.4 % Platelet Count 236 10 3/cmm MPV 8.7 fL Neutrophils 5.85 10 3/uL Lymphocytes 2.5 10 3/uL Monocytes 1.0 10 3/uL Eosinophils 2.0 10 3/uL Basophils 0.1 10 3/uL Neutrophil % 50.9 % Lymphocyte % 21.5 % Monocyte % 8.9 % Eosinophil % 17.7 % Basophils % 0.7 % NRBC % 0 % Test performed on May 10, 2020 08:20 TSH 1.00 uIU/mL Impression: Stage IV, 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 N Stage IV, M1 a due to separate tumor nodule in the contralateral lobe and brain metastases 5 mm ???[address] PET scan done on 12/04/2018 showed hypermetabolic centrally necrotic mass within the right upper lobe abutting adjacent pleura, major fissure and mediastinum with tumor extension into right superior hilum. Additional centrally necrotic hypermetabolic mass within left upper lobe abutting the adjacent pleura and left major fissure with tumor extension to the left superior hilum. Hypermetabolic right hilar, precarinal, and AP window lymph nodes consistent with a node metastases. No hypermetabolic metastasis within the neck, abdomen or pelvis. MRI scan of the head showed 5 mm ???2 lesion status post CyberKnife on 01/02/2019. Active smoker AGAINST MEDICAL ADVICE; COPD Ms. Deleon began her first cycle of carbo Alimta Keytruda on March 09, 2019. She is tolerated it well thus far. She states that after the second cycle of chemotherapy her breathing is so much better that is amazing . She states that she is able to breathe through her nose when she is sleeping and that is something she has not done in years. She states overall she is feeling so much better. regarding her PET CT from 05/16/2019. she did have a PET CT in November 2018. This PET CT was NOT performed at [facility] in the interim just comparison of report indicates that the right upper lobe mass now measuring 5.8 x 3.3 cm with a peripheral uptake of SUV 4.6 was reported as 5.4 x 7.5 x 7 cm with an SUV of 13 on the November 2018 study. A left upper lobe mass measuring 5.2 x 6.4 cm on the current study with an SUV of 7.6 was compared to the November study at which time it measured 5.9 x 6.6 x 5 point centimeters with an SUV of 20.9. There is a solid right middle lobe nodule measuring 1.8 x 2.5 cm with SUV of 5.4 and small scattered mediastinal nodes demonstrating minimal FDG uptake although this may be reactive, although micrometastatic disease cannot be excluded. tolerated palliative therapy with carboplatin/Alimta/Keytruda well. Her follow-up CT PET scan from 04/2019 showed good response to the treatment. discussed with Ms Deleon further treatment plans. The plan earlier plan was to give her 4 cycles of chemotherapy along with immunotherapy and restage her. Her follow-up PET scan in April 2019 shows good response- no evidence of distance metastases, but not resolution of disease. In that case, She was encouraged to continue with same regimen e.g. carboplatin/Alimta/Keytruda for 3 more cycles and restage with CT PET scan. If it shows further improvement and her performance status is till good, she may need to continue full treatment; if on the other hand it shows stable disease then will consider switching her to maintenance therapy with Keytruda alone. Ms Deleon was due to resume Carboplatin/Alimta/Keytruda on 07/01/2019 and after that she has been postponing her chemotherapy as she was undergoing evaluation for hoarseness of voice. , as per ENT it was due to some nodules/calcifications of vocal cord. We once again reviewed the PET/CT imaging and discussed results. discussed with Ms. Pancho Lawson's (radiation oncology) impression that she should continue immunotherapy until significant disease progression at which time we could consider pallative radiation. PET CT scan from April 2019 to October 03, 2019 revealed reduction in size in the lung masses cavitation in the right upper lobe has resolved. left upper lobe lesion had decreased in size from 5.2 x 6.4 to 3.0 x 4.3 cm, a new solid lesion develop in the right upper lobe inferiorly measuring 2.4 x 1.7 cm, In the right middle lobe a nodule had progressed now measuring 2.3 x 2.6 cm from 1.8 x 2.5 cm. There was mediastinal adenopathy noted unchanged no evidence for distant metastatic disease. She started single agent Keytruda on 09/10/2019 and is currently on every 3 week treatment plan. She began Keytruda in combination with chemotherapy on 03/09/2019. She was having worsening shoulder pain and an x-ray C-spine and left shoulder upper arm done on March 29, 2020 showed degenerative disc disease at multiple level in C-spine, degenerative arthritic spurring at C5-C6, and C6 - C7 and left shoulder shows small lesser tuberosity osteoarthritic spur and complex left upper lobe lung mass consistent with a history of lung cancer. As far as left arm pain/left neck stiffness is concerned probably due to degenerative disc disease and C-spine as well as left shoulder arthritis or tendinitis, patient was advised to try Motrin 1 to 2 tablets 4 to 6-hour for 2 days and also use heating pad if no improvement may consider referral to orthopedic for evaluation. Patient continued with maintenance therapy Keytruda alone till March 29, 2020, when patient decided to stop treatment and follow-up CT PET scan done on April 30, 2020 shows mild progression, at that time discussed with patient regarding starting her on chemo immunotherapy with Keytruda/carboplatin/Taxol but patient declined rather preferred observation and follow-up CT scan of chest done on June 14, 2020 showed further mild progression in both bilateral upper lobe nodule as well as right middle lobe nodule and additional satellite nodules and changes suspicious for lymphangitic spread of the tumor especially with the left upper lobe and low-attenuation nodule measuring 5 mm in the liver could be very early metastatic disease. Plan: Discussed with patient regarding her labs white blood count 14.2 hemoglobin 14 hematocrit 42 platelets 286,000 CMP within normal limits and CT scan of chest findings which shows further disease progression Clinically, patient doing reasonably well now with chronic but productive cough with whitish phlegm, mildly feverish this morning but also received second dose of Covid vaccine. Patient still smoke about pack a day, CT scan of chest findings were discussed and patient was advised that there is a disease progression and patient opted for resuming Keytruda alone knowing the risk versus benefits associated with Keytruda alone versus chemoimmunotherapy with Keytruda/carboplatin/Taxol. Patient wants to start her immunotherapy next week, in the meantime we will give her prescription for Z-Wiliam and patient was advised to quit smoking was offered any assistance she may need Patient return to clinic in 1 week to resume Keytruda and then followed by CT PET scan after 3 doses to assess the disease status or response. - Signed By: Rukhsana Soares M.D. <<Signature on File>>
== END 2020-07-24 23:59 | disposition home or self-care (01) ==
LOC: ONCMED 05:42
PROVIDERS: PCP Family Medicine; Visit Provider Internal Medicine Hematology & Oncology
DX: C34.11 Malignant neoplasm of upper lobe, right bronchus or lung (principal); C77.8 Secondary and unspecified malignant neoplasm of lymph nodes of multiple regions; C79.31 Secondary malignant neoplasm of brain; J44.9 Chronic obstructive pulmonary disease, unspecified; F17.210 Nicotine dependence, cigarettes, uncomplicated; R05 Cough; R50.9 Fever, unspecified; Z79.899 Other long term (current) drug therapy
CPT/HCPCS: 36591; 80053; 85025; 99215

== ENCOUNTER 2020-08-11 06:08 | Outpatient (RCR) | payer MEDICAID, SELFPAY ==
[2020-08-11 09:26] LABS: Basophils # 0.1 10^3/uL (0.0-0.1); Basophils % 0.7 %; Eosinophils # 0.3 10^3/uL (0.0-0.8); Eosinophils % 2.3 %; Hematocrit 39.1 % (37.0-47.0); Hemoglobin 13.1 g/dL (11.5-15.3); Lymphocytes # 1.6 10^3/uL (0.8-4.8); Lymphocytes % 11.9 %; Mean Corpuscular HGB Conc 33.5 g/dL (30.0-36.0); Mean Corpuscular Hemoglobin 28.9 pg (28.0-34.0); Mean Corpuscular Volume 86.3 fL (81-99); Mean Platelet Volume 8.8 fL (7.4-10.4); Monocytes # 0.7 10^3/uL (0.2-0.9); Neutrophils # 10.63 10^3/uL (1.8-7.7); Neutrophils % 79.6 %; Nucleated Red Blood Cells % 0 %; Platelet Count 293 10^3/cmm (130-400); Red Blood Count 4.53 10^6/uL (4.1-5.3); Red Cell Distribution Width 12.8 % (12.1-15.1); White Blood Count 13.3 10^3/uL (4.0-10.0)
[2020-08-11 09:46] LABS: Alanine Aminotransferase 10 U/L (0-33); Albumin Level 3.9 g/dL (3.5-5.2); Alkaline Phosphatase 102 IU/L (35-105); Anion Gap 14.8 (5-19); Aspartate Amino Transferase 12 U/L (0-32); Blood Urea Nitrogen 12 mg/dL (6-20); Calcium 9.1 mg/dL (8.5-10.5); Carbon Dioxide 24 mmol/L (22-29); Chloride 102 mmol/L (98-107); Globulin 2.9 g/dL (1.3-4.6); Glomerular Filtration Rate 102.3 mL/min (90-130); Glucose 89 mg/dL (65-115); Osmolality Calculated 283 mOsm/kg (285-295); Potassium 3.8 mmol/L (3.5-5.1); Sodium 137 mmol/L (136-145); Total Bilirubin 0.2 mg/dL (0.15-1.2); Total Protein 6.8 g/dL (6.6-8.7)
--- NOTE | 2020-08-21 23:19 | ONC FU_ITS ---
[facility] Patient Note Patient: Alma Deleon Unit #: [id number]: 1960 Dictated By: Elly HarrisDate of Visit: Aug 11, 2020 Onc MED Follow-Up/Prog Note Chief Complaint: Metastatic adenocarcinoma of the lung History of Present Illness: Mrs. Deleon is a 59-year-old female with history of progressive cough. She underwent evaluation on July 07, [address] scan of chest. It reported bilateral upper lobe masses: the mass on right side was 5.9 x 4.1 x 4.9 cm and on the left side was 4.6 x 2.8 x 2.8 cm. On 11/14/2018 patient underwent EBUS , which showed there was 90% narrowing of right upper lobe bronchus due to extensive compression, and right-sided mediastinal and hilar lymph node were enlarged and endobronchial right upper lobe and lymph node biopsies were obtained final pathology report came back poorly differentiated adenocarcinoma consistent with lung primary from right upper lobe endobronchial biopsy. And both lymph node biopsies were negative. Molecular profiling which include EGFR, ALK, ROS 1, PDL 1 and BRAF were done and it showed PDL 1 was 95% tumor cells are positive membranous positivity and rest of molecular profiling was unremarkable. Staging workup including CT PET scan and MRI brain was obtained. The CT PET scan on 12/04/2018 showed hypermetabolic centrally necrotic mass within the right upper lobe abutting adjacent pleura, major fissure, and mediastinum with tumor extension into the right superior hilum, with SUV of 13. Additional centrally necrotic hypermetabolic mass in the left upper lobe with a SUV of 20.9, abutting the adjacent pleura and left major fissure and AP window lymph nodes consistent with elfego metastatic disease. No hypermetabolic metastasis in neck abdomen or pelvis. MRI brain showed 5 mm lesions in the left temporal lobe, and left parietal lobe with mild adjacent edema. Mrs Deleon underwent CyberKnife on 01/02/2019. She was offered palliative chemotherapy plus immunotherapy. She declined and she was also referred to radiation oncology for her right-sided chest pain radiating to her neck and patient declined. With tumor being PDL 1 positive, role of immunotherapy with Keytruda was discussed and patient was willing to consider but then decided to come to [place] for further management. Ms Deleon still smokes about pack a day and has history of smoking for 30-40 years, denies alcohol use. She is still smoking about pack a day AGAINST MEDICAL ADVICE. Ms Deleon started her first cycle of chemotherapy with carboplatin/Alimta/Keytruda on March 09, 2019. She is tolerated it well. Her second cycle was given on March 30, 2019. She states since then she is feeling so much better her breathing is so much better. She states it is amazing how much better she is breathing and how much better she feels overall. Per the report from 05/16/2019 there was no comparison image available for comparison. We will call [facility] radiology and request over read as she did have a PET CT in November 2018. comparison of report indicates that the right upper lobe mass now measuring 5.8 x 3.3 cm with a peripheral uptake of SUV 4.6 was reported as 5.4 x 7.5 x 7 cm with an SUV of 13 on the November 2018 study. A left upper lobe mass measuring 5.2 x 6.4 cm on the current study with an SUV of 7.6 was compared to the November study at which time it measured 5.9 x 6.6 x 5 point centimeters with an SUV of 20.9. There is a solid right middle lobe nodule measuring 1.8 x 2.5 cm with SUV of 5.4 and small scattered mediastinal nodes demonstrating minimal FDG uptake although this may be reactive, although micrometastatic disease cannot be excluded. On review of her 05/16/2019 PET/CT study for comparison with the PET/CT from November 2018. In the interim between studies, the SUV activity has greatly improved and there has been reported decrease in size of the tumors. She had completed 4 cycles of carboplatin Alimta and Keytruda. She received Keytruda only on 06/03/2019 as she stated she was only supposed to have four cycles of chemotherapy and then pursue maintenance with immunotherapy. based on good response seen on f/u PET scan it was suggested to continue chemotherapy for 3 more cycles then repeat imaging. She has reluctantly agreed to try chemotherapy again. She states she understands why she needs it but is not looking forward to feeling washed out again. She has had consultation with Dr Gamez in ENT. She states he told her she has some scaring/calcifications/nodules on her voicebox. She states he has informed her that he can nip them right out of there . She states that he told her this is a simple procedure but the recovery she will have to be very adamant on following strict instructions. She states she feels that she can do this in put up with what ever she needs to get rid of the hoarseness so she quit sounding like a man . Her treatment was held the week of July 22, 2019 as she thought she might have mild flu symptoms . She was given a week off to allow for recovery. She was waiting to hear from Dr. Gamez's office in regards to her surgery that he was planning but apparently Dr. Gamez quit his practice in [place]. She was concerned that she was gaining weight. . She did have a thyroid panel done on 07/29/2019 showed T3 free was 2.9, normal being 2-4.4, T4 free 1.44 normal being 0.82 to 1.77. And TSH 0.23 She has persistent hoarseness of voice, she was waiting for Dr. Gamez's call for the surgery but she heard that Dr. Gamez has left [place]. She then requested a referrel to Dr. Thacker , ENT for evaluation for hoarseness. The last time she received chemotherapy was on 07/01/2019, patient has been postponing her treatment due to hoarseness and its management.finally she was seen by Dr. Thacker on 09/22/2019 and On 10/06/2019 she underwent vocal cord biopsy, results are pending. Follow-up CT PET scan done on 10/03/2019 showed malignant lung masses are now more consolidated in size on the current study, but maintain active FDG uptake, when compared with one done on 05/16/2019. The right upper lobe mass cavitation is essentially resolved, but maintain extensive central necrosis. Now measures 4.8 x 2.8 cm with SUV of 5.0 not a significant increase. The left upper lobe lesion measured 3 x 4.3 cm down from 5.2 x 6.4 cm previously but now demonstrates SUV of 14.2, up from 7.6 previouslyA new solid lesion has developed in the right upper lobe, measuring 2.4 x 1.7 cm with SUV of 20.7. The right middle lobe nodule is progressed, now measuring 2.2 x 2.6 cm with SUV of 7.3 up from 1.8 x 2.5 cm with SUV of 5.4 previously. Scattered mediastinal lymph nodes are unchanged from prior study. Ms. Deleon was referred to radiation oncology for second opinion she did see Dr. Lawson in radiation oncology on 10/14/2019. She has had a mixed response to treatment with evidence of both response and progression on the last PET/CT. She was essentially asymptomatic of her persistent disease and was not interested in pursuing any treatment which would compromise her quality of life at this time. Therefore she elected not to pursue any radiation therapy currently. Dr. Lawson did state that he would not recommend pursuing consolidative therapy in light of her absence. He states he felt the volume of the line within the treatment field to be excessive in terms of diminished functional status. Should she has disease progression, symptoms such as airway compromise, shortness of breath or chest pain, one could readdress palliative radiation at that time. She continues with immunotherapy., As per patient Dr. Thacker did vocal cord biopsy and came back with inflammatory changes no malignancy Follow-up CT PET scan done on December 26, 2019 showed right upper lobe mass continues to demonstrate central necrosis and now measures 4 x 2.6 cm with an SUV of 3.8 indicating a positive response to therapy. The complex left upper lobe lesion has a slightly progressed SUV of 15.7 now measuring 2.6 cm. Overall positive response to therapy. The left upper lobe solid lesion that previously measured 2.4 x 1.7 cm with SUV of 20.7 is now 2 x 1.6 cm with SUV of 18.8, overall positive response. Right middle lobe nodule measured 2.9 x 2.4 cm with SUV of 6.9 is not a significant change from previous study. Multiple subcentimeter subpleural pulmonary nodules are too small to characterize. She continues with Keytruda.Last dose was given on January 28, 2020 and next dose was held because of pain in her left shoulder after Keytruda infusion, which resolved Follow-up CT PET scan done on April 30, 2020 showed the left upper lobe lesion that previously measured 2.6 cm with SUV of 15.7 now measuring 4.4 x 4.6 cm with SUV of 36.1 the secondary left upper lobe lesion now consolidated with this mass. The right upper lobe lesion that previously measured 4.0 x 2.6 cm with SUV of 3.8 now measures 2.7 x 2.4 cm with SUV of 4.9. Right middle lobe mass is similarly progressed with SUV of 10.5 and measured 3.6 x 2.9 cm compared to 2.9 x 2.4 cm with SUV of 6.9 previously. There is a new FDG activity in the right paratracheal bilateral hilar and subcarinal nodes.Came for follow-up, denies any specific complaints, no fever chills, no nausea or vomiting, no diarrhea constipation, she was prescribed home oxygen, as per patient she is not using any more oxygen as she was not tolerating it well. But no hemoptysis or hematemesis, no headaches blurred vision double vision, Follow-up CT scan of chest done on June 14, 2020 showed mild increase in size of bilateral upper lobe pulmonary masses and the right middle lobe mass consistent with progression of malignancy left upper lobe mass now measures 6.2 x 3.6 x 4.8 cm compared to 4.4 x 4.6 and right middle lobe mass measures 3.5 x 3.6 cm compared to 3.8 x 2.9 cm on April 30, 2020. There are additional satellite nodules and changes suspicious for lymphangitic spread of the tumor especially in the left upper lobe., Chronic emphysema, stable hemangioma right lobe of the liver, additional low-attenuation nodule measuring 5 mm in the liver could be very early metastatic disease. Ms Deleon's last immunotherapy treatment with pembrolizumab was on 03/29/2020. She received second dose of Covid vaccine on 07/19/2020. Overall, she states she has been feeling reasonably well since off Keytruda since March 2020. Mrs. Deleon is here today for follow-up. She is due to resume her immunotherapy with pembrolizumab today. She states that she has had significant shortness of breath. She is having a productive cough of thick yellow-greenish sputum. She states that she is doing Mucinex and drinking 80 ounces of water and just cannot seem to get it up . She was due to start back on her immunotherapy today but that will be postponed. She has symptoms of upper respiratory. She has had persistent cough. She states it is keeping her up at night. She is currently on antibiotics per Dr Rievra (pulmonology). She is on moxifloxacin 400 mg daily x 7 days and Prednisone 40 mg daily x [address] Rivera's office note from 08/08/2020. She denies any new pain other than with the cough. She denies any diarrhea or constipation. She denies nausea or vomiting. She states prior to the upper respiratory infection she would been eating well and felt good overall. Her energy have been good. Her energy is now okay . She states that she just feels tired and short of breath today. She states she thinks she is some better after seeing Dr. Rivera on 08 August. She is due to see him back in 2 months. Her ECOG today is 1. Past Medical History: Chronic obstructive pulmonary disease Gastroesophageal reflux Past Surgical History: Covid in 2020 Covid in 2019 Throat biopsy in 2019 Allergies: iv contrast and Penicillin. Medications: Afrin 12 Hour 2 [place](s) (of 0.05 %) Solution Nasal b.i.d. PRN Albuterol Sulfate 2 Puff(s) (of 108 (90 base) mcg/act) Aerosol Powder, Breath Activated Inhalation q 6 hours Azelastine & Fluticasone 2 Puff(s) (of 137 & 50 mcg/act) Therapy Pack Nasal Benzonatate 1 Capsule (of 200 mg) Oral 6x/d PRN CeleXA 1 Tablet (of 20 mg) Oral daily Centrum Silver Adult 50+ 1 Tablet Oral daily Combivent Respimat Aerosol, solution Inhalation Cyclobenzaprine HCl 1 - 2 Tablet (of 5 mg) Oral t.i.d. PRN Flonase Suspension Nasal Folic Acid 1 (1 mg) Tablet Oral daily HYDROcodone-Acetaminophen 1 Tablet (of 5-325 mg) Oral four times a day Levaquin 1 Tablet (of 750 mg) Oral daily methylPREDNISolone 1 Tablet (of 4 mg) Oral predniSONE 1 Tablet (of 20 mg) Oral daily for 5 days Tiotropium [place] Monohydrate 1 Puff(s) (of 2.5 mcg/act) Aerosol, solution Inhalation q 24 hours Family History: pt was raised in the foster care. Social History: Ms. Deleon is and she is a disabled. She is a daily smoker who has smoked 0.5 packs/day for 41 years. She has no history of drinking. Review Of Symptoms: Constitutional Denies fevers, chills, night sweats, excessive fatigue or weight loss. Tired-lower back pain. Left shoulder pain Allergic/Immunologic No reactions. Eyes Denies significant visual changes. No diplopia. No amaurosis. ENMT Denies changes in hearing, mouth sores, difficulty or changes in swallowing ability. She is still having hoarseness. Hematologic/Lymphatic Denies easy bruising or bleeding. The patient denies any tender or palpable lymph nodes. Respiratory see above Cardiovascular Denies anginal chest pain, palpitations or orthopnea. Gastrointestinal Denies nausea, vomiting, diarrhea, GI bleeding, or constipation. Denies change in bowel habits and/or stool color, no heartburn or early satiety. Genitourinary (F) No hematuria, hesitancy, incontinence, vaginal bleeding, discharge or other problems with urination. Musculoskeletal Denies joint pain, swelling or redness. No decreased range of motion. Shoulder pain as above. Integumentary Denies chronic rashes, inflammation, ulcerations or skin changes. Neurologic Denies blurred vision, and no areas of focal weakness or numbness. Normal gait. No sensory problems. Psychiatric Denies insomnia, depression, fran or mood swings. Vital Signs: Performed on Aug 11, 2020 11:39 Height - 63.00 in Weight - 152.2 lbs (HIGH) BSA - 1.72 sq.m BMI - 26.96 Temperature - 96.9 F (LOW) Pulse - 93 /min Respiration - 18 /min BP - 124/79 mm(hg) O2 Sat - 96 % Pain - 0,1 - No physically strenuous activity, but ambulatory and able to carry out light or sedentary work (e.g. office work, light house work). (ECOG) Physical Examination: Constitutional Alert, oriented, no acute distress. Skin pink, warm and dry. Head Normocephalic; atraumatic. Eyes Conjunctivae and sclerae are clear and without icterus. Pupils are reactive and equal. ENMT Sinuses are mildly tender. No oral exudates, ulcers, masses, thrush or mucositis. Neck Supple without masses or thyromegaly. No jugular venous distension. Hematologic/Lymphatic No petechiae or purpura. No tender or palpable lymph nodes in the cervical or supraclavicular Respiratory Lungs are diminished bilaterally to auscultation. Bilateral expiratory wheezes that do not clear with cough. Cardiovascular Regular rate and rhythm of heart without murmurs,clicks, gallops or rubs. Abdomen Non-tender, non-distended, no masses, ascites. No guarding or rebound tenderness. No pulsatile masses. Back/Spine Non-tender to palpation. Extremities No visible deformities, no cyanosis, clubbing or edema. Musculoskeletal No tenderness or swelling, normal range of motion without obvious weakness with right arm, limited ROM with left arm/shoulder with weakness noted. Integumentary No rashes or lesions. Neurologic No sensory or motor deficits, normal cerebellar function, normal gait. Psychiatric Alert and oriented times three. Coherent speech. Verbalizes understanding of our discussions today. Laboratory:Test performed on Aug 11, 2020 08:57 Sodium 137 mmol/L Potassium 3.8 mmol/L Chloride 102 mmol/L CO2 24 mmol/L Anion Gap 14.8 BUN 12 mg/dL Creatinine 0.6 mg/dL Cr Clearance (Est) 110.03 mL/min eGFR 102.3 mL/min Glucose 89 mg/dL Osmolality - Calculated 283 mOsm/kg Calcium 9.1 mg/dL Protein, Total 6.8 g/dL Albumin 3.9 g/dL Globulin 2.9 g/dL Bilirubin, Total 0.2 mg/dL ALT (SGPT) 10 U/L AST (SGOT) 12 U/L Alkaline Phosphatase 102 IU/L WBC 13.3 10 3/uL RBC 4.53 10 6/uL HGB 13.1 g/dL HCT 39.1 % MCV 86.3 fL MCH 28.9 pg MCHC 33.5 g/dL RDW 12.8 % Platelet Count 293 10 3/cmm MPV 8.8 fL Neutrophils 10.63 10 3/uL Lymphocytes 1.6 10 3/uL Monocytes 0.7 10 3/uL Eosinophils 0.3 10 3/uL Basophils 0.1 10 3/uL Neutrophil % 79.6 % Lymphocyte % 11.9 % Monocyte % 5.0 % Eosinophil % 2.3 % Basophils % 0.7 % NRBC % 0 % Test performed on May 10, 2020 08:20 TSH 1.00 uIU/mL Impression: Stage IV, 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 Stage IV, M1 a due to separate tumor nodule in the contralateral lobe and brain metastases 5 mm ???[address] PET scan done on 12/04/2018 showed hypermetabolic centrally necrotic mass within the right upper lobe abutting adjacent pleura, major fissure and mediastinum with tumor extension into right superior hilum. Additional centrally necrotic hypermetabolic mass within left upper lobe abutting the adjacent pleura and left major fissure with tumor extension to the left superior hilum. Hypermetabolic right hilar, precarinal, and AP window lymph nodes consistent with a node metastases. No hypermetabolic metastasis within the neck, abdomen or pelvis. MRI scan of the head showed 5 mm ???2 lesion status post CyberKnife on 01/02/2019. Active smoker AGAINST MEDICAL ADVICE; COPD Ms. Deleon began her first cycle of carbo Alimta Keytruda on March 09, 2019. She is tolerated it well thus far. She states that after the second cycle of chemotherapy her breathing is so much better that is amazing . She states that she is able to breathe through her nose when she is sleeping and that is something she has not done in years. She states overall she is feeling so much better. regarding her PET CT from 05/16/2019. she did have a PET CT in November 2018. This PET CT was NOT performed at [facility] in the interim just comparison of report indicates that the right upper lobe mass now measuring 5.8 x 3.3 cm with a peripheral uptake of SUV 4.6 was reported as 5.4 x 7.5 x 7 cm with an SUV of 13 on the November 2018 study. A left upper lobe mass measuring 5.2 x 6.4 cm on the current study with an SUV of 7.6 was compared to the November study at which time it measured 5.9 x 6.6 x 5 point centimeters with an SUV of 20.9. There is a solid right middle lobe nodule measuring 1.8 x 2.5 cm with SUV of 5.4 and small scattered mediastinal nodes demonstrating minimal FDG uptake although this may be reactive, although micrometastatic disease cannot be excluded. tolerated palliative therapy with carboplatin/Alimta/Keytruda well. Her follow-up CT PET scan from 04/2019 showed good response to the treatment. discussed with Ms Deleon further treatment plans. The plan earlier plan was to give her 4 cycles of chemotherapy along with immunotherapy and restage her. Her follow-up PET scan in April 2019 shows good response- no evidence of distance metastases, but not resolution of disease. In that case, She was encouraged to continue with same regimen e.g. carboplatin/Alimta/Keytruda for 3 more cycles and restage with CT PET scan. If it shows further improvement and her performance status is till good, she may need to continue full treatment; if on the other hand it shows stable disease then will consider switching her to maintenance therapy with Keytruda alone. Ms Deleon was due to resume Carboplatin/Alimta/Keytruda on 07/01/2019 and after that she has been postponing her chemotherapy as she was undergoing evaluation for hoarseness of voice. , as per ENT it was due to some nodules/calcifications of vocal cord. PET CT scan from April 2019 to October 03, 2019 revealed reduction in size in the lung masses cavitation in the right upper lobe has resolved. left upper lobe lesion had decreased in size from 5.2 x 6.4 to 3.0 x 4.3 cm, a new solid lesion develop in the right upper lobe inferiorly measuring 2.4 x 1.7 cm, In the right middle lobe a nodule had progressed now measuring 2.3 x 2.6 cm from 1.8 x 2.5 cm. There was mediastinal adenopathy noted unchanged no evidence for distant metastatic disease. We once again reviewed the PET/CT imaging and discussed results. The results were discussed with Ms. Deleon, per Dr. Lawson's (radiation oncology) impression- she should continue immunotherapy until significant disease progression at which time we could consider pallative radiation. She started single agent Keytruda on 09/10/2019 and continued on an every 3 week treatment plan. She was having worsening shoulder pain and an x-ray C-spine and left shoulder upper arm done on March 29, 2020 showed degenerative disc disease at multiple level in C-spine, degenerative arthritic spurring at C5-C6, and C6 - C7 and left shoulder shows small lesser tuberosity osteoarthritic spur and complex left upper lobe lung mass consistent with a history of lung cancer. As far as left arm pain/left neck stiffness is concerned probably due to degenerative disc disease and C-spine as well as left shoulder arthritis or tendinitis, patient was advised to try Motrin 1 to 2 tablets 4 to 6-hour for 2 days and also use heating pad if no improvement may consider referral to orthopedic for evaluation. Ms Deleon continued with maintenance therapy Keytruda alone till March 29, 2020, when patient decided to stop treatment. Follow-up PET/CT scan done on April 30, 2020 shows mild progression, at that time discussed with patient regarding starting her on chemo immunotherapy with Keytruda/carboplatin/Taxol but patient declined rather preferred observation. She has follow-up CT scan of chest done on June 14, 2020 which showed further mild progression in both bilateral upper lobe nodule as well as right middle lobe nodule and additional satellite nodules and changes suspicious for lymphangitic spread of the tumor especially with the left upper lobe and low-attenuation nodule measuring 5 mm in the liver could be very early metastatic disease. She has agreed to resume single agent immunotherapy. Her treatment plan is to repeat her PET/CT after 3 cycles to assess disease status. Plan: PROBLEMS ADDRESSED TODAY 1. Stage IV poorly differentiated metastatic adenocarcinoma the right lung. She had a separate tumor nodule in the contralateral lobe and brain metastasis 5 mm x 2. She did have CyberKnife therapy for the brain mets. She has had chemotherapy with carboplatin Alimta Keytruda which began on March 09, 2019. She began single agent Keytruda on 09/10/2019. Her last dose of Keytruda was on March 29, 2020. She had opted to just continue with observation at that time. Unfortunately follow-up CT scan of the chest on June 14, 2020 reported further mild progression in both bilateral upper lobe nodules as well as the right middle lobe nodule. There was a satellite nodule and changes suspicious for lymphangitic spread of the tumor especially within the left upper lobe. There was a low-attenuation nodule measuring 5 mm in the liver that could be very early metastatic disease. She was due to resume her immunotherapy but this has been delayed due to suspected side effects of her second COVID-19 immunization and now upper respiratory infection/rhinosinusitis. She is currently on antibiotics and prednisone 40 mg daily. A. We will hold her planned immunotherapy with pembrolizumab today due to high-dose steroid use and upper respiratory/rhinosinusitis. B. Today's labs reviewed in detail and discussed with Ms. Deleon and a copy was given to her. WBC 13.3 hemoglobin 13.1 platelets are 93,000 ANC is 10,630. Potassium 3.8 random glucose 89 creatinine 0.9 LFTs are normal. C. She will continue her current antibiotic therapy D. She will continue prednisone 40 mg daily for the next 4 to 5 days and gradually try to wean down to below 20 mg within the next 2 weeks if possible. E. When she resumes immunotherapy the follow-up plan will be to repeat PET/CT after 3 cycles of the immunotherapy to assess disease status. 2. COPD/acute rhinosinusitis. A. Continue current steroid dosing of 40 mg as indicated above. This was prescribed by Dr. Rivera in pulmonology. B. Continue current antibiotic. She will have Levaquin 750 on hand in the event that within 7 days she is not responding to the current antibiotic. She has only been on it for 2 days at this point. C. Continue Mucinex and fluid intake of at least 80 ounces daily. She was reminded that the max dose of Mucinex is 1200 mg twice daily. D. She states she has resumed Spiriva as of yesterday. 3. Chronic pain due to degenerative disc disease/stage IV lung cancer A. She is currently using Bardolph 02/26/2025 1 or 2 every 4-6 hours as needed pain. She will be given a new written prescription for [address] Marquez's authorization (he is covering for Dr. Soares today). 4. Follow-up plan A. We will plan to see her back in 2 weeks for follow-up. If she is recovered from her upper respiratory/bronchitis will consider resuming her immunotherapy. B. She will need to be weaned below 20 mg of prednisone daily prior to resuming her immunotherapy. C. Labs were not ordered for her return visit. If we like to treat her we could obtain baseline CBC CMP and TSH at that time. Her blood counts are not concerning today other than the elevated white count of 13.3 which has been chronic for her and she has an acute infection. D. Mrs. Deleon was instructed to contact us in interim should questions or problems arise. Signed By: Elly Harris-, [facility] Rukhsana Soares MD <<Signature on File>>
== END 2020-08-24 23:59 | disposition home or self-care (01) ==
LOC: ONCMED 06:08
PROVIDERS: PCP Family Medicine; Visit Provider Nurse Practitioner
DX: C34.11 Malignant neoplasm of upper lobe, right bronchus or lung (principal); C77.8 Secondary and unspecified malignant neoplasm of lymph nodes of multiple regions; C79.31 Secondary malignant neoplasm of brain; F17.210 Nicotine dependence, cigarettes, uncomplicated; J44.9 Chronic obstructive pulmonary disease, unspecified; J32.9 Chronic sinusitis, unspecified; E03.9 Hypothyroidism, unspecified; Z79.899 Other long term (current) drug therapy; Z79.52 Long term (current) use of systemic steroids; Z79.2 Long term (current) use of antibiotics
CPT/HCPCS: 36591; 80053; 85025; 99214

== ENCOUNTER 2020-09-22 05:36 | Outpatient (RCR) | payer MEDICAID, SELFPAY ==
--- NOTE | 2020-09-01 13:27 | XR_ITS ---
WS: [id number] PA and lateral chest, 09/01/2020 Clinical Data: SHORTNESS OF BREATH-PRODUCTIVE COUGH Comparison: Portable chest, 02/25/2019. Findings: There are still bilateral upper lobe masses but the infiltrates have cleared. The right bette g mass now extends from right hilum and measures 5.46 cm in greatest dimension. The left upper lobe mass now measures 8.41 cm extending from the left hilum. The diaphragms are flattened. The heart is n ormal. No pneumonia or pneumothorax is present. The left Port-A-Cath remains in good position ending in the superior vena cava. No nodules or effusions are seen. XR/XR chest 2V* [id number] Impression: 1. Right lung mass extends laterally from the hilum and measures 5.46 cm. 2. The left upper lobe mass extends superiorly from the hilum 8.41 cm. 3. The peripheral infiltrates in the upper lobes have cleared. 4. Hyperinflation.
--- NOTE | 2020-09-01 13:27 | USCV_ITS ---
Alma Deleon Age: 59 Gender: F : 1960 Exam Date: 09/01/2020 13:38 Ordering Phys: Krista Long NP Technologist: Mikaela Hassan Exam Location: [facility] [place]: lower ext pain and swelling HISTORY: Lower extremity swelling. Lower extremity pain. PROCEDURES: Venous duplex imaging was performed in only the left lower extremity. The following venous structures were evaluated: common femoral vein, profunda vein, proximal portion of the greater saphenous vein, superficial femoral vein, and the popliteal vein. In addition, the posterior tibial and peroneal trunk were evaluated. Serial compression, augmentation maneuvers, and spectral Doppler flow evaluation were performed. FINDINGS: Normal 2-D Doppler and augmentation and compressibility throughout the lower extremity venous structures. Additional imaging through the proximal calf veins also reveals no thrombus. Limited evaluation of the greater saphenous vein is patent with no thrombus.. CONCLUSIONS No evidence of left lower extremity DVT. Raudel Harris MD (Electronically Signed) Final Date: 01 September 2020 15:25 S
--- NOTE | 2020-09-01 13:27 | XR_ITS ---
WS: [id number] Right ankle, 3 views, 09/01/2020 Clinical Data: BILATERAL ANKLE PAIN Comparison: None. Findings: No fractures or dislocations are seen. The ankle mortise is normal. The talus and calcaneus are unrem arkable. No soft tissue swelling over the medial or lateral malleolus is seen. There is an Achilles spur. XR/XR ankle RT min 3V* [id number] Impression: Negative right ankle.
--- NOTE | 2020-09-01 13:27 | XR_ITS ---
WS: [id number] Left ankle, 3 views, 09/01/2020 Clinical Data: BILATERAL ANKLE PAIN Comparison: None. Findings: No fractures or dislocations are seen. The ankle mortise is normal. The talus and calcaneus are unrem arkable. No soft tissue swelling over the medial or lateral malleolus is seen. There is an Achilles and a plantar spur. XR/XR ankle LT min 3V* [id number] Impression: Negative left ankle.
--- NOTE | 2020-09-11 23:50 | ONC FU_ITS ---
[facility] Patient Note Patient: Alma Deleon Unit #: [id number]: [id number] Dictated By: Elly HarrisDate of Visit: Sep 01, 2020 Onc MED Follow-Up/Prog Note Chief Complaint: Metastatic adenocarcinoma of the lung History of Present Illness: Mrs. Deleon is a 59-year-old female with history of progressive cough. She underwent evaluation on July 07, [address] scan of chest. It reported bilateral upper lobe masses: the mass on right side was 5.9 x 4.1 x 4.9 cm and on the left side was 4.6 x 2.8 x 2.8 cm. On 11/14/2018 patient underwent EBUS , which showed there was 90% narrowing of right upper lobe bronchus due to extensive compression, and right-sided mediastinal and hilar lymph node were enlarged and endobronchial right upper lobe and lymph node biopsies were obtained final pathology report came back poorly differentiated adenocarcinoma consistent with lung primary from right upper lobe endobronchial biopsy. And both lymph node biopsies were negative. Molecular profiling which include EGFR, ALK, ROS 1, PDL 1 and BRAF were done and it showed PDL 1 was 95% tumor cells are positive membranous positivity and rest of molecular profiling was unremarkable. Staging workup including CT PET scan and MRI brain was obtained. The CT PET scan on 12/04/2018 showed hypermetabolic centrally necrotic mass within the right upper lobe abutting adjacent pleura, major fissure, and mediastinum with tumor extension into the right superior hilum, with SUV of 13. Additional centrally necrotic hypermetabolic mass in the left upper lobe with a SUV of 20.9, abutting the adjacent pleura and left major fissure and AP window lymph nodes consistent with elfego metastatic disease. No hypermetabolic metastasis in neck abdomen or pelvis. MRI brain showed 5 mm lesions in the left temporal lobe, and left parietal lobe with mild adjacent edema. Mrs Deleon underwent CyberKnife on 01/02/2019. She was offered palliative chemotherapy plus immunotherapy. She declined and she was also referred to radiation oncology for her right-sided chest pain radiating to her neck and patient declined. With tumor being PDL 1 positive, role of immunotherapy with Keytruda was discussed and patient was willing to consider but then decided to come to [place] for further management. Ms Deleon still smokes about pack a day and has history of smoking for 30-40 years, denies alcohol use. She is still smoking about pack a day AGAINST MEDICAL ADVICE. Ms Deleon started her first cycle of chemotherapy with carboplatin/Alimta/Keytruda on March 09, 2019. She is tolerated it well. Her second cycle was given on March 30, 2019. She states since then she is feeling so much better her breathing is so much better. She states it is amazing how much better she is breathing and how much better she feels overall. Per the report from 05/16/2019 there was no comparison image available for comparison. We will call [facility] radiology and request over read as she did have a PET CT in November 2018. comparison of report indicates that the right upper lobe mass now measuring 5.8 x 3.3 cm with a peripheral uptake of SUV 4.6 was reported as 5.4 x 7.5 x 7 cm with an SUV of 13 on the November 2018 study. A left upper lobe mass measuring 5.2 x 6.4 cm on the current study with an SUV of 7.6 was compared to the November study at which time it measured 5.9 x 6.6 x 5 point centimeters with an SUV of 20.9. There is a solid right middle lobe nodule measuring 1.8 x 2.5 cm with SUV of 5.4 and small scattered mediastinal nodes demonstrating minimal FDG uptake although this may be reactive, although micrometastatic disease cannot be excluded. On review of her 05/16/2019 PET/CT study for comparison with the PET/CT from November 2018. In the interim between studies, the SUV activity has greatly improved and there has been reported decrease in size of the tumors. She had completed 4 cycles of carboplatin Alimta and Keytruda. She received Keytruda only on 06/03/2019 as she stated she was only supposed to have four cycles of chemotherapy and then pursue maintenance with immunotherapy. based on good response seen on f/u PET scan it was suggested to continue chemotherapy for 3 more cycles then repeat imaging. She has reluctantly agreed to try chemotherapy again. She states she understands why she needs it but is not looking forward to feeling washed out again. She has had consultation with Dr Gamez in ENT. She states he told her she has some scaring/calcifications/nodules on her voicebox. She states he has informed her that he can nip them right out of there . She states that he told her this is a simple procedure but the recovery she will have to be very adamant on following strict instructions. She states she feels that she can do this in put up with what ever she needs to get rid of the hoarseness so she quit sounding like a man . Her treatment was held the week of July 22, 2019 as she thought she might have mild flu symptoms . She was given a week off to allow for recovery. She was waiting to hear from Dr. Gamez's office in regards to her surgery that he was planning but apparently Dr. Gamez quit his practice in [place]. She was concerned that she was gaining weight. . She did have a thyroid panel done on 07/29/2019 showed T3 free was 2.9, normal being 2-4.4, T4 free 1.44 normal being 0.82 to 1.77. And TSH 0.23 She has persistent hoarseness of voice, she was waiting for Dr. Gamez's call for the surgery but she heard that Dr. Gamez has left [place]. She then requested a referrel to Dr. Thacker , ENT for evaluation for hoarseness. The last time she received chemotherapy was on 07/01/2019, patient has been postponing her treatment due to hoarseness and its management.finally she was seen by Dr. Thacker on 09/22/2019 and On 10/06/2019 she underwent vocal cord biopsy, results are pending. Follow-up CT PET scan done on 10/03/2019 showed malignant lung masses are now more consolidated in size on the current study, but maintain active FDG uptake, when compared with one done on 05/16/2019. The right upper lobe mass cavitation is essentially resolved, but maintain extensive central necrosis. Now measures 4.8 x 2.8 cm with SUV of 5.0 not a significant increase. The left upper lobe lesion measured 3 x 4.3 cm down from 5.2 x 6.4 cm previously but now demonstrates SUV of 14.2, up from 7.6 previouslyA new solid lesion has developed in the right upper lobe, measuring 2.4 x 1.7 cm with SUV of 20.7. The right middle lobe nodule is progressed, now measuring 2.2 x 2.6 cm with SUV of 7.3 up from 1.8 x 2.5 cm with SUV of 5.4 previously. Scattered mediastinal lymph nodes are unchanged from prior study. Ms. Deleon was referred to radiation oncology for second opinion she did see Dr. Lawson in radiation oncology on 10/14/2019. She has had a mixed response to treatment with evidence of both response and progression on the last PET/CT. She was essentially asymptomatic of her persistent disease and was not interested in pursuing any treatment which would compromise her quality of life at this time. Therefore she elected not to pursue any radiation therapy currently. Dr. Lawson did state that he would not recommend pursuing consolidative therapy in light of her absence. He states he felt the volume of the line within the treatment field to be excessive in terms of diminished functional status. Should she has disease progression, symptoms such as airway compromise, shortness of breath or chest pain, one could readdress palliative radiation at that time. She continues with immunotherapy., As per patient Dr. Thacker did vocal cord biopsy and came back with inflammatory changes no malignancy Follow-up CT PET scan done on December 26, 2019 showed right upper lobe mass continues to demonstrate central necrosis and now measures 4 x 2.6 cm with an SUV of 3.8 indicating a positive response to therapy. The complex left upper lobe lesion has a slightly progressed SUV of 15.7 now measuring 2.6 cm. Overall positive response to therapy. The left upper lobe solid lesion that previously measured 2.4 x 1.7 cm with SUV of 20.7 is now 2 x 1.6 cm with SUV of 18.8, overall positive response. Right middle lobe nodule measured 2.9 x 2.4 cm with SUV of 6.9 is not a significant change from previous study. Multiple subcentimeter subpleural pulmonary nodules are too small to characterize. She continues with Keytruda.Last dose was given on January 28, 2020 and next dose was held because of pain in her left shoulder after Keytruda infusion, which resolved Follow-up CT PET scan done on April 30, 2020 showed the left upper lobe lesion that previously measured 2.6 cm with SUV of 15.7 now measuring 4.4 x 4.6 cm with SUV of 36.1 the secondary left upper lobe lesion now consolidated with this mass. The right upper lobe lesion that previously measured 4.0 x 2.6 cm with SUV of 3.8 now measures 2.7 x 2.4 cm with SUV of 4.9. Right middle lobe mass is similarly progressed with SUV of 10.5 and measured 3.6 x 2.9 cm compared to 2.9 x 2.4 cm with SUV of 6.9 previously. There is a new FDG activity in the right paratracheal bilateral hilar and subcarinal nodes.Came for follow-up, denies any specific complaints, no fever chills, no nausea or vomiting, no diarrhea constipation, she was prescribed home oxygen, as per patient she is not using any more oxygen as she was not tolerating it well. But no hemoptysis or hematemesis, no headaches blurred vision double vision, Follow-up CT scan of chest done on June 14, 2020 showed mild increase in size of bilateral upper lobe pulmonary masses and the right middle lobe mass consistent with progression of malignancy left upper lobe mass now measures 6.2 x 3.6 x 4.8 cm compared to 4.4 x 4.6 and right middle lobe mass measures 3.5 x 3.6 cm compared to 3.8 x 2.9 cm on April 30, 2020. There are additional satellite nodules and changes suspicious for lymphangitic spread of the tumor especially in the left upper lobe., Chronic emphysema, stable hemangioma right lobe of the liver, additional low-attenuation nodule measuring 5 mm in the liver could be very early metastatic disease. Ms Deleon's last immunotherapy treatment with pembrolizumab was on 03/29/2020. She received second dose of Covid vaccine on 07/19/2020. Overall, she states she has been feeling reasonably well since off Keytruda since March 2020. Mrs. Deleon is here today for follow-up. She is due to resume her immunotherapy with pembrolizumab today. She states that she Still has had significant shortness of breath. She is having a productive cough of thick yellow-greyis sputum. It is better today than at her last visit. She feels the antibiotics really did help. She has had no recent fever or chills. She denies night sweats or hot flashes. She has completed her antibiotics per Dr. Rivera and has also finished the prednisone. She states she is still breathing a little rough but feels it is better overall. She states her appetite has been better over the last couple of days. She denies any diarrhea or constipation. She denies nausea or vomiting. Her energy is now okay . Her ECOG today is 1. . Past Medical History: Chronic obstructive pulmonary disease Gastroesophageal reflux Past Surgical History: Covid in 2020 Covid in 2019 Throat biopsy in 2019 Allergies: iv contrast and Penicillin. Medications: Afrin 12 Hour 2 [place](s) (of 0.05 %) Solution Nasal b.i.d. PRN Albuterol Sulfate 2 Puff(s) (of 108 (90 base) mcg/act) Aerosol Powder, Breath Activated Inhalation q 6 hours Azelastine & Fluticasone 2 Puff(s) (of 137 & 50 mcg/act) Therapy Pack Nasal Benzonatate 1 Capsule (of 200 mg) Oral 6x/d PRN CeleXA 1 Tablet (of 20 mg) Oral daily Centrum Silver Adult 50+ 1 Tablet Oral daily Combivent Respimat Aerosol, solution Inhalation Cyclobenzaprine HCl 1 - 2 Tablet (of 5 mg) Oral t.i.d. PRN Flonase Suspension Nasal Folic Acid 1 (1 mg) Tablet Oral daily HYDROcodone-Acetaminophen 1 Tablet (of 5-325 mg) Oral four times a day Levaquin 1 Tablet (of 750 mg) Oral daily methylPREDNISolone 1 Tablet (of 4 mg) Oral predniSONE 1 Tablet (of 20 mg) Oral daily for 5 days Tiotropium [place] Monohydrate 1 Puff(s) (of 2.5 mcg/act) Aerosol, solution Inhalation q 24 hours Family History: pt was raised in the foster care. Social History: Ms. Deleon is and she is a disabled. She is a daily smoker who has smoked 0.5 packs/day for 41 years. She has no history of drinking. Review Of Symptoms: Vital Signs: Performed on Sep 01, 2020 11:22 Height - 63.00 in Weight - 153.6 lbs (HIGH) BSA - 1.73 sq.m BMI - 27.21 Temperature - 98.7 F Pulse - 98 /min Respiration - 18 /min BP - 105/61 mm(hg) O2 Sat - 97 % Pain - 6,1 - No physically strenuous activity, but ambulatory and able to carry out light or sedentary work (e.g. office work, light house work). (ECOG) Physical Examination: Constitutional Alert, oriented, no acute distress. Skin pink, warm and dry. Head Normocephalic; atraumatic. Eyes Conjunctivae and sclerae are clear and without icterus. Pupils are reactive and equal. Hematologic/Lymphatic No petechiae or purpura. No tender or palpable lymph nodes in the cervical or supraclavicular Respiratory Lungs are diminished bilaterally to auscultation. NO wheezing noted today. Cardiovascular Regular rate and rhythm of heart without murmurs,clicks, gallops or rubs. Back/Spine Non-tender to palpation. Extremities No visible deformities, no cyanosis, clubbing or edema. Musculoskeletal No tenderness or swelling, normal range of motion without obvious weakness with right arm, limited ROM with left arm/shoulder with weakness noted. Integumentary No rashes or lesions. Neurologic No sensory or motor deficits, normal cerebellar function, normal gait. Psychiatric Alert and oriented times three. Coherent speech. Verbalizes understanding of our discussions today. Laboratory:Test performed on Aug 11, 2020 08:57 Sodium 137 mmol/L Potassium 3.8 mmol/L Chloride 102 mmol/L CO2 24 mmol/L Anion Gap 14.8 BUN 12 mg/dL Creatinine 0.6 mg/dL Cr Clearance (Est) 110.03 mL/min eGFR 102.3 mL/min Glucose 89 mg/dL Osmolality - Calculated 283 mOsm/kg Calcium 9.1 mg/dL Protein, Total 6.8 g/dL Albumin 3.9 g/dL Globulin 2.9 g/dL Bilirubin, Total 0.2 mg/dL ALT (SGPT) 10 U/L AST (SGOT) 12 U/L Alkaline Phosphatase 102 IU/L WBC 13.3 10 3/uL RBC 4.53 10 6/uL HGB 13.1 g/dL HCT 39.1 % MCV 86.3 fL MCH 28.9 pg MCHC 33.5 g/dL RDW 12.8 % Platelet Count 293 10 3/cmm MPV 8.8 fL Neutrophils 10.63 10 3/uL Lymphocytes 1.6 10 3/uL Monocytes 0.7 10 3/uL Eosinophils 0.3 10 3/uL Basophils 0.1 10 3/uL Neutrophil % 79.6 % Lymphocyte % 11.9 % Monocyte % 5.0 % Eosinophil % 2.3 % Basophils % 0.7 % NRBC % 0 % Test performed on May 10, 2020 08:20 TSH 1.00 uIU/mL Impression: Stage IV, 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 N Stage IV, M1 a due to separate tumor nodule in the contralateral lobe and brain metastases 5 mm ???[address] PET scan done on 12/04/2018 showed hypermetabolic centrally necrotic mass within the right upper lobe abutting adjacent pleura, major fissure and mediastinum with tumor extension into right superior hilum. Additional centrally necrotic hypermetabolic mass within left upper lobe abutting the adjacent pleura and left major fissure with tumor extension to the left superior hilum. Hypermetabolic right hilar, precarinal, and AP window lymph nodes consistent with a node metastases. No hypermetabolic metastasis within the neck, abdomen or pelvis. MRI scan of the head showed 5 mm ???2 lesion status post CyberKnife on 01/02/2019. Active smoker AGAINST MEDICAL ADVICE; COPD Ms. Deleon began her first cycle of carbo Alimta Keytruda on March 09, 2019. She is tolerated it well thus far. She states that after the second cycle of chemotherapy her breathing is so much better that is amazing . She states that she is able to breathe through her nose when she is sleeping and that is something she has not done in years. She states overall she is feeling so much better. regarding her PET CT from 05/16/2019. she did have a PET CT in November 2018. This PET CT was NOT performed at [facility] in the interim just comparison of report indicates that the right upper lobe mass now measuring 5.8 x 3.3 cm with a peripheral uptake of SUV 4.6 was reported as 5.4 x 7.5 x 7 cm with an SUV of 13 on the November 2018 study. A left upper lobe mass measuring 5.2 x 6.4 cm on the current study with an SUV of 7.6 was compared to the November study at which time it measured 5.9 x 6.6 x 5 point centimeters with an SUV of 20.9. There is a solid right middle lobe nodule measuring 1.8 x 2.5 cm with SUV of 5.4 and small scattered mediastinal nodes demonstrating minimal FDG uptake although this may be reactive, although micrometastatic disease cannot be excluded. tolerated palliative therapy with carboplatin/Alimta/Keytruda well. Her follow-up CT PET scan from 04/2019 showed good response to the treatment. discussed with Ms Deleon further treatment plans. The plan earlier plan was to give her 4 cycles of chemotherapy along with immunotherapy and restage her. Her follow-up PET scan in April 2019 shows good response- no evidence of distance metastases, but not resolution of disease. In that case, She was encouraged to continue with same regimen e.g. carboplatin/Alimta/Keytruda for 3 more cycles and restage with CT PET scan. If it shows further improvement and her performance status is till good, she may need to continue full treatment; if on the other hand it shows stable disease then will consider switching her to maintenance therapy with Keytruda alone. Ms Deleon was due to resume Carboplatin/Alimta/Keytruda on 07/01/2019 and after that she has been postponing her chemotherapy as she was undergoing evaluation for hoarseness of voice. , as per ENT it was due to some nodules/calcifications of vocal cord. PET CT scan from April 2019 to October 03, 2019 revealed reduction in size in the lung masses cavitation in the right upper lobe has resolved. left upper lobe lesion had decreased in size from 5.2 x 6.4 to 3.0 x 4.3 cm, a new solid lesion develop in the right upper lobe inferiorly measuring 2.4 x 1.7 cm, In the right middle lobe a nodule had progressed now measuring 2.3 x 2.6 cm from 1.8 x 2.5 cm. There was mediastinal adenopathy noted unchanged no evidence for distant metastatic disease. We once again reviewed the PET/CT imaging and discussed results. The results were discussed with Ms. Deleon, per Dr. Lawson's (radiation oncology) impression- she should continue immunotherapy until significant disease progression at which time we could consider pallative radiation. She started single agent Keytruda on 09/10/2019 and continued on an every 3 week treatment plan. She was having worsening shoulder pain and an x-ray C-spine and left shoulder upper arm done on March 29, 2020 showed degenerative disc disease at multiple level in C-spine, degenerative arthritic spurring at C5-C6, and C6 - C7 and left shoulder shows small lesser tuberosity osteoarthritic spur and complex left upper lobe lung mass consistent with a history of lung cancer. As far as left arm pain/left neck stiffness is concerned probably due to degenerative disc disease and C-spine as well as left shoulder arthritis or tendinitis, patient was advised to try Motrin 1 to 2 tablets 4 to 6-hour for 2 days and also use heating pad if no improvement may consider referral to orthopedic for evaluation. Ms Deleon continued with maintenance therapy Keytruda alone till March 29, 2020, when patient decided to stop treatment. Follow-up PET/CT scan done on April 30, 2020 shows mild progression, at that time discussed with patient regarding starting her on chemo immunotherapy with Keytruda/carboplatin/Taxol but patient declined rather preferred observation. She has follow-up CT scan of chest done on June 14, 2020 which showed further mild progression in both bilateral upper lobe nodule as well as right middle lobe nodule and additional satellite nodules and changes suspicious for lymphangitic spread of the tumor especially with the left upper lobe and low-attenuation nodule measuring 5 mm in the liver could be very early metastatic disease. She has agreed to resume single agent immunotherapy. Her treatment plan is to repeat her PET/CT after 3 cycles to assess disease status. Plan: PROBLEMS ADDRESSED TODAY 1. Stage IV poorly differentiated metastatic adenocarcinoma the right lung. She had a separate tumor nodule in the contralateral lobe and brain metastasis 5 mm x 2. She did have CyberKnife therapy for the brain mets. She has had chemotherapy with carboplatin Alimta Keytruda which began on March 09, 2019. She began single agent Keytruda on 09/10/2019. Her last dose of Keytruda was on March 29, 2020. She had opted to just continue with observation at that time. Unfortunately follow-up CT scan of the chest on June 14, 2020 reported further mild progression in both bilateral upper lobe nodules as well as the right middle lobe nodule. There was a satellite nodule and changes suspicious for lymphangitic spread of the tumor especially within the left upper lobe. There was a low-attenuation nodule measuring 5 mm in the liver that could be very early metastatic disease. She was due to resume her immunotherapy but this has been delayed due to suspected side effects of her second COVID-19 immunization and now upper respiratory infection/rhinosinusitis. She is currently on antibiotics and prednisone 40 mg daily. A. We will hold her planned immunotherapy with pembrolizumab today due to persistent shortness of breath. B. No labs were ordered for today as they have been normal and she is not on treatment. C. When she resumes immunotherapy the follow-up plan will be to repeat PET/CT after 3 cycles of the immunotherapy to assess disease status. 2. COPD/acute rhinosinusitis. A. Currently stable B. Continue Mucinex prn and fluid intake of at least 80 ounces daily. She was reminded that the max dose of Mucinex is 1200 mg twice daily. C. She states she has resumed Spiriva and it using it as directed. 3. Chronic pain due to degenerative disc disease/stage IV lung cancer A. She is currently using [place] 02/26/2025 1 or 2 every 4-6 hours as needed pain. 4. Acute onset Left leg swelling and pain. A. She will be sent for a venous Doppler of her left leg to rule out DVT. B. Follow-up to be determined based on results of the Doppler. 5. Posterior chest wall pain with coughing and acute bilateral ankle pain without trauma. A. I have asked for chest x-ray PA and lateral for assessment of her posterior chest wall pain and no pneumonitis. B. I have asked for x-rays of her ankles to rule out any acute abnormality. If she has signs of pneumonitis may consider resuming the steroids however since she is able to be off of them currently and her breathing is no worse would like to leave her off so that we could start her immunotherapy, unless otherwise indicated, at her next visit. 5. Follow-up plan A. We will plan to see her back in 2 weeks for follow-up. B. She will need to be below 10 mg of prednisone daily prior to resuming her immunotherapy. C. I have requested a CBC CMP and TSH for her follow-up visit in 2 weeks. D. Mrs. Deleon was instructed to contact us in interim should questions or problems arise. Signed By: Elly Harris-, SP[facility] IONIA HOSPITALRoderick Soares MD <<Signature on File>>
[2020-09-22] MEDS: sodium chloride 0.9% 250 ML 125 ML IV (15:23)
[2020-09-22 16:31] LABS: Basophils # 0.1 10^3/uL (0.0-0.1); Basophils % 0.7 %; Eosinophils # 0.9 10^3/uL (0.0-0.8); Eosinophils % 6.5 %; Hematocrit 36.1 % (37.0-47.0); Hemoglobin 11.8 g/dL (11.5-15.3); Lymphocytes # 2.6 10^3/uL (0.8-4.8); Lymphocytes % 18.8 %; Mean Corpuscular HGB Conc 32.7 g/dL (30.0-36.0); Mean Corpuscular Hemoglobin 28.2 pg (28.0-34.0); Mean Corpuscular Volume 86.2 fL (81-99); Mean Platelet Volume 10.1 fL (7.4-10.4); Monocytes # 1.2 10^3/uL (0.2-0.9); Monocytes % 8.4 %; Neutrophils # 8.91 10^3/uL (1.8-7.7); Neutrophils % 65.3 %; Nucleated Red Blood Cells % 0 %; Platelet Count 168 10^3/cmm (130-400); Red Blood Count 4.19 10^6/uL (4.1-5.3); White Blood Count 13.7 10^3/uL (4.0-10.0)
[2020-09-22 17:09] LABS: Alanine Aminotransferase 8 U/L (0-33); Albumin Level 3.4 g/dL (3.5-5.2); Alkaline Phosphatase 90 IU/L (35-105); Anion Gap 10.8 (5-19); Aspartate Amino Transferase 15 U/L (0-32); Blood Urea Nitrogen 5 mg/dL (6-20); Calcium 8.1 mg/dL (8.5-10.5); Carbon Dioxide 26 mmol/L (22-29); Chloride 101 mmol/L (98-107); Globulin 2.6 g/dL (1.3-4.6); Glomerular Filtration Rate 85.6 mL/min (90-130); Glucose 113 mg/dL (65-115); Osmolality Calculated 276 mOsm/kg (285-295); Potassium 3.8 mmol/L (3.5-5.1); Sodium 134 mmol/L (136-145); Thyroid Stimulating Hormone 0.37 uIU/mL (0.27-4.20); Total Bilirubin 0.3 mg/dL (0.15-1.2)
--- NOTE | 2020-10-04 15:15 | ONC FU_ITS ---
[facility] Patient Note Patient: Alma Deleon Unit #: [id number]: [id number] Dictated By: Elly HarrisDate of Visit: Sep 22, 2020 Onc MED Follow-Up/Prog Note Chief Complaint: Metastatic adenocarcinoma of the lung History of Present Illness: Mrs. Deleon is a 59-year-old female with history of progressive cough. She underwent evaluation on July 07, [address] scan of chest. It reported bilateral upper lobe masses: the mass on right side was 5.9 x 4.1 x 4.9 cm and on the left side was 4.6 x 2.8 x 2.8 cm. On 11/14/2018 patient underwent EBUS , which showed there was 90% narrowing of right upper lobe bronchus due to extensive compression, and right-sided mediastinal and hilar lymph node were enlarged and endobronchial right upper lobe and lymph node biopsies were obtained final pathology report came back poorly differentiated adenocarcinoma consistent with lung primary from right upper lobe endobronchial biopsy. And both lymph node biopsies were negative. Molecular profiling which include EGFR, ALK, ROS 1, PDL 1 and BRAF were done and it showed PDL 1 was 95% tumor cells are positive membranous positivity and rest of molecular profiling was unremarkable. Staging workup including CT PET scan and MRI brain was obtained. The CT PET scan on 12/04/2018 showed hypermetabolic centrally necrotic mass within the right upper lobe abutting adjacent pleura, major fissure, and mediastinum with tumor extension into the right superior hilum, with SUV of 13. Additional centrally necrotic hypermetabolic mass in the left upper lobe with a SUV of 20.9, abutting the adjacent pleura and left major fissure and AP window lymph nodes consistent with elfego metastatic disease. No hypermetabolic metastasis in neck abdomen or pelvis. MRI brain showed 5 mm lesions in the left temporal lobe, and left parietal lobe with mild adjacent edema. Mrs Deleon underwent CyberKnife on 01/02/2019. She was offered palliative chemotherapy plus immunotherapy. She declined and she was also referred to radiation oncology for her right-sided chest pain radiating to her neck and patient declined. With tumor being PDL 1 positive, role of immunotherapy with Keytruda was discussed and patient was willing to consider but then decided to come to [place] for further management. Ms Deleon still smokes about pack a day and has history of smoking for 30-40 years, denies alcohol use. She is still smoking about pack a day AGAINST MEDICAL ADVICE. Ms Deleon started her first cycle of chemotherapy with carboplatin/Alimta/Keytruda on March 09, 2019. She is tolerated it well. Her second cycle was given on March 30, 2019. She states since then she is feeling so much better her breathing is so much better. She states it is amazing how much better she is breathing and how much better she feels overall. Per the report from 05/16/2019 there was no comparison image available for comparison. We will call [facility] radiology and request over read as she did have a PET CT in November 2018. comparison of report indicates that the right upper lobe mass now measuring 5.8 x 3.3 cm with a peripheral uptake of SUV 4.6 was reported as 5.4 x 7.5 x 7 cm with an SUV of 13 on the November 2018 study. A left upper lobe mass measuring 5.2 x 6.4 cm on the current study with an SUV of 7.6 was compared to the November study at which time it measured 5.9 x 6.6 x 5 point centimeters with an SUV of 20.9. There is a solid right middle lobe nodule measuring 1.8 x 2.5 cm with SUV of 5.4 and small scattered mediastinal nodes demonstrating minimal FDG uptake although this may be reactive, although micrometastatic disease cannot be excluded. On review of her 05/16/2019 PET/CT study for comparison with the PET/CT from November 2018. In the interim between studies, the SUV activity has greatly improved and there has been reported decrease in size of the tumors. She had completed 4 cycles of carboplatin Alimta and Keytruda. She received Keytruda only on 06/03/2019 as she stated she was only supposed to have four cycles of chemotherapy and then pursue maintenance with immunotherapy. based on good response seen on f/u PET scan it was suggested to continue chemotherapy for 3 more cycles then repeat imaging. She has reluctantly agreed to try chemotherapy again. She states she understands why she needs it but is not looking forward to feeling washed out again. She has had consultation with Dr Gamez in ENT. She states he told her she has some scaring/calcifications/nodules on her voicebox. She states he has informed her that he can nip them right out of there . She states that he told her this is a simple procedure but the recovery she will have to be very adamant on following strict instructions. She states she feels that she can do this in put up with what ever she needs to get rid of the hoarseness so she quit sounding like a man . Her treatment was held the week of July 22, 2019 as she thought she might have mild flu symptoms . She was given a week off to allow for recovery. She was waiting to hear from Dr. Gamez's office in regards to her surgery that he was planning but apparently Dr. Gamez quit his practice in [place]. She was concerned that she was gaining weight. . She did have a thyroid panel done on 07/29/2019 showed T3 free was 2.9, normal being 2-4.4, T4 free 1.44 normal being 0.82 to 1.77. And TSH 0.23 She has persistent hoarseness of voice, she was waiting for Dr. Gamez's call for the surgery but she heard that Dr. Gamez has left [place]. She then requested a referrel to Dr. Thacker , ENT for evaluation for hoarseness. The last time she received chemotherapy was on 07/01/2019, patient has been postponing her treatment due to hoarseness and its management.finally she was seen by Dr. Thacker on 09/22/2019 and On 10/06/2019 she underwent vocal cord biopsy, results are pending. Follow-up CT PET scan done on 10/03/2019 showed malignant lung masses are now more consolidated in size on the current study, but maintain active FDG uptake, when compared with one done on 05/16/2019. The right upper lobe mass cavitation is essentially resolved, but maintain extensive central necrosis. Now measures 4.8 x 2.8 cm with SUV of 5.0 not a significant increase. The left upper lobe lesion measured 3 x 4.3 cm down from 5.2 x 6.4 cm previously but now demonstrates SUV of 14.2, up from 7.6 previouslyA new solid lesion has developed in the right upper lobe, measuring 2.4 x 1.7 cm with SUV of 20.7. The right middle lobe nodule is progressed, now measuring 2.2 x 2.6 cm with SUV of 7.3 up from 1.8 x 2.5 cm with SUV of 5.4 previously. Scattered mediastinal lymph nodes are unchanged from prior study. Ms. Deleon was referred to radiation oncology for second opinion she did see Dr. Lawson in radiation oncology on 10/14/2019. She has had a mixed response to treatment with evidence of both response and progression on the last PET/CT. She was essentially asymptomatic of her persistent disease and was not interested in pursuing any treatment which would compromise her quality of life at this time. Therefore she elected not to pursue any radiation therapy currently. Dr. Lawson did state that he would not recommend pursuing consolidative therapy in light of her absence. He states he felt the volume of the line within the treatment field to be excessive in terms of diminished functional status. Should she has disease progression, symptoms such as airway compromise, shortness of breath or chest pain, one could readdress palliative radiation at that time. She continues with immunotherapy., As per patient Dr. Thacker did vocal cord biopsy and came back with inflammatory changes no malignancy Follow-up CT PET scan done on December 26, 2019 showed right upper lobe mass continues to demonstrate central necrosis and now measures 4 x 2.6 cm with an SUV of 3.8 indicating a positive response to therapy. The complex left upper lobe lesion has a slightly progressed SUV of 15.7 now measuring 2.6 cm. Overall positive response to therapy. The left upper lobe solid lesion that previously measured 2.4 x 1.7 cm with SUV of 20.7 is now 2 x 1.6 cm with SUV of 18.8, overall positive response. Right middle lobe nodule measured 2.9 x 2.4 cm with SUV of 6.9 is not a significant change from previous study. Multiple subcentimeter subpleural pulmonary nodules are too small to characterize. She continues with Keytruda.Last dose was given on January 28, 2020 and next dose was held because of pain in her left shoulder after Keytruda infusion, which resolved Follow-up CT PET scan done on April 30, 2020 showed the left upper lobe lesion that previously measured 2.6 cm with SUV of 15.7 now measuring 4.4 x 4.6 cm with SUV of 36.1 the secondary left upper lobe lesion now consolidated with this mass. The right upper lobe lesion that previously measured 4.0 x 2.6 cm with SUV of 3.8 now measures 2.7 x 2.4 cm with SUV of 4.9. Right middle lobe mass is similarly progressed with SUV of 10.5 and measured 3.6 x 2.9 cm compared to 2.9 x 2.4 cm with SUV of 6.9 previously. There is a new FDG activity in the right paratracheal bilateral hilar and subcarinal nodes.Came for follow-up, denies any specific complaints, no fever chills, no nausea or vomiting, no diarrhea constipation, she was prescribed home oxygen, as per patient she is not using any more oxygen as she was not tolerating it well. But no hemoptysis or hematemesis, no headaches blurred vision double vision, Follow-up CT scan of chest done on June 14, 2020 showed mild increase in size of bilateral upper lobe pulmonary masses and the right middle lobe mass consistent with progression of malignancy left upper lobe mass now measures 6.2 x 3.6 x 4.8 cm compared to 4.4 x 4.6 and right middle lobe mass measures 3.5 x 3.6 cm compared to 3.8 x 2.9 cm on April 30, 2020. There are additional satellite nodules and changes suspicious for lymphangitic spread of the tumor especially in the left upper lobe., Chronic emphysema, stable hemangioma right lobe of the liver, additional low-attenuation nodule measuring 5 mm in the liver could be very early metastatic disease. Ms Deleon's last immunotherapy treatment with pembrolizumab was on 03/29/2020. She received second dose of Covid vaccine on 07/19/2020. Overall, she states she has been feeling reasonably well since off Keytruda since March 2020. Mrs. Deleon is here today for follow-up. Her last dose of pembrolizumab was on March 29, 2020. She has been off treatment due to progressive shortness of breath and productive cough. She has been on steroid treatment along with antibiotic treatment with minimal improvement. She is here today for consideration of resuming the pembrolizumab. On 09/02/2019 when she had follow-up chest x-ray for productive cough and progressive shortness of breath. And noted that the right lung mass extends letter from the hilum measuring 5.[address] from June 14, 2020 this measured 3.5 x 3.6 and the right upper lobe mass measured 2.0 x 2.7 cm. The left upper lobe mass extend superiorly from the hilum measuring 8.[address] from June 14, 2020 it was 6.2 x 3.6 x 4.8 cm. The peripheral infiltrates in the upper lobes have cleared. She also had x-ray of bilateral ankle for ankle pain which was negative bilaterally. She also had a venous Doppler of the left lower extremity due to lower extremity swelling and pain this was negative for DVT. These results were all discussed with Mrs. Deleon. We did discuss the chest x-ray indicating disease progression and I felt that it is time to resume her pembrolizumab and see how she tolerates it. Her significant shortness of breath and cough may be related to the cancer more than upper respiratory infection or suspected pneumonitis/pneumonia. She is in agreement and is willing to proceed with pembrolizumab today. She has no new concerns. She continues to be short of breath she continues to have productive cough but is no worse that was at her last visit. She denies any fever or chills. She denies any diarrhea or constipation. Her ECOG remains at 2. . Past Medical History: Chronic obstructive pulmonary disease Gastroesophageal reflux Past Surgical History: Covid in 2020 Covid in 2019 Throat biopsy in 2019 Allergies: iv contrast and Penicillin. Medications: Afrin 12 Hour 2 [place](s) (of 0.05 %) Solution Nasal b.i.d. PRN Albuterol Sulfate 2 Puff(s) (of 108 (90 base) mcg/act) Aerosol Powder, Breath Activated Inhalation q 6 hours Azelastine & Fluticasone 2 Puff(s) (of 137 & 50 mcg/act) Therapy Pack Nasal Benzonatate 1 Capsule (of 200 mg) Oral 6x/d PRN CeleXA 1 Tablet (of 20 mg) Oral daily Centrum Silver Adult 50+ 1 Tablet Oral daily Combivent Respimat Aerosol, solution Inhalation Cyclobenzaprine HCl 1 - 2 Tablet (of 5 mg) Oral t.i.d. PRN Flonase Suspension Nasal Folic Acid 1 (1 mg) Tablet Oral daily HYDROcodone-Acetaminophen 1 Tablet (of 5-325 mg) Oral four times a day Levaquin 1 Tablet (of 750 mg) Oral daily methylPREDNISolone 1 Tablet (of 4 mg) Oral predniSONE 1 Tablet (of 20 mg) Oral daily for 5 days Tiotropium [place] Monohydrate 1 Puff(s) (of 2.5 mcg/act) Aerosol, solution Inhalation q 24 hours Family History: pt was raised in the foster care. Social History: Ms. Deleon is and she is a disabled. She is a daily smoker who has smoked 0.5 packs/day for 41 years. She has no history of drinking. Review Of Symptoms: <See Above> Vital Signs: Performed on Sep 22, 2020 14:15 Height - 63.00 in Weight - 154.6 lbs (HIGH) BSA - 1.73 sq.m BMI - 27.39 Temperature - 98.3 F (LOW) Pulse - 96 /min Respiration - 18 /min BP - 124/75 mm(hg) O2 Sat - 97 % Pain - 0,2 - Ambulatory/capable of all self-care, unable to perform any work activities. Up and about more than 50% of waking hours. (ECOG) Physical Examination: Constitutional Alert, oriented, no acute distress. Skin pink, warm and dry. Head Normocephalic; atraumatic. Eyes Conjunctivae and sclerae are clear and without icterus. Pupils are reactive and equal. ENMT Sinuses are mildly tender. No oral exudates, ulcers, masses, thrush or mucositis. Neck Supple without masses or thyromegaly. No jugular venous distension. Hematologic/Lymphatic No petechiae or purpura. No tender or palpable lymph nodes in the cervical or supraclavicular Respiratory Lungs are diminished bilaterally to auscultation. NO wheezing noted today. Cardiovascular Regular rate and rhythm of heart without murmurs,clicks, gallops or rubs. Abdomen Non-tender, non-distended, no masses, ascites. No guarding or rebound tenderness. No pulsatile masses. Back/Spine Non-tender to palpation. Extremities No visible deformities, no cyanosis, clubbing or edema. Musculoskeletal No tenderness or swelling, normal range of motion without obvious weakness with right arm, limited ROM with left arm/shoulder with weakness noted. Integumentary No rashes or lesions. Neurologic No sensory or motor deficits, normal cerebellar function, normal gait. Psychiatric Alert and oriented times three. Coherent speech. Verbalizes understanding of our discussions today. Laboratory:Test performed on Sep 22, 2020 16:04 Sodium 134 mmol/L TSH 0.37 uIU/mL Potassium 3.8 mmol/L Chloride 101 mmol/L CO2 26 mmol/L Anion Gap 10.8 BUN 5 mg/dL Creatinine 0.7 mg/dL Cr Clearance (Est) 95.8000 mL/min eGFR 85.6 mL/min Glucose 113 mg/dL Osmolality - Calculated 276 mOsm/kg Calcium 8.1 mg/dL Protein, Total 6.0 g/dL Albumin 3.4 g/dL Globulin 2.6 g/dL Bilirubin, Total 0.3 mg/dL ALT (SGPT) 8 U/L AST (SGOT) 15 U/L Alkaline Phosphatase 90 IU/L WBC 13.7 10 3/uL RBC 4.19 10 6/uL HGB 11.8 g/dL HCT 36.1 % MCV 86.2 fL MCH 28.2 pg MCHC 32.7 g/dL RDW 13.0 % Platelet Count 168 10 3/cmm MPV 10.1 fL Neutrophils 8.91 10 3/uL Lymphocytes 2.6 10 3/uL Monocytes 1.2 10 3/uL Eosinophils 0.9 10 3/uL Basophils 0.1 10 3/uL Neutrophil % 65.3 % Lymphocyte % 18.8 % Monocyte % 8.4 % Eosinophil % 6.5 % Basophils % 0.7 % NRBC % 0 % Impression: Stage IV, 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 N Stage IV, M1 a due to separate tumor nodule in the contralateral lobe and brain metastases 5 mm ???[address] PET scan done on 12/04/2018 showed hypermetabolic centrally necrotic mass within the right upper lobe abutting adjacent pleura, major fissure and mediastinum with tumor extension into right superior hilum. Additional centrally necrotic hypermetabolic mass within left upper lobe abutting the adjacent pleura and left major fissure with tumor extension to the left superior hilum. Hypermetabolic right hilar, precarinal, and AP window lymph nodes consistent with a node metastases. No hypermetabolic metastasis within the neck, abdomen or pelvis. MRI scan of the head showed 5 mm ???2 lesion status post CyberKnife on 01/02/2019. Active smoker AGAINST MEDICAL ADVICE; COPD Ms. Deleon began her first cycle of carbo Alimta Keytruda on March 09, 2019. She is tolerated it well thus far. She states that after the second cycle of chemotherapy her breathing is so much better that is amazing . She states that she is able to breathe through her nose when she is sleeping and that is something she has not done in years. She states overall she is feeling so much better. regarding her PET CT from 05/16/2019. she did have a PET CT in November 2018. This PET CT was NOT performed at [facility] in the interim just comparison of report indicates that the right upper lobe mass now measuring 5.8 x 3.3 cm with a peripheral uptake of SUV 4.6 was reported as 5.4 x 7.5 x 7 cm with an SUV of 13 on the November 2018 study. A left upper lobe mass measuring 5.2 x 6.4 cm on the current study with an SUV of 7.6 was compared to the November study at which time it measured 5.9 x 6.6 x 5 point centimeters with an SUV of 20.9. There is a solid right middle lobe nodule measuring 1.8 x 2.5 cm with SUV of 5.4 and small scattered mediastinal nodes demonstrating minimal FDG uptake although this may be reactive, although micrometastatic disease cannot be excluded. tolerated palliative therapy with carboplatin/Alimta/Keytruda well. Her follow-up CT PET scan from 04/2019 showed good response to the treatment. discussed with Ms Deleon further treatment plans. The plan earlier plan was to give her 4 cycles of chemotherapy along with immunotherapy and restage her. Her follow-up PET scan in April 2019 shows good response- no evidence of distance metastases, but not resolution of disease. In that case, She was encouraged to continue with same regimen e.g. carboplatin/Alimta/Keytruda for 3 more cycles and restage with CT PET scan. If it shows further improvement and her performance status is till good, she may need to continue full treatment; if on the other hand it shows stable disease then will consider switching her to maintenance therapy with Keytruda alone. Ms Deleon was due to resume Carboplatin/Alimta/Keytruda on 07/01/2019 and after that she has been postponing her chemotherapy as she was undergoing evaluation for hoarseness of voice. , as per ENT it was due to some nodules/calcifications of vocal cord. PET CT scan from April 2019 to October 03, 2019 revealed reduction in size in the lung masses cavitation in the right upper lobe has resolved. left upper lobe lesion had decreased in size from 5.2 x 6.4 to 3.0 x 4.3 cm, a new solid lesion develop in the right upper lobe inferiorly measuring 2.4 x 1.7 cm, In the right middle lobe a nodule had progressed now measuring 2.3 x 2.6 cm from 1.8 x 2.5 cm. There was mediastinal adenopathy noted unchanged no evidence for distant metastatic disease. We once again reviewed the PET/CT imaging and discussed results. The results were discussed with Ms. Deleon, per Dr. Lawson's (radiation oncology) impression- she should continue immunotherapy until significant disease progression at which time we could consider pallative radiation. She started single agent Keytruda on 09/10/2019 and continued on an every 3 week treatment plan. She was having worsening shoulder pain and an x-ray C-spine and left shoulder upper arm done on March 29, 2020 showed degenerative disc disease at multiple level in C-spine, degenerative arthritic spurring at C5-C6, and C6 - C7 and left shoulder shows small lesser tuberosity osteoarthritic spur and complex left upper lobe lung mass consistent with a history of lung cancer. As far as left arm pain/left neck stiffness is concerned probably due to degenerative disc disease and C-spine as well as left shoulder arthritis or tendinitis, patient was advised to try Motrin 1 to 2 tablets 4 to 6-hour for 2 days and also use heating pad if no improvement may consider referral to orthopedic for evaluation. Ms Deleon continued with maintenance therapy Keytruda alone till March 29, 2020, when patient decided to stop treatment. Follow-up PET/CT scan done on April 30, 2020 shows mild progression, at that time discussed with patient regarding starting her on chemo immunotherapy with Keytruda/carboplatin/Taxol but patient declined rather preferred observation. She has follow-up CT scan of chest done on June 14, 2020 which showed further mild progression in both bilateral upper lobe nodule as well as right middle lobe nodule and additional satellite nodules and changes suspicious for lymphangitic spread of the tumor especially with the left upper lobe and low-attenuation nodule measuring 5 mm in the liver could be very early metastatic disease. She has agreed to resume single agent immunotherapy. Her treatment plan is to repeat her PET/CT after 3 cycles to assess disease status. Plan/Problems Addressed at this Visit: PROBLEMS ADDRESSED TODAY 1. Stage IV poorly differentiated metastatic adenocarcinoma the right lung. She had a separate tumor nodule in the contralateral lobe and brain metastasis 5 mm x 2. She did have CyberKnife therapy for the brain mets. She has had chemotherapy with carboplatin Alimta Keytruda which began on March 09, 2019. She began single agent Keytruda on 09/10/2019. Her last dose of Keytruda was on March 29, 2020. She had opted to just continue with observation at that time. Unfortunately follow-up CT scan of the chest on June 14, 2020 reported further mild progression in both bilateral upper lobe nodules as well as the right middle lobe nodule. There was a satellite nodule and changes suspicious for lymphangitic spread of the tumor especially within the left upper lobe. There was a low-attenuation nodule measuring 5 mm in the liver that could be very early metastatic disease. She was due to resume her immunotherapy but this has been delayed due to suspected side effects of her second COVID-19 immunization and now upper respiratory infection/rhinosinusitis. She is currently ff all antibiotics and the prednisone is at 10 mg daily. A. We will resume her planned immunotherapy with pembrolizumab today due to persistent disease progression per xray on 09/01/2020.. B. No labs were ordered for today as they have been normal and she is not on treatment. C. The follow-up plan will be to repeat PET/CT after 3 cycles of the immunotherapy to assess disease status. D. We will refill her Levaquin and Singulair in the event that she has upper respiratory infection after resuming the pembrolizumab. 2. COPD/acute rhinosinusitis. A. Currently stable B. Continue Mucinex prn and fluid intake of at least 80 ounces daily. She was reminded that the max dose of Mucinex is 1200 mg twice daily. C. She states she has resumed Spiriva and it using it as directed. 3. Chronic pain due to degenerative disc disease/stage IV lung cancer A. She is currently using [place] 02/26/2025 1 or 2 every 4-6 hours as needed pain. 4. Follow-up plan A. We will plan to see her back in 23weeks for follow-up. B. She may remain at 10 mg of prednisone daily while resuming her immunotherapy. C. I have requested a CBC CMP and TSH for her follow-up visit in 3 weeks. D. Mrs. Deleon was instructed to contact us in interim should questions or problems arise. Signed By: Elly Harris-, AOCNP Rukhsana Soares MD <<Signature on File>>
== END 2020-09-23 23:59 | disposition home or self-care (01) ==
LOC: ONCMED 05:36
PROVIDERS: PCP Family Medicine; Visit Provider Nurse Practitioner
DX: Z51.12 Encounter for antineoplastic immunotherapy (principal); C34.11 Malignant neoplasm of upper lobe, right bronchus or lung; C79.31 Secondary malignant neoplasm of brain; C77.8 Secondary and unspecified malignant neoplasm of lymph nodes of multiple regions; M25.572 Pain in left ankle and joints of left foot; M25.571 Pain in right ankle and joints of right foot; R06.02 Shortness of breath; R05 Cough; R22.42 Localized swelling, mass and lump, left lower limb; J44.9 Chronic obstructive pulmonary disease, unspecified; K21.9 Gastro-esophageal reflux disease without esophagitis; F17.210 Nicotine dependence, cigarettes, uncomplicated; Z79.899 Other long term (current) drug therapy
CPT/HCPCS: 71046; 73610; 80053; 84443; 85025; 93971; 96413; 99214; J7050; J9271

== ENCOUNTER 2020-10-19 06:26 | Outpatient (RCR) | payer MEDICAID, SELFPAY ==
[2020-10-19 13:34] LABS: Basophils # 0.1 10^3/uL (0.0-0.1); Basophils % 0.4 %; Eosinophils % 0.2 %; Hematocrit 36.4 % (37.0-47.0); Hemoglobin 11.6 g/dL (11.5-15.3); Lymphocytes # 1.3 10^3/uL (0.8-4.8); Lymphocytes % 10.5 %; Mean Corpuscular HGB Conc 31.9 g/dL (30.0-36.0); Mean Corpuscular Hemoglobin 26.9 pg (28.0-34.0); Mean Corpuscular Volume 84.3 fL (81-99); Mean Platelet Volume 8.8 fL (7.4-10.4); Monocytes # 0.4 10^3/uL (0.2-0.9); Monocytes % 3.2 %; Neutrophils # 10.43 10^3/uL (1.8-7.7); Neutrophils % 85.1 %; Nucleated Red Blood Cells % 0 %; Platelet Count 362 10^3/cmm (130-400); Red Blood Count 4.32 10^6/uL (4.1-5.3); Red Cell Distribution Width 13.1 % (12.1-15.1); White Blood Count 12.3 10^3/uL (4.0-10.0)
[2020-10-19 14:07] LABS: Alanine Aminotransferase 12 U/L (0-33); Albumin Level 3.6 g/dL (3.5-5.2); Alkaline Phosphatase 89 IU/L (35-105); Anion Gap 13.4 (5-19); Aspartate Amino Transferase 19 U/L (0-32); Blood Urea Nitrogen 9 mg/dL (6-20); Calcium 8.8 mg/dL (8.5-10.5); Carbon Dioxide 25 mmol/L (22-29); Chloride 106 mmol/L (98-107); Globulin 3.3 g/dL (1.3-4.6); Glomerular Filtration Rate 102.3 mL/min (90-130); Glucose 121 mg/dL (65-115); Osmolality Calculated 290 mOsm/kg (285-295); Potassium 4.4 mmol/L (3.5-5.1); Sodium 140 mmol/L (136-145); Thyroid Stimulating Hormone 0.44 uIU/mL (0.27-4.20); Total Bilirubin 0.2 mg/dL (0.15-1.2); Total Protein 6.9 g/dL (6.6-8.7)
== END 2020-10-24 23:59 | disposition home or self-care (01) ==
LOC: ONCMED 06:26
PROVIDERS: PCP Family Medicine; Visit Provider Internal Medicine Hematology & Oncology
DX: C34.11 Malignant neoplasm of upper lobe, right bronchus or lung (principal); C79.31 Secondary malignant neoplasm of brain; C77.8 Secondary and unspecified malignant neoplasm of lymph nodes of multiple regions; Z79.899 Other long term (current) drug therapy
CPT/HCPCS: 36591; 80053; 84443; 85025

== ENCOUNTER 2020-10-25 05:32 | Outpatient (RCR) | payer MEDICAID, SELFPAY ==
[2020-10-25 09:00] LABS: Basophils # 0.2 10^3/uL (0.0-0.1); Basophils % 0.7 %; Eosinophils # 0.5 10^3/uL (0.0-0.8); Eosinophils % 2.4 %; Hematocrit 42.7 % (37.0-47.0); Hemoglobin 13.6 g/dL (11.5-15.3); Lymphocytes # 2.8 10^3/uL (0.8-4.8); Lymphocytes % 12.3 %; Mean Corpuscular HGB Conc 31.9 g/dL (30.0-36.0); Mean Corpuscular Hemoglobin 27.3 pg (28.0-34.0); Mean Corpuscular Volume 85.7 fL (81-99); Mean Platelet Volume 8.6 fL (7.4-10.4); Monocytes # 1.8 10^3/uL (0.2-0.9); Neutrophils # 17.16 10^3/uL (1.8-7.7); Neutrophils % 75.6 %; Nucleated Red Blood Cells % 0 %; Platelet Count 353 10^3/cmm (130-400); Red Blood Count 4.98 10^6/uL (4.1-5.3); Red Cell Distribution Width 13.9 % (12.1-15.1); White Blood Count 22.7 10^3/uL (4.0-10.0)
[2020-10-25 09:29] LABS: Alanine Aminotransferase 14 U/L (0-33); Albumin Level 3.8 g/dL (3.5-5.2); Alkaline Phosphatase 110 IU/L (35-105); Anion Gap 15.9 (5-19); Aspartate Amino Transferase 16 U/L (0-32); Blood Urea Nitrogen 9 mg/dL (6-20); Calcium 8.5 mg/dL (8.5-10.5); Carbon Dioxide 25 mmol/L (22-29); Chloride 101 mmol/L (98-107); Globulin 2.8 g/dL (1.3-4.6); Glomerular Filtration Rate 102.3 mL/min (90-130); Glucose 101 mg/dL (65-115); Osmolality Calculated 285 mOsm/kg (285-295); Potassium 3.9 mmol/L (3.5-5.1); Sodium 138 mmol/L (136-145); Thyroid Stimulating Hormone 0.56 uIU/mL (0.27-4.20); Total Bilirubin 0.5 mg/dL (0.15-1.2); Total Protein 6.6 g/dL (6.6-8.7)
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
== END 2020-10-25 09:40 | disposition home or self-care (01) ==
LOC: ONCMED 05:32
PROVIDERS: PCP Family Medicine; Visit Provider Internal Medicine Hematology & Oncology
DX: C34.11 Malignant neoplasm of upper lobe, right bronchus or lung (principal); C79.31 Secondary malignant neoplasm of brain; C77.8 Secondary and unspecified malignant neoplasm of lymph nodes of multiple regions; F17.210 Nicotine dependence, cigarettes, uncomplicated; J44.9 Chronic obstructive pulmonary disease, unspecified; Z79.899 Other long term (current) drug therapy; Z92.21 Personal history of antineoplastic chemotherapy; Z92.3 Personal history of irradiation
CPT/HCPCS: 36591; 80053; 84443; 85025; 99214

== ENCOUNTER 2020-10-25 09:45 | Emergency (ER) | payer OTHER, SELFPAY ==
[2020-10-25 09:54] VITALS: BP 114/74; PULSE 95; RESP 18; TEMP 37.1; O2SAT 96; BMI 25.8
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
[2020-10-25] MEDS: diphenhydrAMINE 50 mg/mL SDV 1mL IVP (11:04)
[2020-10-25] MEDS: hydrocortisone 100 mg/2 mL SDV IVP (11:05)
[2020-10-25 11:14] LABS: Basophils # 0.2 10^3/uL (0.0-0.1); Basophils % 0.7 %; Eosinophils # 0.4 10^3/uL (0.0-0.8); Eosinophils % 1.7 %; Hematocrit 42.3 % (37.0-47.0); Hemoglobin 13.6 g/dL (11.5-15.3); Lymphocytes # 3.8 10^3/uL (0.8-4.8); Lymphocytes % 15.9 %; Mean Corpuscular HGB Conc 32.2 g/dL (30.0-36.0); Mean Corpuscular Hemoglobin 27.3 pg (28.0-34.0); Mean Corpuscular Volume 84.9 fL (81-99); Mean Platelet Volume 8.5 fL (7.4-10.4); Monocytes # 1.8 10^3/uL (0.2-0.9); Monocytes % 7.5 %; Neutrophils # 17.53 10^3/uL (1.8-7.7); Neutrophils % 73.3 %; Nucleated Red Blood Cells % 0 %; Platelet Count 348 10^3/cmm (130-400); Red Blood Count 4.98 10^6/uL (4.1-5.3); Red Cell Distribution Width 13.9 % (12.1-15.1); White Blood Count 23.9 10^3/uL (4.0-10.0)
[2020-10-25] MEDS: iodixanol 320 mg/mL 100mL Btl IV (11:31)
[2020-10-25 11:34] LABS: Alanine Aminotransferase 11 U/L (0-33); Albumin Level 3.6 g/dL (3.5-5.2); Alkaline Phosphatase 108 IU/L (35-105); Aspartate Amino Transferase 17 U/L (0-32); Blood Urea Nitrogen 10 mg/dL (6-20); Calcium 8.6 mg/dL (8.5-10.5); Carbon Dioxide 26 mmol/L (22-29); Chloride 101 mmol/L (98-107); Glomerular Filtration Rate 102.3 mL/min (90-130); Glucose 110 mg/dL (65-115); Osmolality Calculated 286 mOsm/kg (285-295); Sodium 138 mmol/L (136-145); Total Bilirubin 0.4 mg/dL (0.15-1.2); Total Protein 6.6 g/dL (6.6-8.7)
--- NOTE | 2020-10-25 12:34 | PC.PHAR ---
pt states she takes care of her own medications-pt states she has prazosin but hasnt taken it yet rx filled on 10/18/20 30d/s-pt states she has levaquin and prednisone on hand in case she needs to take them-pt states she finished a medrol dose pack on 10/23/20 rx filled on 10/18/20 6d/s-pt states she still takes norco 10-325mg [facility] they last filled on 08/11/20--pt states she hasnt taken her chantix for a month and states she has the starting pack at home and will restart when she wants
[2020-10-25 13:12] VITALS: BP 113/76; PULSE 83; RESP 18; O2SAT 96
== END 2020-10-25 13:13 | disposition home or self-care (01) ==
PROVIDERS: Emergency Provider Family Medicine; PCP Family Medicine
DX: S20.219A Contusion of unspecified front wall of thorax, initial encounter (principal); C34.90 Malignant neoplasm of unspecified part of unspecified bronchus or lung; C79.31 Secondary malignant neoplasm of brain; F17.210 Nicotine dependence, cigarettes, uncomplicated; V89.2XXA Person injured in unspecified motor-vehicle accident, traffic, initial encounter
CPT/HCPCS: 71260; 74177; 80053; 85025; 96374; 96375; 99284; J1200; J1720; Q9967

== ENCOUNTER 2020-10-31 05:52 | Outpatient (RCR) | payer MEDICAID, SELFPAY ==
[2020-10-31 11:36] LABS: Basophils # 0.1 10^3/uL (0.0-0.1); Basophils % 0.3 %; Eosinophils # 0.1 10^3/uL (0.0-0.8); Eosinophils % 0.2 %; Hematocrit 39.7 % (37.0-47.0); Hemoglobin 12.9 g/dL (11.5-15.3); Lymphocytes # 2.4 10^3/uL (0.8-4.8); Lymphocytes % 9.9 %; Mean Corpuscular HGB Conc 32.5 g/dL (30.0-36.0); Mean Corpuscular Hemoglobin 27.4 pg (28.0-34.0); Mean Corpuscular Volume 84.3 fL (81-99); Mean Platelet Volume 8.7 fL (7.4-10.4); Monocytes # 1.6 10^3/uL (0.2-0.9); Monocytes % 6.6 %; Neutrophils # 19.62 10^3/uL (1.8-7.7); Neutrophils % 82.2 %; Nucleated Red Blood Cells % 0 %; Platelet Count 332 10^3/cmm (130-400); Red Blood Count 4.71 10^6/uL (4.1-5.3); Red Cell Distribution Width 14.1 % (12.1-15.1); White Blood Count 23.9 10^3/uL (4.0-10.0)
[2020-10-31 12:06] LABS: Alanine Aminotransferase 10 U/L (0-33); Albumin Level 3.7 g/dL (3.5-5.2); Alkaline Phosphatase 93 IU/L (35-105); Anion Gap 12.6 (5-19); Aspartate Amino Transferase 11 U/L (0-32); Blood Urea Nitrogen 13 mg/dL (6-20); Calcium 8.7 mg/dL (8.5-10.5); Carbon Dioxide 28 mmol/L (22-29); Chloride 103 mmol/L (98-107); Glomerular Filtration Rate 102.3 mL/min (90-130); Glucose 100 mg/dL (65-115); Osmolality Calculated 290 mOsm/kg (285-295); Potassium 3.6 mmol/L (3.5-5.1); Sodium 140 mmol/L (136-145); Thyroid Stimulating Hormone 0.52 uIU/mL (0.27-4.20); Total Bilirubin 0.2 mg/dL (0.15-1.2); Total Protein 6.7 g/dL (6.6-8.7)
== END 2020-11-23 23:59 | disposition home or self-care (01) ==
LOC: ONCMED 05:52
PROVIDERS: PCP Family Medicine; Visit Provider Internal Medicine Hematology & Oncology
DX: C34.11 Malignant neoplasm of upper lobe, right bronchus or lung (principal); C79.31 Secondary malignant neoplasm of brain; C77.8 Secondary and unspecified malignant neoplasm of lymph nodes of multiple regions; E03.9 Hypothyroidism, unspecified; Z79.899 Other long term (current) drug therapy
CPT/HCPCS: 80053; 84443; 85025

== ENCOUNTER 2020-12-15 05:43 | Outpatient (RCR) | payer MEDICAID, SELFPAY ==
[2020-12-14 15:51] LABS: Basophils # 0.1 10^3/uL (0.0-0.1); Basophils % 0.8 %; Eosinophils # 2.6 10^3/uL (0.0-0.8); Eosinophils % 15.5 %; Hematocrit 34.3 % (37.0-47.0); Hemoglobin 10.8 g/dL (11.5-15.3); Lymphocytes # 2.5 10^3/uL (0.8-4.8); Lymphocytes % 15.1 %; Mean Corpuscular HGB Conc 31.5 g/dL (30.0-36.0); Mean Corpuscular Hemoglobin 26.4 pg (28.0-34.0); Mean Corpuscular Volume 83.9 fL (81-99); Mean Platelet Volume 8.9 fL (7.4-10.4); Monocytes # 1.2 10^3/uL (0.2-0.9); Monocytes % 7.3 %; Neutrophils # 10.17 10^3/uL (1.8-7.7); Neutrophils % 60.6 %; Nucleated Red Blood Cells % 0 %; Platelet Count 350 10^3/cmm (130-400); Red Blood Count 4.09 10^6/uL (4.1-5.3); Red Cell Distribution Width 14.4 % (12.1-15.1); White Blood Count 16.8 10^3/uL (4.0-10.0)
[2020-12-14 16:16] LABS: Alanine Aminotransferase 21 U/L (0-33); Albumin Level 3.4 g/dL (3.5-5.2); Alkaline Phosphatase 110 IU/L (35-105); Anion Gap 13.9 (5-19); Aspartate Amino Transferase 25 U/L (0-32); Blood Urea Nitrogen 8 mg/dL (6-20); Calcium 8.5 mg/dL (8.5-10.5); Carbon Dioxide 24 mmol/L (22-29); Chloride 100 mmol/L (98-107); Glomerular Filtration Rate 85.6 mL/min (90-130); Glucose 101 mg/dL (65-115); Osmolality Calculated 276 mOsm/kg (285-295); Potassium 3.9 mmol/L (3.5-5.1); Sodium 134 mmol/L (136-145); Total Bilirubin 0.2 mg/dL (0.15-1.2); Total Protein 6.4 g/dL (6.6-8.7)
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
== END 2020-12-24 23:59 | disposition home or self-care (01) ==
LOC: ONCMED 05:43
PROVIDERS: Nurse Practitioner; Visit Provider Internal Medicine Hematology & Oncology
DX: C34.11 Malignant neoplasm of upper lobe, right bronchus or lung (principal); C79.31 Secondary malignant neoplasm of brain; C77.8 Secondary and unspecified malignant neoplasm of lymph nodes of multiple regions; F17.210 Nicotine dependence, cigarettes, uncomplicated; J44.9 Chronic obstructive pulmonary disease, unspecified; R53.1 Weakness; R53.83 Other fatigue; Z79.899 Other long term (current) drug therapy; Z92.21 Personal history of antineoplastic chemotherapy
CPT/HCPCS: 36591; 80053; 85025; 99214

== ENCOUNTER 2020-12-21 12:23 | Outpatient (CLI) | payer MEDICAID, SELFPAY | END 2020-12-21 12:24 | disposition home or self-care (01) | LOC: RT 12:25 | PROVIDERS: PCP Family Medicine; Visit Provider Internal Medicine Critical Care Medicine | DX: J44.9 Chronic obstructive pulmonary disease, unspecified (principal) | CPT/HCPCS: 94618 ==

== ENCOUNTER 2021-01-19 05:39 | Outpatient (RCR) | payer MEDICARE, MEDICAID, SELFPAY ==
[2021-01-19 09:16] LABS: Basophils % 0.1 %; Eosinophils # 0.1 10^3/uL (0.0-0.8); Eosinophils % 0.4 %; Hematocrit 35.7 % (37.0-47.0); Hemoglobin 10.9 g/dL (11.5-15.3); Lymphocytes # 1.5 10^3/uL (0.8-4.8); Mean Corpuscular HGB Conc 30.5 g/dL (30.0-36.0); Mean Corpuscular Hemoglobin 25.2 pg (28.0-34.0); Mean Corpuscular Volume 82.6 fl (81-99); Mean Platelet Volume 8.3 fL (7.4-10.4); Monocytes # 1.4 10^3/uL (0.2-0.9); Monocytes % 6.7 %; Neutrophils % 84.4 %; Nucleated Red Blood Cells % 0 %; Platelet Count 404 10^3/cmm (130-400); Red Blood Count 4.32 10^6/uL (4.1-5.3); Red Cell Distribution Width 15.1 % (12.1-15.1)
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
== END 2021-01-24 23:59 | disposition home or self-care (01) ==
LOC: ONCMED 05:39
PROVIDERS: PCP Family Medicine; Visit Provider Internal Medicine Hematology & Oncology
DX: C34.11 Malignant neoplasm of upper lobe, right bronchus or lung (principal); C77.8 Secondary and unspecified malignant neoplasm of lymph nodes of multiple regions; C79.31 Secondary malignant neoplasm of brain; J44.9 Chronic obstructive pulmonary disease, unspecified; Z79.899 Other long term (current) drug therapy; Z92.21 Personal history of antineoplastic chemotherapy; Z92.3 Personal history of irradiation
CPT/HCPCS: 36591; 85025; 99214

== ENCOUNTER 2021-02-03 08:53 | Outpatient (CLI) | payer MEDICARE, MEDICAID, SELFPAY ==
--- NOTE | 2021-02-03 08:59 | NM_ITS ---
WS: [id number] NUCLEAR MEDICINE BONE SCAN Radiopharmaceutical: 27.4 Tc-99m MDP mCi IV Injection site: Right antecubital Postinjection imaging delay: 1 hr CLINICAL INFORMATION: RESTAGING EVALUATION/HX OF LUNG CANCER COMPARISON: None. FINDINGS: Bone lesions: Focal intense uptake in the angle of the mandible on the left suspicious for metastatic disease. Bilateral patchy activity in both femoral shafts mainly in a cortical/subcortical location. This has an unusual appearance but typical for hypertrophic osteoarthropathy in the setting of lung carcinoma . Recommend correlation with areas of pain. Additional symmetric cortical uptake in both proximal tib ias also likely due to hypertrophic osteoarthropathy. No other suspicious lesions. Soft tissue contours: Normal. Kidneys: Normal. Other findings: None. NM/NM bone scan whole body* 07200 IMPRESSION: 1. Focal intense uptake involving the angle of the mandible on the left suspic ious for metastatic disease. 2. Patchy bilateral activity in both femoral shafts mainly in a cortical and s ubcortical location nonspecific but typical for hypertrophic osteoarthropathy i n the setting of lung carcinoma. Recommend correlation with areas of pain. 3. No other foci of suspicious activity.
--- NOTE | 2021-02-03 08:59 | CT_ITS ---
WS: [id number] CT CHEST TECHNIQUE: Noncontrast CT of the chest with coronal and sagittal reformatted images. CLINICAL INFORMATION: LUNG CANCER COMPARISON: CT May 2020 and October 2020. PET/CT October 2020 DLP: 483.[address] scans at [facility] use at least one of these dose optimization techniques: automated e xposure control; mA and/or kV adjustment per patient size (includes targeted exams where dose is matc hed to clinical indication); or iterative reconstruction. FINDINGS: Again seen are the pulmonary masses in the left upper lobe and right hilum. Left upper lobe mass toda y measures 9.9 x 6.5 x 8.1 cm compared to 9.9 x 6.6 x 7.1 cm previously. Increased central necrosis t shaye. Right upper lobe and right hilar mass measures 5.3 x 5.7 x 4.6 cm compared to 4.3 x 6.2 x 3.6 cm on J 2020. Associated surrounding infiltrate with obstruction of the right upper lobe bronchus new from previous. New infiltrates in the right lung apex likely postobstructive pneumonia. Patchy tree-in-bud micronodular infiltrates in the right middle lobe. Moderate chronic exhibits esqueda es. Lung bases are well aerated. Stable intramammary mediastinal and paratracheal lymph nodes. Adrenal glands are normal. Calcified granulomas. Small esophageal hiatal hernia. No axillary lymphade nopathy. CT/CT chest wo con [id number] IMPRESSION: 1. Interval increase in size of the left upper lobe mass with more central nec rosis today described above. Today measures 9.9 x 6.5 x 8.1 cm compared to 9.9 x 6.6 x 7.1 cm previously. 2. Interval increase in size of the right hilar and right upper lobe mass desc ribed above suspicious for progression of disease. Today measures 5.3 x 5.7 x 4 .6 cm compared to 4.3 x 6.2 x 3.6 cm on October 25, 2020. New obstruction right up per lobe bronchus with evidence of postobstructive pneumonia in the right lung apex. 3. Above findings can be further evaluated PET/CT. 4. Stable prominent mediastinal and paratracheal lymph nodes. 5. Micronodular tree-in-bud type infiltrates in the right middle lobe slightly progressed compared to previous.
== END 2021-02-03 08:54 | disposition home or self-care (01) ==
LOC: RAD 08:57
PROVIDERS: PCP Family Medicine; Visit Provider Internal Medicine Hematology & Oncology
DX: C34.11 Malignant neoplasm of upper lobe, right bronchus or lung (principal); D18.09 Hemangioma of other sites; N28.1 Cyst of kidney, acquired; R91.8 Other nonspecific abnormal finding of lung field
CPT/HCPCS: 71250; 78306; A9561

== ENCOUNTER 2021-02-22 15:45 | Outpatient (RCR) | payer MEDICARE, MEDICAID, SELFPAY ==
[2021-02-07] MEDS: alteplase 1 mg/mL SDV 2 mL 2 MG INTRACATH (13:00)
[2021-02-07 13:57] LABS: Basophils % 0.3 %; Eosinophils # 0.2 10^3/uL (0.0-0.8); Eosinophils % 1.5 %; Hematocrit 32.4 % (37.0-47.0); Hemoglobin 10.3 g/dL (11.5-15.3); Lymphocytes # 1.5 10^3/uL (0.8-4.8); Lymphocytes % 12.2 %; Mean Corpuscular HGB Conc 31.8 g/dL (30.0-36.0); Mean Corpuscular Hemoglobin 25.5 pg (28.0-34.0); Mean Corpuscular Volume 80.2 fl (81-99); Mean Platelet Volume 8.8 fL (7.4-10.4); Monocytes % 8.2 %; Neutrophils # 9.69 10^3/uL (1.8-7.7); Neutrophils % 77.5 %; Nucleated Red Blood Cells % 0 %; Platelet Count 406 10^3/cmm (130-400); Red Blood Count 4.04 10^6/uL (4.1-5.3); Red Cell Distribution Width 14.6 % (12.1-15.1); White Blood Count 12.5 10^3/uL (4.0-10.0)
[2021-02-07 14:26] LABS: Alanine Aminotransferase 11 U/L (0-33); Albumin Level 2.9 g/dL (3.5-5.2); Alkaline Phosphatase 118 IU/L (35-105); Anion Gap 13.3 (5-19); Aspartate Amino Transferase 14 U/L (0-32); Blood Urea Nitrogen 3 mg/dL (8-23); Calcium 7.9 mg/dL (8.5-10.5); Carbon Dioxide 26 mmol/L (22-29); Chloride 94 mmol/L (98-107); Globulin 2.8 g/dL (1.3-4.6); Glomerular Filtration Rate 125.9 mL/min (90-130); Glucose 194 mg/dL (65-115); Osmolality Calculated 272 mOsm/kg (285-295); Potassium 3.3 mmol/L (3.5-5.1); Sodium 130 mmol/L (136-145); Total Bilirubin 0.3 mg/dL (0.15-1.2); Total Protein 5.7 g/dL (6.6-8.7)
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
--- NOTE | 2021-02-09 | CT_ITS ---
WS: [id number] CT FACIAL BONES TECHNIQUE: Noncontrast facial bones with coronal and sagittal reformatted images. CLINICAL INFORMATION: LUNG CANCER COMPARISON: Bone scan February 03, 2021 DLP: 2504.[address] scans at [facility] use at least one of these dose optimization techniques: automated e xposure control; mA and/or kV adjustment per patient size (includes targeted exams where dose is matc hed to clinical indication); or iterative reconstruction. FINDINGS: Prior recent bone scan demonstrated intense bony uptake involving the angle of the mandible on the le ft suspicious for metastatic disease. In the area of concern, there is a focal bony lesion correspond ing to the previously mentioned bone scan findings measuring approximately 13 x 13 mm No evidence of bony destruction. No evidence of soft tissue mass. Associated sclerotic border. A few additional small subcentimeter satellite sclerotic lesions. Additional punctate sclerotic focus involving the body of the mandible. Mild right to left nasal deviation. Maxillary sinuses are well aerated. Mild mucosal thickening in th e ethmoid air cells. Frontal sinuses are well aerated. Mastoid air cells well aerated. CT/CT facial bones wo con* [id number] IMPRESSION: 1. Focal peripherally sclerotic lesion involving the angle of the mandible on the left corresponding to the bone scan findings suspicious for metastatic dise ase. This measures 13 x 13 mm. No bony destruction. 2. Additional smaller adjacent subcentimeter sclerotic satellite foci also jett picious for metastatic disease. 3. Additional tiny punctate sclerotic focus involving the body of the mandible measuring 2.4 mm. 4. No other significant findings.
--- NOTE | 2021-02-22 | USR_ITS ---
PROCEDURE INFORMATION: Exam: US Duplex Lower Extremity Veins, Bilateral Exam date and time: 02/22/2021 12:00 AM Age: 60 years old Clinical indication: Pain; Leg, upper and leg, lower; Bilateral; Patient HX: PT has lung cancer; Additional info: Ble swelling TECHNIQUE: Imaging protocol: Real-time duplex ultrasound of the extremities with 2-D albert scale, color Doppler flow and spectral waveform analysis with image documentation. Complete exam focused on the bilateral lower extremity veins. COMPARISON: CT chest abd pel w con* 10/25/2020 11:23 AM FINDINGS: Right deep veins: Unremarkable. The common femoral, femoral, proximal profunda femoral and popliteal veins are patent without thrombus. Normal Doppler waveforms. Normal compressibility and/or augmentation response. Right superficial veins: Saphenofemoral junction is patent without thrombus. Left deep veins: Unremarkable. The common femoral, femoral, proximal profunda femoral and popliteal veins are patent without thrombus. Normal Doppler waveforms. Normal compressibility and/or augmentation response. Left superficial veins: Saphenofemoral junction is patent without thrombus. Soft tissues: Unremarkable. US/[place] [id number] IMPRESSION: No evidence of deep vein thrombosis.
[2021-02-22 09:31] LABS: Basophils # 0.1 10^3/uL (0.0-0.1); Basophils % 0.5 %; Eosinophils # 0.2 10^3/uL (0.0-0.8); Hematocrit 32.2 % (37.0-47.0); Hemoglobin 10.2 g/dL (11.5-15.3); Lymphocytes % 13.1 %; Mean Corpuscular HGB Conc 31.7 g/dL (30.0-36.0); Mean Corpuscular Hemoglobin 25.2 pg (28.0-34.0); Mean Corpuscular Volume 79.7 fl (81-99); Mean Platelet Volume 8.3 fL (7.4-10.4); Monocytes # 1.5 10^3/uL (0.2-0.9); Monocytes % 9.4 %; Neutrophils # 11.66 10^3/uL (1.8-7.7); Neutrophils % 75.4 %; Nucleated Red Blood Cells % 0 %; Platelet Count 392 10^3/cmm (130-400); Red Blood Count 4.04 10^6/uL (4.1-5.3); Red Cell Distribution Width 14.6 % (12.1-15.1); Reticulocyte % 1.5 % (0.5-2.0); White Blood Count 15.5 10^3/uL (4.0-10.0)
[2021-02-22 09:53] LABS: Alanine Aminotransferase 10 U/L (0-33); Alkaline Phosphatase 118 IU/L (35-105); Anion Gap 12.5 (5-19); Aspartate Amino Transferase 17 U/L (0-32); Blood Urea Nitrogen 5 mg/dL (8-23); Calcium 8.7 mg/dL (8.5-10.5); Carbon Dioxide 26 mmol/L (22-29); Chloride 95 mmol/L (98-107); Ferritin 349 ng/mL (15-150); Globulin 3.5 g/dL (1.3-4.6); Glomerular Filtration Rate 125.9 mL/min (90-130); Glucose 104 mg/dL (65-115); Iron 13 ug/dL (37-145); Magnesium 1.8 mg/dL (1.7-2.3); Osmolality Calculated 268 mOsm/kg (285-295); Percent Saturation 6.3 % (20-50); Potassium 3.5 mmol/L (3.5-5.1); Sodium 130 mmol/L (136-145); Total Bilirubin 0.3 mg/dL (0.15-1.2); Total Iron Binding Capacity 204 mcg/dl; Total Protein 6.5 g/dL (6.6-8.7); Unsaturated Iron Binding 191 ug/dL (112-347)
[2021-02-22 10:09] LABS: Vitamin B12 1338 pg/mL (232-1245)
--- NOTE | 2021-02-22 17:12 | ONC FU_ITS ---
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 including iron studies, B12 folic acid, reticulocyte count level As far as hypokalemia is concerned probably due to Lasix, we will give a prescription for potassium supplement and also check her magnesium level. As far as non-small cell lung cancer is concerned, discussed with patient regarding maintenance treatment versus observation, patient will make a decision after pulmonology evaluation. Return to clinic in 2 weeks unless venous Doppler study shows DVT then will start anticoagulation Addendum venous Doppler study bilateral lower extremity shows no DVT Signed By: Rukhsana Soares M.D. <<Signature on File>>
== END 2021-02-23 23:59 | disposition home or self-care (01) ==
LOC: ONCMED 15:45
PROVIDERS: PCP Family Medicine; Visit Provider Internal Medicine Hematology & Oncology
DX: C34.11 Malignant neoplasm of upper lobe, right bronchus or lung (principal); C79.31 Secondary malignant neoplasm of brain; C77.8 Secondary and unspecified malignant neoplasm of lymph nodes of multiple regions; C78.02 Secondary malignant neoplasm of left lung; F17.210 Nicotine dependence, cigarettes, uncomplicated; J44.9 Chronic obstructive pulmonary disease, unspecified; Z92.21 Personal history of antineoplastic chemotherapy; Z79.899 Other long term (current) drug therapy; M79.89 Other specified soft tissue disorders; M79.662 Pain in left lower leg; M79.661 Pain in right lower leg
CPT/HCPCS: 36591; 36593; 70486; 80053; 82607; 82728; 82746; 83540; 83550; 83735; 85025; 85045; 93970; 96365; 99214; 99215; J2997

== ENCOUNTER → 2021-03-02 11:00 | Outpatient (BNVA) | payer MEDICARE, MEDICAID, SELFPAY | PROVIDERS: PCP Family Medicine; Visit Provider Internal Medicine Critical Care Medicine | DX: Z20.822 Contact with and (suspected) exposure to COVID-19 (principal); C34.90 Malignant neoplasm of unspecified part of unspecified bronchus or lung; C79.31 Secondary malignant neoplasm of brain | CPT/HCPCS: 87635 ==

== ENCOUNTER 2021-03-30 14:44 | Inpatient (IN) | payer MEDICARE, MEDICAID, SELFPAY ==
[2021-03-30 15:11] VITALS: BP 115/71; PULSE 112; RESP 22; TEMP 37.4; O2SAT 89
[2021-03-30 15:16] VITALS: BP 115/71; PULSE 110; RESP 16; TEMP 37.1; O2SAT 96; BMI 24.7
--- NOTE | 2021-03-30 15:16 | ED_ITS ---
HPI - SOB/Dyspnea General: Chief Complaint: Shortness of Breath/Dyspnea Stated Complaint: CX PT/STAGE 4:DIFF BREATHING,CP,BACK PAIN,DIARRHEA Time Seen by Provider: 03/30/21 15:06 History of Present Illness: HPI Narrative: 60-year-old female presents emergency room complaining of shortness of breath. She patient has known lung CA. She presented at stage IV with mediastinal lymphadenopathy contralateral involvement of lung as well as brain metastasis. Old records reviewed. Today she is complaining of extreme shortness of breath as well as left flank pain and lower extremity pain even to light. She denies any chest pain. She usually does not use oxygen at home. On arrival she was 89% on room air she is now using 3 L to maintain sats in the 60s. MD elicited complaint: shortness of breath Pertinent past history: COPD and other (Stage IV lung CA) Onset (ago): hour(s) Timing: constant Severity: moderate Exacerbating factors: exertion, movement and deep breaths Relieving factors: oxygen and rest Associated symptoms: Reports abdominal pain, chest congestion, hemoptysis and sense of impending doom; Deny chest pain, cough, diaphoresis, dizziness, extremity pain, fever(s), lightheadedness, myalgias, nausea, orthopnea, palpitations, paresthesias, polydipsia, polyuria, rash, syncope or vomiting Treatment prior to arrival: none and oxygen Review of Systems Const: Denies: fever(s) or diaphoresis ENMT: Denies: throat pain, ear or mastoid pain, nasal discharge or nasal congestion Card: Denies: chest pain, palpitations, lightheadedness, syncope or orthopnea Resp: Reports: hemoptysis and chest congestion GI: Reports: abdominal pain; Denies: nausea or vomiting : Denies: flank pain, difficulty voiding, dysuria, urinary frequency or urinary urgency Musc: Denies: extremity pain Skin/Breast: Denies: rash or pruritus Neuro: Denies: dizziness Endo: Denies: polyuria or polydipsia PFS ED PFSH: Medical History (Updated 04/06/21 @ 09:45 by Afshin Barron DO) Bilateral lung cancer Brain metastasis Chronic bronchitis with COPD (chronic obstructive pulmonary disease) COPD (chronic obstructive pulmonary disease) Depression Deviated septum Lesion of vocal fold Lung cancer Lung cancer metastatic to brain Nicotine addiction Port-A-Cath in place Postobstructive pneumonia Surgical History (Updated 03/30/21 @ 19:09 by Dave Oconnell MD) History of bronchoscopy History of cataract surgery Family History Other Cancer Social History Second hand smoke exposure: Yes Smoking risk assessment/counseling performed?: Yes Alcohol intake: never Counseling given: No Counseling given: No Lives independently: Yes Household members: none Housing: House Marital status: Current occupational status: disabled History of recent travel: No Current gender identity: Female Physical Exam Const: COMMON NORMALS: no acute distress GENERAL APPEARANCE: cooperative and comfortable ORIENTATION/CONSCIOUSNESS: Yes awake HENMT: COMMON NORMALS: normocephalic, atraumatic and hearing grossly normal bilaterally HEAD & SCALP: normocephalic and atraumatic Neck/C-Spine: COMMON NORMALS: no JVD Resp: AUSCULTATION: rhonchi and wheezes Cardio: COMMON NORMALS: no JVD, regular rate, regular rhythm and No murmurs present (Cardio) RATE: regular rate RHYTHM: regular rhythm GI: COMMON NORMALS: Soft to palpation and No hepatosplenomegaly present AUSCULTATION: Yes normoactive bowel sounds PALPATION: Yes Soft to palpation, No Tenderness to palpation present (GI), No Guarding due to palpation present (GI) and Yes No hepatosplenomegaly present Extremity: COMMON NORMALS: normal to inspection, capillary refill normal, no clubbing, cyanosis or edema, no calf tenderness and no pedal edema Skin: COMMON NORMALS: no rashes or lesions noted GENERAL SKIN EXAM: no rashes or lesions noted Course Vital Signs: Vital signs: Vital Signs Temperature 97.9 F 04/03/21 16:26 Pulse Rate 106 H 04/03/21 16:26 Respiratory Rate 16 04/03/21 16:26 Blood Pressure 106/69 04/03/21 16:26 Pulse Oximetry 94 04/03/21 18:16 MDM - SOB/Dyspnea MDM Narrative: Medical decision making narrative: Patient is worsening of her pneumonia with increasing size of the mass. She has a postobstructive pneumonia. We will go and start on antibiotics. She is otherwise stable at this time discussed with hospitalist orders written Lab Data: Labs: Lab Results 03/30/21 03/30/21 03/30/21 15:30 15:30 15:30 WBC 40.3 10^3/uL H* 1 0^3/uL (4.0-10.0) RBC 5.42 10^6/uL H 10 ^6/uL (4.1-5.3) Hgb 12.9 g/dL g/dL (11.5-15.3) Hct 41.5 % % (37.0-47.0) MCV 76.6 fl L fl (81-99) MCH 23.8 pg L pg (28.0-34.0) MCHC 31.1 g/dL g/dL (30.0-36.0) RDW 16.3 % H % (12.1-15.1) Plt Count 488 10^3/cmm H 10 ^3/cmm (130-400) MPV 8.6 fL fL (7.4-10.4) Neut % (Auto) 86.5 % % Lymph % (Auto) 5.4 % % Kerr % (Auto) 6.9 % % Eos % (Auto) 0.0 % % Baso % (Auto) 0.2 % % Neut # (Auto) 34.85 10^3/uL H 1 0^3/uL (1.8-7.7) Lymph # (Auto) 2.2 10^3/uL 10^3/ uL (0.8-4.8) Kerr # (Auto) 2.8 10^3/uL H 10^ 3/uL (0.2-0.9) Eos # (Auto) 0.0 10^3/uL 10^3/ uL (0.0-0.8) Baso # (Auto) 0.1 10^3/uL 10^3/ uL (0.0-0.1) Nucleated RBC % (a uto) 0 % % Nucleated RBCs # 0.0 /100WBC /100W BC Specimen Type Sample Site ABG pH ABG pCO2 ABG pO2 ABG HCO3 ABG O2 Saturation ABG Base Excess Tyshawn Test A-a O2 Gradient Hematocrit Hgb O2 Saturation Carboxyhemoglobin Methemoglobin Total Hemoglobin Ionized Calcium O2 Delivery Device O2 Liters/Min FiO2 Motor Vehicle Dispatcher ID Sodium 132 mmol/L L mmol /L (136-145) Potassium 3.7 mmol/L mmol/L (3.5-5.1) Chloride 90 mmol/L L mmol/ L (98-107) Carbon Dioxide 24 mmol/L mmol/L (22-29) Anion Gap 21.7 H (5-19) BUN 12 mg/dL mg/dL (8-23) Creatinine 0.4 mg/dL L mg/dL (0.5-0.9) GFR Calculation 162.8 mL/min H mL /min (90-130) Glucose 134 mg/dL H mg/dL (65-115) Calculated Osmolal ity 276 mOsm/kg L mOs m/kg (285-295) Calcium 9.1 mg/dL mg/dL (8.5-10.5) Total Bilirubin 1.1 mg/dL mg/dL (0.15-1.2) AST 19 U/L U/L (0-32) ALT 15 U/L U/L (0-33) Alkaline Phosphata se 164 IU/L H IU/L (35-105) Troponin T Baselin e 9 ng/L ng/L (0-10) Total Protein 6.3 g/dL L g/dL (6.6-8.7) Albumin 3.5 g/dL g/dL (3.5-5.2) Globulin 2.8 g/dL g/dL (1.3-4.6) Urine Color Urine Appearance Urine pH Ur Specific Gravit y Urine Protein Urine Glucose (UA) Urine Ketones Urine Blood Urine Nitrate Urine Bilirubin Urine Urobilinogen Ur Leukocyte Isabel ase Urine RBC Urine WBC Ur Squamous Epith Cells Ur Transition Epit h Cell Amorphous Sediment Urine Bacteria Urine Mucus 03/30/21 03/30/21 15:38 16:00 WBC RBC Hgb Hct MCV MCH MCHC RDW Plt Count MPV Neut % (Auto) Lymph % (Auto) Kerr % (Auto) Eos % (Auto) Baso % (Auto) Neut # (Auto) Lymph # (Auto) Kerr # (Auto) Eos # (Auto) Baso # (Auto) Nucleated RBC % (a uto) Nucleated RBCs # Specimen Type Arterial Sample Site Radial, left ABG pH 7.49 H (7.35-7.45) ABG pCO2 34.6 mmHg L mmHg (35-45) ABG pO2 91.1 mmHg mmHg (80.0-100.0) ABG HCO3 26.3 mmol/L H mmo l/L (22-26) ABG O2 Saturation 98.3 ABG Base Excess 3.1 mmol/L H mmol /L (-2.0-2.0) Tyshawn Test Pos A-a O2 Gradient 12.3 mmHg H mmHg (5-10) Hematocrit 36.9 % L % (37-47) Hgb O2 Saturation 96.2 % % (95-100) Carboxyhemoglobin 1.5 %THgb %THgb (0.4-20.1) Methemoglobin 0.6 % % (0.4-1.5) Total Hemoglobin 12.0 g/dL g/dL (12-16) Ionized Calcium 1.2 mmol/L mmol/L (1.1-1.4) O2 Delivery Device Nc O2 Liters/Min 3.0 % % FiO2 32.0 % % Motor Vehicle Dispatcher ID Monro Sodium 133.0 mmol/L mmol /L (131-143) Potassium 3.4 mmol/L L mmol /L (3.5-5.0) Chloride Carbon Dioxide Anion Gap BUN Creatinine GFR Calculation Glucose 179.0 mg/dL H mg/ dL (70-115) Calculated Osmolal ity Calcium Total Bilirubin AST ALT Alkaline Phosphata se Troponin T Baselin e Total Protein Albumin Globulin Urine Color Dark yellow (Yellow) Urine Appearance Hazy A (CLEAR) Urine pH 5 (5-7) Ur Specific Gravit y 1.020 (1.005-1.030) Urine Protein Trace (Negative) Urine Glucose (UA) Norm (Normal) Urine Ketones 2+ H (Negative) Urine Blood Neg (Negative) Urine Nitrate Negative (Negative) Urine Bilirubin 1+ H (Negative) Urine Urobilinogen 4 mg/dL H mg/dL (Negative) Ur Leukocyte Isabel ase Trace H (Negative) Urine RBC 0-4 /hpf H /hpf (0-2) Urine WBC 5-10 /hpf H /hpf (0-5) Ur Squamous Epith Cells 5-10 /hpf H /hpf (0-5) Ur Transition Epit h Cell 0-4 /hpf /hpf Amorphous Sediment Not Reportable Urine Bacteria 2+ /hpf H /hpf (NONE) Urine Mucus 2+ /hpf /hpf Discharge Plan Discharge Patient Disposition: Admitted As Inpatient Admit Provider: Anish,Acosta Clinical Impression: Non-small cell lung cancer metastatic to brain, Acute exacerbation of chronic obstructive airways disease, Postobstructive pneumonia Condition: Stable Coding Level of Care Code ED Planishing Hammer Operator for Will Fwfiona Exam Comprehensive
--- NOTE | 2021-03-30 15:23 | ECG_ITS ---
[facility] Test Date: 2021-03-30 Pat Name: Alma Deleon Department: Room: Gender: Female Blending Operator: : 1960 Requested By: Afshin Ruggiero Order Number: [id number] Jimbo MD: Gregory Ventura M.D. Measurements Intervals [place] Rate: 111 P: 82 MT: 110 QRS: 88 QRSD: 86 T: 75 QT: 344 QTc: 468 Interpretive Statements SINUS TACHYCARDIA WITH SHORT MT INTERVAL LEFT ATRIAL ENLARGEMENT [-0.15mV P-WAVE IN V1/V2] NONSPECIFIC ST & T-WAVE ABNORMALITY No previous ECG available for comparison Electronically Signed On 03-30-2021 17:07:07 CDT by Gregory Ventura M.D. [id number]
--- NOTE | 2021-03-30 15:23 | XR_ITS ---
WS: [id number] Portable AP upright chest, 03/30/2021 Clinical Data: dyspnea/cough Comparison: PA and lateral chest, 09/01/2020 Findings: The right midlung mass has increased in size and extends to the right pleura. There is an i ncrease in the left upper lobe mass and probable atelectasis of the left upper lobe. The diaphragms r emain flattened. The left Port-A-Cath remains in the same position. The heart size remains normal. Th ere are monitor leads on the chest wall. XR/XR chest 1V portable [id number] Impression: Increase in size of right lung mass and left upper lobe mass.
[2021-03-30] MEDS: morphine 4 mg/mL SDV 1 mL 2 MG IVP (15:40)
[2021-03-30] MEDS: LORazepam 2 mg/mL INJ 1 mL 1 MG IVP (15:40)
[2021-03-30 15:47] VITALS: BP 121/70; PULSE 114; O2SAT 98
[2021-03-30 15:50] LABS: ABG PCO2 34.6 mmHg (35-45); ABG PH Result 7.49 (7.35-7.45); Arterial Blood Gas Hematocrit 36.9 % (37-47); Base Excess ABG 3.1 mmol/L (-2.0-2.0); Blood Gas Allen Test Pos; Blood Gas Sample Type Arterial; Carboxyhemoglobin 1.5 %THgb (0.4-20.1); HCO3 ABG 26.3 mmol/L (22-26); HGB O2 Sat 96.2 % (95-100); Ionized Calcium Level - ABG 1.2 mmol/L (1.1-1.4); Methemoglobin 0.6 % (0.4-1.5); Oxygen Saturation ABG 98.3; PO2 ABG 91.1 mmHg (80.0-100.0); Potassium Level - ABG 3.4 mmol/L (3.5-5.0)
[2021-03-30 15:51] LABS: Alveolar-Arterial Oxygen Gradi 12.3 mmHg (5-10); Blood Gas Sample Site Radial, left; Oxygen Device NC
[2021-03-30 15:59] LABS: Basophils # 0.1 10^3/uL (0.0-0.1); Basophils % 0.2 %; Hematocrit 41.5 % (37.0-47.0); Hemoglobin 12.9 g/dL (11.5-15.3); Lymphocytes # 2.2 10^3/uL (0.8-4.8); Lymphocytes % 5.4 %; Mean Corpuscular HGB Conc 31.1 g/dL (30.0-36.0); Mean Corpuscular Hemoglobin 23.8 pg (28.0-34.0); Mean Corpuscular Volume 76.6 fl (81-99); Mean Platelet Volume 8.6 fL (7.4-10.4); Monocytes # 2.8 10^3/uL (0.2-0.9); Monocytes % 6.9 %; Neutrophils # 34.85 10^3/uL (1.8-7.7); Neutrophils % 86.5 %; Nucleated Red Blood Cells % 0 %; Platelet Count 488 10^3/cmm (130-400); Red Blood Count 5.42 10^6/uL (4.1-5.3); Red Cell Distribution Width 16.3 % (12.1-15.1)
--- NOTE | 2021-03-30 16:05 | PC.NURSE ---
St CAth done per provider request. Pt tolerated. UA collected and sent to lab
[2021-03-30 16:23] LABS: Bilirubin Urine 1+ (Negative); Blood Urine Neg (Negative); Glucose Urine UA Norm (Normal); Ketones Urine 2+ (Negative); Nitrate Urine Negative (Negative); Protein Urine Trace (Negative); Urine Appearance Hazy (CLEAR); Urine Color Dark Yellow (Yellow); Urobilinogen Urine 4 mg/dL (Negative); pH Urine 5 (5-7)
[2021-03-30 16:24] LABS: Add Urine Culture? Yes; Add Urine Microscopic? YES; Bacteria Urine 2+ /hpf; Leukocyte Esterase Urine Trace (Negative); Mucus Urine 2+ /hpf; RBC Urine 0-4 /hpf (0-2); Transitional Epi Cells Urine 0-4 /hpf
[2021-03-30 16:34] LABS: White Blood Count 40.3 10^3/uL (4.0-10.0)
[2021-03-30 16:47] LABS: Troponin(5th) Baseline 9 ng/L (0-10)
[2021-03-30 16:49] LABS: Alanine Aminotransferase 15 U/L (0-33); Albumin Level 3.5 g/dL (3.5-5.2); Alkaline Phosphatase 164 IU/L (35-105); Anion Gap 21.7 (5-19); Aspartate Amino Transferase 19 U/L (0-32); Blood Urea Nitrogen 12 mg/dL (8-23); Calcium 9.1 mg/dL (8.5-10.5); Carbon Dioxide 24 mmol/L (22-29); Chloride 90 mmol/L (98-107); Globulin 2.8 g/dL (1.3-4.6); Glomerular Filtration Rate 162.8 mL/min (90-130); Glucose 134 mg/dL (65-115); Osmolality Calculated 276 mOsm/kg (285-295); Potassium 3.7 mmol/L (3.5-5.1); Sodium 132 mmol/L (136-145); Total Bilirubin 1.1 mg/dL (0.15-1.2); Total Protein 6.3 g/dL (6.6-8.7)
[2021-03-30 16:52] LABS: Blood Gas Operator Identificat MONRO
[2021-03-30] MEDS: vancomycin 1,000 MG in sodium chloride 0.9% 250 ML 250 MG IV (17:07)
--- NOTE | 2021-03-30 17:23 | ECG_ITS ---
[facility] Test Date: 2021-03-30 Pat Name: Alma Deleon Department: Room: 279 Gender: Female Nuclear Technologist: : 1960 Requested By: Afshin Ruggiero Order Number: [id number] Reading MD: Gregory Ventura M.D. Measurements Intervals [place] Rate: 101 P: 83 UT: 117 QRS: 93 QRSD: 90 T: 80 QT: 355 QTc: 461 Interpretive Statements SINUS TACHYCARDIA WITH SHORT [place] INTERVAL POSSIBLE LEFT ATRIAL ENLARGEMENT [-0.1mV P-WAVE IN V1/V2] BORDERLINE RIGHT AXIS DEVIATION [QRS AXIS > 90] SEPTAL MYOCARDIAL INFARCTION , OF INDETERMINATE AGE [40+ ms Q WAVE IN V1/V2] Compared to ECG 03/30/2021 15:13:20 Myocardial infarct finding now present T-wave abnormality no longer present Electronically Signed On 03-30-2021 20:34:54 CDT by Gregory Ventura M.D. [id number]
--- NOTE | 2021-03-30 18:59 | P.HP_ITS ---
Providers/Chief Complaint Admitting Physician: Dave Oconnell MD Primary Care Provider: Gregory Eduardo DO Chief Complaint: CX PT/STAGE 4:DIFF BREATHING,CP,BACK PAIN,DIARRHEA History of Present Illness Alma Deleon is a 60 year old female who carries diagnosis of poorly differenti ated nonsmall cell lung cancer with metastases, follows up with Dr. Soares, recent PET scan showed progression of the disease, she does use 1.5 L of oxygen [id number], carries diagnosis of class D COPD, follows up with Dr. Rivera as well, presented today with chief complaint of worsening shortness of breath. Patient is stating that for last few days she has been experiencing worsening of shortness of breath, productive cough, she has not noticed any fever but her weakness fatigue and lethargy has been getting worse. She is vaccinated for COVID-19. Recent PET scan in January 2021 showed progression of cancer in bilateral upper lobes. She has undergone CyberKnife therapy for metastatic lesion before for brain metastasis. In the ER she was diagnosed with sepsis secondary to postobstructive pneumonia, she was given broad-spectrum antibiotics aztreonam and vancomycin, will add cefepime as well. Dr. Rivera consulted for bronchoscopy tomorrow. Patient has not eaten well in last 3 to 4 days endorsing weight loss. Patient was given option to start maintenance treatment for cancer versus observation she wanted to make final decision after pulmonary evaluation. Dr. Soares also requested venous Doppler of left leg and anemia work-up No signs of DVT on venous Doppler CT/CT chest wo con [id number] IMPRESSION:02/03/21 1. Interval increase in size of the left upper lobe mass with more central necrosis today described above. Today measures 9.9 x 6.5 x 8.1 cm compared to 9.9 x 6.6 x 7.1 cm previously. 2. Interval increase in size of the right hilar and right upper lobe mass described above suspicious for progression of disease. Today measures 5.3 x 5.7 x 4.6 cm compared to 4.3 x 6.2 x 3.6 cm on October 25, 2020. New obstruction right upper lobe bronchus with evidence of postobstructive pneumonia in the right lung apex. 3. Above findings can be further evaluated PET/CT. 4. Stable prominent mediastinal and paratracheal lymph nodes. 5. Micronodular tree-in-bud type infiltrates in the right middle lobe slightly progressed compared to previous. Review of Systems Const: Reports: chills, body aches, change in appetite, change in weight, fatigue and malaise Eyes: Denies: change in vision ENMT: Reports: hoarseness; Denies: throat pain Card: Denies: chest pain Resp: Reports: dyspnea and productive cough GI: Denies: abdominal pain : Denies: flank pain Musc: Denies: neck pain Skin/Breast: Denies: rash Neuro: Denies: headache(s) Psych: Denies: anxiety Endo: Denies: polyuria Abiodun/Lymph: Denies: easy bruising All/Imm: Denies: urticaria Medications/Allergies Home Medications Medication Instructions Recorded Confirmed Last Taken Type albuterol sulfate 90 mcg/actuation 2 puff INHALATION Q4H PRN 08/04/19 03/22/21 10/06/19 History aerosol inhaler multivitamin 1 tab PO DAILY 09/01/19 03/22/21 10/06/19 History fluticasone propionate 50 1 spray INTRANASAL DAILY 30 Days 08/08/20 03/22/21 Unknown Rx mcg/actuation nasal #16 g spray,suspension benzonatate 200 mg PO TID PRN 10/25/20 03/22/21 Unknown History cyclobenzaprine 10 mg PO TID PRN 10/25/20 03/22/21 10/24/20 History hydrocodone-acetaminophen 1 - 2 tab PO Q4H PRN 10/25/20 03/22/21 10/25/20 09:30 History 1/2 tab hydrocodone-acetaminophen 1 tab PO Q6H PRN #15 tab 10/25/20 03/22/21 Unknown Rx montelukast 10 mg PO DAILY 10/25/20 03/22/21 Unknown History pantoprazole [Protonix] 40 mg PO DAILY PRN 10/25/20 03/22/21 Unknown History azelastine 137 mcg (0.1 %) nasal See Rx Instructions .ROUTE 11/21/20 03/22/21 Unknown Rx spray aerosol .COMPLEX #30 ml tiotropium bromide 18 mcg capsule See Rx Instructions .ROUTE 11/30/20 03/22/21 Unknown Rx with inhalation device .COMPLEX #30 capsule budesonide-formoterol HFA 160 2 puff INHALATION Q12H 30 Days 12/05/20 03/22/21 Unknown Rx mcg-4.5 mcg/actuation aerosol #10.2 g inhaler ibuprofen 200 mg capsule 200 mg PO Q6H PRN 12/05/20 03/22/21 Unknown History ipratropium 0.5 mg-albuterol 3 mg 3 ml INHALATION Q6H PRN #180 ml 03/22/21 Unknown Rx (2.5 mg base)/3 mL nebulization soln moxifloxacin 400 mg tablet 400 mg PO DAILY 7 Days #7 tab 03/22/21 03/22/21 Unknown Rx prednisone 20 mg tablet 40 mg PO DAILY 5 Days #10 tab 03/22/21 03/22/21 Unknown Rx Allergies Allergy/AdvReac Type Severity Reaction Status Date / Time penicillin G Allergy unknown Verified 03/22/21 13:20 Iodine and Iodide Containing AdvReac ADR-Itching Verified 03/22/21 13:20 Produc PFSH Acute PFSH: Medical History (Updated 03/30/21 @ 19:09 by Dave Oconnell MD) Bilateral lung cancer Chronic bronchitis with COPD (chronic obstructive pulmonary disease) Deviated septum Lesion of vocal fold Port-A-Cath in place Surgical History (Updated 03/30/21 @ 19:09 by Dave Oconnell MD) History of bronchoscopy History of cataract surgery Family History Other Cancer Social History Second hand smoke exposure: Yes Smoking risk assessment/counseling performed?: Yes Alcohol intake: never Counseling given: No Counseling given: No Lives independently: Yes Household members: none Housing: House Marital status: Current occupational status: disabled History of recent travel: No Current gender identity: Female Vitals/I&O/Wt Last Vital Signs Temp 98.7 F 03/30/21 15:16 Pulse 114 H 03/30/21 15:47 Resp 16 03/30/21 15:16 BP 121/70 03/30/21 15:47 Pulse Ox 98 03/30/21 15:47 03/30/21 03/30/21 03/30/21 06:59 14:59 22:59 Intake Total 250 / 250 Balance 250 / 250 Weight last 48 hrs Weight 63.503 kg Physical Exam Narrative: EXAM NARRATIVE: Patient was seen in the ER Appears stated age Dehydrated malnourished cachectic Dry mucous membranes S1, S2 No murmur appreciated No acute respiratory distress Saturating well on 2 L nasal cannula Right lung normal breath sounds with rhonchi at the bases, diminished left-sided breath sounds, no wheezing noticed at the time of my examination Hoarseness of voice Nonfocal neuro exam Trace edema of left leg Abdomen soft Fatigue and lethargic Friend at the bedside Digital clubbing noted Data : 03/30/21 15:30 03/30/21 15:30 Micro: Microbiology 03/30/21 17:15 Blood Culture - Preliminary Blood SPECIMEN COLLECTED 03/30/21 17:15 Blood Culture - Preliminary Blood SPECIMEN COLLECTED A&P Assessment and plan (1) Lung cancer metastatic to brain: Status: Acute (2) Depression: Status: Acute (3) COPD (chronic obstructive pulmonary disease): Status: Acute (4) Postobstructive pneumonia: Status: Acute (5) Sepsis: Status: Acute (6) DNR (do not resuscitate): Status: Acute Additional A&P Information Sepsis secondary to postobstructive pneumonia Leukocytosis, tachypnea and tachycardia We will start on vancomycin Estraderm and cefepime DuoNeb treatment along steroids Check lactic and procalcitonin level Send bacterial antigen Dr. Rivera consulted for bronchoscopy tomorrow morning N.p.o. after midnight For dehydration I will keep her on IV fluids for now Acute on chronic hypoxia currently requiring 3 L nasal cannula ABG reviewed No signs of UTI abnormal UA noted Had lengthy discussion with the patient regarding goals of care, she does not wish to have chest compressions or intubation for worsening of resp distress or cardiac arrest, she has a daughter and a son but stating that family is not able to make decisions on her behalf and she would like her friend to make a decision for her however she is not her DPOA, patient verbalized her un derstanding regarding goals of care and wishes to stay DNR/DNI Attestations Medical Necessity Statement*: Anticipating more than 2 midnights Time Spent in Patient Care: Greater than 35 minutes Coding Level of Care Code Acute Wheelage Clerk for g Fwd Diagnoses Lung cancer metastatic to brain C34.90; C79.31 Depression F32.9 COPD (chronic obstructive pulmonary disease) J44.9 Postobstructive pneumonia J18.9 Sepsis A41.9 DNR (do not resuscitate) Z66
[2021-03-30] MEDS: aztreonam 2,000 MG in sodium chloride 0.9% (plus) 100 ML 200 MG IV (19:37)
[2021-03-30 20:08] VITALS: BMI 24.7
[2021-03-30] MEDS: cefepime 2,000 MG in sodium chloride 0.9% (plus) 50 ML 100 MG IV (20:19)
[2021-03-30 20:39] VITALS: BP 103/65; PULSE 100; RESP 20; TEMP 36.6; O2SAT 99
--- NOTE | 2021-03-30 21:23 | ECG_ITS ---
[facility] Test Date: 2021-03-30 Pat Name: Alma Deleon Department: Room: 279 Gender: Female Manager Transport: : 1960 Requested By: Afshin Ruggiero Order Number: [id number] Jimbo MD: Gregory Ventura M.D. Measurements Intervals [place] Rate: 96 P: 97 [place]: 110 QRS: 96 QRSD: 100 T: 73 QT: 383 QTc: 484 Interpretive Statements SINUS RHYTHM WITH SHORT [place] INTERVAL POSSIBLE LEFT ATRIAL ENLARGEMENT [-0.1mV P-WAVE IN V1/V2] BORDERLINE RIGHT AXIS DEVIATION [QRS AXIS > 90] SEPTAL MYOCARDIAL INFARCTION , OF INDETERMINATE AGE [40+ ms Q WAVE IN V1/V2] Compared to ECG 03/30/2021 19:03:05 Sinus tachycardia no longer present Myocardial infarct finding still present Electronically Signed On 03-30-2021 22:19:02 CDT by Gregory Ventura M.D. [id number]
[2021-03-30 21:28] VITALS: PULSE 96; RESP 18; O2SAT 98
[2021-03-30 21:50] LABS: Procalcitonin 1.01 ng/mL (0-0.5)
[2021-03-30 22:21] LABS: Troponin 5 6HR 6.24 ng/L (0-10); Troponin 5 6HR Delta -2.76 ng/L (0-12)
--- NOTE | 2021-03-30 22:34 | PC.NURSE ---
Patient AAOx4, VSS, arrived to floor via stretcher from ED. No needs at this time. Currently on oxygen and compliant. Patient has home meds that have been locked in [facility]. Patient also has wallet at bedside and states there is no chandler in wallet and will let us lock wallet up tomorrow after she pays bills. Room clutter free and call light in reach.
[2021-03-30 23:37] VITALS: BP 111/66; PULSE 81; RESP 16; TEMP 36.4; O2SAT 100
[2021-03-31] VITALS (11 sets, daily range): BP systolic 99–129; BP diastolic 63–69; PULSE 76–94; RESP 16–22; TEMP 36.3–36.6; O2SAT 98–99
[2021-03-31] MEDS: vancomycin 1,000 MG in sodium chloride 0.9% 250 ML 250 MG IV ×3 (00:36→17:38)
[2021-03-31] MEDS: acetaminophen 500 mg Tablet PO ×2 (01:30→20:57)
[2021-03-31] MEDS: oxyCODONE 5 mg IR Tab/Cap PO ×4 (01:31→20:58)
[2021-03-31 02:43] LABS: Basophils % 0.1 %; Hematocrit 35.1 % (37.0-47.0); Hemoglobin 10.8 g/dL (11.5-15.3); Lymphocytes # 1.1 10^3/uL (0.8-4.8); Lymphocytes % 3.6 %; Mean Corpuscular HGB Conc 30.8 g/dL (30.0-36.0); Mean Corpuscular Hemoglobin 23.3 pg (28.0-34.0); Mean Corpuscular Volume 75.8 fl (81-99); Mean Platelet Volume 8.5 fL (7.4-10.4); Monocytes # 1.2 10^3/uL (0.2-0.9); Monocytes % 3.8 %; Neutrophils # 27.92 10^3/uL (1.8-7.7); Neutrophils % 91.5 %; Nucleated Red Blood Cells % 0 %; Platelet Count 347 10^3/cmm (130-400); Red Blood Count 4.63 10^6/uL (4.1-5.3); Red Cell Distribution Width 16.1 % (12.1-15.1)
[2021-03-31 03:03] LABS: Alanine Aminotransferase 22 U/L (0-33); Albumin Level 2.9 g/dL (3.5-5.2); Alkaline Phosphatase 138 IU/L (35-105); Anion Gap 14.8 (5-19); Aspartate Amino Transferase 38 U/L (0-32); Blood Urea Nitrogen 14 mg/dL (8-23); C Reactive Protein 304.9 mg/L (0.0-4.9); Carbon Dioxide 25 mmol/L (22-29); Chloride 98 mmol/L (98-107); Glomerular Filtration Rate 162.8 mL/min (90-130); Glucose 178 mg/dL (65-115); Osmolality Calculated 283 mOsm/kg (285-295); Potassium 3.8 mmol/L (3.5-5.1); Sodium 134 mmol/L (136-145); Total Bilirubin 0.5 mg/dL (0.15-1.2); Total Protein 6.9 g/dL (6.6-8.7)
[2021-03-31 03:13] LABS: White Blood Count 30.6 10^3/uL (4.0-10.0)
[2021-03-31] MEDS: aztreonam 2,000 MG in sodium chloride 0.9% (plus) 100 ML 200 MG IV ×2 (07:52→19:26)
[2021-03-31] MEDS: ipratropium-albuterol 3 mL Neb INHALATION (08:31)
[2021-03-31] MEDS: cefepime 2,000 MG in sodium chloride 0.9% (plus) 50 ML 100 MG IV ×2 (08:46→20:39)
--- NOTE | 2021-03-31 09:44 | PC.CHAP ---
Pastoral Care Encounter/Spiritual Assessment Type of Contact [] Declined radiology services manager visit [] Patient/Family/Request visit [] Outpatient visit [] Follow-up visit [] Physician referral [] Code/Alert [x] Routine visit [] Staff referral [] Actively dying [] Patient sleeping [] Family support [] [] Out of room [] Palliative care [] [] Receiving care in room [] Pre-surgical visit [] Trauma [] Long length of stay [] ICU visit [] Other: Relational/Emotional Strength [x] Patient feels connected with others/family/visitors/staff [] Distress [] Loneliness/isolation [] Abandonment Spirituality of Patient [x] Person of Denise [x] Attends Scientology of their Denise [x] Believes in Prayer [] Reads Bible or Worship materials [] There are Spiritual issues to be addressed Site Operations Manager Interventions [x] Prayer [x] Active listening [x] Non-anxious presence [x] Spiritual/emotional support [] Crisis/trauma care [x] Spiritual counseling [] Bereavement support [] Provided bereavement packet [] Provided Bible/devotional materials [] Provided toy/stuffed animal, coloring book to patient or family member [] Provided Communion [] Anointing/[place] [] Salvation [x] Completed spiritual assessment [] Other: Impact on Illness or Injury [] Angry [] Fearful [] Anxious [] Often cries [] Exhaustion [] Unable to work [] Unable to attend presybeterian [] Unable to walk/stand [] Unable to read [] Unable to drive [] Unable to eat/drink [] Unable to sleep [] Unable to be with family [] Patient intubated [] Other: Summary Time spent with patient 15 min
--- NOTE | 2021-03-31 10:59 | P.PN_ITS ---
Subjective Subjective: Interval history: Patient is n.p.o., overnight remained afebrile, this morning she is very anxious and wants to try coffee, I have given her one quarter of coffee with creamer, she has been, question regarding bronchoscopy, still agreeable for bronchoscopy, Leukocytosis 30,000 Still saturating well on 2 L nasal cannula Vitals/I&O/Wt Last Vital Signs Temp 97.8 F 03/31/21 08:00 Pulse 86 03/31/21 08:32 Resp 16 03/31/21 09:01 BP 99/63 03/31/21 08:00 Pulse Ox 98 03/31/21 08:32 03/30/21 03/31/21 03/31/21 22:59 06:59 14:59 Intake Total 400 / 400 800 / 1200 150 / 150 Output Total 300 / 300 Balance 400 / 400 500 / 900 150 / 150 Weight last 48 hrs Weight 63.503 kg Weight 63.503 kg Physical Exam Narrative: EXAM NARRATIVE: Patient was sitting in her bed saturating well on 2 L nasal cannula S1, S2 Right-sided breath sounds with crackles at the bases Left diminished breath sounds No acute respite distress does look comfortable on 2 L nasal cannula Abdomen soft Trace edema left leg Venous stasis dermatitis Nonfocal neuro exam Digital clubbing Irritable because of n.p.o. status Data : 03/31/21 02:28 03/31/21 02:28 Micro: Microbiology 03/30/21 16:00 Legionella Urinary Antigen - Final Urine,Clean Catch 03/30/21 17:15 Blood Culture - Preliminary Blood SPECIMEN COLLECTED 03/30/21 17:15 Blood Culture - Preliminary Blood SPECIMEN COLLECTED A&P Assessment and plan (1) DNR (do not resuscitate): Status: Acute (2) Sepsis: Status: Acute (3) Postobstructive pneumonia: Status: Acute (4) Lung cancer metastatic to brain: Status: Acute (5) Brain metastasis: Status: Acute (6) Lung cancer: Status: Acute (7) Nicotine addiction: Status: Acute Additional A&P Information Sepsis due to postobstructive pneumonia Acute on chronic hypoxia, productive cough, Leukocytosis trending down, she has remained afebrile, continue broad-spectrum antibiotics Bronchoscopy today Patient is stating that she does use 1.5 L of oxygen at home today she is on 2 L, overnight she remained on 3 L. Procalcitonin 1.01 CRP 300 Continue on 30 mg of IV steroids twice daily DNR/DNI N.p.o. resume diet after bronchoscopy Dr. Rivera consulted Mucomyst Attestations Medical Necessity Statement*: Plan for bronchoscopy today Time Spent in Patient Care: 16 - 35 minutes Coding Level of Care Code Acute Multicultural Manager for Chg Fwd Diagnoses DNR (do not resuscitate) Z66 Sepsis A41.9 Postobstructive pneumonia J18.9 Lung cancer metastatic to brain C34.90; C79.31 Brain metastasis C79.31 Lung cancer C34.90 Nicotine addiction F17.200
[2021-03-31] MEDS: HYDROmorphone 1 mg/mL INJ 1 mL 0.4 MG IVP (11:45)
[2021-03-31] MEDS: ondansetron 2 mg/ML SDV 2 mL 4 MG IVP (15:43)
--- NOTE | 2021-03-31 18:09 | P.PN_ITS ---
Subjective Subjective: Interval history: This is a 60-year-old lady who is well-known to me from her multiple office visits. The patient has gold class D COPD. Additionally, the patient was diagnosed with poorly differentiated adenocarcinoma in 2019. She had received therapy with Keytruda after her PD-L1 was 95% positive. In the recent past, the patient underwent a PET CT scan and there was questions for atelectasis and the patient was scheduled for bronchoscopic evaluation in the past which was canceled as the patient did not want to move forward with it. Recently I had seen her in the office on March 22. The patient presented to the hospital on March 30 with postobstructive pn eumonia, sepsis and has been undergoing treatment with broad-spectrum antibiotic. The plan was to do a bronchoscopy today. Unfortunately, the patient had consumed 2 cups of coffee this morning and the bronchoscopy had to be canceled as the patient wanted to eat and not wait for the bronchoscopy. Fortunately, the patient's WBC count is coming down. Medications: Reviewed: Yes Vitals/I&O/Wt Last Vital Signs Temp 97.8 F 03/31/21 08:00 Pulse 86 03/31/21 08:32 Resp 18 03/31/21 15:27 BP 99/63 03/31/21 08:00 Pulse Ox 98 03/31/21 08:32 03/31/21 03/31/21 03/31/21 06:59 14:59 22:59 Intake Total 800 / 1200 640 / 640 Output Total 300 / 300 Balance 500 / 900 640 / 640 Weight last 48 hrs Weight 140 lb Weight 140 lb Physical Exam Narrative: EXAM NARRATIVE: General: Patient is awake alert and oriented, in no acute distress. Neck: No JVD Respiratory: Auscultation: Bilateral vesicular breath sound with prolonged expiration, no crackles, wheezing, occasional rhonchi Cardiovascular: Regular rate and rhythm, S1-S2 present, no murmur, no peripheral edema Abdomen: Soft, nontender, nondistended, positive bowel sound Musculoskeletal: Bilateral clubbing Skin: No rash Lymphatic: The axillary and inguinal lymph node groups are not examined Neuro: Mental status is normal, no gross cranial nerve deficit, normal motor and coordination. Data : 03/31/21 02:28 03/31/21 02:28 Micro: Microbiology 03/30/21 17:15 Blood Culture - Preliminary Blood NEGATIVE TO DATE 03/30/21 17:15 Blood Culture - Preliminary Blood NEGATIVE TO DATE 03/30/21 19:52 MRSA Culture - Final Nose 03/30/21 16:00 Bacterial Antigens - Final Urine,Clean Catch 03/30/21 03:18 Gram Stain - Final Sputum - Expectorated Sputum 03/30/21 16:00 Legionella Urinary Antigen - Final Urine,Clean Catch Attestation for Other Data: I personally reviewed and interpreted the following: Other data: I have reviewed the patient's laboratory microbiologic and neurologic data. Leukocytosis is coming down. A&P Assessment and plan (1) Postobstructive pneumonia: The patient is responding to antibiotic therapy. The patient is hemodynamically stable. The leukocytosis is getting better. Would recommend de-escalating antibiotic when she is discharged from the hospital. Status: Acute (2) COPD (chronic obstructive pulmonary disease): She can continue with her current inhaler therapy. Status: Acute (3) Lung cancer: The bronchoscopy could not be performed. The patient most likely has progression of her cancer. I have discussed this with the patient and her daughter in detail. Hopefully the bronchoscopy can be performed as outpatient once she leaves the hospital. Status: Acute Attestations Medical Necessity Statement*: Will defer to the primary team Coding Level of Care Code Acute Consumer Affairs Director for [facility] Robbie Diagnoses Postobstructive pneumonia J18.9 COPD (chronic obstructive pulmonary disease) J44.9 Lung cancer C34.90
[2021-03-31] MEDS: lidocaine 2% viscous 15 ML, aluminum-mag hydrox-simethicon 30 ML, sucralfate oral liq 1 GM PO (18:52)
[2021-04-01] VITALS (10 sets, daily range): BP systolic 104–168; BP diastolic 55–81; PULSE 79–108; RESP 15–22; TEMP 36.4–36.8; O2SAT 90–98
[2021-04-01] MEDS: vancomycin 1,000 MG in sodium chloride 0.9% 250 ML 250 MG IV (00:30)
[2021-04-01] MEDS: oxyCODONE 5 mg IR Tab/Cap PO ×2 (03:07→08:56)
[2021-04-01] MEDS: acetaminophen 500 mg Tablet PO ×2 (03:07→10:46)
--- NOTE | 2021-04-01 05:51 | PC.NURSE ---
Patient slept poorly throughout night d/t room mate, patient refusing venous sticks and port does not have return flow. VSS, AAOx4, no needs at this time. Pain controlled with ordered pain medication per JUL. Patient requesting orders for clot buster for port to be on MAR for lab draws. Room clutter free and call light in reach, OOBTC and to bathroom. No needs at this time.
[2021-04-01] MEDS: cefepime 2,000 MG in sodium chloride 0.9% (plus) 50 ML 100 MG IV ×2 (07:46→21:08)
[2021-04-01 08:24] LABS: Basophils % 0.1 %; Eosinophils % 0.1 %; Hematocrit 32.7 % (37.0-47.0); Lymphocytes # 0.9 10^3/uL (0.8-4.8); Lymphocytes % 3.1 %; Mean Corpuscular HGB Conc 30.6 g/dL (30.0-36.0); Mean Corpuscular Hemoglobin 23.8 pg (28.0-34.0); Mean Corpuscular Volume 77.7 fl (81-99); Mean Platelet Volume 8.9 fL (7.4-10.4); Monocytes # 0.9 10^3/uL (0.2-0.9); Neutrophils # 28.03 10^3/uL (1.8-7.7); Neutrophils % 92.9 %; Nucleated Red Blood Cells % 0 %; Platelet Count 313 10^3/cmm (130-400); Red Blood Count 4.21 10^6/uL (4.1-5.3); Red Cell Distribution Width 15.8 % (12.1-15.1)
[2021-04-01 08:46] LABS: Blood Urea Nitrogen 13 mg/dL (8-23); Calcium 8.9 mg/dL (8.5-10.5); Carbon Dioxide 25 mmol/L (22-29); Chloride 99 mmol/L (98-107); Glomerular Filtration Rate 226.9 mL/min (90-130); Glucose 126 mg/dL (65-115); Osmolality Calculated 280 mOsm/kg (285-295); Sodium 134 mmol/L (136-145)
[2021-04-01] MEDS: ipratropium-albuterol 3 mL Neb INHALATION (08:52)
[2021-04-01 08:53] LABS: Procalcitonin 0.56 ng/mL (0-0.5)
[2021-04-01 08:54] LABS: Anion Gap 14.6 (5-19); Potassium 4.6 mmol/L (3.5-5.1)
[2021-04-01] MEDS: aztreonam 2,000 MG in sodium chloride 0.9% (plus) 100 ML 200 MG IV ×2 (08:56→20:05)
[2021-04-01 08:58] LABS: White Blood Count 30.2 10^3/uL (4.0-10.0)
[2021-04-01] MEDS: vancomycin 750 MG in sodium chloride 0.9% 250 ML 250 MG IV (09:34)
--- NOTE | 2021-04-01 09:49 | PC.NURSE ---
Dr. Oconnell notified of positive blood cultures.
--- NOTE | 2021-04-01 14:43 | P.PN_ITS ---
Subjective Subjective: Interval history: Patient refused her labs this morning however was agreeable after my evaluation, leukocytosis still around 30,000, she has been afebrile Saturating well on 2 L nasal cannula Not in any active distress Dr. Celaya recommended outpatient bronchoscopy we will discharge her on antibiotics once leukocytosis is around 15-20,000 Vitals/I&O/Wt Last Vital Signs Temp 97.6 F 04/01/21 11:44 Pulse 98 04/01/21 11:44 Resp 18 04/01/21 11:44 BP 138/70 04/01/21 11:44 Pulse Ox 90 04/01/21 11:44 03/31/21 04/01/21 04/01/21 22:59 06:59 14:59 Intake Total 880 / 1520 550 / 2070 1440 / 1440 Balance 880 / 1520 550 / 2070 1440 / 1440 Weight last 48 hrs Weight 63.503 kg Weight 63.503 kg Physical Exam Narrative: EXAM NARRATIVE: Patient was sitting comfortably in her bed saturating well on 2 L nasal cannula Well-hydrated Tolerating her diet very well Abdomen soft Bowel sound present Low symmetry no edema Mild edema of left leg No active respite distress diminished left-sided breath sounds Crackles at the base of the lung on the right side right greater than left Nonfocal neuro exam Data : 04/01/21 08:04 04/01/21 08:04 Micro: Microbiology 03/30/21 03:18 Gram Stain - Final Sputum - Expectorated Sputum Sputum Culture - Preliminary 03/30/21 17:15 Blood Culture - Preliminary Blood 03/30/21 16:00 Urine Culture - Final Urine,Clean Catch 03/30/21 17:15 Blood Culture - Preliminary Blood NEGATIVE TO DATE 03/30/21 19:52 MRSA Culture - Final Nose 03/30/21 16:00 Bacterial Antigens - Final Urine,Clean Catch A&P Assessment and plan (1) DNR (do not resuscitate): Status: Acute (2) Sepsis: Status: Acute (3) Postobstructive pneumonia: Status: Acute (4) Lung cancer metastatic to brain: Status: Acute (5) Lung cancer: Status: Acute (6) COPD (chronic obstructive pulmonary disease): Status: Acute Additional A&P Information Sepsis secondary to postobstructive pneumonia MRSA negative, procalcitonin trending down We will discontinue vancomycin Bacterial antigens negative Continue DuoNeb, Mucomyst, Discontinue steroids Currently doing well on 2 L nasal cannula Outpatient bronchoscopy as per Dr. Rivera Blood cultures negative to date, she is afebrile Lung cancer with metastases Chronic hypoxic respiratory failure with COPD DNR/DNI Cardiac diet DVT prophylaxis Lovenox Attestations Medical Necessity Statement*: Anticipating discharge once white count is less than 20,000 Time Spent in Patient Care: 16 - 35 minutes Coding Level of Care Code Acute [employer] Director for g Fwd Diagnoses DNR (do not resuscitate) Z66 Sepsis A41.9 Postobstructive pneumonia J18.9 Lung cancer metastatic to brain C34.90; C79.31 Lung cancer C34.90 COPD (chronic obstructive pulmonary disease) J44.9
[2021-04-01] MEDS: HYDROmorphone 1 mg/mL INJ 1 mL 0.4 MG IVP (15:21)
[2021-04-01] MEDS: HYDROcodone-acetaminophen 10-325 mg Tablet 1 TAB PO ×2 (15:55→20:04)
[2021-04-01] MEDS: cyclobenzaprine 10 mg Tablet PO ×2 (18:07→23:11)
[2021-04-02] VITALS (9 sets, daily range): BP systolic 136–167; BP diastolic 76–87; PULSE 80–97; RESP 17–19; TEMP 36.6–36.9; O2SAT 96–99
[2021-04-02] MEDS: HYDROcodone-acetaminophen 10-325 mg Tablet 1 TAB PO ×4 (03:37→20:25)
[2021-04-02 05:22] LABS: Basophils % 0.2 %; Hematocrit 32.7 % (37.0-47.0); Hemoglobin 9.9 g/dL (11.5-15.3); Lymphocytes # 1.9 10^3/uL (0.8-4.8); Lymphocytes % 8.2 %; Mean Corpuscular HGB Conc 30.3 g/dL (30.0-36.0); Mean Corpuscular Hemoglobin 23.5 pg (28.0-34.0); Mean Corpuscular Volume 77.7 fl (81-99); Mean Platelet Volume 8.7 fL (7.4-10.4); Monocytes # 1.7 10^3/uL (0.2-0.9); Monocytes % 7.3 %; Neutrophils # 19.36 10^3/uL (1.8-7.7); Neutrophils % 83.1 %; Nucleated Red Blood Cells % 0 %; Platelet Count 325 10^3/cmm (130-400); Red Blood Count 4.21 10^6/uL (4.1-5.3); Red Cell Distribution Width 15.9 % (12.1-15.1); White Blood Count 23.3 10^3/uL (4.0-10.0)
[2021-04-02 05:48] LABS: Procalcitonin 0.55 ng/mL (0-0.5)
[2021-04-02] MEDS: aztreonam 2,000 MG in sodium chloride 0.9% (plus) 100 ML 200 MG IV ×2 (09:14→20:25)
[2021-04-02] MEDS: sennosides-docusate Tablet 1 TAB PO (09:16)
[2021-04-02] MEDS: cefepime 2,000 MG in sodium chloride 0.9% (plus) 50 ML 100 MG IV ×2 (09:16→21:15)
[2021-04-02] MEDS: cyclobenzaprine 10 mg Tablet PO ×2 (09:36→17:41)
--- NOTE | 2021-04-02 11:23 | P.PN_ITS ---
Subjective Subjective: Interval history: Leukocytosis improving patient has stayed afebrile, she is able to go to the bathroom, doing well on 2 L nasal cannula, plan to discharge her on Saturday if white count less than 20,000 and outpatient bronchoscopy with Dr. Rivera no overnight events Vitals/I&O/Wt Last Vital Signs Temp 98.1 F 04/02/21 07:00 Pulse 89 04/02/21 08:04 Resp 17 04/02/21 08:04 BP 153/76 04/02/21 07:00 Pulse Ox 98 04/02/21 08:04 04/01/21 04/02/21 04/02/21 23:59 06:59 14:59 Intake Total 1270 / 1270 Balance 1270 / 1270 Physical Exam Narrative: EXAM NARRATIVE: Patient was sitting in her bed saturating well on 2 L nasal cannula S1, S2 Right-sided breath sounds with crackles at the bases Left diminished breath sounds No acute respite distress does look comfortable on 2 L nasal cannula Abdomen soft Trace edema left leg Venous stasis dermatitis Nonfocal neuro exam Digital clubbing Data : 04/02/21 05:10 04/01/21 08:04 Micro: Microbiology 03/30/21 03:18 Gram Stain - Final Sputum - Expectorated Sputum Sputum Culture - Final 03/30/21 17:15 Blood Culture - Preliminary Blood 03/30/21 16:00 Urine Culture - Final Urine,Clean Catch A&P Assessment and plan (1) DNR (do not resuscitate): Status: Acute (2) Sepsis: Status: Acute (3) Postobstructive pneumonia: Status: Acute (4) Lung cancer metastatic to brain: Status: Acute (5) COPD (chronic obstructive pulmonary disease): Status: Acute (6) Brain metastasis: Status: Acute Additional A&P Information Sepsis secondary to postobstructive pneumonia: Resolved Afebrile cultures negative Plan to discharge on Saturday if less than 20,000 with outpatient bronchoscopy with Dr. Rivera COPD: Patient is doing well on 2 L nasal cannula, no wheezing or stridor He does get short of breath on minimal exertion Lung cancer with brain metastases, follows up with oncologist Dr. Soares Regular diet DVT prophylaxis Lovenox DNR/DNI Attestations Medical Necessity Statement*: Anticipating discharge on Saturday Time Spent in Patient Care: less than 15 minutes Coding Level of Care Code Acute Food Sanitarian for Chg Fwd Diagnoses DNR (do not resuscitate) Z66 Sepsis A41.9 Postobstructive pneumonia J18.9 Lung cancer metastatic to brain C34.90; C79.31 COPD (chronic obstructive pulmonary disease) J44.9 Brain metastasis C79.31
--- NOTE | 2021-04-02 11:25 | PC.SOCIAL ---
Pg 2 IMM Explained to pt Pg 2 IMM. No questions voiced. Provided pt a copy. Initialed, dated, & timed a copy & placed in chart.
--- NOTE | 2021-04-02 18:46 | PC.NURSE ---
Notified Dr. Oconnell patient refused lovenox.
[2021-04-03 03:00] VITALS: BP 122/74; PULSE 103; RESP 18; TEMP 36.5; O2SAT 92
[2021-04-03 05:03] LABS: Basophils % 0.1 %; Eosinophils # 0.2 10^3/uL (0.0-0.8); Eosinophils % 0.7 %; Hemoglobin 11.6 g/dL (11.5-15.3); Lymphocytes # 2.8 10^3/uL (0.8-4.8); Lymphocytes % 12.8 %; Mean Corpuscular HGB Conc 29.7 g/dL (30.0-36.0); Mean Corpuscular Hemoglobin 23.2 pg (28.0-34.0); Mean Corpuscular Volume 77.8 fl (81-99); Mean Platelet Volume 8.5 fL (7.4-10.4); Monocytes # 1.6 10^3/uL (0.2-0.9); Monocytes % 7.2 %; Neutrophils # 16.81 10^3/uL (1.8-7.7); Neutrophils % 77.7 %; Nucleated Red Blood Cells % 0 %; Platelet Count 405 10^3/cmm (130-400); Red Blood Count 5.01 10^6/uL (4.1-5.3); Red Cell Distribution Width 15.9 % (12.1-15.1); White Blood Count 21.6 10^3/uL (4.0-10.0)
[2021-04-03 08:06] VITALS: BP 109/78; PULSE 119; RESP 20; TEMP 36.4; O2SAT 95
[2021-04-03 09:02] VITALS: PULSE 116; RESP 16; O2SAT 96
[2021-04-03] MEDS: cefepime 2,000 MG in sodium chloride 0.9% (plus) 50 ML 100 MG IV (09:30)
[2021-04-03] MEDS: sennosides-docusate Tablet 1 TAB PO (09:30)
[2021-04-03] MEDS: aztreonam 2,000 MG in sodium chloride 0.9% (plus) 100 ML 200 MG IV (09:31)
--- NOTE | 2021-04-03 09:42 | PC.NURSE ---
Dr Oconnell updated patient's daughter Carrie Patterson during rounding on patient.
[2021-04-03] MEDS: HYDROcodone-acetaminophen 10-325 mg Tablet 1 TAB PO (09:46)
[2021-04-03 10:59] VITALS: BP 96/68; PULSE 110; RESP 20; TEMP 36.8; O2SAT 91
--- NOTE | 2021-04-03 11:17 | P.DS_ITS ---
Discharge Providers Date of Admission: 03/30/21 17:01 Date of Discharge: April 03, 2021 Attending Provider at Admission: Dave Oconnell MD Attending Provider at Discharge: Dave Oconnell MD Primary Care Provider: Gregory Eduardo DO Diagnoses at Discharge Discharge Diagnosis (1) DNR (do not resuscitate): Status: Acute (2) Sepsis: Status: Acute (3) Postobstructive pneumonia: Status: Acute (4) Lung cancer metastatic to brain: Status: Acute (5) COPD (chronic obstructive pulmonary disease): Status: Acute (6) Brain metastasis: Status: Acute Reason for Visit Reason for Visit: CX PT/STAGE 4:DIFF BREATHING,CP,BACK PAIN,DIARRHEA Hospital Course Hospital Course Patient was admitted for management of sepsis secondary to pneumonia. Patient carries history of lung cancer with metastases, decision was made to start broad-spectrum antibiotics and continue IV fluids. I consulted Dr. Rivera for bronchoscopy, she was kept n.p.o. anticoagulation was held however next day patient was very irritated because of her n.p.o. status and had 2 cups of coffee bronchoscopy could not be done over the weekend. She will be discharged on 04/03 as her leukocytosis has improved cultures remained negative, her leukocytosis is improving as well, she remained afebrile. Her oxygen requirement has not worsened she did well on 2 L nasal cannula throughout her hospitalization. She will be discharged home on Levaquin. In the past she has responded well to moxi floxacin. She is not showing any signs of respiratory distress or wheezing I would avoid adding any steroids for now. Patient was counseled to follow-up with Dr. Rivera. Physical Exam Narrative: EXAM NARRATIVE: Patient was sitting in her bed S1, S2 Better breath sounds which are diminished at the bases, left greater than right No acute respite distress does look comfortable on 2 L nasal cannula Abdomen soft Trace edema left leg Venous stasis dermatitis Nonfocal neuro exam Digital clubbing Discharge Data Data Completed and Pending: Completed Studies During Hospitalization Category Date Time Status XR chest 1V milly ble [id number] Stat Exams 03/30/21 15:23 Completed Pending at discharge Category Date Time Status Blood Culture Sta t Lab 03/30/21 17:15 Results Labs from last 24 hours 04/03/21 04:50 WBC 21.6 H RBC 5.01 Hgb 11.6 Hct 39.0 MCV 77.8 L MCH 23.2 L MCHC 29.7 L RDW 15.9 H Plt Count 405 H MPV 8.5 Neut % (Auto) 77.7 Lymph % (Auto) 12.8 Hill % (Auto) 7.2 Eos % (Auto) 0.7 Baso % (Auto) 0.1 Neut # (Auto) 16.81 H Lymph # (Auto) 2.8 Hill # (Auto) 1.6 H Eos # (Auto) 0.2 Baso # (Auto) 0.0 Nucleated RBC % (a uto) 0 Nucleated RBCs # 0.0 Vitals: Last Vital Signs Temp 98.3 F 04/03/21 10:59 Pulse 110 H 04/03/21 10:59 Resp 20 H 04/03/21 10:59 BP 96/68 04/03/21 10:59 Pulse Ox 91 04/03/21 10:59 Discharge Plan Discharge Patient Disposition: Home Condition: Stable Prescriptions: New levofloxacin 750 mg tablet 750 mg PO DAILY 10 Days Qty: 10 RF: 0 Continued multivitamin [Multiple Vitamins] Tablet 1 tab PO DAILY RF: 0 fluticasone propionate [Flonase Allergy Relief] 50 mcg/actuation spray,suspension 1 spray intranasal DAILY 30 Days Qty: 16 RF: 3 ibuprofen 200 mg capsule 200 mg PO Q6H PRN (Reason: Pain) RF: 0 albuterol sulfate [ProAir HFA] 90 mcg/actuation HFA aerosol inhaler 2 puff INHALATION Q4H PRN (Reason: Shortness Of Breath) RF: 0 azelastine 137 mcg (0.1 %) aerosol,spray See Rx Instructions .ROUTE .COMPLEX Qty: 30 RF: 3 Spiriva with HandiHaler 18 mcg capsule, w/inhalation device See Rx Instructions .ROUTE .COMPLEX Qty: 30 RF: 3 ipratropium-albuterol 0.5 mg-3 mg(2.5 mg base)/3 mL solution for nebulization 3 ml inhalation Q6H PRN (Reason: wheezing) Qty: 180 RF: 11 budesonide-formoterol [Symbicort] 160-4.5 mcg/actuation HFA aerosol inhaler 2 puff inhalation Q12H 30 Days Qty: 10.2 RF: 3 cyclobenzaprine 10 mg Tablet 10 mg PO TID PRN (Reason: Muscle Spasm) RF: 0 benzonatate 200 mg capsule 200 mg PO TID PRN (Reason: Cough) RF: 0 hydrocodone-acetaminophen 10-325 mg tablet 1 - 2 tab PO Q4H PRN (Reason: Pain) RF: 0 pantoprazole [Protonix] 40 mg Tablet,Delayed Release (Dr/Ec) 40 mg PO DAILY PRN (Reason: Acid Reflux) RF: 0 montelukast 10 mg tablet 10 mg PO DAILY RF: 0 gabapentin 600 mg Tablet 600 mg PO TID RF: 0 Discontinued prednisone 20 mg tablet 40 mg PO DAILY 5 Days Qty: 10 RF: 0 moxifloxacin 400 mg tablet 400 mg PO DAILY 7 Days Qty: 7 RF: 0 Discharge Orders: Discharge Order (Routine); Ordered 04/03/21 Ordered By: Dave Oconnell Referrals: [facility] [Other] (Call this number to try and get in home services with Medicaid.) [facility] [Outside] Gregory Eduardo DO [Primary Care Provider] - 4-7 days (patient will be getting a call from Dr. Eduardo to schedule appointment. ) Madeline Rivera MD [Physician] - 04/10/21 3:15 pm Discharge Diet: Cardiac Discharge Activity: Increase activity as tolerated Patient Instructions: Levofloxacin (By mouth), Lung Cancer (GEN), Hypoxia (GEN), Opioid Safety Discharge Attestations Time Spent in Discharge Care*: less than 30 min Quality Metrics Clinical Quality Measures During this hospital stay, did patient experience: None Coding Level of Care Code Acute Chg FW DC note Diagnoses DNR (do not resuscitate) Z66 Sepsis A41.9 Postobstructive pneumonia J18.9 Lung cancer metastatic to brain C34.90; C79.31 COPD (chronic obstructive pulmonary disease) J44.9 Brain metastasis C79.31
[2021-04-03 16:26] VITALS: BP 106/69; PULSE 106; RESP 16; TEMP 36.6; O2SAT 98
[2021-04-03] MEDS: cyclobenzaprine 10 mg Tablet PO (17:50)
--- NOTE | 2021-04-03 17:57 | PC.NURSE ---
Called Daughter, Son and Friend. Friend Mary said she will call daughter to make sure she is coming to get patient. Body Maker called patient's daughter back and son-in-law said they are on their way but they are still an hour away.
--- NOTE | 2021-04-03 18:01 | PC.NURSE ---
Major Assembly Inspector spoke with patient about calling family for ride home. patient said they are not coming to get her.
[2021-04-03 18:16] VITALS: O2SAT 94
--- NOTE | 2021-04-05 14:18 | PC.SOCIAL ---
pt reports she didn't home with her hydrocodone, she states that all of her other medications were in the bag but the hydrocodone. copywriter will look for medications on med surg and speak with the med surg manager [employer].
--- NOTE | 2021-04-05 14:35 | PC.SOCIAL ---
director underwriter sales went to med surg to locate pain medications. unable to find medications. called and spoke with Alma, updated her and let her know i was unable to find the medications.
== END 2021-04-03 19:32 | disposition home health service (06) | DRG 871 ==
LOC: ER 15:16 → MEDSURG 18:31
PROVIDERS: Admitting Provider Internal Medicine; Emergency Provider Family Medicine; PCP Family Medicine; Visit Provider Internal Medicine
DX: A41.9 Sepsis, unspecified organism (principal); J18.9 Pneumonia, unspecified organism; C34.12 Malignant neoplasm of upper lobe, left bronchus or lung; C34.11 Malignant neoplasm of upper lobe, right bronchus or lung; C79.31 Secondary malignant neoplasm of brain; J44.0 Chronic obstructive pulmonary disease with (acute) lower respiratory infection; J44.1 Chronic obstructive pulmonary disease with (acute) exacerbation; J96.11 Chronic respiratory failure with hypoxia; F32.A Depression, unspecified; F17.210 Nicotine dependence, cigarettes, uncomplicated; Z87.01 Personal history of pneumonia (recurrent); Z99.81 Dependence on supplemental oxygen; Z66 Do not resuscitate; E86.0 Dehydration; Z79.51 Long term (current) use of inhaled steroids
CPT/HCPCS: 36415; 36600; 71045; 80048; 80051; 80053; 80202; 81001; 82330; 82805; 84145; 84484; 85025; 86140; 86403; 87040; 87070; 87086; 87205; 87449; 87641; 93005; 94640; 96365; 96366; 96367; 99285; J0692; J1170; J2060; J2270; J2405; J2920; J2930; J3370; J3490; J7050

== ENCOUNTER 2021-05-13 12:02 | Emergency (ER) | payer MEDICARE, MEDICAID, SELFPAY ==
[2021-05-13 12:06] VITALS: BP 122/72; PULSE 102; RESP 26; TEMP 36.5; O2SAT 95; BMI 22.8
--- NOTE | 2021-05-13 12:11 | W.ED.SOB ---
HPI - SOB/Dyspnea General: Chief Complaint: Shortness of Breath/Dyspnea Stated Complaint: SOB Time Seen by Provider: 05/13/21 12:11 History of Present Illness: HPI Narrative: 60-year-old female presents emergency room complaining of shortness of breath. Patient has a history of COPD has home oxygen she states she only uses it at night usually at 2 L/min. EMS reported they turned up to 3 L/min when they got there she has been having increasing shortness of breath and cough cough but nonproductive for the last several days. She not had any vomiting or diarrhea no anosmia. She is not had COVID but she has been vaccinated had both of her initial vaccinations has not yet had a booster. She denies any purulent sputum. She did recently see her primary care doctor and they changed her to nebulizers on all of her medications because she was not doing well evidently with the inhalers. She denies any chest pain or abdominal pain or any dysuria. MD elicited complaint: shortness of breath and cough Pertinent past history: COPD Onset (ago): month(s) Timing: constant Severity: moderate Exacerbating factors: exertion and coughing Relieving factors: oxygen and rest Known history of: COPD and other (lung CA) Associated symptoms: Reports chest congestion, cough and lightheadedness; Deny abdominal pain, chest pain, diaphoresis, dizziness, extremity pain, fever(s), hemoptysis, myalgias, nausea, orthopnea, palpitations, paresthesias, polydipsia, polyuria, rash, sense of impending doom, syncope or vomiting Treatment prior to arrival: oxygen Review of Systems Const: Denies: fever(s) or diaphoresis ENMT: Denies: throat pain, ear or mastoid pain, nasal discharge or nasal congestion Card: Reports: lightheadedness; Denies: chest pain, palpitations, syncope or orthopnea Resp: Reports: chest congestion; Denies: hemoptysis GI: Denies: abdominal pain, nausea or vomiting : Denies: flank pain, difficulty voiding, dysuria, urinary frequency or urinary urgency Musc: Denies: extremity pain Skin/Breast: Denies: rash or pruritus Neuro: Denies: dizziness Endo: Denies: polyuria or polydipsia PFS ED PFSH: Medical History Bilateral lung cancer Brain metastasis Chronic bronchitis with COPD (chronic obstructive pulmonary disease) COPD (chronic obstructive pulmonary disease) Depression Deviated septum Lesion of vocal fold Lung cancer Lung cancer metastatic to brain Nicotine addiction Port-A-Cath in place Postobstructive pneumonia Surgical History History of bronchoscopy History of cataract surgery Family History Other Cancer Social History Second hand smoke exposure: Yes Smoking risk assessment/counseling performed?: Yes Alcohol intake: never Counseling given: No Counseling given: No Lives independently: Yes Household members: none Housing: House Marital status: Current occupational status: disabled History of recent travel: No Current gender identity: Female Physical Exam Const: GENERAL APPEARANCE: cooperative ORIENTATION/CONSCIOUSNESS: Yes awake, Yes oriented to person, Yes oriented to place and Yes oriented to time HENMT: COMMON NORMALS: normocephalic, atraumatic and hearing grossly normal bilaterally HEAD & SCALP: normocephalic and atraumatic Neck/C-Spine: COMMON NORMALS: no JVD Resp: EFFORT & INSPECTION: Yes tachypneic and Yes prolonged expiratory phase AUSCULTATION: wheezes and breath sounds absent on th left Cardio: COMMON NORMALS: no JVD, regular rate, regular rhythm and No murmurs present (Cardio) RATE: regular rate RHYTHM: regular rhythm GI: COMMON NORMALS: Soft to palpation and No hepatosplenomegaly present AUSCULTATION: Yes normoactive bowel sounds PALPATION: Yes Soft to palpation, No Tenderness to palpation present (GI), No Guarding due to palpation present (GI) and Yes No hepatosplenomegaly present Extremity: COMMON NORMALS: normal to inspection, capillary refill normal, no clubbing, cyanosis or edema, no calf tenderness and no pedal edema Neuro: SENSORIUM/ORIENTATION: Yes oriented to person, Yes oriented to place and Yes oriented to time Skin: COMMON NORMALS: no rashes or lesions noted GENERAL SKIN EXAM: no rashes or lesions noted Course Vital Signs: Vital signs: Vital Signs Temperature 97.7 F 05/13/21 12:06 Pulse Rate 102 H 05/13/21 15:34 Respiratory Rate 24 H 05/13/21 15:34 Blood Pressure 122/72 05/13/21 12:06 Pulse Oximetry 96 05/13/21 15:34 MDM - SOB/Dyspnea MDM Narrative: Medical decision making narrative: Reviewed old charts oncology notes previous imaging loss today's labs imaging and EKG. She has non-small cell lung CA stage IV. She has increased size of the tumor burden in the lung both on the left and on the right on the left it is now occluding mainstem bronchi and the lung is completely atelectatic. There is a large pleural effusion. Also partially occluding the pulmonary artery. Discussed with Dr. Ricardo. At this point patient is doing well. She is able to compensate with supplemental oxygen. She not having any productive cough. Dr. Ricardo recommends that we discharge home on oxygen and have her follow-up next week with pulmonology. At this point she has somewhat limited options. Even palliative care of debulking by bronchoscopy and stenting is only going to be of limited benefit. Lab Data: Labs: Lab Results 05/13/21 05/13/21 12:30 12:30 WBC 19.8 10^3/uL H 10 ^3/uL (4.0-10.0) RBC 4.12 10^6/uL 10^6 /uL (4.1-5.3) Hgb 9.4 g/dL L g/dL (11.5-15.3) Hct 30.8 % L % (37.0-47.0) MCV 74.8 fl L fl (81-99) MCH 22.8 pg L pg (28.0-34.0) MCHC 30.5 g/dL g/dL (30.0-36.0) RDW 17.2 % H % (12.1-15.1) Plt Count 559 10^3/cmm H 10 ^3/cmm (130-400) MPV 8.2 fL fL (7.4-10.4) Neut % (Auto) 89.6 % % Lymph % (Auto) 5.2 % % [place] % (Auto) 3.7 % % Eos % (Auto) 0.3 % % Baso % (Auto) 0.4 % % Neut # (Auto) 17.78 10^3/uL H 1 0^3/uL (1.8-7.7) Lymph # (Auto) 1.0 10^3/uL 10^3/ uL (0.8-4.8) [place] # (Auto) 0.7 10^3/uL 10^3/ uL (0.2-0.9) Eos # (Auto) 0.1 10^3/uL 10^3/ uL (0.0-0.8) Baso # (Auto) 0.1 10^3/uL 10^3/ uL (0.0-0.1) Nucleated RBC % (a uto) 0 % % Nucleated RBCs # 0.0 /100WBC /100W BC Sodium 133 mmol/L L mmol /L (136-145) Potassium 3.8 mmol/L mmol/L (3.5-5.1) Chloride 94 mmol/L L mmol/ L (98-107) Carbon Dioxide 23 mmol/L mmol/L (22-29) Anion Gap 19.8 H (5-19) BUN 4 mg/dL L mg/dL (8-23) Creatinine 0.3 mg/dL L mg/dL (0.5-0.9) GFR Calculation 226.9 mL/min H mL /min (90-130) Glucose 103 mg/dL mg/dL (65-115) Calculated Osmolal ity 273 mOsm/kg L mOs m/kg (285-295) Calcium 8.4 mg/dL L mg/dL (8.5-10.5) Total Bilirubin 0.4 mg/dL mg/dL (0.15-1.2) AST 15 U/L U/L (0-32) ALT 10 U/L U/L (0-33) Alkaline Phosphata se 132 IU/L H IU/L (35-105) Total Protein 6.5 g/dL L g/dL (6.6-8.7) Albumin 2.9 g/dL L g/dL (3.5-5.2) Globulin 3.6 g/dL g/dL (1.3-4.6) Discharge Plan Discharge Patient Disposition: Home Clinical Impression: Non-small cell lung cancer metastatic to brain Condition: Stable Prescriptions: New dexamethasone 6 mg tablet 6 mg PO DAILY Qty: 7 RF: 0 No Action multivitamin [Multiple Vitamins] Tablet 1 tab PO DAILY RF: 0 fluticasone propionate [Flonase Allergy Relief] 50 mcg/actuation spray,suspension 1 spray intranasal DAILY 30 Days Qty: 16 RF: 3 ibuprofen 200 mg capsule 200 mg PO Q6H PRN (Reason: Pain) RF: 0 azelastine 137 mcg (0.1 %) aerosol,spray See Rx Instructions .ROUTE .COMPLEX Qty: 30 RF: 3 ipratropium-albuterol 0.5 mg-3 mg(2.5 mg base)/3 mL solution for nebulization 3 ml inhalation Q6H PRN (Reason: wheezing) Qty: 180 RF: 11 cyclobenzaprine 10 mg Tablet 10 mg PO TID PRN (Reason: Muscle Spasm) RF: 0 hydrocodone-acetaminophen 10-325 mg tablet 1 - 2 tab PO Q4H PRN (Reason: Pain) RF: 0 pantoprazole [Protonix] 40 mg Tablet,Delayed Release (Dr/Ec) 40 mg PO DAILY PRN (Reason: Acid Reflux) RF: 0 montelukast 10 mg tablet 10 mg PO DAILY RF: 0 gabapentin 600 mg Tablet 600 mg PO TID RF: 0 potassium chloride 20 mEq tablet,ER particles/crystals 20 meq PO DAILY RF: 0 budesonide 0.5 mg/2 mL suspension for nebulization 0.5 mg inhalation BID RF: 0 Discharge Orders: Discharge ED (Routine); Ordered 05/13/21 Ordered By: Afshin Barron Referrals: Gregory Eduardo DO [Primary Care Provider] - Discharge Diet: Usual diet Patient Instructions: Opioid Safety Activity Restrictions/Additional Instructions: Use oxygen at 3 L/min by nasal cannula. Monitor your oxygen sats at home. Would expect to maintain your sats at rest between 92 to 94%. Call Dr. Rivera's office on Saturday for a follow-up appointment to discuss further treatments. If you have worsening problems return. Coding Level of Care Code ED Mrb Engineer for Will Avalos
--- NOTE | 2021-05-13 12:12 | ECG_ITS ---
[facility] Test Date: 2021-05-13 Pat Name: Alma Deleon Department: Room: Gender: Female Interactive Video Technician: : 1960 Requested By: Afshin Ruggiero Order Number: [id number] Reading MD: MAXIMILIAN DAVIES Measurements Intervals [place] Rate: 97 P: 78 NE: 118 QRS: 74 QRSD: 77 T: 59 QT: 274 QTc: 349 Interpretive Statements SINUS RHYTHM WITH SHORT NE INTERVAL POSSIBLE LEFT ATRIAL ENLARGEMENT [-0.1mV P-WAVE IN V1/V2] LOW QRS VOLTAGE IN PRECORDIAL LEADS [QRS DEFLECTION < 1.0 mV IN CHEST LEADS] SEPTAL MYOCARDIAL INFARCTION , PROBABLY OLD [40+ ms Q WAVE IN V1/V2] Compared to ECG 03/30/2021 21:21:48 Low QRS voltage now present Myocardial infarct finding still present Electronically Signed On 05-14-2021 19:59:04 NON DESTRUCTIVE TESTER by MAXIMILIAN DAVIES [id number]
--- NOTE | 2021-05-13 12:12 | XRR_ITS ---
PROCEDURE INFORMATION: Exam: XR Chest Exam date and time: 05/13/2021 12:12 PM Age: 60 years old Clinical indication: Cough and dyspnea; Prior surgery; Surgery type: Port lung CA; Additional info: Dyspnea/cough TECHNIQUE: Imaging protocol: XR of the chest. Views: 1 view. COMPARISON: CR XR chest 1V portable [id number] 03/30/2021 3:31 PM FINDINGS: Lungs: Left lung field diffusely opacified. Left-sided Port-A-Cath. Right upper lobe dense airspace opacification again seen. Pleural spaces: Unremarkable. No pleural effusion. No pneumothorax. Heart/Mediastinum: Unremarkable. No cardiomegaly. Bones/joints: Unremarkable. Other findings: Sides of the film appear to be mislabeled. What is labeled as the left side appears to represent the right-side. XR/XR chest 1V portable [id number] IMPRESSION: 1. Sides of the film appear to be mislabeled. What is labeled as the left side appears to represent the right-side. 2. Left lung field diffusely opacified. Left-sided Port-A-Cath. 3. Right upper lobe dense airspace opacification again seen.
[2021-05-13 12:39] LABS: Basophils # 0.1 10^3/uL (0.0-0.1); Basophils % 0.4 %; Eosinophils # 0.1 10^3/uL (0.0-0.8); Eosinophils % 0.3 %; Hematocrit 30.8 % (37.0-47.0); Hemoglobin 9.4 g/dL (11.5-15.3); Lymphocytes % 5.2 %; Mean Corpuscular HGB Conc 30.5 g/dL (30.0-36.0); Mean Corpuscular Hemoglobin 22.8 pg (28.0-34.0); Mean Corpuscular Volume 74.8 fl (81-99); Mean Platelet Volume 8.2 fL (7.4-10.4); Monocytes # 0.7 10^3/uL (0.2-0.9); Monocytes % 3.7 %; Neutrophils # 17.78 10^3/uL (1.8-7.7); Neutrophils % 89.6 %; Nucleated Red Blood Cells % 0 %; Platelet Count 559 10^3/cmm (130-400); Red Blood Count 4.12 10^6/uL (4.1-5.3); Red Cell Distribution Width 17.2 % (12.1-15.1); White Blood Count 19.8 10^3/uL (4.0-10.0)
[2021-05-13 13:01] LABS: Alanine Aminotransferase 10 U/L (0-33); Albumin Level 2.9 g/dL (3.5-5.2); Alkaline Phosphatase 132 IU/L (35-105); Anion Gap 19.8 (5-19); Aspartate Amino Transferase 15 U/L (0-32); Blood Urea Nitrogen 4 mg/dL (8-23); Calcium 8.4 mg/dL (8.5-10.5); Carbon Dioxide 23 mmol/L (22-29); Chloride 94 mmol/L (98-107); Globulin 3.6 g/dL (1.3-4.6); Glomerular Filtration Rate 226.9 mL/min (90-130); Glucose 103 mg/dL (65-115); Osmolality Calculated 273 mOsm/kg (285-295); Potassium 3.8 mmol/L (3.5-5.1); Sodium 133 mmol/L (136-145); Total Bilirubin 0.4 mg/dL (0.15-1.2); Total Protein 6.5 g/dL (6.6-8.7)
--- NOTE | 2021-05-13 13:04 | CTR_ITS ---
PROCEDURE INFORMATION: Exam: CTA Chest With Contrast Exam date and time: 05/13/2021 1:04 PM Age: 60 years old Clinical indication: Shortness of breath; Prior surgery; Surgery type: Port lung CA; Additional info: Hypoxia TECHNIQUE: Imaging protocol: Computed tomographic angiography of the chest with contrast. 3D rendering (Not supervised by radiologist): MIP and/or 3D reconstructed images were created by the technologist. Radiation optimization: All CT scans at this facility use at least one of these dose optimization techniques: automated exposure control; mA and/or kV adjustment per patient size (includes targeted exams where dose is matched to clinical indication); or iterative reconstruction. Contrast material: OMNI 350; Contrast volume: 57 ml; Contrast route: INTRAVENOUS (IV); COMPARISON: CT chest [facility] [id number] 02/03/2021 9:21 AM RADIATION DOSE METRICS: Total DLP (mGy-cm): 535.08 FINDINGS: Pulmonary arteries: See Lungs finding. Aorta: Unremarkable. No aortic aneurysm. No aortic dissection. Lungs: Left hilar to upper lobe low-density masslike lesion likely reflecting a lung malignant measuring up 10.5 cm, somewhat increased compared to prior exam when it measured 9.9 cm. The mass appears to extend about and occlude the left mainstem bronchus distally along with the upper and lower lobe bronchi. Associated atelectasis versus infiltrate of the left lung is seen, left lung does not appear aerated currently. Findings are progressed compared to prior exam. Additionally the mass causes some compression of the left main pulmonary artery . Right upper lobe 8.4 cm mass increased in size compared to prior exam when it measured up to approximately 6.4 cm with extension to the hilar region with some associated upper lobe pulmonary nodules likely reflects a lung malignancy. Emphysematous changes. Pleural spaces: Large left pleural effusion. Heart: Pericardial effusion measuring up to 14 mm in thickness, new compared to prior exam. Lymph nodes: Unremarkable. No enlarged lymph nodes. Bones/joints: Unremarkable. No acute fracture. Soft tissues: Left kidney cyst. CT/CT angio chest PE protcl [id number] IMPRESSION: 1. Negative for pulmonary embolus. 2. Large left pleural effusion. 3. Left hilar to upper lobe low-density masslike lesion likely reflecting a lung malignant measuring up 10.5 cm, somewhat increased compared to prior exam when it measured 9.9 cm. The mass appears to extend about and occlude the left mainstem bronchus distally along with the upper and lower lobe bronchi. Associated atelectasis versus infiltrate of the left lung is seen, left lung does not appear aerated currently. Findings are progressed compared to prior exam. Additionally the mass causes some compression of the left main pulmonary artery . 4. Right upper lobe 8.4 cm mass increased in size compared to prior exam when it measured up to approximately 6.4 cm with extension to the hilar region with some associated upper lobe pulmonary nodules likely reflects a lung malignancy. 5. Emphysematous changes. 6. Pericardial effusion measuring up to 14 mm in thickness, new compared to prior exam.
[2021-05-13] MEDS: hydrocortisone 100 mg/2 mL SDV IVP (14:21)
[2021-05-13] MEDS: diphenhydrAMINE 50 mg/mL SDV 1mL IVP (14:21)
[2021-05-13] MEDS: ondansetron 2 mg/ML SDV 2 mL 4 MG IVP (14:30)
[2021-05-13] MEDS: iohexol 350 mg/mL 100 mL Btl IV (14:52)
[2021-05-13 15:34] VITALS: PULSE 102; RESP 24; O2SAT 96
[2021-05-13] MEDS: HYDROcodone-acetaminophen 5-325 mg Tablet 2 TAB PO (19:28)
--- NOTE | 2021-05-16 10:18 | PC.SOCIAL ---
Addendum entered by Richelle Flood 05/18/21 13:06: Patient was admitted to hospital on 05.16.21 - case hardener called heart care to see if the telehealth appointment could be changed to cancel instead of no show on her chart. merchandise planning manager spoke with Saray. Original Note: Called [facility] spoke with Saray regarding ED referral asking to move up appt from 05/25/2021 to today or tomorrow. Per Saray pt has televisit scheduled for 05/17/2021 at 1:15pm. Called patient and she was not aware of this per her report. Provided information and requested she be available by phone at this time. She verbalized understanding.
== END 2021-05-13 20:09 | disposition home or self-care (01) ==
PROVIDERS: Emergency Provider Family Medicine; PCP Family Medicine
DX: C34.90 Malignant neoplasm of unspecified part of unspecified bronchus or lung (principal); C79.31 Secondary malignant neoplasm of brain; J44.9 Chronic obstructive pulmonary disease, unspecified; Z77.22 Contact with and (suspected) exposure to environmental tobacco smoke (acute) (chronic)
CPT/HCPCS: 71045; 71275; 80053; 85025; 93005; 96374; 96375; 99283; J1200; J1720; J2405; Q9967

== ENCOUNTER 2021-05-16 12:11 | Inpatient (IN) | payer MEDICARE, MEDICAID, SELFPAY ==
[2021-05-16] VITALS (7 sets, daily range): BP systolic 108–111; BP diastolic 65–68; PULSE 109–120; RESP 16–23; TEMP 36.4–36.6; O2SAT 93–99; BMI 22.3
--- NOTE | 2021-05-16 12:30 | ECG_ITS ---
[facility] Test Date: 2021-05-16 Pat Name: Alma Deleon Department: Room: Gender: Female Family Law Paralegal: : 1960 Requested By: Afshin Ruggiero Order Number: [id number] Jimbo MD: Marian Schmidt M.D. Measurements Intervals [place] Rate: 120 P: 99 UT: 109 QRS: 75 QRSD: 82 T: 88 QT: 277 QTc: 393 Interpretive Statements SINUS TACHYCARDIA WITH SHORT UT INTERVAL NONSPECIFIC T-WAVE ABNORMALITY Compared to ECG 05/13/2021 12:24:36 T-wave abnormality now present Sinus rhythm no longer present Myocardial infarct finding no longer present Electronically Signed On 05-16-2021 17:52:01 FLOOR PERSON by Marian Schmidt M.D. [id number]
--- NOTE | 2021-05-16 12:30 | XR_ITS ---
WS: [id number] Exam: XR chest 1V portable [id number] Date/Time of Exam: 05/16/2021 12:41 PM Reason For Exam: dyspnea/cough Comparison 05/13/2021. Fluid-filled left pleural cavity is unchanged in appearance. Large masslike density again noted at th e right hilar region is unchanged. The right lung is hyperinflated. Chronic interstitial changes in t he right lung. Cardiac and mediastinal shift to the left due to volume loss. Indwelling left subclavi an port probably ends near the cavoatrial junction. XR/XR chest 1V portable [id number] IMPRESSION: 1. Fluid-filled left pleural cavity unchanged. 2. Large masslike density at the right hilum unchanged. 3. The right lung is hyperinflated and otherwise clear with the chronic interst itial changes.
[2021-05-16 13:23] LABS: ABG PCO2 36.5 mmHg (35-45); ABG PH Result 7.51 (7.35-7.45); Alveolar-Arterial Oxygen Gradi 26.9 mmHg (5-10); Arterial Blood Gas Hematocrit 33.9 % (37-47); Blood Gas Operator Identificat AMH; Blood Gas Sample Site Brachial, left; Blood Gas Sample Type Arterial; Carboxyhemoglobin 1.3 %THgb (0.4-20.1); HCO3 ABG 29.2 mmol/L (22-26); HGB O2 Sat 90.5 % (95-100); Ionized Calcium Level - ABG 1.2 mmol/L (1.1-1.4); Methemoglobin 0.5 % (0.4-1.5); Oxygen Device NC; Oxygen Saturation ABG 92.1; PO2 ABG 59.8 mmHg (80.0-100.0); Potassium Level - ABG 3.5 mmol/L (3.5-5.0)
[2021-05-16] MEDS: LORazepam 2 mg/mL INJ 1 mL 1 MG IVP (14:00)
[2021-05-16] MEDS: morphine 4 mg/mL SDV 1 mL IVP ×4 (14:00→22:39)
[2021-05-16 14:14] LABS: Basophils # 0.1 10^3/uL (0.0-0.1); Basophils % 0.2 %; Eosinophils % 0.1 %; Hemoglobin 10.6 g/dL (11.5-15.3); Lymphocytes # 2.1 10^3/uL (0.8-4.8); Lymphocytes % 5.1 %; Mean Corpuscular HGB Conc 31.2 g/dL (30.0-36.0); Mean Corpuscular Hemoglobin 23.7 pg (28.0-34.0); Mean Corpuscular Volume 75.9 fl (81-99); Mean Platelet Volume 8.1 fL (7.4-10.4); Monocytes # 2.1 10^3/uL (0.2-0.9); Neutrophils # 36.43 10^3/uL (1.8-7.7); Neutrophils % 88.3 %; Nucleated Red Blood Cells % 0 %; Platelet Count 636 10^3/cmm (130-400); Red Blood Count 4.48 10^6/uL (4.1-5.3); Red Cell Distribution Width 17.4 % (12.1-15.1)
[2021-05-16 14:29] LABS: White Blood Count 41.3 10^3/uL (4.0-10.0)
[2021-05-16 14:34] LABS: Alanine Aminotransferase 10 U/L (0-33); Albumin Level 3.2 g/dL (3.5-5.2); Alkaline Phosphatase 171 IU/L (35-105); Anion Gap 20.9 (5-19); Aspartate Amino Transferase 13 U/L (0-32); Blood Urea Nitrogen 7 mg/dL (8-23); Calcium 8.5 mg/dL (8.5-10.5); Carbon Dioxide 24 mmol/L (22-29); Chloride 94 mmol/L (98-107); Globulin 3.7 g/dL (1.3-4.6); Glomerular Filtration Rate 162.8 mL/min (90-130); Glucose 119 mg/dL (65-115); Osmolality Calculated 279 mOsm/kg (285-295); Potassium 3.9 mmol/L (3.5-5.1); Sodium 135 mmol/L (136-145); Total Bilirubin 0.5 mg/dL (0.15-1.2); Total Protein 6.9 g/dL (6.6-8.7)
[2021-05-16] MEDS: aztreonam 2,000 MG in sodium chloride 0.9% (plus) 100 ML 200 MG IV (15:11)
--- NOTE | 2021-05-16 15:48 | ED_ITS ---
HPI - SOB/Dyspnea General: Chief Complaint: Shortness of Breath/Dyspnea Stated Complaint: SOB Time Seen by Provider: 05/16/21 12:28 History of Present Illness: HPI Narrative: 60-year-old female who presents to the emergency room complaining of shortness of breath. Patient was here several days ago I seen her at that time she had an occlusion of the mainstem bronchi and a partial occlusion of the pulmonary artery with a large pleural effusion due to collapse of the lung. Discussed with Dr. Ledesma and we ultimately ended up discharging home she is to follow-up today with pulmonology. She had previously opted not to have a bronchoscopy for this earlier this year when they are considering evaluating for stenting. Patient has stage IV non-small cell lung CA and she is previously had brain mets. Today she returns if she is more uncomfortable having chest discomfort and severe shortness of breath. Patient is a progression of symptoms last couple days and is increased her oxygen normally she uses 1.5 L/min she is up to 3 per her report at home on arrival here she had further increase of oxygen needed. And is at 4 L/min. MD elicited complaint: shortness of breath and cough Pertinent past history: COPD Onset (ago): day(s) Context: recent illness Timing: constant and progressively worsening Severity: moderate Exacerbating factors: lying flat and coughing Relieving factors: oxygen, rest and upright position Known history of: COPD and other (Non-small cell lung CA with brain metastasis) Associated symptoms: Reports chest congestion, cough and orthopnea; Deny abdominal pain, chest pain, diaphoresis, dizziness, extremity pain, fever(s), hemoptysis, lightheadedness, myalgias, nausea, palpitations, paresthesias, polydipsia, polyuria, rash, sense of impending doom, syncope or vomiting Treatment prior to arrival: oxygen Review of Systems Const: Denies: fever(s) or diaphoresis ENMT: Denies: throat pain, ear or mastoid pain, nasal discharge or nasal congestion Card: Reports: orthopnea; Denies: chest pain, palpitations, lightheadedness or syncope Resp: Reports: chest congestion; Denies: hemoptysis GI: Denies: abdominal pain, nausea or vomiting : Denies: flank pain, difficulty voiding, dysuria, urinary frequency or urinary urgency Musc: Denies: extremity pain Skin/Breast: Denies: rash or pruritus Neuro: Denies: dizziness Endo: Denies: polyuria or polydipsia PFSH ED PFSH: Medical History Acute exacerbation of chronic obstructive airways disease Bilateral lung cancer Brain metastasis Chronic bronchitis with COPD (chronic obstructive pulmonary disease) COPD (chronic obstructive pulmonary disease) Depression Deviated septum DNR (do not resuscitate) Lesion of vocal fold Lung cancer Lung cancer metastatic to brain Nicotine addiction Non-small cell lung cancer metastatic to brain Port-A-Cath in place Postobstructive pneumonia Postobstructive pneumonia Surgical History History of bronchoscopy History of cataract surgery Family History Other Cancer Social History Second hand smoke exposure: Yes Smoking risk assessment/counseling performed?: Yes Alcohol intake: never Counseling given: No Counseling given: No Lives independently: Yes Household members: none Housing: House Marital status: Current occupational status: disabled History of recent travel: No Current gender identity: Female Physical Exam Const: GENERAL APPEARANCE: cooperative ORIENTATION/CONSCIOUSNESS: Yes awake, Yes oriented to person, Yes oriented to place and Yes oriented to time HENMT: COMMON NORMALS: normocephalic, atraumatic and hearing grossly normal bilaterally HEAD & SCALP: normocephalic and atraumatic Resp: EFFORT & INSPECTION: Yes tachypneic, Yes pursed lip breathing and Yes uses accessory muscles AUSCULTATION: diminished lung sounds and bronchial breath sounds Cardio: COMMON NORMALS: No murmurs present (Cardio) RATE: tachycardic GI: COMMON NORMALS: Soft to palpation and No hepatosplenomegaly present AUSCULTATION: Yes normoactive bowel sounds PALPATION: Yes Soft to palpation, No Tenderness to palpation present (GI), No Guarding due to palpation present (GI) and Yes No hepatosplenomegaly present Extremity: COMMON NORMALS: normal to inspection, no calf tenderness and no pedal edema Neuro: SENSORIUM/ORIENTATION: Yes oriented to person, Yes oriented to place and Yes oriented to time Skin: COMMON NORMALS: no rashes or lesions noted GENERAL SKIN EXAM: no rashes or lesions noted Course Vital Signs: Vital signs: Vital Signs Temperature 97.9 F 05/17/21 20:28 Pulse Rate 102 H 05/18/21 11:28 Respiratory Rate 18 05/18/21 11:28 Blood Pressure 133/71 05/18/21 11:28 Pulse Oximetry 100 05/18/21 11:28 MDM - SOB/Dyspnea MDM Narrative: Medical decision making narrative: Patient has advanced disease. Talk to Dr. Rivera who seen previously. At this point is probably not much we can do for her here. Offered her referral to tertiary care center with the option of bronchoscopy potential debulking and stenting. Discussed with her that this would be more palliative and not really change the course in the long run. After some discussion she is opted to be admitted here with comfort cares. Dr. Rivera concurred. He felt that even intervention with debulking of the tumor via bronchoscopy with stenting would have limited palliative effect. Patient understands this wishes to just proceed with comfort cares here. Discussed with hospitalist orders written Lab Data: Labs: Lab Results 05/16/21 05/16/21 05/16/21 13:12 14:05 14:05 WBC 41.3 10^3/uL H* 1 0^3/uL (4.0-10.0) RBC 4.48 10^6/uL 10^6 /uL (4.1-5.3) Hgb 10.6 g/dL L g/dL (11.5-15.3) Hct 34.0 % L % (37.0-47.0) MCV 75.9 fl L fl (81-99) MCH 23.7 pg L pg (28.0-34.0) MCHC 31.2 g/dL g/dL (30.0-36.0) RDW 17.4 % H % (12.1-15.1) Plt Count 636 10^3/cmm H 10 ^3/cmm (130-400) MPV 8.1 fL fL (7.4-10.4) Neut % (Auto) 88.3 % % Lymph % (Auto) 5.1 % % [place] % (Auto) 5.0 % % Eos % (Auto) 0.1 % % Baso % (Auto) 0.2 % % Neut # (Auto) 36.43 10^3/uL H 1 0^3/uL (1.8-7.7) Lymph # (Auto) 2.1 10^3/uL 10^3/ uL (0.8-4.8) [place] # (Auto) 2.1 10^3/uL H 10^ 3/uL (0.2-0.9) Eos # (Auto) 0.0 10^3/uL 10^3/ uL (0.0-0.8) Baso # (Auto) 0.1 10^3/uL 10^3/ uL (0.0-0.1) Nucleated RBC % (a uto) 0 % % Nucleated RBCs # 0.0 /100WBC /100W BC Specimen Type Arterial Sample Site Brachial, left ABG pH 7.51 H (7.35-7.45) ABG pCO2 36.5 mmHg mmHg (35-45) ABG pO2 59.8 mmHg L mmHg (80.0-100.0) ABG HCO3 29.2 mmol/L H mmo l/L (22-26) ABG O2 Saturation 92.1 ABG Base Excess 6.0 mmol/L H mmol /L (-2.0-2.0) Tyshawn Test N/a A-a O2 Gradient 26.9 mmHg H mmHg (5-10) Hematocrit 33.9 % L % (37-47) Hgb O2 Saturation 90.5 % L % (95-100) Carboxyhemoglobin 1.3 %THgb %THgb (0.4-20.1) Methemoglobin 0.5 % % (0.4-1.5) Total Hemoglobin 11.0 g/dL L g/dL (12-16) Sodium 136.0 mmol/L mmol /L 135 mmol/L L mmol /L (131-143) (136-145) Potassium 3.5 mmol/L mmol/L 3.9 mmol/L mmol/L (3.5-5.0) (3.5-5.1) Glucose 125.0 mg/dL H mg/ dL 119 mg/dL H mg/dL (70-115) (65-115) Ionized Calcium 1.2 mmol/L mmol/L (1.1-1.4) O2 Delivery Device Nc O2 Liters/Min 6.0 % % FiO2 44.0 % % Assembler Steam [employer]urbine ID Amh Chloride 94 mmol/L L mmol/ L (98-107) Carbon Dioxide 24 mmol/L mmol/L (22-29) Anion Gap 20.9 H (5-19) BUN 7 mg/dL L mg/dL (8-23) Creatinine 0.4 mg/dL L mg/dL (0.5-0.9) GFR Calculation 162.8 mL/min H mL /min (90-130) Calculated Osmolal ity 279 mOsm/kg L mOs m/kg (285-295) Calcium 8.5 mg/dL mg/dL (8.5-10.5) Total Bilirubin 0.5 mg/dL mg/dL (0.15-1.2) AST 13 U/L U/L (0-32) ALT 10 U/L U/L (0-33) Alkaline Phosphata se 171 IU/L H IU/L (35-105) Total Protein 6.9 g/dL g/dL (6.6-8.7) Albumin 3.2 g/dL L g/dL (3.5-5.2) Globulin 3.7 g/dL g/dL (1.3-4.6) Discharge Plan Discharge Patient Disposition: Admitted As Inpatient Admit Provider: Dave Oconnell Clinical Impression: Non-small cell lung cancer metastatic to brain, Acute exacerbation of chronic obstructive airways disease Condition: Stable Coding Level of Care Code ED Packing Machine Operator for Will Avalos
[2021-05-16] MEDS: vancomycin 1,000 MG in sodium chloride 0.9% 250 ML 250 MG IV (17:00)
--- NOTE | 2021-05-16 17:00 | PM.HP ---
Providers/Chief Complaint Primary Care Provider: Gregory Eduardo DO Chief Complaint: SOB History of Present Illness Alma Deleon is a 60 year old female Alma Deleon is a 60 year old female who carries diagnosis of poorly differentiated nonsmall cell lung cancer with metastases, follows up with Dr. Soares, recent PET scan showed progression of the disease, she does use 1.5 L of oxygen [id number], carries diagnosis of class D COPD, follows up with Dr. Rivera as well,Recent PET scan in January 2021 showed progression of cancer in bilateral upper lobes. She has undergone CyberKnife therapy for metastatic lesion before for brain metastasis presented today with chief complaint of worsening shortness of breath Patient stating that she has chronic shortness of breath which has been gradually getting worse, she has been losing weight, noticing hot flashes, night sweats, worsening for fatigue and lethargy. Was recently admitted for management of postobstructive pneumonia, could not go for bronchoscopy because she had a cup of coffee. She is denying chest nausea, vomiting, diarrhea or fever. Endorsing left-sided chest discomfort with shortness of breath. At home she has been using 2 to 3 L of nasal cannula. In the ER she was diagnosed with complete opacification of left lung with possibility for necrotizing pneumonia, patient does not want to undergo any bronchoscopy or stent placement for left main bronchus involvement, she had discussion with the ER physician and decided to go with hospice/comfort measures. When I evaluated her she was on 15 L oxygen mask, saturating 100% I did get a chance to talk with her son and a friend. I allowed them to stay with her overnight Start comfort measures ER physician did speak with Dr. Rivera who agreed with the above-mentioned treatment plan Review of Systems Const: Reports: chills, body aches, change in appetite, fatigue, malaise and night sweats Eyes: Denies: change in vision ENMT: Denies: throat pain Card: Reports: chest pain, dyspnea on exertion and orthopnea Resp: Reports: dyspnea and pain on inspiration GI: Denies: abdominal pain : Denies: flank pain Musc: Denies: neck pain Skin/Breast: Denies: non-healing lesions Neuro: Denies: headache(s) Psych: Reports: anxiety Endo: Denies: polyuria Abiodun/Lymph: Denies: easy bruising All/Imm: Denies: urticaria Medications/Allergies Home Medications Medication Instructions Recorded Confirmed Last Taken Type multivitamin 1 tab PO DAILY 09/01/19 05/16/21 05/12/21 History fluticasone propionate 50 1 spray INTRANASAL DAILY 30 Days 08/08/20 05/16/21 Unknown Rx mcg/actuation nasal #16 g spray,suspension cyclobenzaprine 10 mg PO TID PRN 10/25/20 05/16/21 10/24/20 History hydrocodone-acetaminophen 1 - 2 tab PO Q4H PRN 10/25/20 05/16/21 10/25/20 09:30 History 1/2 tab montelukast 10 mg PO DAILY 10/25/20 05/16/21 05/12/21 History pantoprazole [Protonix] 40 mg PO DAILY PRN 10/25/20 05/16/21 05/12/21 History azelastine 137 mcg (0.1 %) nasal See Rx Instructions .ROUTE 11/21/20 05/16/21 Unknown Rx spray aerosol .COMPLEX #30 ml ibuprofen 200 mg capsule 200 mg PO Q6H PRN 12/05/20 05/16/21 Unknown History ipratropium 0.5 mg-albuterol 3 mg 3 ml INHALATION Q6H PRN #180 ml 03/22/21 05/16/21 Unknown Rx (2.5 mg base)/3 mL nebulization soln gabapentin 600 mg PO TID 03/31/21 05/16/21 05/12/21 History budesonide 0.5 mg INHALATION BID 05/13/21 05/16/21 Unknown History dexamethasone 6 mg PO DAILY #7 tab 05/13/21 05/16/21 Unknown Rx potassium chloride 20 meq PO DAILY 05/13/21 05/16/21 05/12/21 History Allergies Allergy/AdvReac Type Severity Reaction Status Date / Time penicillin G Allergy unknown Verified 03/22/21 13:20 Iodine and Iodide Containing AdvReac ADR-Itching Verified 03/22/21 13:20 Produc PFSH Acute PFSH: Medical History Bilateral lung cancer Brain metastasis Chronic bronchitis with COPD (chronic obstructive pulmonary disease) COPD (chronic obstructive pulmonary disease) Depression Deviated septum Lesion of vocal fold Lung cancer Lung cancer metastatic to brain Nicotine addiction Port-A-Cath in place Postobstructive pneumonia Surgical History History of bronchoscopy History of cataract surgery Family History Other Cancer Social History Second hand smoke exposure: Yes Smoking risk assessment/counseling performed?: Yes Alcohol intake: never Counseling given: No Counseling given: No Lives independently: Yes Household members: none Housing: House Marital status: Current occupational status: disabled History of recent travel: No Current gender identity: Female Vitals/I&O/Wt Last Vital Signs Temp 97.8 F 05/16/21 12:27 Pulse 112 H 05/16/21 16:02 Resp 23 H 05/16/21 16:02 BP 108/65 05/16/21 16:02 Pulse Ox 97 05/16/21 16:02 Weight last 48 hrs Weight 57.153 kg Physical Exam Narrative: EXAM NARRATIVE: Malnourished cachectic female Currently on 50% oxygen mask saturating 95 200% Quickly desaturates on minimal activities Conversational dyspnea Malnourished, cachectic, muscle mass loss Diminished breath sounds Thin extremities Abdomen soft Digital clubbing Dehydration Dry mucous membranes Data : 05/16/21 14:05 05/16/21 14:05 A&P Assessment and plan (1) Non-small cell lung cancer metastatic to brain: Status: Acute (2) Acute exacerbation of chronic obstructive airways disease: Status: Acute (3) DNR (do not resuscitate): Status: Acute (4) Comfort measures only status: Status: Acute Additional A&P Information Acute on chronic hypoxic restaurant failure Conversational dyspnea Severe hypoxia Leukocytosis, tachypnea, tachycardia, hypoxia, sepsis, Non-small cell lung cancer with mets to brain Worsening lung cancer Patient is experiencing recurrent pneumonias, concern for necrotizing pneumonia, complete occlusion of pulmonary artery secondary to mass, left main bronchus involvement She wants comfort measures/hospice Currently on nonrebreather mask, family updated DNR/DNI will allow family members to stay with her overnight Attestations Medical Necessity Statement*: More than 2 midnights anticipated Time Spent in Patient Care: Greater than 35 minutes Coding Level of Care Code Acute Elevator Constructor Hydraulic for Chg Fwd Diagnoses Non-small cell lung cancer metastatic to brain C34.90; C79.31 Acute exacerbation of chronic obstructive airways disease J44.1 DNR (do not resuscitate) Z66 Comfort measures only status Z51.5
[2021-05-16] MEDS: sennosides-docusate Tablet 1 TAB PO (20:41)
[2021-05-16] MEDS: sodium chloride 0.9% 1,000 ML 100 ML IV (20:41)
[2021-05-16] MEDS: clindamycin 150 mg Capsule 300 MG PO (21:16)
[2021-05-16] MEDS: cefepime 2,000 MG in sodium chloride 0.9% (plus) 50 ML 100 MG IV (21:17)
--- NOTE | 2021-05-16 22:16 | PC.NURSE ---
Current orders to place mensah. Patient does not want a mensah placed but said she will instead use a bedpan as needed.
[2021-05-16] MEDS: acetaminophen 325 mg Tablet 650 MG PO (22:39)
[2021-05-17] VITALS (12 sets, daily range): BP systolic 102–112; BP diastolic 65–67; PULSE 93–111; RESP 16–20; TEMP 36.6–36.8; O2SAT 98–100
[2021-05-17] MEDS: morphine 4 mg/mL SDV 1 mL IVP ×9 (01:23→23:45)
--- NOTE | 2021-05-17 01:23 | PC.NURSE ---
i reported high pulse 109 to nurse
[2021-05-17] MEDS: vancomycin 1,250 MG/250 ML PIGGYBACK 250 MG IV (04:03)
[2021-05-17] MEDS: sodium chloride 0.9% 1,000 ML 100 ML IV (08:06)
[2021-05-17] MEDS: morphine 10 mg/0.5 mL oral liq UD SUBLINGUAL (08:57)
--- NOTE | 2021-05-17 09:21 | P.PN_ITS ---
Subjective Subjective: Interval history: Overnight patient was in distress because of pain, with increase her opioid regimen today Talked with the son and her daughter Daughter is leaning towards bringing her home with home hospice, will update discharge planners Family meeting done in a separate room Vitals/I&O/Wt Last Vital Signs Temp 98.2 F 05/17/21 08:00 Pulse 105 H 05/17/21 08:00 Resp 18 05/17/21 08:00 BP 112/67 05/17/21 08:00 Pulse Ox 100 05/17/21 08:00 05/16/21 05/17/21 05/17/21 22:59 06:59 14:59 Intake Total 640 / 640 1750 / 2390 120 / 120 Output Total 340 / 340 Balance 640 / 640 1410 / 2050 120 / 120 Weight last 48 hrs Weight 57.153 kg Weight 57.153 kg Physical Exam Narrative: EXAM NARRATIVE: Patient is sitting upright She gets hypoxic when she tries to speak or eat Hypoxic on minimal daily activities Using respiratory accessory muscles Cachectic, malnourished, dehydrated Soft abdomen No edema of legs Nonfocal neuro exam S1, S2 Data : 05/16/21 14:05 05/16/21 14:05 A&P Assessment and plan (1) Comfort measures only status: Status: Acute (2) Non-small cell lung cancer metastatic to brain: Status: Acute (3) Acute exacerbation of chronic obstructive airways disease: Status: Acute (4) Postobstructive pneumonia: Status: Acute Additional A&P Information Patient does not want to go to any snf, daughter wants to take her home, requesting hospital bed, bedside commode, oxygen, will arrange hospice care at home, update discharge planners Comfort measures Increase her opioid regimen today Continue oxygen as 15 L for now Family meeting conducted, spoke with son, and the daughter, discussed current underlying issues, current diagnosis, prognosis, complications, all questions were answered to their satisfaction, Attestations Medical Necessity Statement*: Discharge home with hospice care likely tomorrow Time Spent in Patient Care: 16 - 35 minutes Coding Level of Care Code Acute Senior Manager Quality Assurance for Brittnyg Fwd Diagnoses Comfort measures only status Z51.5 Non-small cell lung cancer metastatic to brain C34.90; C79.31 Acute exacerbation of chronic obstructive airways disease J44.1 Postobstructive pneumonia J18.9
--- NOTE | 2021-05-17 09:22 | PC.CHAP ---
Pastoral Care Encounter/Spiritual Assessment Type of Contact [] Declined railway signal technician visit [] Patient/Family/Request visit [] Outpatient visit [] Follow-up visit [] Physician referral [] Code/Alert [x] Routine visit [] Staff referral [] Actively dying [] Patient sleeping [] Family support [] [] Out of room [] Palliative care [] [] Receiving care in room [] Pre-surgical visit [] Trauma [] Long length of stay [] ICU visit [] Other: Relational/Emotional Strength [x] Patient feels connected with others/family/visitors/staff [] Distress [] Loneliness/isolation [] Abandonment Spirituality of Patient [x] Person of Denise [] Attends Church of their Denise [x] Believes in Prayer [] Reads Bible or Restoration materials [] There are Spiritual issues to be addressed Office Nurse Practitioner Interventions [x] Prayer [x] Active listening [] Non-anxious presence [] Spiritual/emotional support [] Crisis/trauma care [] Spiritual counseling [] Bereavement support [] Provided bereavement packet [] Provided Bible/devotional materials [] Provided toy/stuffed animal, coloring book to patient or family member [] Provided Communion [] Anointing/[place] [] Salvation [] Completed spiritual assessment [] Other: Impact on Illness or Injury [] Angry [] Fearful [] Anxious [] Often cries [] Exhaustion [] Unable to work [] Unable to attend religious [] Unable to walk/stand [] Unable to read [] Unable to drive [] Unable to eat/drink [] Unable to sleep [] Unable to be with family [] Patient intubated [] Other: Summary Time spent with patient spent time with family last night in er patient seems confused at time 3 hr
[2021-05-17] MEDS: HYDROmorphone 1 mg/mL INJ 1 mL 0.5 MG IVP (11:32)
[2021-05-17] MEDS: morphine ER (12 HR) 30 mg tablet PO (18:05)
[2021-05-17] MEDS: sennosides-docusate Tablet 1 TAB PO (18:06)
[2021-05-18 04:01] VITALS: RESP 16
[2021-05-18] MEDS: morphine 4 mg/mL SDV 1 mL IVP ×6 (04:01→15:33)
[2021-05-18 07:58] VITALS: PULSE 104; RESP 22; O2SAT 98
[2021-05-18] MEDS: sennosides-docusate Tablet 1 TAB PO (08:55)
[2021-05-18] MEDS: morphine ER (12 HR) 30 mg tablet PO (08:55)
--- NOTE | 2021-05-18 09:28 | P.PN_ITS ---
Subjective Subjective: Interval history: Comfort care Patient is stating that with current opioid regimen her pain is under control Family at the bedside Vitals/I&O/Wt Last Vital Signs Temp 97.9 F 05/17/21 20:28 Pulse 104 H 05/18/21 07:58 Resp 22 H 05/18/21 07:58 BP 102/65 05/17/21 20:28 Pulse Ox 98 05/18/21 07:58 05/17/21 05/18/21 05/18/21 22:59 06:59 14:59 Intake Total 1240 / 1360 240 / 1600 480 / 480 Balance 1240 / 960 240 / 1200 480 / 480 Weight last 48 hrs Weight 57.153 kg Weight 57.153 kg Physical Exam Narrative: EXAM NARRATIVE: Frail female Dehydrated Malnourished Emaciated Muscle mass loss S1, S2 Currently on 10 L oxygen mask Hemoglobin PERRLA Nonfocal exam Data : 05/16/21 14:05 05/16/21 14:05 A&P Assessment and plan (1) Comfort measures only status: Plan to discharge her home with comfort/hospice care Status: Acute Attestations Medical Necessity Statement*: Discharge Time Spent in Patient Care: less than 15 minutes Coding Level of Care Code Acute Hose Inspector And Patcher for Will Fwd Diagnoses Comfort measures only status Z51.5
--- NOTE | 2021-05-18 11:27 | PM.DCS ---
Discharge Providers Date of Admission: 05/16/21 16:21 Date of Discharge: May 18, 2021 Attending Provider at Admission: Dave Oconnell MD Attending Provider at Discharge: Dave Oconnell MD Primary Care Provider: Gregory Eduardo DO Diagnoses at Discharge Discharge Diagnosis (1) Comfort measures only status: Status: Acute Reason for Visit Reason for Visit: SOB Hospital Course Hospital Course Patient was admitted for management of worsening hypoxia. She has underlying malignancy with brain metastases. She was given IV antibiotics for necrotic pneumonia. At the time of admission patient decided to pursue comfort measures. Her son came from [facility], her sister lives an hour away, patient and her family in agreement to go home with hospice care. Hospital bed, oxygen and bedside commode arranged. Discharge planners worked diligently to arrange home hospice. Physical Exam Narrative: EXAM NARRATIVE: Patient currently on 10 L oxygen mask S1, S2 Lean Muscle mass loss Malnourished Dehydrated Awake alert Soft abdomen Diminished airflow with rhonchi Answer my questions appropriately Discharge Data Data Completed and Pending: Completed Studies During Hospitalization Category Date Time Status XR chest 1V milly ble [id number] Stat Exams 05/16/21 12:30 Completed Vitals: Last Vital Signs Temp 97.9 F 05/17/21 20:28 Pulse 104 H 05/18/21 07:58 Resp 22 H 05/18/21 07:58 BP 102/65 05/17/21 20:28 Pulse Ox 98 05/18/21 07:58 Discharge Plan Discharge Patient Disposition: Hospice - Home Condition: Stable Prescriptions: New acetaminophen 325 mg Tablet 650 mg PO Q4H PRN (Reason: Temperature greater than 100.5) Qty: 60 RF: 0 morphine 30 mg Tablet Extended Release 30 mg PO BID Qty: 20 RF: 0 Stool Softener-Laxative 8.6-50 mg Tablet 1 tab PO BID Qty: 30 RF: 0 morphine concentrate 100 mg/5 mL (20 mg/mL) solution 10 mg buccal Q3H PRN (Reason: dyspnea) Qty: 118 RF: 0 Discontinued multivitamin [Multiple Vitamins] Tablet 1 tab PO DAILY RF: 0 fluticasone propionate [Flonase Allergy Relief] 50 mcg/actuation spray,suspension 1 spray intranasal DAILY 30 Days Qty: 16 RF: 3 ibuprofen 200 mg capsule 200 mg PO Q6H PRN (Reason: Pain) RF: 0 azelastine 137 mcg (0.1 %) aerosol,spray See Rx Instructions .ROUTE .COMPLEX Qty: 30 RF: 3 ipratropium-albuterol 0.5 mg-3 mg(2.5 mg base)/3 mL solution for nebulization 3 ml inhalation Q6H PRN (Reason: wheezing) Qty: 180 RF: 11 cyclobenzaprine 10 mg Tablet 10 mg PO TID PRN (Reason: Muscle Spasm) RF: 0 hydrocodone-acetaminophen 10-325 mg tablet 1 - 2 tab PO Q4H PRN (Reason: Pain) RF: 0 pantoprazole [Protonix] 40 mg Tablet,Delayed Release (Dr/Ec) 40 mg PO DAILY PRN (Reason: Acid Reflux) RF: 0 montelukast 10 mg tablet 10 mg PO DAILY RF: 0 gabapentin 600 mg Tablet 600 mg PO TID RF: 0 potassium chloride 20 mEq tablet,ER particles/crystals 20 meq PO DAILY RF: 0 budesonide 0.5 mg/2 mL suspension for nebulization 0.5 mg inhalation BID RF: 0 dexamethasone 6 mg tablet 6 mg PO DAILY Qty: 7 RF: 0 Discharge Orders: Discharge Order (Routine); Ordered 05/18/21 Ordered By: Dave Oconnell Referrals: Ivelisse Graham [Other] Discharge Attestations Time Spent in Discharge Care*: less than 30 min Quality Metrics Clinical Quality Measures During this hospital stay, did patient experience: None Coding Level of Care Code Acute Chg FW DC note Diagnoses Comfort measures only status Z51.5
[2021-05-18 11:28] VITALS: BP 133/71; PULSE 102; RESP 18; O2SAT 100
--- NOTE | 2021-07-12 12:01 | PC.SOCIAL ---
Patients ILDA Pryor calls in and states they are trying to get patient into NH and she is requesting referral. Discussed that she would need to reach out to the PCP for referral. Will send H&P, and DC Summary from previous stay in April, but explained that that had been longer than 30days. Notes faxed to [facility].
== END 2021-05-18 15:49 | disposition hospice, home (50) | DRG 871 ==
LOC: ER 13:19 → ICU 17:49 → MEDSURG 18:55
PROVIDERS: Admitting Provider Internal Medicine; Emergency Provider Family Medicine; PCP Family Medicine; Visit Provider Internal Medicine
DX: A41.9 Sepsis, unspecified organism (principal); J85.0 Gangrene and necrosis of lung; J96.21 Acute and chronic respiratory failure with hypoxia; I26.99 Other pulmonary embolism without acute cor pulmonale; C34.12 Malignant neoplasm of upper lobe, left bronchus or lung; C34.11 Malignant neoplasm of upper lobe, right bronchus or lung; C79.31 Secondary malignant neoplasm of brain; J44.1 Chronic obstructive pulmonary disease with (acute) exacerbation; J44.0 Chronic obstructive pulmonary disease with (acute) lower respiratory infection; E46 Unspecified protein-calorie malnutrition; Z51.5 Encounter for palliative care; Z99.81 Dependence on supplemental oxygen; F32.9 Major depressive disorder, single episode, unspecified; Z66 Do not resuscitate; F17.210 Nicotine dependence, cigarettes, uncomplicated; Z87.01 Personal history of pneumonia (recurrent); Z68.22 Body mass index [BMI] 22.0-22.9, adult
CPT/HCPCS: 36600; 71045; 71275; 80051; 80053; 82330; 82805; 85025; 93005; 94664; 96365; 96367; 96374; 96375; 99283; 99285; J0692; J1170; J1200; J1720; J2060; J2270; J2405; J3370; J3490; J7030; J7050; Q9967